=== PATIENT | male | born 1950 | race Two or more races ===

== ENCOUNTER 2016-06-22 09:36 | Emergency (ER) | payer MEDICARE, OTHER ==
[~2016-06-22] VITALS: Ht 167.6 cm; Wt 102.1 kg
[~2016-06-22 09:36] MED LIST: ALBUTEROL SULF8.5 GM INH; ASPIR 8181 MG PO; CARVEDILOL3.125 MG PO; DEXILANT30 MG PO; FUROSEMIDE40 MG PO; GABAPENTIN300 MG PO; LANOXIN125 MCG PO; LEXAPRO10 MG PO; POTASSIUM CHLO10 ME2 PO; SIMVASTATIN40 MG PO; SPIRONOLACTONE25 MG PO; VENTOLIN HFA18 GM INH; VICODIN ES 7.51 EACH PO; ZESTRIL20 MG PO; ZOLPIDEM TARTRAT5 MG PO; diabetes med PO
[2016-06-22] MEDS ORDERED: Aspirin Baby 81mg ORAL ONE (10:00)
[2016-06-22 10:03] VITALS: BP 122/66
[2016-06-22 10:26] LABS: BASOPHILS % (AUTO) 0.8 % (0.0-2.0); LYMPHOCYTES % (AUTO) 14.1 % (20.0-45.0); MEAN CORPUSCULAR HEMOGLOBIN 27.2 PG (27.0-31.0); MEAN CORPUSCULAR HGB CONC 30.8 G/DL (32.0-36.0); MEAN CORPUSCULAR VOLUME 88 FL (80-99); MEAN PLATELET VOLUME 6.6 FL (6.5-10.1); MONOCYTES % (AUTO) 8.9 % (1.0-10.0); NEUTROPHILS % (AUTO) 74.2 % (45.0-75.0); PLATELET COUNT 355 K/UL (150-450); RED BLOOD COUNT 5.55 M/UL (4.70-6.10); RED CELL DISTRIBUTION WIDTH 14.1 % (11.6-14.8)
[2016-06-22 10:42] LABS: ALANINE AMINOTRANSFERASE 18 U/L (3-41); ALBUMIN/GLOBULIN RATIO 1.4 (1.0-2.7); ANION GAP 15 (5-15); ASPARTATE AMINO TRANSFERASE 23 U/L (5-40); CALCIUM 9.3 mg/dL (8.6-10.2); CARBON DIOXIDE 26 mEQ/L (20-30); CHLORIDE 95 mEQ/L (98-107); CREATININE 0.9 mg/dL (0.7-1.2); GLOMERULAR FILTRATION RATE > 60 mL/min (>60); HEMOLYSIS 39; POTASSIUM 4.1 mEQ/L (3.4-4.9); SODIUM 136 mEQ/L (135-145); TOTAL PROTEIN 7.2 g/dL (6.6-8.7); TROPONIN I < 0.30 ng/mL (<=0.30)
[2016-06-22] MEDS ORDERED: Oxycodone/Acetaminophen 5-325 ORAL ONE (10:45)
[2016-06-22 11:25] LABS: CKMB 1.9 ng/mL (< 6.7)
--- NOTE | 2016-06-22 11:39 | Emergency Room Report ---
History of Present Illness General Chief Complaint: Chest Pain Source: Patient Present Illness HPI Patient states that he was walking his dog 2 days ago and he fell because the dog pulled on his right arm. He states that the arm is bothering him and tell the past 24 hours. He states that he has severe pain with movement of his elbow. He also complains of chest pain that occurs at the same time as the pain in the right arm when he moves it. The chest pain is not spontaneous and only occurs with the right arm. He denies cough or congestion. He denies shortness of breath. He denies abdominal pain. He denies nausea or vomiting. He denies tingling or numbness. He denies weakness. He denies fever or chills. He has no other complaints. Allergies: Coded Allergies: No Known Allergies (Verified , 06/29/10) Patient History Past Medical History: see triage record, old chart reviewed, DM, HTN, [place], CAD, CHF, GERD Past Surgical History: pacemaker Social History: Denies: alcohol use, drug use, smoking Reviewed Nursing Documentation: PMH: Agreed, PSxH: Agreed Nursing Documentation-PMH Hx Cardiac Problems: Yes Hx Hypertension: Yes Hx Pacemaker: Yes Hx Asthma: Yes Hx COPD: Yes Hx Diabetes: Yes Hx Cancer: No Hx Gastrointestinal Problems: Yes Hx Neurological Problems: No Review of Systems All Other Systems: negative except mentioned in HPI Physical Exam Vital Signs Date Time Temp Pulse Resp B/P Pulse Ox O2 Delivery O2 Flow Rate FiO2 06/22/16 09:41 98.1 84 20 122/66 92 Room Air Sp02 EP Interpretation: reviewed, normal General Appearance: no apparent distress, alert, GCS 15, non-toxic Head: normocephalic, atraumatic Eyes: bilateral eye PERRL, bilateral eye normal inspection ENT: hearing grossly normal, normal pharynx, no angioedema, normal voice Neck: full range of motion, supple/symm/no masses Respiratory: chest non-tender, lungs clear, normal breath sounds, speaking full sentences Cardiovascular #1: regular rate, rhythm, no edema Gastrointestinal: normal bowel sounds, non tender, soft, non-distended, no guarding, no rebound Rectal: deferred Musculoskeletal: back normal, gait/station normal, normal range of motion, other - +Pain with ROM of R. elbow. TTP along lateral elbow Neurologic: alert, oriented x3, responsive, motor strength/tone normal, sensory intact, speech normal Psychiatric: judgement/insight normal, memory normal, mood/affect normal, no suicidal/homicidal ideation Skin: normal color, no rash, warm/dry, well hydrated Lymphatic: no adenopathy Procedures Splinting Splinting : Consent: Verbal Location: R. elbow Hand-Made Type: plaster Splint: posterior long Pre-Proc Neuro Vasc Exam: normal Post-Proc Neuro Vasc Exam: normal Patient Tolerated: Well Complications: None Medical Decision Making Diagnostic Impression: Primary Impression: Radial head fracture, closed Additional Impression: Elbow fracture, right ER Course This patient presents with a nondisplaced radial head fracture of the right elbow. This is the source of the patient's pain. The patient had also complained of chest pain, however appeared to be in conjunction with movement of the right elbow and right arm. However, given the patient's history of coronary artery disease and congestive heart failure, although, I have low suspicion I did obtain basic labs to include troponin which were unremarkable. This workup is reassuring. The patient was placed in a long-arm splint and instructed to followup closely with orthopedics. At this time I did not identify an emergency medical condition. Patient is given close return precautions and followup instructions. Labs Test 06/22/16 10:00 06/22/16 10:10 White Blood Count 15.0 K/UL (4.8-10.8) Red Blood Count 5.55 M/UL (4.70-6.10) Hemoglobin 15.1 G/DL (14.2-18.0) Hematocrit 49.0 % (42.0-52.0) Mean Corpuscular Volume 88 FL (80-99) Mean Corpuscular Hemoglobin 27.2 PG (27.0-31.0) Mean Corpuscular Hemoglobin Concent 30.8 G/DL (32.0-36.0) Red Cell Distribution Width 14.1 % (11.6-14.8) Platelet Count 355 K/UL (150-450) Mean Platelet Volume 6.6 FL (6.5-10.1) Neutrophils (%) (Auto) 74.2 % (45.0-75.0) Lymphocytes (%) (Auto) 14.1 % (20.0-45.0) Monocytes (%) (Auto) 8.9 % (1.0-10.0) Eosinophils (%) (Auto) 2.0 % (0.0-3.0) Basophils (%) (Auto) 0.8 % (0.0-2.0) Sodium Level 136 mEQ/L (135-145) Potassium Level 4.1 mEQ/L (3.4-4.9) Chloride Level 95 mEQ/L (98-107) Carbon Dioxide Level 26 mEQ/L (20-30) Anion Gap 15 (5-15) Blood Urea Nitrogen 14 mg/dL (7-23) Creatinine 0.9 mg/dL (0.7-1.2) Estimat Glomerular Filtration Rate > 60 mL/min (>60) Glucose Level 151 mg/dL (74-106) Calcium Level 9.3 mg/dL (8.6-10.2) Total Bilirubin 0.4 mg/dL (0.0-1.2) Aspartate Amino Transf (AST/SGOT) 23 U/L (5-40) Alanine Aminotransferase (ALT/SGPT) 18 U/L (3-41) Alkaline Phosphatase 86 U/L (40-129) Total Creatine Kinase 137 U/L (38-174) Creatine Kinase MB 1.9 ng/mL (< 6.7) Creatine Kinase MB Relative Index 1.3 Troponin I < 0.30 ng/mL (<=0.30) Total Protein 7.2 g/dL (6.6-8.7) Albumin 4.3 g/dL (3.5-5.2) Globulin 2.9 g/dL Albumin/Globulin Ratio 1.4 (1.0-2.7) EKG Diagnostic Results Rate: normal Rhythm: NSR ST Segments: no acute changes Other Impression Intraventricular block similar to comparison 11/2015 Rhythm Strip Diag. Results EP Interpretation: yes Rate: 80's Rhythm: NSR, no PVC's, no ectopy Chest X-Ray Diagnostic Results EP Interpretation: Yes Findings: no consolidation, no effusion, no pneumothorax, no acute cardiopulmonary disease Number of Views: 1 Last Vital Signs Date Time Temp Pulse Resp B/P Pulse Ox O2 Delivery O2 Flow Rate FiO2 06/22/16 10:03 84 20 Room Air 06/22/16 10:03 122/66 92 06/22/16 09:41 98.1 Status: improved Disposition: HOME, SELF-CARE Condition: Improved Referrals: Les Lee MD (PCP) RADHA RODRIGUEZ D.O. Jun 22, 2016 11:39
--- NOTE | 2016-06-22 11:58 | Diagnostic Imaging Report ---
Indications: TRAUMA, pain, status post fall Technique: Two views of the right forearm Comparison: None Findings: There is a nondisplaced fracture of the radial head/neck. No shaft fracture demonstrated. No radiopaque foreign body. Impression: Positive for radial head/neck junction fracture Findings discussed by phone with Dr. Thompson in emergency room at time of interpretation
--- NOTE | 2016-06-22 12:22 | Diagnostic Imaging Report ---
Indications:TRAUMA Technique: Three or 4 views of the elbow Comparison: None Findings:There is a joint effusion, manifested by elevation of anterior and posterior fat pads. Findings are suspicious for a nondisplaced fracture of the radial head/neck junction. No other acute fractures. No dislocations. Impression:Suspicious for nondisplaced radial head/neck junction fracture Findings discussed by phone with Dr. Thompson in the emergency room at time of interpretation
[2016-06-22] MEDS ORDERED: VICODIN ES 7.51 EAC1 ORAL (12:45)
[2016-06-22 12:47] VITALS: BP 103/55
--- NOTE | 2016-06-22 16:26 | Diagnostic Imaging Report ---
Indication: Chest pain Technique: One view of the chest Comparison: none Findings: The diaphragm is elevated. The heart is enlarged. Lungs and pleural spaces are clear. There is a left chest biventricular AICD Impression: No acute process Cardio megaly Elevated right hemidiaphragm AICD
--- NOTE | 2016-06-23 15:40 | Cardiology Report ---
APPROVED REPORT EKG Measurement Heart [id number] Sinus rhythm with paced beats. LBBB. Abnormal ECG
== END 2016-06-22 13:15 | disposition home or self-care (01) ==
LOC: EMR 09:53
DX: S52.121A Displaced fracture of head of right radius, initial encounter for closed fracture (principal); R07.9 Chest pain, unspecified; I51.7 Cardiomegaly; Z95.810 Presence of automatic (implantable) cardiac defibrillator; W18.30XA Fall on same level, unspecified, initial encounter; Y93.K1 Activity, walking an animal; Y92.9 Unspecified place or not applicable; I10 Essential (primary) hypertension; J45.909 Unspecified asthma, uncomplicated; J44.9 Chronic obstructive pulmonary disease, unspecified; E11.9 Type 2 diabetes mellitus without complications; I25.2 Old myocardial infarction; I25.10 Atherosclerotic heart disease of native coronary artery without angina pectoris; I50.9 Heart failure, unspecified; K21.9 Gastro-esophageal reflux disease without esophagitis
CPT/HCPCS: 29105; 29240; 36415; 71010; 80053; 82550; 82553; 84484; 85025; 93005; 99284

== ENCOUNTER 2016-09-19 22:26 | Inpatient (IN) | payer MEDICARE, OTHER ==
[~2016-09-19] VITALS: Ht 167.6 cm; Wt 106.6 kg
[~2016-09-19 22:26] MED LIST changes: +VICODIN ES 7.51 EAC1 ORAL
[2016-09-19 22:45] VITALS: BP 120/58
--- NOTE | 2016-09-19 22:45 | Emergency Room Report ---
History of Present Illness General Chief Complaint: Chest Pain Source: Patient Present Illness HPI Patient is a 66-year-old male presented after increased right-sided chest pain. Patient reported having increased pain with movement to his right shoulder. Pain is constant for the past 3 days. Patient prior history of cardiac disease. He had multiple surgeries in the past. Patient previous a pacemaker placement. He had not been vomiting. Patient was noted to have prior pain to his right shoulder. He had taken Kamas without relief. He denied any exertional component. Allergies: Coded Allergies: No Known Allergies (Verified , 06/29/10) Patient History Past Medical History: see triage record Reviewed Nursing Documentation: PMH: Agreed, PSxH: Agreed Nursing Documentation-PMH Past Medical History: No History, Except For Hx Cardiac Problems: Yes Hx Hypertension: Yes Hx Pacemaker: Yes Hx Asthma: Yes Hx COPD: Yes Hx Diabetes: Yes Hx Cancer: No Hx Gastrointestinal Problems: Yes Hx Neurological Problems: No Review of Systems All Other Systems: negative except mentioned in HPI Physical Exam Vital Signs Date Time Temp Pulse Resp B/P Pulse Ox O2 Delivery O2 Flow Rate FiO2 09/19/16 22:31 97.3 83 20 120/58 100 Sp02 EP Interpretation: reviewed, normal General Appearance: normal inspection, well appearing, no apparent distress, alert, GCS 15, non-toxic Head: atraumatic ENT: normal ENT inspection, hearing grossly normal, normal voice Neck: normal inspection, full range of motion, supple, no bony tend Respiratory: normal inspection, lungs clear, normal breath sounds, no respiratory distress, no retraction, no wheezing Cardiovascular #1: regular rate, rhythm, no edema Gastrointestinal: normal inspection, normal bowel sounds, non tender, soft, no guarding, no hernia Genitourinary: no CVA tenderness Musculoskeletal: normal inspection, back normal, normal range of motion Neurologic: normal inspection, alert, responsive, speech normal Psychiatric: normal inspection, judgement/insight normal, mood/affect normal Skin: normal inspection, normal color, no rash Medical Decision Making Diagnostic Impression: Primary Impression: Chest pain Additional Impression: Diabetes mellitus ER Course Patient presented for chest pain. Differential diagnosis included but was not limited to acute coronary syndrome, pulmonary embolism, pneumonia, aortic dissection, shingles, pneumothorax, aortic dissection, esophageal rupture, pericarditis. Because of complexity of patient's case laboratory testing and imaging studies were ordered.Laboratory studies showed elevated white blood count. Patient noted have elevation of the BNP. A chest x-ray one view interpreted by me showed elevation of the right diaphragm without evident infiltrate. Patient was noted to have multiple surgical scars. Patient appeared to be somewhat tender to the right shoulder however given the patient' s elevated white blood count the patient will be admitted for further evaluation and treatment. Dr. Les Lee was contacted for inpatient management Labs Test 09/19/16 22:37 White Blood Count 13.4 K/UL (4.8-10.8) Red Blood Count 5.05 M/UL (4.70-6.10) Hemoglobin 14.9 G/DL (14.2-18.0) Hematocrit 45.5 % (42.0-52.0) Mean Corpuscular Volume 90 FL (80-99) Mean Corpuscular Hemoglobin 29.5 PG (27.0-31.0) Mean Corpuscular Hemoglobin Concent 32.7 G/DL (32.0-36.0) Red Cell Distribution Width 13.2 % (11.6-14.8) Platelet Count 345 K/UL (150-450) Mean Platelet Volume 6.5 FL (6.5-10.1) Neutrophils (%) (Auto) 67.1 % (45.0-75.0) Lymphocytes (%) (Auto) 24.2 % (20.0-45.0) Monocytes (%) (Auto) 4.9 % (1.0-10.0) Eosinophils (%) (Auto) 3.2 % (0.0-3.0) Basophils (%) (Auto) 0.5 % (0.0-2.0) Prothrombin Time 9.9 SEC (9.30-11.50) Prothromb Time International Ratio 0.9 (0.9-1.1) Activated Partial Thromboplast Time 25 SEC (23-33) Sodium Level 139 mEQ/L (135-145) Potassium Level 3.8 mEQ/L (3.4-4.9) Chloride Level 100 mEQ/L (98-107) Carbon Dioxide Level 27 mEQ/L (20-30) Anion Gap 12 (5-15) Blood Urea Nitrogen 14 mg/dL (7-23) Creatinine 0.9 mg/dL (0.7-1.2) Estimat Glomerular Filtration Rate > 60 mL/min (>60) Glucose Level 198 mg/dL (74-106) Calcium Level 9.9 mg/dL (8.6-10.2) Total Bilirubin < 0.2 mg/dL (0.0-1.2) Aspartate Amino Transf (AST/SGOT) 18 U/L (5-40) Alanine Aminotransferase (ALT/SGPT) 18 U/L (3-41) Alkaline Phosphatase 98 U/L (40-129) Total Creatine Kinase 91 U/L (38-174) Creatine Kinase MB 1.7 ng/mL (< 6.7) Creatine Kinase MB Relative Index 1.8 Troponin I < 0.30 ng/mL (<=0.30) Pro-B-Type Natriuretic Peptide 578 pg/mL (0-125) Total Protein 7.2 g/dL (6.6-8.7) Albumin 4.2 g/dL (3.5-5.2) Globulin 3.0 g/dL Albumin/Globulin Ratio 1.4 (1.0-2.7) Digoxin Level 0.4 ng/mL (0.5-2.0) EKG Diagnostic Results Rate: tachycardiac ST Segments: no acute changes Rhythm Strip Diag. Results EP Interpretation: yes Rhythm: NSR, no PVC's, no ectopy Last Vital Signs Date Time Temp Pulse Resp B/P Pulse Ox O2 Delivery O2 Flow Rate FiO2 09/19/16 22:31 97.3 83 20 120/58 100 Status: unchanged Disposition: ADMITTED INPATIENT Condition: Serious Anam Doan Sep 19, 2016 22:45
[2016-09-19 22:58] LABS: BASOPHILS % (AUTO) 0.5 % (0.0-2.0); EOSINOPHILS % (AUTO) 3.2 % (0.0-3.0); LYMPHOCYTES % (AUTO) 24.2 % (20.0-45.0); MEAN CORPUSCULAR HEMOGLOBIN 29.5 PG (27.0-31.0); MEAN CORPUSCULAR HGB CONC 32.7 G/DL (32.0-36.0); MEAN CORPUSCULAR VOLUME 90 FL (80-99); MEAN PLATELET VOLUME 6.5 FL (6.5-10.1); MONOCYTES % (AUTO) 4.9 % (1.0-10.0); NEUTROPHILS % (AUTO) 67.1 % (45.0-75.0); PLATELET COUNT 345 K/UL (150-450); RED BLOOD COUNT 5.05 M/UL (4.70-6.10); RED CELL DISTRIBUTION WIDTH 13.2 % (11.6-14.8); WHITE BLOOD COUNT 13.4 K/UL (4.8-10.8)
[2016-09-19] MEDS ORDERED: Famotidine 20 MG/ 2ML VIAL IVP ONE (23:00)
[2016-09-19] MEDS ORDERED: Morphine Sulfate 4mg/ml Inj IVP ONE (23:00)
[2016-09-19 23:04] LABS: INR 0.9 (0.9-1.1); PROTHROMBIN TIME 9.9 SEC (9.30-11.50)
[2016-09-19 23:18] LABS: TROPONIN I < 0.30 ng/mL (<=0.30)
[2016-09-19 23:21] LABS: ALANINE AMINOTRANSFERASE 18 U/L (3-41); ALBUMIN/GLOBULIN RATIO 1.4 (1.0-2.7); ANION GAP 12 (5-15); ASPARTATE AMINO TRANSFERASE 18 U/L (5-40); CALCIUM 9.9 mg/dL (8.6-10.2); CARBON DIOXIDE 27 mEQ/L (20-30); CHLORIDE 100 mEQ/L (98-107); CREATININE 0.9 mg/dL (0.7-1.2); GLOMERULAR FILTRATION RATE > 60 mL/min (>60); HEMOLYSIS 7; POTASSIUM 3.8 mEQ/L (3.4-4.9); SODIUM 139 mEQ/L (135-145); TOTAL PROTEIN 7.2 g/dL (6.6-8.7)
[2016-09-19 23:32] LABS: CKMB 1.7 ng/mL (< 6.7); DIGOXIN 0.4 ng/mL (0.5-2.0)
[2016-09-19 23:52] VITALS: BP 104/54
[2016-09-19] MEDS ORDERED: INVOKANA300 MG PO (23:52)
[2016-09-20] VITALS (8 sets, daily range): BP systolic 99–136; BP diastolic 54–74
[2016-09-20] MEDS ORDERED: Miralax 17gm pkt ORAL PRN (07:15)
[2016-09-20] MEDS ORDERED: Diltiazem 25mg/5ml IV PRN (07:15)
[2016-09-20] MEDS ORDERED: Ketorolac 30mg Inj IV PRN (07:15)
[2016-09-20] MEDS ORDERED: Enalaprilat 2.5mg/2ml Inj IV PRN (07:15)
[2016-09-20] MEDS ORDERED: Nitroglycerin Subl 0.4mg tab (Bottle Of 25) SL PRN (07:15)
[2016-09-20] MEDS ORDERED: DuoNeb 0.5-3(2.5)mg/3ml neb HHN PRN (07:15)
[2016-09-20 07:50] LABS: BASOPHILS % (AUTO) 1.1 % (0.0-2.0); EOSINOPHILS % (AUTO) 3.2 % (0.0-3.0); MEAN CORPUSCULAR HEMOGLOBIN 29.3 PG (27.0-31.0); MEAN CORPUSCULAR HGB CONC 31.9 G/DL (32.0-36.0); MEAN CORPUSCULAR VOLUME 92 FL (80-99); MEAN PLATELET VOLUME 7.2 FL (6.5-10.1); MONOCYTES % (AUTO) 9.7 % (1.0-10.0); PLATELET COUNT 315 K/UL (150-450); RED BLOOD COUNT 4.96 M/UL (4.70-6.10); RED CELL DISTRIBUTION WIDTH 13.2 % (11.6-14.8); WHITE BLOOD COUNT 12.3 K/UL (4.8-10.8)
[2016-09-20 08:06] LABS: TROPONIN I < 0.30 ng/mL (<=0.30)
[2016-09-20 08:33] LABS: ALANINE AMINOTRANSFERASE 16 U/L (3-41); ALBUMIN/GLOBULIN RATIO 1.8 (1.0-2.7); ANION GAP 11 (5-15); ASPARTATE AMINO TRANSFERASE 18 U/L (5-40); CALCIUM 9.9 mg/dL (8.6-10.2); CARBON DIOXIDE 28 mEQ/L (20-30); CHLORIDE 101 mEQ/L (98-107); CREATININE 1.2 mg/dL (0.7-1.2); GLOMERULAR FILTRATION RATE > 60 mL/min (>60); HEMOLYSIS 13; POTASSIUM 4.7 mEQ/L (3.4-4.9); SODIUM 140 mEQ/L (135-145); TOTAL PROTEIN 6.6 g/dL (6.6-8.7)
[2016-09-20] MEDS: Aspirin Baby 81mg ORAL SCH (08:44)
[2016-09-20] MEDS: Morphine Sulfate 2mg/ml Inj IVP PRN (08:45)
[2016-09-20] MEDS: Lisinopril 20mg tab ORAL SCH (08:45)
[2016-09-20] MEDS: Heparin 5000 units/ml inj SUBQ SCH ×2 (08:47→22:01)
[2016-09-20] MEDS: Digoxin 0.125mg tab ORAL SCH (10:00)
--- NOTE | 2016-09-20 11:12 | Consultation ---
History of Present Illness General Date patient seen: Sep 20, 2016 Chief Complaint: Chest Pain Referring physician: Dr. anglin Reason for Consultation: chest pain Present Illness HPI 66-year-old male with hx of pace maker, obesity, DM, presented after increased right-sided chest pain. Patient reported having increased pain with movement to his right shoulder. Pain is constant for the past 3 days. He also complaining of abdominal pain. He had not been vomiting. C/O of neck pain radiating to right shoulder. . Allergies: Coded Allergies: No Known Allergies (Verified , 06/29/10) Medication History Scheduled Albuterol Sulfate* (Albuterol Sulfate Mdi*), 2 PUFF INH HS, (Reported) Aspirin* (Aspir 81*), 81 MG PO DAILY, (Reported) Carvedilol* (Carvedilol*), 3.125 MG PO Q12HR, (Reported) Dexlansoprazole (Dexilant), 60 MG PO DAILY, (Reported) Digoxin* (Lanoxin*), 125 MCG PO DAILY, (Reported) Escitalopram Oxalate* (Lexapro*), 10 MG PO DAILY, (Reported) Furosemide* (Lasix*), 40 MG PO DAILY, (Reported) Lisinopril* (Zestril*), 20 MG PO DAILY, (Reported) Potassium Chloride (Potassium Chloride), 10 MEQ PO DAILY, (Reported) Simvastatin (Zocor), 40 MG PO QHS, (Reported) Spironolactone* (Aldactone*), 25 MG PO DAILY, (Reported) [diabetes med], Unknown Dose PO BID, (Reported) Scheduled PRN Gabapentin* (Gabapentin*), 300 MG PO TID PRN, (Reported) Hydrocodone Bit/Acetaminophen 7.5-300 Mg Tabl (Vicodin Es 7.5-300 Mg Tablet), 1 TAB ORAL Q4H PRN for For Pain Hydrocodone/Acetaminophen 7.5-750 (Vicodin Es 7.5-750), 1 TAB PO Q8H PRN, ( Reported) Zolpidem Tartrate* (Zolpidem Tartrate*), 5 MG PO BEDTIME PRN, (Reported) Miscellaneous Medications Canagliflozin (Invokana), 300 MG PO, (Reported) Patient History Healthcare decision maker Resuscitation status Full Code Advanced Directive on File Past Medical/Surgical History Past Medical/Surgical History: (1) Diabetes mellitus (2) COPD (chronic obstructive pulmonary disease) (3) Depression Review of Systems All Other Systems: negative except mentioned in HPI Physical Exam General Appearance: WD/WN, overweight, morbidly obese Lines, tubes and drains: peripheral HEENT: normocephalic, anicteric Respiratory/Chest: chest wall non-tender, lungs clear Cardiovascular/Chest: normal peripheral pulses, normal rate Abdomen: normal bowel sounds, non tender Genitourinary/Rectal: normal genital exam, normal rectal exam Extremities: normal range of motion, non-tender Skin Exam: normal pigmentation Last 24 Hour Vital Signs Date Time Temp Pulse Resp B/P Pulse Ox O2 Delivery O2 Flow Rate FiO2 09/20/16 10:00 65 09/20/16 08:45 127/64 09/20/16 08:45 70 127/64 09/20/16 07:42 97.7 70 20 127/64 95 Room Air 09/20/16 04:00 64 09/20/16 04:00 97.6 61 19 99/62 95 Room Air 09/20/16 02:45 96.4 73 20 114/55 97 Room Air 09/20/16 02:27 97.3 75 15 108/54 94 Room Air 09/20/16 01:48 97.3 75 15 108/54 94 Room Air 09/19/16 23:52 97.3 80 21 104/54 94 Room Air 09/19/16 22:45 77 19 Room Air 09/19/16 22:45 97.3 79 19 120/58 95 Room Air 09/19/16 22:31 97.3 83 20 120/58 100 Intake and Output 09/19/16 09/20/16 19:00 07:00 Intake Total 0 ml Output Total 0 ml Balance 0 ml Other 0 ml Output Urine Total 0 ml Laboratory Tests Test 09/19/16 22:37 09/20/16 07:30 White Blood Count 13.4 K/UL (4.8-10.8) H 12.3 K/UL (4.8-10.8) H Red Blood Count 5.05 M/UL (4.70-6.10) 4.96 M/UL (4.70-6.10) Hemoglobin 14.9 G/DL (14.2-18.0) 14.5 G/DL (14.2-18.0) Hematocrit 45.5 % (42.0-52.0) 45.5 % (42.0-52.0) Mean Corpuscular Volume 90 FL (80-99) 92 FL (80-99) Mean Corpuscular Hemoglobin 29.5 PG (27.0-31.0) 29.3 PG (27.0-31.0) Mean Corpuscular Hemoglobin Concent 32.7 G/DL (32.0-36.0) 31.9 G/DL (32.0-36.0) L Red Cell Distribution Width 13.2 % (11.6-14.8) 13.2 % (11.6-14.8) Platelet Count 345 K/UL (150-450) 315 K/UL (150-450) Mean Platelet Volume 6.5 FL (6.5-10.1) 7.2 FL (6.5-10.1) Neutrophils (%) (Auto) 67.1 % (45.0-75.0) 65.0 % (45.0-75.0) Lymphocytes (%) (Auto) 24.2 % (20.0-45.0) 21.0 % (20.0-45.0) Monocytes (%) (Auto) 4.9 % (1.0-10.0) 9.7 % (1.0-10.0) Eosinophils (%) (Auto) 3.2 % (0.0-3.0) H 3.2 % (0.0-3.0) H Basophils (%) (Auto) 0.5 % (0.0-2.0) 1.1 % (0.0-2.0) Prothrombin Time 9.9 SEC (9.30-11.50) Prothromb Time International Ratio 0.9 (0.9-1.1) Activated Partial Thromboplast Time 25 SEC (23-33) Sodium Level 139 mEQ/L (135-145) 140 mEQ/L (135-145) Potassium Level 3.8 mEQ/L (3.4-4.9) 4.7 mEQ/L (3.4-4.9) Chloride Level 100 mEQ/L (98-107) 101 mEQ/L (98-107) Carbon Dioxide Level 27 mEQ/L (20-30) 28 mEQ/L (20-30) Anion Gap 12 (5-15) 11 (5-15) Blood Urea Nitrogen 14 mg/dL (7-23) 22 mg/dL (7-23) Creatinine 0.9 mg/dL (0.7-1.2) 1.2 mg/dL (0.7-1.2) Estimat Glomerular Filtration Rate > 60 mL/min (>60) > 60 mL/min (>60) Glucose Level 198 mg/dL (74-106) H 152 mg/dL (74-106) H Calcium Level 9.9 mg/dL (8.6-10.2) 9.9 mg/dL (8.6-10.2) Total Bilirubin < 0.2 mg/dL (0.0-1.2) 0.2 mg/dL (0.0-1.2) Aspartate Amino Transf (AST/SGOT) 18 U/L (5-40) 18 U/L (5-40) Alanine Aminotransferase (ALT/SGPT) 18 U/L (3-41) 16 U/L (3-41) Alkaline Phosphatase 98 U/L (40-129) 88 U/L (40-129) Total Creatine Kinase 91 U/L (38-174) Creatine Kinase MB 1.7 ng/mL (< 6.7) Creatine Kinase MB Relative Index 1.8 Troponin I < 0.30 ng/mL (<=0.30) < 0.30 ng/mL (<=0.30) Pro-B-Type Natriuretic Peptide 578 pg/mL (0-125) H Total Protein 7.2 g/dL (6.6-8.7) 6.6 g/dL (6.6-8.7) Albumin 4.2 g/dL (3.5-5.2) 4.3 g/dL (3.5-5.2) Globulin 3.0 g/dL 2.3 g/dL Albumin/Globulin Ratio 1.4 (1.0-2.7) 1.8 (1.0-2.7) Digoxin Level 0.4 ng/mL (0.5-2.0) L Height (Feet): 5 Height (Inches): 6.00 Weight (Pounds): 228 Medications Current Medications Medications (Trade) Dose Ordered Sig/Sandy Route PRN Reason Start Time Stop Time Status Last Admin Dose Admin Acetaminophen (Tylenol) 650 mg Q4H PRN ORAL FEVER 09/20/16 07:15 10/20/16 07:14 Albuterol/ Ipratropium (DuoNeb 0.5-3(2.5)mg/3ml) 3 ml Q4H PRN HHN Shortness of Breath 09/20/16 07:15 09/25/16 07:14 Aspirin (ASA) 162 mg DAILY ORAL 09/20/16 09:00 10/20/16 08:59 09/20/16 08:44 Carvedilol (Coreg) 3.125 mg Q12HR ORAL 09/20/16 09:00 10/20/16 08:59 09/20/16 08:45 Dextrose (Dextrose 50%) STAT PRN IV Hypoglycemia 09/20/16 02:00 10/20/16 01:59 Dextrose (Dextrose 50%) STAT PRN IV Hypoglycemia 09/20/16 11:00 10/20/16 10:59 UNV Digoxin (Lanoxin) 0.125 mg DAILY ORAL 09/20/16 09:30 10/20/16 09:29 09/20/16 10:00 Diltiazem HCl (Cardizem) 10 mg Q1H PRN IV heart rate more than 120, 09/20/16 07:15 10/20/16 07:14 Enalaprilat (Vasotec) 2.5 mg Q6H PRN IV sbp more than 160 09/20/16 07:15 10/20/16 07:14 Escitalopram Oxalate (Lexapro) 10 mg DAILY ORAL 09/20/16 09:00 10/20/16 08:59 09/20/16 10:00 Furosemide (Lasix) 40 mg DAILY ORAL 09/21/16 09:00 10/21/16 08:59 UNV Gabapentin (Neurontin) 300 mg TID ORAL 09/20/16 09:00 10/20/16 08:59 09/20/16 08:45 Heparin Sodium (Porcine) (Heparin 5000 units/ml) 5,000 units EVERY 12 HOURS SUBQ 09/20/16 09:00 10/20/16 08:59 09/20/16 08:47 Insulin Aspart (NovoLOG) BEFORE MEALS AND HS SUBQ 09/20/16 11:30 10/20/16 11:29 UNV Ketorolac Tromethamine (Toradol 30mg) 30 mg Q6H PRN IV moderate pain ( 4-6) 09/20/16 07:15 09/25/16 07:14 Lisinopril (Prinivil) 20 mg DAILY ORAL 09/20/16 09:00 10/20/16 08:59 09/20/16 08:45 Morphine Sulfate (Morphine Sulfate) 2 mg Q4H PRN IVP severe Pain (Pain Scale 7-10) 09/20/16 07:15 09/27/16 07:14 09/20/16 08:45 Nitroglycerin (Ntg) 0.4 mg Q5M PRN SL Prn Chest Pain 09/20/16 07:15 10/20/16 07:14 Ondansetron HCl (Zofran) 4 mg Q6H PRN IVP Nausea & Vomiting 09/20/16 07:15 10/20/16 07:14 Pantoprazole (Protonix) 40 mg DAILY ORAL 09/20/16 09:00 10/20/16 08:59 09/20/16 08:44 Polyethylene Glycol (Miralax) 17 gm DAILYPRN PRN ORAL Constipation 09/20/16 07:15 10/20/16 07:14 Spironolactone (Aldactone) 25 mg DAILY ORAL 09/21/16 09:00 10/21/16 08:59 UNV Assessment/Plan Problem List: (1) Chest pain ICD Codes: R07.9 - Chest pain, unspecified SNOMED: 83032252 (2) Neck pain ICD Codes: M54.2 - Cervicalgia SNOMED: 40617991 (3) Abdominal pain ICD Codes: R10.9 - Unspecified abdominal pain SNOMED: 36216517 (4) Pacemaker ICD Codes: Z95.0 - Presence of cardiac pacemaker SNOMED: 147396555, 337347788 (5) Leukocytosis ICD Codes: D72.829 - Elevated white blood cell count, unspecified SNOMED: 516040816, 346486546 (6) Diaphragm paralysis ICD Codes: J98.6 - Disorders of diaphragm SNOMED: 48312743 (7) Diabetes mellitus ICD Codes: E11.9 - Type 2 diabetes mellitus without complications SNOMED: 97925411 (8) COPD (chronic obstructive pulmonary disease) ICD Codes: J44.9 - COPD (chronic obstructive pulmonary disease) SNOMED: 22051903 Assessment/Plan CT of neck ( can't do MRI because of pacemaker) urine analysis to rule out UTI, b/o leukocytosis abdominal US Echo hold lasix for bp lower than 120 ( no apparent fluid overload) siding scale diabetic diet. HENRI RM Sep 20, 2016 11:12
--- NOTE | 2016-09-20 11:47 | Diagnostic Imaging Report ---
Indication: SOB Technique: One view of the chest Comparison: 06/22/2016 Findings: Right hemidiaphragm remains elevated. Lungs and pleural spaces are otherwise clear. The heart is borderline enlarged. There is a left chest biventricular AICD. Findings are unchanged Impression: No acute process. Findings as noted
[2016-09-20] MEDS: NovoLOG Insulin Flexpen SUBQ SCH ×3 (12:00→21:00)
--- NOTE | 2016-09-20 12:01 | Cardiology Report ---
APPROVED REPORT EKG Measurement Heart [id number] P34 [id number] AV sequential pacemaker Abnormal ECG
--- NOTE | 2016-09-20 12:13 | Cardiology Report ---
APPROVED REPORT EXAM: Two-dimensional and M-mode echocardiogram with Doppler and color Doppler. INDICATION LV function M-Mode DIMENSIONS IVSd1.2 (0.7-1.1cm)Left Atrium (MM)4.4 (1.6-4.0cm) LVDd5.6 (3.5-5.6cm)Aortic Root4.1 (2.0-3.7cm) PWd1.0 (0.7-1.1cm)Aortic Cusp Exc.1.5 (1.5-2.0cm) LVDs3.9 (2.5-4.0cm) PWs1.7 cm Other Information Technically limited study due to poor acoustical windows. Normal left ventricular chamber size, systolic function and wall motion to extent visualized. Left ventricular ejection fraction estimated to be 55 %. Study quality precludes accurate assessment of regional wall motion. Moderate left ventricular hypertrophy by 2-D. Anterior Echo-free space, may be due to pericardial fat or effusion. Left and right atrial sizes at upper limits of normal. Focal aortic valve sclerosis with adequate cusp excursion. Thickened mitral valve leaflets with normal excursion. Mitral annulus and aortic root calcification. Pulmonic valve not well visualized. Normal tricuspid valve structure. IVC at normal size with physiologic collapse. Pacemaker wire present in the right side chambers. A color flow and spectral Doppler study was performed and revealed: Trace mitral regurgitation. Mitral diastolic velocities suggest reduced left ventricular relaxation c/w mild LV diastolic dysfunction (Grade I ). Trace tricuspid regurgitation. Tricuspid systolic velocities suggests peak right ventricular systolic pressure of 26 mmHg.
--- NOTE | 2016-09-20 12:58 | Diagnostic Imaging Report ---
Indication: PAIN, cervical radiculopathy x4 days Technique: Spiral acquisitions obtained through the cervical spine. No IV contrast utilized. Multiplanar reconstructions were generated. Total dose length product 869 mGycm. CTDIvol(s) 39 mGy. Dose reduction achieved using automated exposure control Comparison: None Findings: There is convexity to the right on the coronal images, probably artifact of positioning. Bony alignment is otherwise normal. No acute fractures. No dislocations. Vertebral body heights are preserved. There is thickening and calcification of the posterior axial ligament. There is degenerative narrowing of the anterior atlantoaxial joint. At C2-3, no significant disc space narrowing, disc bulge or protrusion, spinal stenosis, or neural foraminal stenosis. There is mild degeneration of the left facet. At C3-4, no significant disc bulge or protrusion. There is minimal left neural foraminal stenosis due to facet degeneration. There is also mild facet degeneration on the right. The disc space is preserved. At C4-5, no significant disc bulge or protrusion or disc space narrowing. There is minimal right, mild to moderate left neural foraminal stenosis. There is bilateral facet degeneration, worse on the left. The disc space is preserved At C5-6, no significant disc bulge or protrusion or disc space narrowing. There are small posterior osteophytes which could impinge on the lateral recesses bilaterally, PT on the right There is mild to moderate bilateral neural foraminal stenosis. There is facet degeneration on the left. The disc space is preserved. At C6-7, there is degenerative disc space narrowing. No significant disc bulge or protrusion. There are posterior osteophytes which could impinge slightly on the lateral recesses. There is moderate to severe right, moderate left neural foraminal stenosis. There is bilateral facet degeneration. At C7-T1, no significant disc space narrowing, disc bulge or protrusion, spinal stenosis, or neural foramina stenosis The included extraspinal soft tissues are unremarkable. Impression: Degenerative changes, as detailed on a level by level basis above No acute bony trauma The CT scanner at [facility] is accredited by the [employer] and the scans are performed using protocols designed to limit radiation exposure to as low as reasonably achievable to attain images of sufficient resolution adequate for diagnostic evaluation.
--- NOTE | 2016-09-20 15:52 | Cardiac Electrophysiology PN ---
Subjective Subjective Patient seen and dictated. [id number] 1. Atypical chest pain.Ruled out for myocardial infarction. History of previous angioplasty. Reschedule Nuclear stress test. 2. Status post [employer] biventricular defibrillator implantation. Will reinterrogate. 3. Severe cardiomyopathy with EF only 20%. Resume Coreg 3.125 mg b.i.d., lisinopril 20 mg daily, Lasix 40 mg daily, Aldactone 50 mg daily and digoxin 0.125 mg daily. 4. Hyperlipidemia on Lipitor. 5. Coronary artery disease on aspirin and Coreg and Lipitor. 6. Type 2 diabetes. 7. Chronic obstructive pulmonary disease. DW RN Objective Last 24 Hour Vital Signs Date Time Temp Pulse Resp B/P Pulse Ox O2 Delivery O2 Flow Rate FiO2 09/20/16 15:29 97.1 68 20 116/61 94 Room Air 09/20/16 12:00 67 09/20/16 11:28 96.1 65 20 123/71 94 Room Air 09/20/16 10:00 65 09/20/16 08:45 127/64 09/20/16 08:45 70 127/64 09/20/16 08:00 77 09/20/16 07:42 97.7 70 20 127/64 95 Room Air 09/20/16 04:00 64 09/20/16 04:00 97.6 61 19 99/62 95 Room Air 09/20/16 02:45 96.4 73 20 114/55 97 Room Air 09/20/16 02:27 97.3 75 15 108/54 94 Room Air 09/20/16 01:48 97.3 75 15 108/54 94 Room Air 09/19/16 23:52 97.3 80 21 104/54 94 Room Air 09/19/16 22:45 77 19 Room Air 09/19/16 22:45 97.3 79 19 120/58 95 Room Air 09/19/16 22:31 97.3 83 20 120/58 100 Intake and Output 09/19/16 09/20/16 19:00 07:00 Intake Total 0 ml Output Total 0 ml Balance 0 ml Other 0 ml Output Urine Total 0 ml Laboratory Tests Test 09/19/16 22:37 09/20/16 07:30 White Blood Count 13.4 K/UL (4.8-10.8) H 12.3 K/UL (4.8-10.8) H Red Blood Count 5.05 M/UL (4.70-6.10) 4.96 M/UL (4.70-6.10) Hemoglobin 14.9 G/DL (14.2-18.0) 14.5 G/DL (14.2-18.0) Hematocrit 45.5 % (42.0-52.0) 45.5 % (42.0-52.0) Mean Corpuscular Volume 90 FL (80-99) 92 FL (80-99) Mean Corpuscular Hemoglobin 29.5 PG (27.0-31.0) 29.3 PG (27.0-31.0) Mean Corpuscular Hemoglobin Concent 32.7 G/DL (32.0-36.0) 31.9 G/DL (32.0-36.0) L Red Cell Distribution Width 13.2 % (11.6-14.8) 13.2 % (11.6-14.8) Platelet Count 345 K/UL (150-450) 315 K/UL (150-450) Mean Platelet Volume 6.5 FL (6.5-10.1) 7.2 FL (6.5-10.1) Neutrophils (%) (Auto) 67.1 % (45.0-75.0) 65.0 % (45.0-75.0) Lymphocytes (%) (Auto) 24.2 % (20.0-45.0) 21.0 % (20.0-45.0) Monocytes (%) (Auto) 4.9 % (1.0-10.0) 9.7 % (1.0-10.0) Eosinophils (%) (Auto) 3.2 % (0.0-3.0) H 3.2 % (0.0-3.0) H Basophils (%) (Auto) 0.5 % (0.0-2.0) 1.1 % (0.0-2.0) Prothrombin Time 9.9 SEC (9.30-11.50) Prothromb Time International Ratio 0.9 (0.9-1.1) Activated Partial Thromboplast Time 25 SEC (23-33) Sodium Level 139 mEQ/L (135-145) 140 mEQ/L (135-145) Potassium Level 3.8 mEQ/L (3.4-4.9) 4.7 mEQ/L (3.4-4.9) Chloride Level 100 mEQ/L (98-107) 101 mEQ/L (98-107) Carbon Dioxide Level 27 mEQ/L (20-30) 28 mEQ/L (20-30) Anion Gap 12 (5-15) 11 (5-15) Blood Urea Nitrogen 14 mg/dL (7-23) 22 mg/dL (7-23) Creatinine 0.9 mg/dL (0.7-1.2) 1.2 mg/dL (0.7-1.2) Estimat Glomerular Filtration Rate > 60 mL/min (>60) > 60 mL/min (>60) Glucose Level 198 mg/dL (74-106) H 152 mg/dL (74-106) H Calcium Level 9.9 mg/dL (8.6-10.2) 9.9 mg/dL (8.6-10.2) Total Bilirubin < 0.2 mg/dL (0.0-1.2) 0.2 mg/dL (0.0-1.2) Aspartate Amino Transf (AST/SGOT) 18 U/L (5-40) 18 U/L (5-40) Alanine Aminotransferase (ALT/SGPT) 18 U/L (3-41) 16 U/L (3-41) Alkaline Phosphatase 98 U/L (40-129) 88 U/L (40-129) Total Creatine Kinase 91 U/L (38-174) Creatine Kinase MB 1.7 ng/mL (< 6.7) Creatine Kinase MB Relative Index 1.8 Troponin I < 0.30 ng/mL (<=0.30) < 0.30 ng/mL (<=0.30) Pro-B-Type Natriuretic Peptide 578 pg/mL (0-125) H Total Protein 7.2 g/dL (6.6-8.7) 6.6 g/dL (6.6-8.7) Albumin 4.2 g/dL (3.5-5.2) 4.3 g/dL (3.5-5.2) Globulin 3.0 g/dL 2.3 g/dL Albumin/Globulin Ratio 1.4 (1.0-2.7) 1.8 (1.0-2.7) Digoxin Level 0.4 ng/mL (0.5-2.0) NITZA LAI Sep 20, 2016 15:52
--- NOTE | 2016-09-20 15:55 | History & Physical ---
History and Physical History & Physicial Dictated for Int Med-Dr Lee no. [id number]. MOLLY AGUILAR Sep 20, 2016 15:55
[2016-09-21] MEDS: Morphine Sulfate 2mg/ml Inj IVP PRN ×2 (00:41→15:37)
[2016-09-21 04:15] VITALS: BP 128/64
[2016-09-21] MEDS: NovoLOG Insulin Flexpen SUBQ SCH ×4 (06:26→20:32)
--- NOTE | 2016-09-21 06:30 | History and Physical Report ---
DATE OF ADMISSION: 09/20/2016 CHIEF COMPLAINT: The patient is a 66-year-old male, presents with chief complaint of chest pain. HISTORY OF PRESENT ILLNESS: It began three days prior to admission. The patient began to experience right-sided chest pain. Chest pain radiates to the right shoulder. The patient presented to [place] emergency room. An initial troponin level was negative. The patient was admitted for chest pain to rule out acute coronary syndrome. PAST MEDICAL HISTORY: Significant for 1. Type 2 diabetes. 2. Hypertension. 3. Hypercholesterolemia. 4. Chronic obstructive pulmonary disease. 5. Chronic low back pain. PAST SURGICAL HISTORY: Significant for pacemaker implantation in 2014 at [facility]. CURRENT MEDICATIONS: 1. Albuterol metered dose inhaler two puffs p.o. q.i.d. p.r.n. 2. Aspirin 81 mg one tablet p.o. daily. 3. Invokana 300 mg one tablet p.o. daily. 4. Coreg 3.125 mg one tablet p.o. twice daily. 5. Dexilant 60 mg one tablet p.o. daily. 6. Digoxin 0.125 mg one tablet p.o. daily. 7. Lexapro 10 mg one tablet p.o. daily. 8. Lasix 40 mg one tablet p.o. daily. 9. Gabapentin 300 mg one tablet p.o. three times daily. 10. [place] 7.5/300 p.r.n. 11. Lisinopril 20 mg one tablet p.o. daily. 12. Potassium chloride 10 mEq one tablet p.o. daily. 13. Zocor 40 mg one tablet p.o. nightly. 14. Spironolactone 25 mg one tablet p.o. daily. 15. Ambien 5 mg one tablet p.o. nightly. ALLERGIES: No known drug allergies. SOCIAL HISTORY: The patient is and lives with his . The patient is retired. The patient denies tobacco use having quit 20 years previously. The patient denies alcohol use. REVIEW OF SYSTEMS: Constitutional: The patient denies weight loss or weight gain. The patient denies fevers or chills. HEENT: The patient denies ear or throat pain. Cardiovascular: The patient complains of right-sided chest pain as above. The patient denies palpitations. Chest: The patient denies wheeze or shortness of breath. Abdomen: The patient denies nausea, vomiting, diarrhea or constipation. Genitourinary: The patient denies dysuria or increased frequency of urination. Neuromuscular: The patient denies seizures or generalized weakness. PHYSICAL EXAMINATION: VITAL SIGNS: Temperature 96.1, pulse 65, blood pressure 122/61, and respirations 20. GENERAL: The patient is well-developed, well-nourished, slightly obese male, in no apparent distress. HEENT: Eyes, pupils are equal and responsive to light and accommodation. Extraocular movements are intact. NECK: Supple without lymphadenopathy. CHEST: Lungs are clear to auscultation bilaterally without wheezes or rales. CARDIOVASCULAR: Regular rhythm and rate. S1 and S2 normal without murmurs, rubs, or gallops. ABDOMEN: Soft, nontender, and nondistended. Positive bowel sounds. No evidence of hepatosplenomegaly. Currently, no rebound or guarding noted. EXTREMITIES: Negative for clubbing, cyanosis, or edema. RECTAL: Refused. GENITAL: Refused. NEUROLOGIC: Cranial nerves II through XII are grossly intact without focal deficits. Motor strength is 5/5 bilaterally. Deep tendon reflexes are 2+ plantar. LABORATORY STUDIES: WBC 13.4, hemoglobin 14.9, hematocrit 45.5, and platelets 345,000. Sodium 139, potassium 3.8, chloride 100, CO2 27, BUN 14, creatinine 0.9, and glucose 198. ASSESSMENT: This is a 66-year-old male with: 1. Chest pain. 2. Right shoulder pain. 3. Diabetes, type 2. 4. Hypertension. 5. Hypercholesterolemia. 6. Chronic obstructive pulmonary disease. 7. Chronic low back pain. TREATMENT: 1. Chest pain/right shoulder pain. This is probably noncardiac in nature. A Cardiology consultation was obtained with Dr. Will Kern. Serial troponin levels will be performed. We will follow recommendations of Cardiology. The patient does have a history of pacemaker implantation. 2. Diabetes type 2. Continue Invokana as above. A regular insulin sliding scale has been instituted. 3. Hypertension. Continue Coreg and lisinopril as above. 4. Hypercholesterolemia. Continue Lipitor as above. 5. Chronic obstructive pulmonary disease. A Pulmonary consultation was obtained with Dr. Autumn Frost. 6. Chronic low back pain. Kevin Flores M.D. DR: LÁZARO JOB#: [id number] CC:
--- NOTE | 2016-09-21 07:16 | History and Physical Report ---
DATE OF ADMISSION: 09/20/2016 NOTE: DICTATION ABRUPTLY ENDED CHIEF COMPLAINT: The patient is a 66-year-old male, who presents with chief complaint of chest pain. HISTORY OF PRESENT ILLNESS: Began on 09/19/2016. The patient began to experience right-sided chest pain. Chest pain radiated to his right shoulder. The patient states the pain started approximately three days ago. The patient states that it is worse over the last couple of days. The patient presents to [place] emergency room. On admission, troponin level was negative. The patient was admitted for chest pain to rule out acute coronary syndrome. PAST MEDICAL HISTORY: REVIEW OF SYSTEMS: Constitutional: The patient denies weight loss or weight gain. The patient denies fevers or chills. HEENT: The patient denies ear or throat pain. . Cardiovascular: The patient complains of chest pain as above. The patient denies palpitation. Chest: The patient denies wheeze or shortness of breath. Abdomen: The patient denies nausea, vomiting, diarrhea, or constipation. Genitourinary: The patient denies dysuria or increased frequency of urination. Neuromuscular: The patient denies seizures or generalized weakness. Kevin Flores M.D. DR: PRABHAKAR JOB#: [id number] CC:
[2016-09-21 07:30] LABS: ANION GAP 10 (5-15); CALCIUM 9.3 mg/dL (8.6-10.2); CARBON DIOXIDE 29 mEQ/L (20-30); CHLORIDE 100 mEQ/L (98-107); CREATININE 0.7 mg/dL (0.7-1.2); GLOMERULAR FILTRATION RATE > 60 mL/min (>60); HEMOLYSIS 3; POTASSIUM 4.3 mEQ/L (3.4-4.9); SODIUM 139 mEQ/L (135-145)
--- NOTE | 2016-09-21 07:45 | Consultation ---
DATE OF CONSULTATION: 09/20/2016 CARDIOLOGY CONSULTATION CONSULTING PHYSICIAN: Will Kern M.D. REFERRING PHYSICIAN: Les Lee M.D. REASON FOR CONSULTATION: Chest pain. The patient has history of congestive heart failure and defibrillator. HISTORY OF PRESENT ILLNESS: The patient is a 66-year-old gentleman with history of hypertension and severe cardiomyopathy, ejection fraction of 20% as well as history of [employer]io biventricular defibrillator implantation. The patient also has morbid obesity and diabetes, who presents to the emergency room with increasing right-sided chest pain with radiation to the right shoulder. The pain has been constant for the last three days. The patient was also complaining of abdominal pain, but without nausea or vomiting. The patient's EKG showed a ventricular paced rhythm. First set of cardiac enzymes were negative. A cardiology consultation was obtained for further evaluation and management. PAST MEDICAL HISTORY: 1. History of severe cardiomyopathy with ejection fraction only 20%. 2. History of [employer]io biventricular defibrillator implantation. 3. Hyperlipidemia. 4. History of coronary artery disease. 5. Diabetes. 6. Morbid obesity. 7. COPD. SOCIAL HISTORY: He lives at home. Does not smoke or drink alcohol. FAMILY HISTORY: Noncontributory. REVIEW OF SYSTEMS: Review of systems was performed and was negative other than what was mentioned in the history of present illness. PHYSICAL EXAMINATION: VITAL SIGNS: Show blood pressure is 116/61, pulse 60, respirations 20, and temperature 97.1. HEAD AND NECK: Shows no JVD. LUNGS: Clear. CARDIOVASCULAR: Shows regular S1 and S2 with no gallop. Defibrillator is in the subclavian. ABDOMEN: Soft. EXTREMITIES: There is 1+ pitting edema. LABORATORY DATA: Show white count of 12.2, hemoglobin 14.5, hematocrit 45.5, and platelet count of 315,000. Sodium 140, potassium 4.7, BUN of 22, creatinine 1.2, and glucose of 152. Troponin is negative x2. ASSESSMENT AND PLAN: 1. Chest pain. The patient will be ruled out for myocardial infarction by serial cardiac enzymes. His EKG is paced and is unchanged from prior EKG. We will schedule the patient for nuclear stress test for further evaluation and management. 2. History of [employer] biventricular defibrillator implantation. We will interrogate defibrillator. 3. History of severe cardiomyopathy with ejection fraction only 20%. We will repeat echocardiogram. Resume the patient's Coreg 3.125 mg b.i.d., lisinopril 20 mg daily, Lasix 40 mg IV daily, digoxin 0.125 mg daily, and Aldactone 50 mg daily. 4. Coronary artery disease history, on aspirin, Coreg, and Lipitor. 5. Hyperlipidemia. 6. . 7. Type 2 diabetes. 8. Chronic obstructive pulmonary disease. 9. Morbid obesity. Thank you very much, Dr. Lee, for allowing me to participate in the care of this patient. Please do not hesitate to contact me for any questions regarding my evaluation. Will Kern M.D. DR: MARYA JOB#: [id number] CC:
[2016-09-21 07:54] LABS: BASOPHILS % (AUTO) 1.1 % (0.0-2.0); EOSINOPHILS % (AUTO) 4.4 % (0.0-3.0); LYMPHOCYTES % (AUTO) 26.4 % (20.0-45.0); MEAN CORPUSCULAR HEMOGLOBIN 28.6 PG (27.0-31.0); MEAN CORPUSCULAR HGB CONC 31.5 G/DL (32.0-36.0); MEAN CORPUSCULAR VOLUME 91 FL (80-99); MONOCYTES % (AUTO) 6.9 % (1.0-10.0); NEUTROPHILS % (AUTO) 61.3 % (45.0-75.0); PLATELET COUNT 356 K/UL (150-450); RED BLOOD COUNT 5.09 M/UL (4.70-6.10); WHITE BLOOD COUNT 11.7 K/UL (4.8-10.8)
[2016-09-21 08:00] VITALS: BP 137/74
[2016-09-21 08:07] LABS: TROPONIN I < 0.30 ng/mL (<=0.30)
[2016-09-21 08:17] LABS: CHOLESTEROL/HDL RATIO 7.6 (3.3-4.4); CRP QUANT 0.8 mg/dL (< 0.5)
[2016-09-21 08:19] LABS: THYROID STIMULATING HORMONE 5.36 uIU/mL (0.300-4.500)
[2016-09-21] MEDS: Aspirin Baby 81mg ORAL SCH (09:06)
[2016-09-21] MEDS: Lisinopril 20mg tab ORAL SCH (09:08)
[2016-09-21] MEDS: Digoxin 0.125mg tab ORAL SCH (09:09)
[2016-09-21] MEDS: Heparin 5000 units/ml inj SUBQ SCH ×2 (09:13→20:33)
--- NOTE | 2016-09-21 09:44 | Pulmonology Progress Note ---
Assessment/Plan Problems: (1) Chest pain (2) Neck pain (3) Abdominal pain (4) Pacemaker (5) Leukocytosis (6) Diaphragm paralysis (7) Diabetes mellitus (8) COPD (chronic obstructive pulmonary disease) Assessment/Plan CT neck reviewed pt is asking for [place] Echo showed severe cardiomyopathy wbc decreasing Pt was npo for US of abdomen, which was being done. Subjective ROS Limited/Unobtainable: No Interval Events: less pain Allergies: Coded Allergies: No Known Allergies (Verified , 06/29/10) Objective Last 24 Hour Vital Signs Date Time Temp Pulse Resp B/P Pulse Ox O2 Delivery O2 Flow Rate FiO2 09/21/16 09:09 64 09/21/16 09:08 137/74 09/21/16 09:08 64 137/74 09/21/16 07:27 69 16 Room Air 09/21/16 04:15 98.0 76 16 128/64 95 09/21/16 04:14 72 09/21/16 00:56 98.0 09/20/16 23:23 72 09/20/16 23:20 98.0 20 128/72 96 Room Air 09/20/16 21:00 72 136/72 09/20/16 20:37 20 136/74 95 Room Air 09/20/16 20:23 72 09/20/16 20:00 70 20 Room Air 21 09/20/16 16:00 73 09/20/16 15:29 97.1 68 20 116/61 94 Room Air 09/20/16 12:00 67 09/20/16 11:28 96.1 65 20 123/71 94 Room Air 09/20/16 10:00 65 Intake and Output 09/20/16 09/21/16 19:00 07:00 Intake Total 800 ml 240 ml Balance 800 ml 240 ml Intake Oral 800 ml 240 ml # Voids 4 General Appearance: WD/WN, no acute distress HEENT: normocephalic, atraumatic Respiratory/Chest: chest wall non-tender, lungs clear Cardiovascular: normal peripheral pulses, normal rate, no JVD Abdomen: normal bowel sounds, soft, non tender Extremities: no clubbing Skin: no rash, no lesions, no ulcers 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: 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 grossly normal Lymphatic: no neck adenopathy Laboratory Tests 09/21/16 07:00: White Blood Count 11.7H, Red Blood Count 5.09, Hemoglobin 14.6, Hematocrit 46.3 , Mean Corpuscular Volume 91, Mean Corpuscular Hemoglobin 28.6, Mean Corpuscular Hemoglobin Concent 31.5L, Red Cell Distribution Width 13.0, Platelet Count 356, Mean Platelet Volume 6.0L, Neutrophils (%) (Auto) 61.3, Lymphocytes (%) (Auto) 26.4, Monocytes (%) (Auto) 6.9, Eosinophils (%) (Auto) 4.4H, Basophils (%) (Auto) 1.1, Prothrombin Time 10.0, Prothromb Time International Ratio 1.0, Activated Partial Thromboplast Time 27, Sodium Level 139, Potassium Level 4.3, Chloride Level 100, Carbon Dioxide Level 29, Anion Gap 10, Blood Urea Nitrogen 16, Creatinine 0.7, Estimat Glomerular Filtration Rate > 60, Glucose Level 115H, Calcium Level 9.3, Troponin I < 0.30, C-Reactive Protein, Quantitative 0.8H, Triglycerides Level 251H, Cholesterol Level 235H, LDL Cholesterol 154H, HDL Cholesterol 31, Cholesterol/HDL Ratio 7.6H, Thyroid Stimulating Hormone (TSH) 5.360H Current Medications Medications (Trade) Dose Ordered Sig/Sandy Route PRN Reason Start Time Stop Time Status Last Admin Dose Admin Acetaminophen (Tylenol) 650 mg Q4H PRN ORAL FEVER 09/20/16 07:15 10/20/16 07:14 09/20/16 23:57 Albuterol/ Ipratropium (DuoNeb 0.5-3(2.5)mg/3ml) 3 ml Q4H PRN HHN Shortness of Breath 09/20/16 07:15 09/25/16 07:14 Aspirin (ASA) 162 mg DAILY ORAL 09/20/16 09:00 10/20/16 08:59 09/21/16 09:06 Carvedilol (Coreg) 3.125 mg Q12HR ORAL 09/20/16 09:00 10/20/16 08:59 09/21/16 09:08 Dextrose (Dextrose 50%) STAT PRN IV Hypoglycemia 09/20/16 02:00 10/20/16 01:59 Digoxin (Lanoxin) 0.125 mg DAILY ORAL 09/20/16 09:30 10/20/16 09:29 09/21/16 09:09 Diltiazem HCl (Cardizem) 10 mg Q1H PRN IV heart rate more than 120, 09/20/16 07:15 10/20/16 07:14 Enalaprilat (Vasotec) 2.5 mg Q6H PRN IV sbp more than 160 09/20/16 07:15 10/20/16 07:14 Escitalopram Oxalate (Lexapro) 10 mg DAILY ORAL 09/20/16 09:00 10/20/16 08:59 09/21/16 09:09 Furosemide (Lasix) 40 mg DAILY IV 09/21/16 09:00 10/21/16 08:59 09/21/16 09:06 Gabapentin (Neurontin) 300 mg TID ORAL 09/20/16 09:00 10/20/16 08:59 09/21/16 09:06 Heparin Sodium (Porcine) (Heparin 5000 units/ml) 5,000 units EVERY 12 HOURS SUBQ 09/20/16 09:00 10/20/16 08:59 09/21/16 09:13 Insulin Aspart (NovoLOG) BEFORE MEALS AND HS SUBQ 09/20/16 12:00 10/20/16 11:59 Lisinopril (Prinivil) 20 mg DAILY ORAL 09/20/16 09:00 10/20/16 08:59 09/21/16 09:08 Morphine Sulfate (Morphine Sulfate) 2 mg Q4H PRN IVP severe Pain (Pain Scale 7-10) 09/20/16 07:15 09/27/16 07:14 09/21/16 00:41 Nitroglycerin (Ntg) 0.4 mg Q5M PRN SL Prn Chest Pain 09/20/16 07:15 10/20/16 07:14 Ondansetron HCl (Zofran) 4 mg Q6H PRN IVP Nausea & Vomiting 09/20/16 07:15 10/20/16 07:14 Pantoprazole (Protonix) 40 mg DAILY ORAL 09/20/16 09:00 10/20/16 08:59 09/21/16 09:10 Polyethylene Glycol (Miralax) 17 gm DAILYPRN PRN ORAL Constipation 09/20/16 07:15 10/20/16 07:14 Spironolactone (Aldactone) 25 mg DAILY ORAL 09/21/16 12:00 10/21/16 11:59 HENRI MR Sep 21, 2016 09:44
[2016-09-21] MEDS ORDERED: Norco 10mg/325mg tab ORAL PRN (10:00)
[2016-09-21 12:00] VITALS: BP 130/68
[2016-09-21] MEDS ORDERED: Furosemide 40mg tab ORAL SCH (12:00)
--- NOTE | 2016-09-21 12:19 | Diagnostic Imaging Report ---
Indication:Abdominal pain Technique: Grayscale and duplex Doppler imaging of the abdomen performed. Comparison: None Findings: The liver is echogenic and appears enlarged measuring about 20 cm. The demonstrated part of the pancreas, gallbladder, aorta and IVC and spleen appear unremarkable. Bilateral renal cysts are present. For example there is a 3.4 CM cyst in the right kidney and a 2.5 CM cyst in the lower pole left kidney. There is no biliary ductal dilatation identified. CBD is 3 mm. Doppler evaluation of the main portal vein shows patency. There is no ascites. No hydronephrosis seen. Impression: Hepatomegaly with fatty infiltration. Bilateral renal cysts
[2016-09-21] MEDS: Spironolactone 25mg tab ORAL SCH (12:29)
[2016-09-21 16:00] VITALS: BP 113/59
--- NOTE | 2016-09-21 16:46 | GI Initial Consult Note ---
Yuliya Castellanos N.P. 09/21/16 1646: History of Present Illness General Date patient seen: Sep 21, 2016 Time patient seen: 16:34 Reason for Hospitalization: Chest Pain Referring physician: Dr. anglin Reason for Consultation: ABDOMINAL PAIN Present Illness HPI Patient is a 66-year-old male presented after increased right-sided chest pain. Patient reported having increased pain with movement to his right shoulder. Pain is constant for the past 3 days. Patient prior history of cardiac disease. He had multiple surgeries in the past. Patient previous a pacemaker placement. He had not been vomiting. Patient was noted to have prior pain to his right shoulder. He had taken [place] without relief. He denied any exertional component. GI Consult. HPI as noted above. GI consulted for abdominal pain. Pt seen on floor, awake A&Ox4 NAD with no active s/sx of N/V/D. Pt states he currently has no abdominal pain. The pain is more directed to back and spine. The patient presents today with leukocytosis. Abdominal U/S reviewed unremarkable. The patient has history of colonic polyps with last procedure in 2013, see summary below. Denies any other GI symptoms. Endoscopy Procedure Note Indication for Procedure: screening colon, GERD Procedures Performed: EGD, colonoscopy Operative Findings/Diagnosis: 10 polyps, gastritis JASWINDER BEAVERS - Dec 03, 2013 10:07 Home Meds Active Scripts Hydrocodone Bit/Acetaminophen 7.5-300 Mg Tabl (VICODIN ES 7.5-300 MG TABLET) 1 Each Tablet, 1 TAB ORAL Q4H Y for For Pain, #30 TAB 0 Refills Prov:RADHA RODRIGUEZ D.O. 06/22/16 Reported Medications Canagliflozin (INVOKANA) 300 Mg Tablet, 300 MG PO, TAB 09/19/16 [diabetes med] No Conflict Check, PO BID 12/03/13 Albuterol Sulfate* (ALBUTEROL SULFATE MDI*) 8.5 Gm Hfa.aer.ad, 2 PUFF INH HS, # 1 INH 05/13/12 Carvedilol* (CARVEDILOL*) 3.125 Mg Tablet, 3.125 MG PO Q12HR 05/11/12 Dexlansoprazole (Dexilant) 30 Mg Pb., 60 MG PO DAILY 05/11/12 Simvastatin (ZOCOR) 40 Mg Tablet, 40 MG PO QHS 05/11/12 Zolpidem Tartrate* (ZOLPIDEM TARTRATE*) 5 Mg Tablet, 5 MG PO BEDTIME Y 05/11/12 Escitalopram Oxalate* (LEXAPRO*) 10 Mg Tablet, 10 MG PO DAILY, #10 TAB Take 1 tablet by mouth every day. 05/11/12 Hydrocodone/Acetaminophen 7.5-750 (VICODIN ES 7.5-750) 1 Each Tablet, 1 TAB PO Q8H Y, #30 TAB 05/11/12 Gabapentin* (GABAPENTIN*) 300 Mg Capsule, 300 MG PO TID Y, #21 CAP 05/11/12 Aspirin* (ASPIR 81*) 81 Mg Tablet.dr, 81 MG PO DAILY 05/11/12 Furosemide* (LASIX*) 40 Mg Tablet, 40 MG PO DAILY, #10 TAB Take 1 tablet by mouth daily 05/11/12 Lisinopril* (ZESTRIL*) 20 Mg Tablet, 20 MG PO DAILY, #10 TAB Take 1 tablet by mouth every day. 05/11/12 Digoxin* (LANOXIN*) 125 Mcg Tablet, 125 MCG PO DAILY, #10 TAB Take 1 tablet by mouth every day. 05/11/12 Spironolactone* (ALDACTONE*) 25 Mg Tablet, 25 MG PO DAILY 05/11/12 Potassium Chloride (POTASSIUM CHLORIDE) 10 Meq Tab.er.prt, 10 MEQ PO DAILY 05/11/12 Med list reviewed/reconciled: Yes Allergies: Coded Allergies: No Known Allergies (Verified , 06/29/10) Patient History History Provided By: Patient, Medical Record [facility] Narrative Past Medical History: No History, Except For Hx Cardiac Problems: Yes Hx Hypertension: Yes Hx Pacemaker: Yes Hx Asthma: Yes Hx COPD: Yes Hx Diabetes: Yes Hx Cancer: No Hx Gastrointestinal Problems: Yes Hx Neurological Problems: No Social History: Reports: alcohol use - social use Review of Systems All Other Systems: negative except mentioned in HPI Physical Exam Vital Signs Date Time Temp Pulse Resp B/P Pulse Ox O2 Delivery O2 Flow Rate FiO2 09/19/16 22:31 97.3 83 20 120/58 100 09/19/16 22:45 Room Air 09/20/16 20:00 21 Sp02 EP Interpretation: reviewed Labs Laboratory Tests Test 09/21/16 07:00 White Blood Count 11.7 K/UL (4.8-10.8) H Red Blood Count 5.09 M/UL (4.70-6.10) Hemoglobin 14.6 G/DL (14.2-18.0) Hematocrit 46.3 % (42.0-52.0) Mean Corpuscular Volume 91 FL (80-99) Mean Corpuscular Hemoglobin 28.6 PG (27.0-31.0) Mean Corpuscular Hemoglobin Concent 31.5 G/DL (32.0-36.0) L Red Cell Distribution Width 13.0 % (11.6-14.8) Platelet Count 356 K/UL (150-450) Mean Platelet Volume 6.0 FL (6.5-10.1) L Neutrophils (%) (Auto) 61.3 % (45.0-75.0) Lymphocytes (%) (Auto) 26.4 % (20.0-45.0) Monocytes (%) (Auto) 6.9 % (1.0-10.0) Eosinophils (%) (Auto) 4.4 % (0.0-3.0) H Basophils (%) (Auto) 1.1 % (0.0-2.0) Prothrombin Time 10.0 SEC (9.30-11.50) Prothromb Time International Ratio 1.0 (0.9-1.1) Activated Partial Thromboplast Time 27 SEC (23-33) Sodium Level 139 mEQ/L (135-145) Potassium Level 4.3 mEQ/L (3.4-4.9) Chloride Level 100 mEQ/L (98-107) Carbon Dioxide Level 29 mEQ/L (20-30) Anion Gap 10 (5-15) Blood Urea Nitrogen 16 mg/dL (7-23) Creatinine 0.7 mg/dL (0.7-1.2) Estimat Glomerular Filtration Rate > 60 mL/min (>60) Glucose Level 115 mg/dL (74-106) H Calcium Level 9.3 mg/dL (8.6-10.2) Troponin I < 0.30 ng/mL (<=0.30) C-Reactive Protein, Quantitative 0.8 mg/dL (< 0.5) H Triglycerides Level 251 mg/dL (< 150) H Cholesterol Level 235 mg/dL (< 200) H LDL Cholesterol 154 mg/dL (60-99) H HDL Cholesterol 31 mg/dL (> 60) Cholesterol/HDL Ratio 7.6 (3.3-4.4) H Thyroid Stimulating Hormone (TSH) 5.360 uIU/mL (0.300-4.500) General Appearance: well appearing, no apparent distress, alert Head: normocephalic EENT: normal ENT inspection Neck: full range of motion, supple Respiratory: normal breath sounds, no respiratory distress Cardiovascular: normal rate Gastrointestinal: normal inspection, non tender, soft Rectal: deferred Genitourinary: normal inspection Musculoskeletal: other - back pain Neurologic: normal inspection, alert, oriented x3, responsive Psychiatric: normal inspection Skin: normal inspection, normal color, no rash, warm/dry, palpation normal Lymphatic: normal inspection, no adenopathy Current Medications Current Medications Medications (Trade) Dose Ordered Sig/Sandy Route PRN Reason Start Time Stop Time Status Last Admin Dose Admin Acetaminophen (Tylenol) 650 mg Q4H PRN ORAL FEVER 09/20/16 07:15 10/20/16 07:14 09/20/16 23:57 Acetaminophen/ Hydrocodone Bitart ([place] 10/325) 1 ea Q4H PRN ORAL Moderate Pain (Pain Scale 4-6) 09/21/16 10:00 09/28/16 09:59 Albuterol/ Ipratropium (DuoNeb 0.5-3(2.5)mg/3ml) 3 ml Q4H PRN HHN Shortness of Breath 09/20/16 07:15 09/25/16 07:14 Aspirin (ASA) 162 mg DAILY ORAL 09/20/16 09:00 10/20/16 08:59 09/21/16 09:06 Carvedilol (Coreg) 3.125 mg Q12HR ORAL 09/20/16 09:00 10/20/16 08:59 09/21/16 09:08 Dextrose (Dextrose 50%) STAT PRN IV Hypoglycemia 09/20/16 02:00 10/20/16 01:59 Digoxin (Lanoxin) 0.125 mg DAILY ORAL 09/20/16 09:30 10/20/16 09:29 09/21/16 09:09 Diltiazem HCl (Cardizem) 10 mg Q1H PRN IV heart rate more than 120, 09/20/16 07:15 10/20/16 07:14 Enalaprilat (Vasotec) 2.5 mg Q6H PRN IV sbp more than 160 09/20/16 07:15 10/20/16 07:14 Escitalopram Oxalate (Lexapro) 10 mg DAILY ORAL 09/20/16 09:00 10/20/16 08:59 09/21/16 09:09 Furosemide (Lasix) 40 mg DAILY IV 09/21/16 09:00 10/21/16 08:59 09/21/16 09:06 Gabapentin (Neurontin) 300 mg TID ORAL 09/20/16 09:00 10/20/16 08:59 09/21/16 12:36 Heparin Sodium (Porcine) (Heparin 5000 units/ml) 5,000 units EVERY 12 HOURS SUBQ 09/20/16 09:00 10/20/16 08:59 09/21/16 09:13 Insulin Aspart (NovoLOG) BEFORE MEALS AND HS SUBQ 09/20/16 12:00 10/20/16 11:59 09/21/16 12:24 Lisinopril (Prinivil) 20 mg DAILY ORAL 09/20/16 09:00 10/20/16 08:59 09/21/16 09:08 Morphine Sulfate (Morphine Sulfate) 2 mg Q4H PRN IVP severe Pain (Pain Scale 7-10) 09/20/16 07:15 09/27/16 07:14 09/21/16 15:37 Nitroglycerin (Ntg) 0.4 mg Q5M PRN SL Prn Chest Pain 09/20/16 07:15 10/20/16 07:14 Ondansetron HCl (Zofran) 4 mg Q6H PRN IVP Nausea & Vomiting 09/20/16 07:15 10/20/16 07:14 Pantoprazole (Protonix) 40 mg DAILY ORAL 09/20/16 09:00 10/20/16 08:59 09/21/16 09:10 Polyethylene Glycol (Miralax) 17 gm DAILYPRN PRN ORAL Constipation 09/20/16 07:15 10/20/16 07:14 Spironolactone (Aldactone) 25 mg DAILY ORAL 09/21/16 12:00 10/21/16 11:59 09/21/16 12:29 GI: Plan Problems: (1) Abdominal pain (2) Pacemaker (3) Multiple colon polyps Plan s/p EGD/colonoscopy in 2014 with colonic polyps x 10, gastritis stable H&H abdominal U/S reviewed >> hepatomegaly, otherwise unremarkable recommend patient to have repeat colonoscopy given hx of multiple polyps >> patient will require cardiac clearance prior procedure. CLD tomorrow am for possible colonoscopy if still inpatient, otherwise outpatient. pain mgmt regular diet bowel regime >> colace + miralax ppi fu labs Discussed with Dr. Beavers. Thank you for referring this patient, we will follow. JASWINDER BEAVERS 09/24/16 0913: History of Present Illness General Reason for Hospitalization: Chest Pain Present Illness Home Meds Active Scripts Hydrocodone Bit/Acetaminophen 7.5-300 Mg Tabl (VICODIN ES 7.5-300 MG TABLET) 1 Each Tablet, 1 TAB ORAL Q4H Y for For Pain, #30 TAB 0 Refills Prov:RADHA RODRIGUEZ D.O. 06/22/16 Reported Medications Canagliflozin (INVOKANA) 300 Mg Tablet, 300 MG PO, TAB 09/19/16 [diabetes med] No Conflict Check, PO BID 12/03/13 Albuterol Sulfate* (ALBUTEROL SULFATE MDI*) 8.5 Gm Hfa.aer.ad, 2 PUFF INH HS, # 1 INH 05/13/12 Carvedilol* (CARVEDILOL*) 3.125 Mg Tablet, 3.125 MG PO Q12HR 05/11/12 Dexlansoprazole (Dexilant) 30 Mg Cap.mp, 60 MG PO DAILY 05/11/12 Simvastatin (ZOCOR) 40 Mg Tablet, 40 MG PO QHS 05/11/12 Zolpidem Tartrate* (ZOLPIDEM TARTRATE*) 5 Mg Tablet, 5 MG PO BEDTIME Y 05/11/12 Escitalopram Oxalate* (LEXAPRO*) 10 Mg Tablet, 10 MG PO DAILY, #10 TAB Take 1 tablet by mouth every day. 05/11/12 Hydrocodone/Acetaminophen 7.5-750 (VICODIN ES 7.5-750) 1 Each Tablet, 1 TAB PO Q8H Y, #30 TAB 05/11/12 Gabapentin* (GABAPENTIN*) 300 Mg Capsule, 300 MG PO TID Y, #21 CAP 2/28/13 Aspirin* (ASPIR 81*) 81 Mg Tablet.dr, 81 MG PO DAILY 05/11/12 Furosemide* (LASIX*) 40 Mg Tablet, 40 MG PO DAILY, #10 TAB Take 1 tablet by mouth daily 05/11/12 Lisinopril* (ZESTRIL*) 20 Mg Tablet, 20 MG PO DAILY, #10 TAB Take 1 tablet by mouth every day. 05/11/12 Digoxin* (LANOXIN*) 125 Mcg Tablet, 125 MCG PO DAILY, #10 TAB Take 1 tablet by mouth every day. 05/11/12 Spironolactone* (ALDACTONE*) 25 Mg Tablet, 25 MG PO DAILY 05/11/12 Potassium Chloride (POTASSIUM CHLORIDE) 10 Meq Tab.er.prt, 10 MEQ PO DAILY 05/11/12 Allergies: Coded Allergies: No Known Allergies (Verified , 06/29/10) GI: Plan Plan The patient was seen and examined at bedside and all new and available data was reviewed in the patients chart. I agree with the above findings, impression and plan. (Patient seen earlier today. Signature stamp does not reflect patient encounter time.). -Nohemi Li MDh Bigg [place] Sep 21, 2016 16:46 JASWINDER BEAVERS Sep 24, 2016 09:13
--- NOTE | 2016-09-21 17:27 | Cardiac Electrophysiology PN ---
Assessment/Plan Status Narrative Normal left ventricular chamber size, systolic function and wall motion to extent visualized. Left ventricular ejection fraction estimated to be 55 %. Study quality precludes accurate assessment of regional wall motion. Moderate left ventricular hypertrophy by 2-D. Anterior Echo-free space, may be due to pericardial fat or effusion. Left and right atrial sizes at upper limits of normal. Focal aortic valve sclerosis with adequate cusp excursion. Thickened mitral valve leaflets with normal excursion. Mitral annulus and aortic root calcification. Pulmonic valve not well visualized. Normal tricuspid valve structure. IVC at normal size with physiologic collapse. Pacemaker wire present in the right side chambers. Assessment/Plan 1. Atypical chest pain.Ruled out for myocardial infarction. History of previous angioplasty. Nuclear stress test pending. 2. Status post [employer] [place] biventricular defibrillator implantation. Interrogation pending. 3. Severe cardiomyopathy with EF only 20%. Repeat Echo EF 55%!Continue Coreg 3.125 mg b.i.d., lisinopril 20 mg daily, Lasix 40 mg daily, Aldactone 25 mg daily and digoxin 0.125 mg daily. 4. Hyperlipidemia on Lipitor. 5. Coronary artery disease on aspirin and Coreg and Lipitor. 6. Type 2 diabetes. 7. Chronic obstructive pulmonary disease. DW RN Subjective Subjective Feeling better.No chest pain or SOB. Objective Last 24 Hour Vital Signs Date Time Temp Pulse Resp B/P Pulse Ox O2 Delivery O2 Flow Rate FiO2 09/21/16 16:07 97.9 09/21/16 16:00 97.9 75 18 113/59 97 Room Air 09/21/16 12:00 97.9 70 18 130/68 98 Room Air 09/21/16 12:00 77 09/21/16 09:09 64 09/21/16 09:08 137/74 09/21/16 09:08 64 137/74 09/21/16 08:00 73 09/21/16 08:00 97.9 60 18 137/74 95 Room Air 09/21/16 07:27 69 16 Room Air 09/21/16 04:15 98.0 76 16 128/64 95 09/21/16 04:14 72 09/21/16 00:56 98.0 09/20/16 23:23 72 09/20/16 23:20 98.0 20 128/72 96 Room Air 7/10/17 21:00 72 136/72 09/20/16 20:37 20 136/74 95 Room Air 09/20/16 20:23 72 09/20/16 20:00 70 20 Room Air 21 Intake and Output 09/20/16 09/21/16 19:00 07:00 Intake Total 800 ml 240 ml Balance 800 ml 240 ml Intake Oral 800 ml 240 ml # Voids 4 Laboratory Tests Test 09/21/16 07:00 White Blood Count 11.7 K/UL (4.8-10.8) H Red Blood Count 5.09 M/UL (4.70-6.10) Hemoglobin 14.6 G/DL (14.2-18.0) Hematocrit 46.3 % (42.0-52.0) Mean Corpuscular Volume 91 FL (80-99) Mean Corpuscular Hemoglobin 28.6 PG (27.0-31.0) Mean Corpuscular Hemoglobin Concent 31.5 G/DL (32.0-36.0) L Red Cell Distribution Width 13.0 % (11.6-14.8) Platelet Count 356 K/UL (150-450) Mean Platelet Volume 6.0 FL (6.5-10.1) L Neutrophils (%) (Auto) 61.3 % (45.0-75.0) Lymphocytes (%) (Auto) 26.4 % (20.0-45.0) Monocytes (%) (Auto) 6.9 % (1.0-10.0) Eosinophils (%) (Auto) 4.4 % (0.0-3.0) H Basophils (%) (Auto) 1.1 % (0.0-2.0) Prothrombin Time 10.0 SEC (9.30-11.50) Prothromb Time International Ratio 1.0 (0.9-1.1) Activated Partial Thromboplast Time 27 SEC (23-33) Sodium Level 139 mEQ/L (135-145) Potassium Level 4.3 mEQ/L (3.4-4.9) Chloride Level 100 mEQ/L (98-107) Carbon Dioxide Level 29 mEQ/L (20-30) Anion Gap 10 (5-15) Blood Urea Nitrogen 16 mg/dL (7-23) Creatinine 0.7 mg/dL (0.7-1.2) Estimat Glomerular Filtration Rate > 60 mL/min (>60) Glucose Level 115 mg/dL (74-106) H Calcium Level 9.3 mg/dL (8.6-10.2) Troponin I < 0.30 ng/mL (<=0.30) C-Reactive Protein, Quantitative 0.8 mg/dL (< 0.5) H Triglycerides Level 251 mg/dL (< 150) H Cholesterol Level 235 mg/dL (< 200) H LDL Cholesterol 154 mg/dL (60-99) H HDL Cholesterol 31 mg/dL (> 60) Cholesterol/HDL Ratio 7.6 (3.3-4.4) H Thyroid Stimulating Hormone (TSH) 5.360 uIU/mL (0.300-4.500) Objective HEAD AND NECK: Shows no JVD. LUNGS: Clear. CARDIOVASCULAR: Regular S1 and S2 with no gallop.Defibrillator is in the Left subclavian. ABDOMEN: Soft. EXTREMITIES: There is 1+ pitting edema. NITZA PEREIRA Sep 21, 2016 17:27
--- NOTE | 2016-09-21 17:40 | Internal Med Progress Note ---
Subjective Date of Service: Sep 21, 2016 Physician Name Mloly Aguilar Attending Physician Les Lee MD Current Medications Medications (Trade) Dose Ordered Sig/Sandy Route PRN Reason Start Time Stop Time Status Last Admin Dose Admin Acetaminophen (Tylenol) 650 mg Q4H PRN ORAL FEVER 09/20/16 07:15 10/20/16 07:14 09/20/16 23:57 Acetaminophen/ Hydrocodone Bitart ([place] 10/325) 1 ea Q4H PRN ORAL Moderate Pain (Pain Scale 4-6) 09/21/16 10:00 09/28/16 09:59 Albuterol/ Ipratropium (DuoNeb 0.5-3(2.5)mg/3ml) 3 ml Q4H PRN HHN Shortness of Breath 09/20/16 07:15 09/25/16 07:14 Aspirin (ASA) 162 mg DAILY ORAL 09/20/16 09:00 10/20/16 08:59 09/21/16 09:06 Carvedilol (Coreg) 3.125 mg Q12HR ORAL 09/20/16 09:00 10/20/16 08:59 09/21/16 09:08 Dextrose (Dextrose 50%) STAT PRN IV Hypoglycemia 09/20/16 02:00 10/20/16 01:59 Digoxin (Lanoxin) 0.125 mg DAILY ORAL 09/20/16 09:30 10/20/16 09:29 09/21/16 09:09 Diltiazem HCl (Cardizem) 10 mg Q1H PRN IV heart rate more than 120, 09/20/16 07:15 10/20/16 07:14 Enalaprilat (Vasotec) 2.5 mg Q6H PRN IV sbp more than 160 09/20/16 07:15 10/20/16 07:14 Escitalopram Oxalate (Lexapro) 10 mg DAILY ORAL 09/20/16 09:00 10/20/16 08:59 09/21/16 09:09 Furosemide (Lasix) 40 mg DAILY IV 09/21/16 09:00 10/21/16 08:59 09/21/16 09:06 Gabapentin (Neurontin) 300 mg TID ORAL 09/20/16 09:00 10/20/16 08:59 09/21/16 12:36 Heparin Sodium (Porcine) (Heparin 5000 units/ml) 5,000 units EVERY 12 HOURS SUBQ 09/20/16 09:00 10/20/16 08:59 09/21/16 09:13 Insulin Aspart (NovoLOG) BEFORE MEALS AND HS SUBQ 09/20/16 12:00 10/20/16 11:59 09/21/16 12:24 Lisinopril (Prinivil) 20 mg DAILY ORAL 09/20/16 09:00 10/20/16 08:59 09/21/16 09:08 Morphine Sulfate (Morphine Sulfate) 2 mg Q4H PRN IVP severe Pain (Pain Scale 7-10) 09/20/16 07:15 09/27/16 07:14 09/21/16 15:37 Nitroglycerin (Ntg) 0.4 mg Q5M PRN SL Prn Chest Pain 09/20/16 07:15 10/20/16 07:14 Ondansetron HCl (Zofran) 4 mg Q6H PRN IVP Nausea & Vomiting 09/20/16 07:15 10/20/16 07:14 Pantoprazole (Protonix) 40 mg DAILY ORAL 09/20/16 09:00 10/20/16 08:59 09/21/16 09:10 Polyethylene Glycol (Miralax) 17 gm DAILYPRN PRN ORAL Constipation 09/20/16 07:15 10/20/16 07:14 Spironolactone (Aldactone) 25 mg DAILY ORAL 09/21/16 12:00 10/21/16 11:59 09/21/16 12:29 Allergies: Coded Allergies: No Known Allergies (Verified , 06/29/10) ROS Limited/Unobtainable: No Constitutional: Reports: no symptoms HEENT: Reports: no symptoms Cardiovascular: Reports: no symptoms Respiratory: Reports: no symptoms Gastrointestinal/Abdominal: Reports: no symptoms Genitourinary: Reports: no symptoms 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: Reports: no symptoms Subjective 66 YO M admitted with atypical chest pain. Await cardiac stress test 09/22/16. Await defibrillator check. Await cardiology clearance for endoscopy and colonoscopy. Cover for Int Enrike-Dr Lee. Objective Last Vital Signs Date Time Temp Pulse Resp B/P Pulse Ox O2 Delivery O2 Flow Rate FiO2 09/21/16 16:07 97.9 09/21/16 16:00 75 18 113/59 97 Room Air 09/20/16 20:00 21 General Appearance: WD/WN, no apparent distress, alert, obese EENT: PERRL/EOMI, normal ENT inspection Neck: non-tender, normal alignment, supple, normal inspection Cardiovascular: normal peripheral pulses, normal rate, regular rhythm, no gallop/murmur, no JVD Respiratory/Chest: chest wall non-tender, lungs clear, normal breath sounds, no respiratory distress, no accessory muscle use Abdomen: normal bowel sounds, non tender, soft, no organomegaly, no mass Extremities: normal range of motion 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, no motor/sensory deficits Laboratory Tests Test 09/21/16 07:00 White Blood Count 11.7 K/UL (4.8-10.8) H Red Blood Count 5.09 M/UL (4.70-6.10) Hemoglobin 14.6 G/DL (14.2-18.0) Hematocrit 46.3 % (42.0-52.0) Mean Corpuscular Volume 91 FL (80-99) Mean Corpuscular Hemoglobin 28.6 PG (27.0-31.0) Mean Corpuscular Hemoglobin Concent 31.5 G/DL (32.0-36.0) L Red Cell Distribution Width 13.0 % (11.6-14.8) Platelet Count 356 K/UL (150-450) Mean Platelet Volume 6.0 FL (6.5-10.1) L Neutrophils (%) (Auto) 61.3 % (45.0-75.0) Lymphocytes (%) (Auto) 26.4 % (20.0-45.0) Monocytes (%) (Auto) 6.9 % (1.0-10.0) Eosinophils (%) (Auto) 4.4 % (0.0-3.0) H Basophils (%) (Auto) 1.1 % (0.0-2.0) Prothrombin Time 10.0 SEC (9.30-11.50) Prothromb Time International Ratio 1.0 (0.9-1.1) Activated Partial Thromboplast Time 27 SEC (23-33) Sodium Level 139 mEQ/L (135-145) Potassium Level 4.3 mEQ/L (3.4-4.9) Chloride Level 100 mEQ/L (98-107) Carbon Dioxide Level 29 mEQ/L (20-30) Anion Gap 10 (5-15) Blood Urea Nitrogen 16 mg/dL (7-23) Creatinine 0.7 mg/dL (0.7-1.2) Estimat Glomerular Filtration Rate > 60 mL/min (>60) Glucose Level 115 mg/dL (74-106) H Calcium Level 9.3 mg/dL (8.6-10.2) Troponin I < 0.30 ng/mL (<=0.30) C-Reactive Protein, Quantitative 0.8 mg/dL (< 0.5) H Triglycerides Level 251 mg/dL (< 150) H Cholesterol Level 235 mg/dL (< 200) H LDL Cholesterol 154 mg/dL (60-99) H HDL Cholesterol 31 mg/dL (> 60) Cholesterol/HDL Ratio 7.6 (3.3-4.4) H Thyroid Stimulating Hormone (TSH) 5.360 uIU/mL (0.300-4.500) Intake and Output 09/20/16 09/21/16 19:00 07:00 Intake Total 800 ml 240 ml Balance 800 ml 240 ml Intake Oral 800 ml 240 ml # Voids 4 Assessment/Plan Problem List: (1) Right shoulder pain (2) Chest pain Assessment & Plan: See cardiology note. Await cardiac stress test. Await defibrillator check. (3) Leukocytosis (4) Multiple colon polyps Assessment & Plan: Await cardiology clearance for endoscopy and colonoscopy- See GI note. (5) HTN (hypertension) Assessment & Plan: Continue coreg and lisinopril (6) Diabetes mellitus Assessment & Plan: Cont novolog sliding scale. (7) Hypercholesteremia (8) Low back pain Status: not improved MOLLY AGUILAR Sep 21, 2016 17:40
[2016-09-21 19:52] VITALS: BP 147/72
[2016-09-21 23:50] VITALS: BP 115/60
[2016-09-22 03:49] VITALS: BP 119/75
[2016-09-22] MEDS: NovoLOG Insulin Flexpen SUBQ SCH ×4 (06:09→21:09)
[2016-09-22 07:57] LABS: BASOPHILS % (AUTO) 1.1 % (0.0-2.0); EOSINOPHILS % (AUTO) 3.8 % (0.0-3.0); LYMPHOCYTES % (AUTO) 25.9 % (20.0-45.0); MEAN CORPUSCULAR HEMOGLOBIN 28.3 PG (27.0-31.0); MEAN CORPUSCULAR HGB CONC 31.5 G/DL (32.0-36.0); MEAN CORPUSCULAR VOLUME 90 FL (80-99); MEAN PLATELET VOLUME 6.5 FL (6.5-10.1); MONOCYTES % (AUTO) 4.6 % (1.0-10.0); NEUTROPHILS % (AUTO) 64.6 % (45.0-75.0); PLATELET COUNT 364 K/UL (150-450); RED BLOOD COUNT 5.36 M/UL (4.70-6.10); WHITE BLOOD COUNT 10.3 K/UL (4.8-10.8)
[2016-09-22 08:00] VITALS: BP 103/66
[2016-09-22 08:02] LABS: TROPONIN I < 0.30 ng/mL (<=0.30)
[2016-09-22 08:13] LABS: ANION GAP 10 (5-15); CALCIUM 9.8 mg/dL (8.6-10.2); CARBON DIOXIDE 28 mEQ/L (20-30); CHLORIDE 99 mEQ/L (98-107); CREATININE 0.8 mg/dL (0.7-1.2); GLOMERULAR FILTRATION RATE > 60 mL/min (>60); HEMOLYSIS 4; POTASSIUM 4.7 mEQ/L (3.4-4.9); SODIUM 137 mEQ/L (135-145)
[2016-09-22] MEDS: Aspirin Baby 81mg ORAL SCH (08:23)
[2016-09-22] MEDS: Heparin 5000 units/ml inj SUBQ SCH ×2 (08:28→21:10)
[2016-09-22] MEDS: Lisinopril 20mg tab ORAL SCH (09:00)
[2016-09-22] MEDS: Digoxin 0.125mg tab ORAL SCH (09:00)
[2016-09-22] MEDS: Spironolactone 25mg tab ORAL SCH (09:00)
[2016-09-22] MEDS: Morphine Sulfate 2mg/ml Inj IVP PRN ×2 (10:58→23:23)
[2016-09-22 11:22] VITALS: BP 125/56
--- NOTE | 2016-09-22 11:50 | GI Progress Note ---
Assessment/Plan Problems: (1) Multiple colon polyps (2) Abdominal pain ICD Codes: R10.9 - Unspecified abdominal pain SNOMED: 64628192 (3) Diabetes mellitus ICD Codes: E11.9 - Type 2 diabetes mellitus without complications SNOMED: 43998494 Status: stable Status Narrative Discussed with Dr. De Leon. Assessment/Plan s/p EGD/colonoscopy in 2013 with colonic polyps x 10, gastritis stable H&H abdominal U/S reviewed >> hepatomegaly, otherwise unremarkable ok for DC per GI standpoint outpatient colonoscopy given hx of multiple polyps pain mgmt regular diet bowel regime >> colace + miralax ppi The patient was seen and examined at bedside and all new and available data was reviewed in the patients chart. I agree with the above findings, impression and plan. (Patient seen earlier today. Signature stamp does not reflect patient encounter time.). -Nikolai De Leon MD Subjective Subjective back pain Objective Last 24 Hour Vital Signs Date Time Temp Pulse Resp B/P Pulse Ox O2 Delivery O2 Flow Rate FiO2 09/22/16 11:22 98.1 64 20 125/56 95 Room Air 09/22/16 09:00 103/66 09/22/16 09:00 84 09/22/16 09:00 84 103/66 09/22/16 08:34 84 18 Room Air 09/22/16 08:00 97.3 60 20 103/66 96 Room Air 09/22/16 04:00 61 09/22/16 03:49 98.6 79 21 119/75 96 Room Air 09/22/16 00:00 72 09/21/16 23:50 98.3 73 20 115/60 95 Room Air 09/21/16 20:31 80 147/72 09/21/16 20:00 89 09/21/16 19:52 98.8 80 21 147/72 93 Room Air 09/21/16 19:43 74 16 Room Air 09/21/16 16:07 97.9 09/21/16 16:00 80 09/21/16 16:00 97.9 75 18 113/59 97 Room Air 09/21/16 12:00 97.9 70 18 130/68 98 Room Air 09/21/16 12:00 77 Intake and Output 09/21/16 09/22/16 19:00 07:00 Intake Total 720 ml Balance 720 ml Intake Oral 720 ml # Voids 3 2 Laboratory Tests Test 09/22/16 07:25 White Blood Count 10.3 K/UL (4.8-10.8) Red Blood Count 5.36 M/UL (4.70-6.10) Hemoglobin 15.2 G/DL (14.2-18.0) Hematocrit 48.2 % (42.0-52.0) Mean Corpuscular Volume 90 FL (80-99) Mean Corpuscular Hemoglobin 28.3 PG (27.0-31.0) Mean Corpuscular Hemoglobin Concent 31.5 G/DL (32.0-36.0) L Red Cell Distribution Width 13.0 % (11.6-14.8) Platelet Count 364 K/UL (150-450) Mean Platelet Volume 6.5 FL (6.5-10.1) Neutrophils (%) (Auto) 64.6 % (45.0-75.0) Lymphocytes (%) (Auto) 25.9 % (20.0-45.0) Monocytes (%) (Auto) 4.6 % (1.0-10.0) Eosinophils (%) (Auto) 3.8 % (0.0-3.0) H Basophils (%) (Auto) 1.1 % (0.0-2.0) Sodium Level 137 mEQ/L (135-145) Potassium Level 4.7 mEQ/L (3.4-4.9) Chloride Level 99 mEQ/L (98-107) Carbon Dioxide Level 28 mEQ/L (20-30) Anion Gap 10 (5-15) Blood Urea Nitrogen 19 mg/dL (7-23) Creatinine 0.8 mg/dL (0.7-1.2) Estimat Glomerular Filtration Rate > 60 mL/min (>60) Glucose Level 145 mg/dL (74-106) H Calcium Level 9.8 mg/dL (8.6-10.2) Troponin I < 0.30 ng/mL (<=0.30) Height (Feet): 5 Height (Inches): 6.00 Weight (Pounds): 228 General Appearance: no apparent distress, alert, obese Cardiovascular: normal rate Respiratory/Chest: normal breath sounds, no respiratory distress Abdominal Exam: normal bowel sounds, non tender, soft Extremities: normal range of motion, non-tender Castellanos,Yuliya Bigg N.P. Sep 22, 2016 11:50 NIKOLAI DE LEON Sep 24, 2016 09:14
--- NOTE | 2016-09-22 13:23 | Internal Med Progress Note ---
Subjective Date of Service: Sep 22, 2016 Physician Name Molly Aguilar Attending Physician Les Lee MD Current Medications Medications (Trade) Dose Ordered Sig/Sandy Route PRN Reason Start Time Stop Time Status Last Admin Dose Admin Acetaminophen (Tylenol) 650 mg Q4H PRN ORAL FEVER 09/20/16 07:15 10/20/16 07:14 09/20/16 23:57 Acetaminophen/ Hydrocodone Bitart ([place] 10/325) 1 ea Q4H PRN ORAL Moderate Pain (Pain Scale 4-6) 09/21/16 10:00 09/28/16 09:59 Albuterol/ Ipratropium (DuoNeb 0.5-3(2.5)mg/3ml) 3 ml Q4H PRN HHN Shortness of Breath 09/20/16 07:15 09/25/16 07:14 Aspirin (ASA) 162 mg DAILY ORAL 09/20/16 09:00 10/20/16 08:59 09/22/16 08:23 Carvedilol (Coreg) 3.125 mg Q12HR ORAL 09/20/16 09:00 10/20/16 08:59 09/21/16 20:31 Dextrose (Dextrose 50%) STAT PRN IV Hypoglycemia 09/20/16 02:00 10/20/16 01:59 Digoxin (Lanoxin) 0.125 mg DAILY ORAL 09/20/16 09:30 10/20/16 09:29 09/21/16 09:09 Diltiazem HCl (Cardizem) 10 mg Q1H PRN IV heart rate more than 120, 09/20/16 07:15 10/20/16 07:14 Enalaprilat (Vasotec) 2.5 mg Q6H PRN IV sbp more than 160 09/20/16 07:15 10/20/16 07:14 Escitalopram Oxalate (Lexapro) 10 mg DAILY ORAL 09/20/16 09:00 10/20/16 08:59 09/22/16 08:23 Furosemide (Lasix) 40 mg DAILY IV 09/21/16 09:00 10/21/16 08:59 09/21/16 09:06 Gabapentin (Neurontin) 300 mg TID ORAL 09/20/16 09:00 10/20/16 08:59 09/22/16 08:23 Heparin Sodium (Porcine) (Heparin 5000 units/ml) 5,000 units EVERY 12 HOURS SUBQ 09/20/16 09:00 10/20/16 08:59 09/22/16 08:28 Insulin Aspart (NovoLOG) BEFORE MEALS AND HS SUBQ 09/20/16 12:00 10/20/16 11:59 09/21/16 20:32 Lisinopril (Prinivil) 20 mg DAILY ORAL 09/20/16 09:00 10/20/16 08:59 09/21/16 09:08 Morphine Sulfate (Morphine Sulfate) 2 mg Q4H PRN IVP severe Pain (Pain Scale 7-10) 09/20/16 07:15 09/27/16 07:14 09/22/16 10:58 Nitroglycerin (Ntg) 0.4 mg Q5M PRN SL Prn Chest Pain 09/20/16 07:15 10/20/16 07:14 Ondansetron HCl (Zofran) 4 mg Q6H PRN IVP Nausea & Vomiting 09/20/16 07:15 10/20/16 07:14 Pantoprazole (Protonix) 40 mg DAILY ORAL 09/20/16 09:00 10/20/16 08:59 09/22/16 08:23 Polyethylene Glycol (Miralax) 17 gm DAILYPRN PRN ORAL Constipation 09/20/16 07:15 10/20/16 07:14 Spironolactone (Aldactone) 25 mg DAILY ORAL 09/21/16 12:00 10/21/16 11:59 09/21/16 12:29 Allergies: Coded Allergies: No Known Allergies (Verified , 06/29/10) ROS Limited/Unobtainable: No Constitutional: Reports: no symptoms HEENT: Reports: no symptoms Cardiovascular: Reports: chest pain Respiratory: Reports: no symptoms Gastrointestinal/Abdominal: Reports: no symptoms Genitourinary: Reports: no symptoms 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: Reports: no symptoms Subjective 66 YO M admitted with atypical chest pain. Await cardiac stress test 09/22/16. Await defibrillator check. Cover for Olga Lee. Objective Last Vital Signs Date Time Temp Pulse Resp B/P Pulse Ox O2 Delivery O2 Flow Rate FiO2 09/22/16 11:22 98.1 64 20 125/56 95 Room Air 09/20/16 20:00 21 Laboratory Tests Test 09/22/16 07:25 White Blood Count 10.3 K/UL (4.8-10.8) Red Blood Count 5.36 M/UL (4.70-6.10) Hemoglobin 15.2 G/DL (14.2-18.0) Hematocrit 48.2 % (42.0-52.0) Mean Corpuscular Volume 90 FL (80-99) Mean Corpuscular Hemoglobin 28.3 PG (27.0-31.0) Mean Corpuscular Hemoglobin Concent 31.5 G/DL (32.0-36.0) L Red Cell Distribution Width 13.0 % (11.6-14.8) Platelet Count 364 K/UL (150-450) Mean Platelet Volume 6.5 FL (6.5-10.1) Neutrophils (%) (Auto) 64.6 % (45.0-75.0) Lymphocytes (%) (Auto) 25.9 % (20.0-45.0) Monocytes (%) (Auto) 4.6 % (1.0-10.0) Eosinophils (%) (Auto) 3.8 % (0.0-3.0) H Basophils (%) (Auto) 1.1 % (0.0-2.0) Sodium Level 137 mEQ/L (135-145) Potassium Level 4.7 mEQ/L (3.4-4.9) Chloride Level 99 mEQ/L (98-107) Carbon Dioxide Level 28 mEQ/L (20-30) Anion Gap 10 (5-15) Blood Urea Nitrogen 19 mg/dL (7-23) Creatinine 0.8 mg/dL (0.7-1.2) Estimat Glomerular Filtration Rate > 60 mL/min (>60) Glucose Level 145 mg/dL (74-106) H Calcium Level 9.8 mg/dL (8.6-10.2) Troponin I < 0.30 ng/mL (<=0.30) Intake and Output 09/21/16 09/22/16 19:00 07:00 Intake Total 720 ml Balance 720 ml Intake Oral 720 ml # Voids 3 2 Objective General Appearance: WD/WN, no apparent distress, alert, obese EENT: PERRL/EOMI, normal ENT inspection Neck: non-tender, normal alignment, supple, normal inspection Cardiovascular: normal peripheral pulses, normal rate, regular rhythm, no gallop/murmur, no JVD Respiratory/Chest: chest wall non-tender, lungs clear, normal breath sounds, no respiratory distress, no accessory muscle use Abdomen: normal bowel sounds, non tender, soft, no organomegaly, no mass Extremities: normal range of motion 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 Await cardiac stress test. Await defibrillator check. (3) Leukocytosis (4) Multiple colon polyps Assessment & Plan: Schedule outpatient endoscopy and colonoscopy-See GI note. (5) HTN (hypertension) Assessment & Plan: Continue coreg and lisinopril (6) Diabetes mellitus Assessment & Plan: Cont novolog sliding scale. (7) Hypercholesteremia (8) Low back pain MOLLY AGUILAR Sep 22, 2016 13:23
[2016-09-22] MEDS ORDERED: Adenosine Inj IVP ONE (14:15)
[2016-09-22 16:42] VITALS: BP 144/57
[2016-09-22] MEDS ORDERED: Tubing IV Secondary IV ONE (17:02)
--- NOTE | 2016-09-22 17:49 | Cardiac Electrophysiology PN ---
Assessment/Plan Status Narrative Normal left ventricular chamber size, systolic function and wall motion to extent visualized. Left ventricular ejection fraction estimated to be 55 %. Study quality precludes accurate assessment of regional wall motion. Moderate left ventricular hypertrophy by 2-D. Anterior Echo-free space, may be due to pericardial fat or effusion. Left and right atrial sizes at upper limits of normal. Focal aortic valve sclerosis with adequate cusp excursion. Thickened mitral valve leaflets with normal excursion. Mitral annulus and aortic root calcification. Pulmonic valve not well visualized. Normal tricuspid valve structure. IVC at normal size with physiologic collapse. Pacemaker wire present in the right side chambers. Assessment/Plan 1. Atypical chest pain in a ptient with hs of angioplasty.Ruled out for myocardial infarction. Nuclear stress test results pending. 2. Status post [facility] [facility] biventricular defibrillator implantation. Interrogated and showed Nl Fx. 3. Severe cardiomyopathy with EF only 20%. Repeat Echo EF 55%! Continue Coreg 3.125 mg b.i.d., lisinopril 20 mg daily, Lasix 40 mg daily, Aldactone 25 mg daily and digoxin 0.125 mg daily. 4. Hyperlipidemia on Lipitor. 5. Coronary artery disease on aspirin and Coreg and Lipitor. 6. Type 2 diabetes. 7. Chronic obstructive pulmonary disease. KEE RN Subjective Subjective Feeling better.No chest pain or SOB.Awaiting Discharge. ICD was interrogated and showed Nl Fx. Objective Last 24 Hour Vital Signs Date Time Temp Pulse Resp B/P Pulse Ox O2 Delivery O2 Flow Rate FiO2 09/22/16 16:42 96.8 77 20 144/57 94 Room Air 09/22/16 11:22 98.1 64 20 125/56 95 Room Air 09/22/16 09:00 103/66 09/22/16 09:00 84 09/22/16 09:00 84 103/66 09/22/16 08:34 84 18 Room Air 09/22/16 08:00 97.3 60 20 103/66 96 Room Air 09/22/16 04:00 61 09/22/16 03:49 98.6 79 21 119/75 96 Room Air 09/22/16 00:00 72 09/21/16 23:50 98.3 73 20 115/60 95 Room Air 09/21/16 20:31 80 147/72 09/21/16 20:00 89 09/21/16 19:52 98.8 80 21 147/72 93 Room Air 09/21/16 19:43 74 16 Room Air Intake and Output 09/21/16 09/22/16 19:00 07:00 Intake Total 720 ml Balance 720 ml Intake Oral 720 ml # Voids 3 2 Laboratory Tests Test 09/22/16 07:25 White Blood Count 10.3 K/UL (4.8-10.8) Red Blood Count 5.36 M/UL (4.70-6.10) Hemoglobin 15.2 G/DL (14.2-18.0) Hematocrit 48.2 % (42.0-52.0) Mean Corpuscular Volume 90 FL (80-99) Mean Corpuscular Hemoglobin 28.3 PG (27.0-31.0) Mean Corpuscular Hemoglobin Concent 31.5 G/DL (32.0-36.0) L Red Cell Distribution Width 13.0 % (11.6-14.8) Platelet Count 364 K/UL (150-450) Mean Platelet Volume 6.5 FL (6.5-10.1) Neutrophils (%) (Auto) 64.6 % (45.0-75.0) Lymphocytes (%) (Auto) 25.9 % (20.0-45.0) Monocytes (%) (Auto) 4.6 % (1.0-10.0) Eosinophils (%) (Auto) 3.8 % (0.0-3.0) H Basophils (%) (Auto) 1.1 % (0.0-2.0) Sodium Level 137 mEQ/L (135-145) Potassium Level 4.7 mEQ/L (3.4-4.9) Chloride Level 99 mEQ/L (98-107) Carbon Dioxide Level 28 mEQ/L (20-30) Anion Gap 10 (5-15) Blood Urea Nitrogen 19 mg/dL (7-23) Creatinine 0.8 mg/dL (0.7-1.2) Estimat Glomerular Filtration Rate > 60 mL/min (>60) Glucose Level 145 mg/dL (74-106) H Calcium Level 9.8 mg/dL (8.6-10.2) Troponin I < 0.30 ng/mL (<=0.30) Objective HEAD AND NECK: Shows no JVD. LUNGS: Clear. CARDIOVASCULAR: Regular S1 and S2 with no gallop.Defibrillator is in the Left subclavian. ABDOMEN: Soft. EXTREMITIES: There is 1+ pitting edema. NITZA PEREIRA Sep 22, 2016 17:49
[2016-09-22 19:54] VITALS: BP 126/70
[2016-09-23] VITALS: BP 124/75
[2016-09-23 04:00] VITALS: BP 113/59
[2016-09-23] MEDS: NovoLOG Insulin Flexpen SUBQ SCH ×3 (06:30→17:06)
[2016-09-23 08:00] VITALS: BP 145/65
--- NOTE | 2016-09-23 08:59 | Diagnostic Imaging Report ---
Indications: Chest pain Technique: Single day single isotope protocol utilized. Initially, resting images obtained using IV administration 10.5 millicuries 99M technetium Myoview. Subsequently, patient underwent adenosine stress testing. See cardiology report for details. During adenosine infusion, IV administration 30.3 mCi 99 M technetium Myoview. SPECT and planar images obtained. SPECT images gated to 8 phases of the cardiac cycle were also obtained, and reformatted into cine images for evaluation of ejection fraction. Comparison: None Findings: Per cardiology report, patient experienced flushing. Per cardiology report, resting EKG demonstrates paced rhythm. This renders exam nondiagnostic for ST abnormalities. Imaging demonstrates a perfusion defect in the anterolateral wall on the poststress images, which is present but much smaller on the resting images. There is equivocal fixed defect of the inferior wall, which is most likely an artifact of diaphragmatic attenuation. There is mild cardiac chamber dilatation.. Calculated post stress ejection fraction 42%. There is slight anterolateral hypokinesis near the apex Impression: Nonischemic clinical response to pharmacologic stress, per cardiology report Nonischemic electrocardiographic response to pharmacologic stress, per cardiology report Anterolateral post stress perfusion defects. This is partially fixed but mostly reversible. This consistent with anterolateral infarct with xochitl-infarct ischemia Calculated post stress ejection fraction 42%. Associated hypokinesis in the area of perfusion abnormality
[2016-09-23] MEDS: Spironolactone 25mg tab ORAL SCH (09:12)
[2016-09-23] MEDS: Aspirin Baby 81mg ORAL SCH (09:13)
[2016-09-23] MEDS: Lisinopril 20mg tab ORAL SCH (09:13)
[2016-09-23] MEDS: Digoxin 0.125mg tab ORAL SCH (09:13)
[2016-09-23] MEDS: Heparin 5000 units/ml inj SUBQ SCH (09:17)
--- NOTE | 2016-09-23 10:46 | GI Progress Note ---
Assessment/Plan Problems: (1) Multiple colon polyps (2) Abdominal pain ICD Codes: R10.9 - Unspecified abdominal pain SNOMED: 60347554 (3) Diabetes mellitus ICD Codes: E11.9 - Type 2 diabetes mellitus without complications SNOMED: 37934568 Status: stable Status Narrative Discussed with Dr. De Leon. Assessment/Plan s/p EGD/colonoscopy in 2013 with colonic polyps x 10, gastritis stable H&H abdominal U/S reviewed >> hepatomegaly, otherwise unremarkable ok for DC per GI standpoint outpatient colonoscopy given hx of multiple polyps pain mgmt regular diet bowel regime >> colace + miralax ppi Subjective Subjective back pain Objective Last 24 Hour Vital Signs Date Time Temp Pulse Resp B/P Pulse Ox O2 Delivery O2 Flow Rate FiO2 09/23/16 09:13 145/65 09/23/16 09:13 76 09/23/16 09:13 76 145/65 09/23/16 08:50 76 20 Room Air 21 09/23/16 08:00 96.3 77 21 145/65 95 Room Air 09/23/16 04:00 70 09/23/16 04:00 97.0 69 20 113/59 95 Room Air 09/23/16 00:00 70 09/23/16 00:00 98.6 77 21 124/75 98 Room Air 09/22/16 21:10 77 126/70 09/22/16 20:00 79 09/22/16 19:54 98.3 82 21 126/70 94 Room Air 09/22/16 19:30 80 20 Room Air 21 09/22/16 16:42 96.8 77 20 144/57 94 Room Air 09/22/16 15:34 79 09/22/16 11:22 98.1 64 20 125/56 95 Room Air Intake and Output 09/22/16 09/23/16 19:00 07:00 Intake Total 1560 ml 240 ml Balance 1560 ml 240 ml Intake Oral 1560 ml 240 ml # Voids 4 5 # Bowel Movements 1 Height (Feet): 5 Height (Inches): 6.00 Weight (Pounds): 235 General Appearance: no apparent distress, alert, obese Cardiovascular: normal rate Respiratory/Chest: normal breath sounds, no respiratory distress Abdominal Exam: normal bowel sounds, non tender, soft Extremities: normal range of motion Yuliya CastellanosP. Sep 23, 2016 10:46
--- NOTE | 2016-09-23 11:34 | Pulmonology Progress Note ---
Assessment/Plan Problems: (1) Chest pain (2) Neck pain (3) Abdominal pain (4) Pacemaker (5) Leukocytosis (6) Diaphragm paralysis (7) Diabetes mellitus (8) COPD (chronic obstructive pulmonary disease) Assessment/Plan stress test today echo reviewed pain controlled endoscopy can done as outpatient. Subjective ROS Limited/Unobtainable: No Interval Events: late note for 09/22, no new complains, for stress test today Allergies: Coded Allergies: No Known Allergies (Verified , 06/29/10) Objective Last 24 Hour Vital Signs Date Time Temp Pulse Resp B/P Pulse Ox O2 Delivery O2 Flow Rate FiO2 09/23/16 09:13 145/65 09/23/16 09:13 76 09/23/16 09:13 76 145/65 09/23/16 08:50 76 20 Room Air 21 09/23/16 08:00 94 09/23/16 08:00 96.3 77 21 145/65 95 Room Air 09/23/16 04:00 70 09/23/16 04:00 97.0 69 20 113/59 95 Room Air 09/23/16 00:00 70 09/23/16 00:00 98.6 77 21 124/75 98 Room Air 09/22/16 21:10 77 126/70 09/22/16 20:00 79 09/22/16 19:54 98.3 82 21 126/70 94 Room Air 09/22/16 19:30 80 20 Room Air 21 09/22/16 16:42 96.8 77 20 144/57 94 Room Air 09/22/16 15:34 79 Intake and Output 09/22/16 09/23/16 19:00 07:00 Intake Total 1560 ml 240 ml Balance 1560 ml 240 ml Intake Oral 1560 ml 240 ml # Voids 4 5 # Bowel Movements 1 General Appearance: WD/WN, no acute distress HEENT: normocephalic, atraumatic Respiratory/Chest: chest wall non-tender, lungs clear Cardiovascular: normal peripheral pulses, normal rate Abdomen: normal bowel sounds, soft, non tender, no organomegaly Genitourinary: normal external genitalia Extremities: no clubbing Skin: no rash 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, no motor/sensory deficits Current Medications Medications (Trade) Dose Ordered Sig/Sandy Route PRN Reason Start Time Stop Time Status Last Admin Dose Admin Acetaminophen (Tylenol) 650 mg Q4H PRN ORAL FEVER 09/20/16 07:15 10/20/16 07:14 09/20/16 23:57 Acetaminophen/ Hydrocodone Bitart ([place] 10325) 1 ea Q4H PRN ORAL Moderate Pain (Pain Scale 4-6) 09/21/16 10:00 09/28/16 09:59 Albuterol/ Ipratropium (DuoNeb 0.5-3(2.5)mg/3ml) 3 ml Q4H PRN HHN Shortness of Breath 09/20/16 07:15 09/25/16 07:14 Aspirin (ASA) 162 mg DAILY ORAL 09/20/16 09:00 10/20/16 08:59 09/23/16 09:13 Carvedilol (Coreg) 3.125 mg Q12HR ORAL 09/20/16 09:00 10/20/16 08:59 09/23/16 09:13 Dextrose (Dextrose 50%) STAT PRN IV Hypoglycemia 09/20/16 02:00 10/20/16 01:59 Digoxin (Lanoxin) 0.125 mg DAILY ORAL 09/20/16 09:30 10/20/16 09:29 09/23/16 09:13 Diltiazem HCl (Cardizem) 10 mg Q1H PRN IV heart rate more than 120, 09/20/16 07:15 10/20/16 07:14 Enalaprilat (Vasotec) 2.5 mg Q6H PRN IV sbp more than 160 09/20/16 07:15 10/20/16 07:14 Escitalopram Oxalate (Lexapro) 10 mg DAILY ORAL 09/20/16 09:00 10/20/16 08:59 09/23/16 09:13 Furosemide (Lasix) 40 mg DAILY IV 09/21/16 09:00 10/21/16 08:59 09/23/16 09:12 Gabapentin (Neurontin) 300 mg TID ORAL 09/20/16 09:00 10/20/16 08:59 09/23/16 09:14 Heparin Sodium (Porcine) (Heparin 5000 units/ml) 5,000 units EVERY 12 HOURS SUBQ 09/20/16 09:00 10/20/16 08:59 09/23/16 09:17 Insulin Aspart (NovoLOG) BEFORE MEALS AND HS SUBQ 09/20/16 12:00 10/20/16 11:59 09/22/16 21:09 Lisinopril (Prinivil) 20 mg DAILY ORAL 09/20/16 09:00 10/20/16 08:59 09/23/16 09:13 Morphine Sulfate (Morphine Sulfate) 2 mg Q4H PRN IVP severe Pain (Pain Scale 7-10) 09/20/16 07:15 09/27/16 07:14 09/22/16 23:23 Nitroglycerin (Ntg) 0.4 mg Q5M PRN SL Prn Chest Pain 09/20/16 07:15 10/20/16 07:14 Ondansetron HCl (Zofran) 4 mg Q6H PRN IVP Nausea & Vomiting 09/20/16 07:15 10/20/16 07:14 Pantoprazole (Protonix) 40 mg DAILY ORAL 09/20/16 09:00 10/20/16 08:59 09/23/16 09:12 Polyethylene Glycol (Miralax) 17 gm DAILYPRN PRN ORAL Constipation 09/20/16 07:15 10/20/16 07:14 Spironolactone (Aldactone) 25 mg DAILY ORAL 09/21/16 12:00 10/21/16 11:59 09/23/16 09:12 HENRI RM Sep 23, 2016 11:34
--- NOTE | 2016-09-23 11:35 | Pulmonology Progress Note ---
Assessment/Plan Problems: (1) Chest pain (2) Neck pain (3) Abdominal pain (4) Pacemaker (5) Leukocytosis (6) Diaphragm paralysis (7) Diabetes mellitus (8) COPD (chronic obstructive pulmonary disease) Assessment/Plan stress test showed reversible area, awaiting cardiology recommendation symptomatic treatment pain controlled endoscopy can done as outpatient. Subjective ROS Limited/Unobtainable: No Allergies: Coded Allergies: No Known Allergies (Verified , 06/29/10) Objective Last 24 Hour Vital Signs Date Time Temp Pulse Resp B/P Pulse Ox O2 Delivery O2 Flow Rate FiO2 09/23/16 09:13 145/65 09/23/16 09:13 76 09/23/16 09:13 76 145/65 09/23/16 08:50 76 20 Room Air 21 09/23/16 08:00 94 09/23/16 08:00 96.3 77 21 145/65 95 Room Air 09/23/16 04:00 70 09/23/16 04:00 97.0 69 20 113/59 95 Room Air 09/23/16 00:00 70 09/23/16 00:00 98.6 77 21 124/75 98 Room Air 09/22/16 21:10 77 126/70 09/22/16 20:00 79 09/22/16 19:54 98.3 82 21 126/70 94 Room Air 09/22/16 19:30 80 20 Room Air 21 09/22/16 16:42 96.8 77 20 144/57 94 Room Air 09/22/16 15:34 79 Intake and Output 09/22/16 09/23/16 19:00 07:00 Intake Total 1560 ml 240 ml Balance 1560 ml 240 ml Intake Oral 1560 ml 240 ml # Voids 4 5 # Bowel Movements 1 General Appearance: WD/WN HEENT: normocephalic, atraumatic Respiratory/Chest: chest wall non-tender, normal breath sounds Cardiovascular: normal peripheral pulses, normal rate Abdomen: normal bowel sounds, soft, non tender Genitourinary: normal external genitalia Extremities: no clubbing Skin: no lesions 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 Current Medications Medications (Trade) Dose Ordered Sig/Sandy Route PRN Reason Start Time Stop Time Status Last Admin Dose Admin Acetaminophen (Tylenol) 650 mg Q4H PRN ORAL FEVER 09/20/16 07:15 10/20/16 07:14 09/20/16 23:57 Acetaminophen/ Hydrocodone Bitart ([place] 10/325) 1 ea Q4H PRN ORAL Moderate Pain (Pain Scale 4-6) 09/21/16 10:00 09/28/16 09:59 Albuterol/ Ipratropium (DuoNeb 0.5-3(2.5)mg/3ml) 3 ml Q4H PRN HHN Shortness of Breath 09/20/16 07:15 09/25/16 07:14 Aspirin (ASA) 162 mg DAILY ORAL 09/20/16 09:00 10/20/16 08:59 09/23/16 09:13 Carvedilol (Coreg) 3.125 mg Q12HR ORAL 09/20/16 09:00 10/20/16 08:59 09/23/16 09:13 Dextrose (Dextrose 50%) STAT PRN IV Hypoglycemia 09/20/16 02:00 10/20/16 01:59 Digoxin (Lanoxin) 0.125 mg DAILY ORAL 09/20/16 09:30 10/20/16 09:29 09/23/16 09:13 Diltiazem HCl (Cardizem) 10 mg Q1H PRN IV heart rate more than 120, 09/20/16 07:15 10/20/16 07:14 Enalaprilat (Vasotec) 2.5 mg Q6H PRN IV sbp more than 160 09/20/16 07:15 10/20/16 07:14 Escitalopram Oxalate (Lexapro) 10 mg DAILY ORAL 09/20/16 09:00 10/20/16 08:59 09/23/16 09:13 Furosemide (Lasix) 40 mg DAILY IV 09/21/16 09:00 10/21/16 08:59 09/23/16 09:12 Gabapentin (Neurontin) 300 mg TID ORAL 09/20/16 09:00 10/20/16 08:59 09/23/16 09:14 Heparin Sodium (Porcine) (Heparin 5000 units/ml) 5,000 units EVERY 12 HOURS SUBQ 09/20/16 09:00 10/20/16 08:59 09/23/16 09:17 Insulin Aspart (NovoLOG) BEFORE MEALS AND HS SUBQ 09/20/16 12:00 10/20/16 11:59 09/22/16 21:09 Lisinopril (Prinivil) 20 mg DAILY ORAL 09/20/16 09:00 10/20/16 08:59 09/23/16 09:13 Morphine Sulfate (Morphine Sulfate) 2 mg Q4H PRN IVP severe Pain (Pain Scale 7-10) 09/20/16 07:15 09/27/16 07:14 09/22/16 23:23 Nitroglycerin (Ntg) 0.4 mg Q5M PRN SL Prn Chest Pain 09/20/16 07:15 10/20/16 07:14 Ondansetron HCl (Zofran) 4 mg Q6H PRN IVP Nausea & Vomiting 09/20/16 07:15 10/20/16 07:14 Pantoprazole (Protonix) 40 mg DAILY ORAL 09/20/16 09:00 10/20/16 08:59 09/23/16 09:12 Polyethylene Glycol (Miralax) 17 gm DAILYPRN PRN ORAL Constipation 09/20/16 07:15 10/20/16 07:14 Spironolactone (Aldactone) 25 mg DAILY ORAL 09/21/16 12:00 10/21/16 11:59 09/23/16 09:12 HENRI RM Sep 23, 2016 11:35
[2016-09-23 12:00] VITALS: BP 125/71
[2016-09-23] MEDS: Morphine Sulfate 2mg/ml Inj IVP PRN (15:05)
[2016-09-23 16:00] VITALS: BP 118/66
--- NOTE | 2016-09-23 18:54 | Cardiac Electrophysiology PN ---
Assessment/Plan Status Narrative Normal left ventricular chamber size, systolic function and wall motion to extent visualized. Left ventricular ejection fraction estimated to be 55 %. Study quality precludes accurate assessment of regional wall motion. Moderate left ventricular hypertrophy by 2-D. Anterior Echo-free space, may be due to pericardial fat or effusion. Left and right atrial sizes at upper limits of normal. Focal aortic valve sclerosis with adequate cusp excursion. Thickened mitral valve leaflets with normal excursion. Mitral annulus and aortic root calcification. Pulmonic valve not well visualized. Normal tricuspid valve structure. IVC at normal size with physiologic collapse. Pacemaker wire present in the right side chambers. Stress test Impression: Nonischemic clinical response to pharmacologic stress, per cardiology report Nonischemic electrocardiographic response to pharmacologic stress, per cardiology report Anterolateral post stress perfusion defects. This is partially fixed but mostly reversible. This consistent with anterolateral infarct with xochitl-infarct ischemia Calculated post stress ejection fraction 42%. Associated hypokinesis in the area of perfusion abnormality Assessment/Plan 1. Atypical chest pain in a patient with hx of angioplasty.Ruled out for myocardial infarction. Nuclear stress test showed anterolateral infarct with xochitl-infarct ischemia. DW patient transfer for cardiac catheterization but stated he would like medical therapy first.Denies any chest pain and wants to go home. DW patient with RN present and Dr Flores as well. 2. Status post [facility] [facility] biventricular defibrillator implantation. Interrogated and showed Nl Fx. 3. Severe cardiomyopathy with EF only 20%. Repeat Echo EF 55%! Continue Coreg 3.125 mg b.i.d., lisinopril 20 mg daily, Lasix 40 mg daily, Aldactone 25 mg daily and digoxin 0.125 mg daily. 4. Hyperlipidemia on Lipitor. 5. Coronary artery disease on aspirin and Coreg and Lipitor. 6. Type 2 diabetes. 7. Chronic obstructive pulmonary disease. KEE RN Follow up with me in 1-2 weeks. Subjective Subjective Feeling better.No chest pain or SOB. ICD was interrogated and showed Nl Fx.Stress test showed periinfarct ischemia. Objective Last 24 Hour Vital Signs Date Time Temp Pulse Resp B/P Pulse Ox O2 Delivery O2 Flow Rate FiO2 09/23/16 16:00 97.7 76 21 118/66 94 Room Air 09/23/16 12:00 70 09/23/16 12:00 97.3 69 20 125/71 97 Room Air 09/23/16 09:13 145/65 09/23/16 09:13 76 09/23/16 09:13 76 145/65 09/23/16 08:50 76 20 Room Air 21 09/23/16 08:00 94 09/23/16 08:00 96.3 77 21 145/65 95 Room Air 09/23/16 04:00 70 09/23/16 04:00 97.0 69 20 113/59 95 Room Air 09/23/16 00:00 70 09/23/16 00:00 98.6 77 21 124/75 98 Room Air 09/22/16 21:10 77 126/70 09/22/16 20:00 79 09/22/16 19:54 98.3 82 21 126/70 94 Room Air 09/22/16 19:30 80 20 Room Air 21 Intake and Output 09/22/16 09/23/16 19:00 07:00 Intake Total 1560 ml 240 ml Balance 1560 ml 240 ml Intake Oral 1560 ml 240 ml # Voids 4 5 # Bowel Movements 1 Objective HEAD AND NECK: Shows no JVD. LUNGS: Clear. CARDIOVASCULAR: Regular S1 and S2 with no gallop.Defibrillator is in the Left subclavian. ABDOMEN: Soft. EXTREMITIES: There is 1+ pitting edema. NITZA PEREIRA Sep 23, 2016 18:54
--- NOTE | 2016-09-23 19:05 | Internal Med Progress Note ---
Subjective Date of Service: Sep 23, 2016 Physician Name Molly Aguilar Attending Physician Les Lee MD Current Medications Medications (Trade) Dose Ordered Sig/Sandy Route PRN Reason Start Time Stop Time Status Last Admin Dose Admin Acetaminophen (Tylenol) 650 mg Q4H PRN ORAL FEVER 09/20/16 07:15 10/20/16 07:14 09/20/16 23:57 Acetaminophen/ Hydrocodone Bitart ([place] 10/325) 1 ea Q4H PRN ORAL Moderate Pain (Pain Scale 4-6) 09/21/16 10:00 09/28/16 09:59 Albuterol/ Ipratropium (DuoNeb 0.5-3(2.5)mg/3ml) 3 ml Q4H PRN HHN Shortness of Breath 09/20/16 07:15 09/25/16 07:14 Aspirin (ASA) 162 mg DAILY ORAL 09/20/16 09:00 10/20/16 08:59 09/23/16 09:13 Carvedilol (Coreg) 3.125 mg Q12HR ORAL 09/20/16 09:00 10/20/16 08:59 09/23/16 09:13 Dextrose (Dextrose 50%) STAT PRN IV Hypoglycemia 09/20/16 02:00 10/20/16 01:59 Digoxin (Lanoxin) 0.125 mg DAILY ORAL 09/20/16 09:30 10/20/16 09:29 09/23/16 09:13 Diltiazem HCl (Cardizem) 10 mg Q1H PRN IV heart rate more than 120, 09/20/16 07:15 10/20/16 07:14 Enalaprilat (Vasotec) 2.5 mg Q6H PRN IV sbp more than 160 09/20/16 07:15 10/20/16 07:14 Escitalopram Oxalate (Lexapro) 10 mg DAILY ORAL 09/20/16 09:00 10/20/16 08:59 09/23/16 09:13 Furosemide (Lasix) 40 mg DAILY IV 09/21/16 09:00 10/21/16 08:59 09/23/16 09:12 Gabapentin (Neurontin) 300 mg TID ORAL 09/20/16 09:00 10/20/16 08:59 09/23/16 17:03 Heparin Sodium (Porcine) (Heparin 5000 units/ml) 5,000 units EVERY 12 HOURS SUBQ 09/20/16 09:00 10/20/16 08:59 09/23/16 09:17 Insulin Aspart (NovoLOG) BEFORE MEALS AND HS SUBQ 09/20/16 12:00 10/20/16 11:59 09/23/16 17:06 Lisinopril (Prinivil) 20 mg DAILY ORAL 09/20/16 09:00 10/20/16 08:59 09/23/16 09:13 Morphine Sulfate (Morphine Sulfate) 2 mg Q4H PRN IVP severe Pain (Pain Scale 7-10) 09/20/16 07:15 09/27/16 07:14 09/23/16 15:05 Nitroglycerin (Ntg) 0.4 mg Q5M PRN SL Prn Chest Pain 09/20/16 07:15 10/20/16 07:14 Ondansetron HCl (Zofran) 4 mg Q6H PRN IVP Nausea & Vomiting 09/20/16 07:15 10/20/16 07:14 Pantoprazole (Protonix) 40 mg DAILY ORAL 09/20/16 09:00 10/20/16 08:59 09/23/16 09:12 Polyethylene Glycol (Miralax) 17 gm DAILYPRN PRN ORAL Constipation 09/20/16 07:15 10/20/16 07:14 Spironolactone (Aldactone) 25 mg DAILY ORAL 09/21/16 12:00 10/21/16 11:59 09/23/16 09:12 Allergies: Coded Allergies: No Known Allergies (Verified , 06/29/10) ROS Limited/Unobtainable: No Constitutional: Reports: no symptoms HEENT: Reports: no symptoms Cardiovascular: Reports: no symptoms Respiratory: Reports: no symptoms Gastrointestinal/Abdominal: Reports: no symptoms Genitourinary: Reports: no symptoms 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: Reports: no symptoms Subjective 66 YO M admitted with atypical chest pain. Await cardiac stress test 09/22/16. Await defibrillator check. Cover for Int Enrike-Dr Lee. Objective Last Vital Signs Date Time Temp Pulse Resp B/P Pulse Ox O2 Delivery O2 Flow Rate FiO2 09/23/16 16:00 97.7 76 21 118/66 94 Room Air 09/23/16 08:50 21 Intake and Output 09/22/16 09/23/16 19:00 07:00 Intake Total 1560 ml 240 ml Balance 1560 ml 240 ml Intake Oral 1560 ml 240 ml # Voids 4 5 # Bowel Movements 1 Objective General Appearance: WD/WN, no apparent distress, alert, obese EENT: PERRL/EOMI, normal ENT inspection Neck: non-tender, normal alignment, supple, normal inspection Cardiovascular: normal peripheral pulses, normal rate, regular rhythm, no gallop/murmur, no JVD Respiratory/Chest: chest wall non-tender, lungs clear, normal breath sounds, no respiratory distress, no accessory muscle use Abdomen: normal bowel sounds, non tender, soft, no organomegaly, no mass Extremities: normal range of motion Neurologic: tassel clipper II-XII grossly normal, no motor/sensory deficits Assessment/Plan Problem List: (1) Right shoulder pain (2) Chest pain Assessment & Plan: See cardiology note. Cardiac stress test=mostly reversible anterolateral perfusion defect. S/P defibrillator check. (3) Leukocytosis (4) Multiple colon polyps Assessment & Plan: Schedule outpatient endoscopy and colonoscopy-See GI note. (5) HTN (hypertension) Assessment & Plan: Continue coreg and lisinopril (6) Diabetes mellitus Assessment & Plan: Cont novolog sliding scale. (7) Hypercholesteremia (8) Low back pain Assessment & Plan: Cont norco prn Status: stable Assessment/Plan Cleared for D/C home today by cardiology. F/U Dr Lee and Dr Kern in 1 week MOLLY AGUILAR Sep 23, 2016 19:05
[2016-09-23 20:00] VITALS: BP 133/71
--- NOTE | 2016-09-24 13:10 | Discharge Summary ---
Discharge Summary Hospital Course Date of Admission Sep 20, 2016 at 02:10 Date of Discharge Sep 23, 2016 at 20:05 Admitting Diagnosis CHEST PAIN,ACS LEUKOCYTOSIS HPI George Kauffman is a 66 year old male who was admitted on Sep 20, 2016 at 02:10 for Chest Pain/Acs Leukocytosis Hospital Course [id number] Discharge Discharge Disposition Patient was discharged to Home () Discharge Diagnoses: Susi Gonsalves NP Sep 24, 2016 13:10
--- NOTE | 2016-09-25 03:45 | Discharge Summary 2 SIG ---
DATE OF ADMISSION: 09/20/2016 DATE OF DISCHARGE: 09/23/2016 CONSULTANTS: 1. Will Kern M.D. 2. Autumn Frost M.D. 3. Nikolai De Leon M.D. BRIEF HOSPITAL COURSE: The patient is a 66-year-old male, who presented to ED complaining of chest pain that started three days prior to admission. The pain radiates to the right shoulder. He had a previous pacemaker placement and had taken [place] without relief. On evaluation at ED, the patient was noted to have elevated white blood cell count to 13.4. BNP was elevated to 578. Chest x-ray done showed elevation of the right diaphragm without evident infiltrate. He was admitted to telemetry for chest pain/right shoulder pain, diabetes, hypertension, hypercholesterolemia, COPD, and low back pain. He was followed by Dr. Kern. The patient has a history of [place] biventricular defibrillator implantation and had severe cardiomyopathy. EKG showed ventricular paced. Cardiac enzymes were monitored and was negative. He was continued on Coreg 3.125 mg twice a day, lisinopril 20 mg daily, Lasix 40 mg daily, digoxin 0.125 mg daily and Aldactone 50 mg daily. He was given aspirin and Lipitor. Repeat echocardiogram done showed improvement in ejection fraction to 55%. CT of the neck showed degenerative changes with no acute bony trauma. He complained of abdominal pain. Abdominal ultrasound was unremarkable except for hepatomegaly. He was given bowel regimen consisting of MiraLAX and Colace and was given proton pump inhibitors. He had a pacemaker interrogation done that showed normal function. He underwent nuclear stress test that showed anterolateral infarct with xochitl-infarct ischemia. Discussed need for transfer for cardiac catheterization, but he stated he would like medical therapy first and wanted to go home. He was advised if symptoms recur call 911 and go to the emergency room. He was eventually discharged home to follow up with Dr. Lee and Dr. Kern in a week. FINAL DIAGNOSES: 1. Atypical chest pain. 2. Coronary artery disease with history of angioplasty. 3. Status post [place] biventricular defibrillator implantation. 4. Severe cardiomyopathy. 5. Hyperlipidemia. 6. Diabetes type 2. 7. Chronic obstructive pulmonary disease. 8. Hypercholesterolemia. 9. Low back pain. 10. Multiple colonic polyps. Kevin Flores M.D. I have been assigned to dictate discharge summary on this account and I was not involved in the patient's management. Susi Gonsalves N.P. DR: NABOR JOB#: [id number] CC:
--- NOTE | 2016-10-05 08:17 | Physician Query ---
PLEASE COMPLETE THE DOCUMENT BEFORE SIGNING Dear Dr. Kevin Flores Date: 10/05/16 Crutcher Helper/CDS' Name: Isabella Galvan, CCS Exercise your independent professional judgment when responding to query. Questions asked do not imply particular answer is desired or expected. We greatly appreciate your clarification on this issue. Clinical Documentation States: FINAL DIAGNOSES: 1. Atypical chest pain. He underwent nuclear stress test that showed anterolateral infarct with xochitl- infarct ischemia. Clinical Findings Show: EKG = Abnormal Troponin = Negative EF: Left Vent 55% A color flow and spectral Doppler study -was performed and revealed: Trace mitral regurgitation. Mitral diastolic velocities suggest reduced left ventricular relaxation c/w mild LV diastolic dysfunction (Grade I ). Trace tricuspid regurgitation. Tricuspid systolic velocities suggests peak right ventricular systolic pressure of 26 mmHg. nm MYOCARD PERF w/Eject Fract- Impression: Nonischemic clinical response to pharmacologic stress, per cardiology report,Nonischemic electrocardiographic response to pharmacologic stress, per cardiology report,Anterolateral post stress perfusion defects. This is partially fixed but mostlyreversible. This consistent with anterolateral infarct with xochitl-infarct ischemia Calculated post stress ejection fraction 42%. Associated hypokinesis in the area of perfusion abnormality Please document the suspected etiology of Chest Pain: a.Type: [X]Cardiac []Non-cardiac []Unspecified b.Etiology - cardiac [] Aortic dissection []Mitral valve prolapsed [] Acute myocardial infarction []Spasm of coronary arteries [X] Coronary Artery Disease []Pericarditis c.Etiology - non-cardiac [] Anxiety []Pleurisy [] Cancer []Pneumonia, type [] Costochondritis []Pneumothorax [] GERD/Esophagitis []Pulmonary embolism [] Unable to determine []Other: Please also document in your Progress Notes and/or Discharge Summary and indicate if the condition was present on admission. Mynor Whitehead
== END 2016-09-23 20:05 | disposition home or self-care (01) | DRG 303 ==
LOC: EMR 23:30 → EDBEDREQ 09-20 01:45 → 2E 09-20 02:10
DX: I25.10 Atherosclerotic heart disease of native coronary artery without angina pectoris (principal); I42.9 Cardiomyopathy, unspecified; J44.9 Chronic obstructive pulmonary disease, unspecified; M54.2 Cervicalgia; M25.511 Pain in right shoulder; K63.5 Polyp of colon; E11.9 Type 2 diabetes mellitus without complications; J98.6 Disorders of diaphragm; E66.01 Morbid (severe) obesity due to excess calories; E78.5 Hyperlipidemia, unspecified; Z87.891 Personal history of nicotine dependence; M54.5 Low back pain; E78.00 Pure hypercholesterolemia, unspecified; Z95.0 Presence of cardiac pacemaker; Z79.82 Long term (current) use of aspirin; Z68.37 Body mass index [BMI] 37.0-37.9, adult
CPT/HCPCS: 36415; 71010; 72125; 76700; 78452; 80048; 80053; 80061; 80162; 82550; 82553; 82962; 83880; 84443; 84484; 85025; 85610; 85730; 86140; 93005; 93017; 93306; 94664; J1815; J2405

== ENCOUNTER 2017-10-28 10:08 | Inpatient (IN) | payer MEDICARE, OTHER ==
[~2017-10-28] VITALS: Ht 172.7 cm; Wt 109.9 kg
[~2017-10-28 10:08] MED LIST changes: +INVOKANA300 MG PO
[2017-10-28] MEDS ORDERED: Sodium Chloride 500ML 500 ML IV ONE ×2 (10:16→12:30)
[2017-10-28 10:24] VITALS: BP 120/64
[2017-10-28 10:42] LABS: BASOPHILS % (AUTO) 0.8 % (0.0-2.0); EOSINOPHILS % (AUTO) 3.2 % (0.0-3.0); HEMATOCRIT 48.9 % (42.0-52.0); HEMOGLOBIN 15.2 G/DL (14.2-18.0); LYMPHOCYTES % (AUTO) 21.3 % (20.0-45.0); MEAN CORPUSCULAR VOLUME 87 FL (80-99); MONOCYTES % (AUTO) 8.2 % (1.0-10.0); NEUTROPHILS % (AUTO) 66.5 % (45.0-75.0); PLATELET COUNT 338 K/UL (150-450); RED BLOOD COUNT 5.61 M/UL (4.70-6.10); RED CELL DISTRIBUTION WIDTH 12.5 % (11.6-14.8); WHITE BLOOD COUNT 10.4 K/UL (4.8-10.8)
--- NOTE | 2017-10-28 10:49 | Emergency Room Report ---
History of Present Illness General Chief Complaint: Chest Pain Source: Patient Present Illness HPI Patient presents with complaints of midsternal chest pain and shortness of breath Ongoing for the past 3 days Patient denies any vomiting or diarrhea He has been increasingly uncomfortable Breathing is worse with laying flat Pain is 4 out of 10 midsternal Denies any pleurisy Patient is taking diuretics and digoxin Allergies: Coded Allergies: No Known Allergies (Verified , 06/29/10) Patient History Past Medical History: see triage record Pertinent Family History: none Reviewed Nursing Documentation: PMH: Agreed; PSxH: Agreed Nursing Documentation-PMH Hx Cardiac Problems: Yes Hx Hypertension: Yes - Pacemaker, high cholesterol Hx Pacemaker: Yes Hx Asthma: Yes Hx COPD: Yes Hx Diabetes: Yes Hx Cancer: No Hx Gastrointestinal Problems: Yes Hx Neurological Problems: No Review of Systems All Other Systems: negative except mentioned in HPI Physical Exam Vital Signs Date Time Temp Pulse Resp B/P (MAP) Pulse Ox O2 Delivery O2 Flow Rate FiO2 10/28/17 10:18 98.2 77 20 98 Room Air 98.2 10/28/17 10:24 120/64 Sp02 EP Interpretation: reviewed, normal General Appearance: mild distress - Appears short of breath Head: normocephalic, atraumatic Eyes: bilateral eye PERRL, bilateral eye EOMI ENT: hearing grossly normal, normal pharynx, TMs + canals normal, uvula midline Neck: full range of motion, supple, no meningismus, no bony tend Respiratory: no rhonchi, no respiratory distress, no retraction, no accessory muscle use, crackles - Diffusely Cardiovascular #1: normal peripheral pulses, regular rate, rhythm, no gallop, no JVD, no murmur Gastrointestinal: normal bowel sounds, non tender, soft, no mass, no organomegaly, non-distended, no guarding, no hernia, no pulsatile mass, no rebound Genitourinary: no CVA tenderness Musculoskeletal: normal inspection Neurologic: oriented x3, responsive, ell tutor III-XII nml as tested, motor strength/ tone normal, sensory intact Psychiatric: mood/affect normal Skin: warm/dry, palpation normal, other - Bilateral pitting edema Lymphatic: normal inspection, no adenopathy Procedures Critical Care Time Critical Care Time 40 minutes for multiple re-evaluations Critical presentation with hypotensive episode, acute CHF concerning for acute coronary syndrome and possible not including any procedural time Medical Decision Making Diagnostic Impression: Primary Impression: CHF (congestive heart failure) ER Course Patient is a fairly complex patient with multiple differential to consideration including but not limited to cardiac cardiopulmonary and vascular emergencies Patient's x-ray and workup is consistent with acute CHF Given the patient's pain ACS and cardiac pathology further entertained patient has been provided with aspirin Blood pressure did have a decrease at the mid point of the workup however has increased back up and patient admitted for further care Labs Test 10/28/17 10:20 White Blood Count 10.4 K/UL (4.8-10.8) Red Blood Count 5.61 M/UL (4.70-6.10) Hemoglobin 15.2 G/DL (14.2-18.0) Hematocrit 48.9 % (42.0-52.0) Mean Corpuscular Volume 87 FL (80-99) Mean Corpuscular Hemoglobin 27.1 PG (27.0-31.0) Mean Corpuscular Hemoglobin Concent 31.1 G/DL (32.0-36.0) Red Cell Distribution Width 12.5 % (11.6-14.8) Platelet Count 338 K/UL (150-450) Mean Platelet Volume 6.5 FL (6.5-10.1) Neutrophils (%) (Auto) 66.5 % (45.0-75.0) Lymphocytes (%) (Auto) 21.3 % (20.0-45.0) Monocytes (%) (Auto) 8.2 % (1.0-10.0) Eosinophils (%) (Auto) 3.2 % (0.0-3.0) Basophils (%) (Auto) 0.8 % (0.0-2.0) Sodium Level 136 MMOL/L (136-145) Potassium Level 5.0 MMOL/L (3.5-5.1) Chloride Level 100 MMOL/L (98-107) Carbon Dioxide Level 26 MMOL/L (21-32) Anion Gap 10 mmol/L (5-15) Blood Urea Nitrogen 34 mg/dL (7-18) Creatinine 2.3 MG/DL (0.55-1.30) Estimat Glomerular Filtration Rate 28.6 mL/min (>60) Glucose Level 262 MG/DL (74-106) Calcium Level 8.7 MG/DL (8.5-10.1) Total Bilirubin 0.4 MG/DL (0.2-1.0) Aspartate Amino Transf (AST/SGOT) 23 U/L (15-37) Alanine Aminotransferase (ALT/SGPT) 29 U/L (12-78) Alkaline Phosphatase 94 U/L (46-116) Total Creatine Kinase 225 U/L (26-308) Creatine Kinase MB 2.2 NG/ML (0.0-3.6) Creatine Kinase MB Relative Index 0.9 Troponin I 0.011 ng/mL (0.000-0.056) Pro-B-Type Natriuretic Peptide 608 pg/mL (0-125) Total Protein 7.5 G/DL (6.4-8.2) Albumin 3.7 G/DL (3.4-5.0) Globulin 3.8 g/dL Albumin/Globulin Ratio 1.0 (1.0-2.7) Lipase 157 U/L (73-393) Digoxin Level 0.5 NG/ML (0.5-2.0) EKG Diagnostic Results Rate: normal Rhythm: NSR ST Segments: other - Nonspecific ST and T-wave changes Rhythm Strip Diag. Results EP Interpretation: yes Rate: 66 Rhythm: NSR, no PVC's, no ectopy Chest X-Ray Diagnostic Results Chest X-Ray Diagnostic Results : Chest X-Ray Ordered: Yes # of Views/Limited/Complete: 1 View Indication: Chest Pain EP Interpretation: Yes Interpretation: no consolidation, no pneumothorax, other - Cardiomegaly, pulmonary congestion Impression: Other - Acute CHF Electronically Signed by: Rocky Kelly DO Last Vital Signs Date Time Temp Pulse Resp B/P (MAP) Pulse Ox O2 Delivery O2 Flow Rate FiO2 10/28/17 10:24 76 18 Room Air 10/28/17 10:24 98.2 120/64 96 98.2 Status: improved Disposition: ADMITTED INPATIENT Condition: Serious Rocky Kelly DO Oct 28, 2017 10:48
[2017-10-28 11:11] LABS: ANION GAP 10 mmol/L (5-15); BLOOD UREA NITROGEN 34 mg/dL (7-18); CALCIUM 8.7 MG/DL (8.5-10.1); CARBON DIOXIDE 26 MMOL/L (21-32); CHLORIDE 100 MMOL/L (98-107); CREATININE 2.3 MG/DL (0.55-1.30); SODIUM 136 MMOL/L (136-145)
--- NOTE | 2017-10-28 11:14 | Diagnostic Imaging Report ---
Indication: Chest pain Technique: One view of the chest Comparison: 09/19/2016 Findings: Left chest biventricular AICD is again demonstrated. Persistent elevation of right hemidiaphragm with minimal basilar compressive atelectatic change. The heart size is upper limits of normal. No significant change Impression: No acute process
[2017-10-28] MEDS ORDERED: Morphine Sulfate 2mg/ml Inj(IV/IM USE ONLY) IVP ONE (11:15)
[2017-10-28 11:26] LABS: ALANINE AMINOTRANSFERASE 29 U/L (12-78); ALBUMIN 3.7 G/DL (3.4-5.0); ALKALINE PHOSPHATASE 94 U/L (46-116); ASPARTATE AMINO TRANSFERASE 23 U/L (15-37); BILIRUBIN,TOTAL 0.4 MG/DL (0.2-1.0); CKMB 2.2 NG/ML (0.0-3.6); CREATINE KINASE 225 U/L (26-308)
[2017-10-28 11:58] VITALS: BP 92/46
[2017-10-28 12:42] VITALS: BP 101/57
--- NOTE | 2017-10-28 12:58 | Consultation ---
History of Present Illness General Date patient seen: Oct 28, 2017 Chief Complaint: Chest Pain Present Illness HPI 67 year old male with hx of CAD, ICD, cardiomyopathy presented to ER with CC of midsternal chest pain and shortness of breath Ongoing for the past 3 days. Patient denies any vomiting or diarrhea. Pt is admitted to [facility] for ACS. Allergies: Coded Allergies: No Known Allergies (Verified , 06/29/10) Medication History Scheduled Albuterol Sulfate* (Albuterol Sulfate Mdi*), 2 PUFF INH HS, (Reported) Aspirin* (Aspir 81*), 81 MG PO DAILY, (Reported) Carvedilol* (Carvedilol*), 3.125 MG PO Q12HR, (Reported) Dexlansoprazole (Dexilant), 60 MG PO DAILY, (Reported) Digoxin* (Lanoxin*), 125 MCG PO DAILY, (Reported) Escitalopram Oxalate* (Lexapro*), 10 MG PO DAILY, (Reported) Furosemide* (Lasix*), 40 MG PO DAILY, (Reported) Lisinopril* (Zestril*), 20 MG PO DAILY, (Reported) Potassium Chloride (Potassium Chloride), 10 MEQ PO DAILY, (Reported) Simvastatin (Zocor), 40 MG PO QHS, (Reported) Spironolactone* (Aldactone*), 25 MG PO DAILY, (Reported) [diabetes med], Unknown Dose PO BID, (Reported) Scheduled PRN Gabapentin* (Gabapentin*), 300 MG PO TID PRN, (Reported) Hydrocodone Bit/Acetaminophen 7.5-300 Mg Tabl (Vicodin Es 7.5-300 Mg Tablet), 1 TAB ORAL Q4H PRN for For Pain Hydrocodone/Acetaminophen 7.5-750 (Vicodin Es 7.5-750), 1 TAB PO Q8H PRN, ( Reported) Zolpidem Tartrate* (Zolpidem Tartrate*), 5 MG PO BEDTIME PRN, (Reported) Miscellaneous Medications Canagliflozin (Invokana), 300 MG PO, (Reported) Patient History Healthcare decision maker Resuscitation status Advanced Directive on File Past Medical/Surgical History Past Medical/Surgical History: (1) HTN (hypertension) (2) COPD (chronic obstructive pulmonary disease) (3) Diabetes mellitus (4) Hypertension Review of Systems Constitutional: Reports: no symptoms ENT: Reports: no symptoms Respiratory: Reports: no symptoms Cardiovascular: Reports: no symptoms Physical Exam General Appearance: WD/WN, no apparent distress Lines, tubes and drains: peripheral, central line HEENT: normocephalic, atraumatic Neck: normal alignment, supple Respiratory/Chest: chest wall non-tender, normal breath sounds, respiratory distress Breasts: no masses Cardiovascular/Chest: normal rate, regularly irregular, no JVD Last 24 Hour Vital Signs Date Time Temp Pulse Resp B/P (MAP) Pulse Ox O2 Delivery O2 Flow Rate FiO2 10/28/17 12:42 73 17 101/57 95 Bi-pap 10/28/17 11:58 98.2 64 24 92/46 99 Bi-pap 98.2 10/28/17 11:30 30 10/28/17 11:21 98.2 10/28/17 10:55 67 19 Room Air 10/28/17 10:55 67 19 94 Facial 15.0 30 10/28/17 10:24 76 18 Room Air 10/28/17 10:24 98.2 76 18 120/64 96 Room Air 98.2 10/28/17 10:18 98.2 77 20 98 Room Air 98.2 Laboratory Tests Test 10/28/17 10:20 White Blood Count 10.4 K/UL (4.8-10.8) Red Blood Count 5.61 M/UL (4.70-6.10) Hemoglobin 15.2 G/DL (14.2-18.0) Hematocrit 48.9 % (42.0-52.0) Mean Corpuscular Volume 87 FL (80-99) Mean Corpuscular Hemoglobin 27.1 PG (27.0-31.0) Mean Corpuscular Hemoglobin Concent 31.1 G/DL (32.0-36.0) L Red Cell Distribution Width 12.5 % (11.6-14.8) Platelet Count 338 K/UL (150-450) Mean Platelet Volume 6.5 FL (6.5-10.1) Neutrophils (%) (Auto) 66.5 % (45.0-75.0) Lymphocytes (%) (Auto) 21.3 % (20.0-45.0) Monocytes (%) (Auto) 8.2 % (1.0-10.0) Eosinophils (%) (Auto) 3.2 % (0.0-3.0) H Basophils (%) (Auto) 0.8 % (0.0-2.0) Sodium Level 136 MMOL/L (136-145) Potassium Level 5.0 MMOL/L (3.5-5.1) Chloride Level 100 MMOL/L (98-107) Carbon Dioxide Level 26 MMOL/L (21-32) Anion Gap 10 mmol/L (5-15) Blood Urea Nitrogen 34 mg/dL (7-18) H Creatinine 2.3 MG/DL (0.55-1.30) H Estimat Glomerular Filtration Rate 28.6 mL/min (>60) Glucose Level 262 MG/DL (74-106) H Calcium Level 8.7 MG/DL (8.5-10.1) Total Bilirubin 0.4 MG/DL (0.2-1.0) Aspartate Amino Transf (AST/SGOT) 23 U/L (15-37) Alanine Aminotransferase (ALT/SGPT) 29 U/L (12-78) Alkaline Phosphatase 94 U/L (46-116) Total Creatine Kinase 225 U/L (26-308) Creatine Kinase MB 2.2 NG/ML (0.0-3.6) Creatine Kinase MB Relative Index 0.9 Troponin I 0.011 ng/mL (0.000-0.056) Pro-B-Type Natriuretic Peptide 608 pg/mL (0-125) H Total Protein 7.5 G/DL (6.4-8.2) Albumin 3.7 G/DL (3.4-5.0) Globulin 3.8 g/dL Albumin/Globulin Ratio 1.0 (1.0-2.7) Lipase 157 U/L (73-393) Digoxin Level 0.5 NG/ML (0.5-2.0) Height (Feet): 5 Height (Inches): 8.00 Weight (Pounds): 235 Medications Current Medications Medications (Trade) Dose Ordered Sig/Sandy Route PRN Reason Start Time Stop Time Status Last Admin Dose Admin Acetaminophen (Tylenol) 650 mg Q4H PRN ORAL FEVER 10/28/17 12:45 11/27/17 12:44 UNV Albuterol/ Ipratropium (Albuterol/ Ipratropium) 3 ml EVERY 4 HOURS PRN HHN Shortness of Breath 10/28/17 12:45 11/02/17 12:44 UNV Aspirin (ASA) 162 mg DAILY ORAL 10/29/17 09:00 11/28/17 08:59 UNV Diltiazem HCl (Cardizem) 10 mg EVERY HOUR PRN IV heart rate more than 120, 10/28/17 12:45 11/27/17 12:44 UNV Enalaprilat (Vasotec) 2.5 mg EVERY 6 HOURS PRN IV sbp more than 160 10/28/17 12:45 11/27/17 12:44 UNV Heparin Sodium (Porcine) (Heparin 5000 units/ml) 5,000 units EVERY 12 HOURS SUBQ 10/28/17 21:00 11/27/17 20:59 UNV Ketorolac Tromethamine (Toradol 30mg) 30 mg Q6HR PRN IV moderate pain ( 4-6) 10/28/17 12:45 11/02/17 12:44 UNV Morphine Sulfate (Morphine Sulfate) 2 mg EVERY 4 HOURS PRN IVP severe Pain (Pain Scale 7-10) 10/28/17 12:45 11/04/17 12:44 UNV Nitroglycerin (Ntg) 0.4 mg Every 5 Minutes PRN SL Prn Chest Pain 10/28/17 12:45 11/27/17 12:44 UNV Ondansetron HCl (Zofran) 4 mg Q6H PRN IVP Nausea & Vomiting 10/28/17 12:45 11/27/17 12:44 UNV Polyethylene Glycol (Miralax) 17 gm DAILYPRN PRN ORAL Constipation 10/28/17 12:45 11/27/17 12:44 UNV Sodium Chloride 500 ml @ 999 mls/hr Q31M ONCE IV 10/28/17 12:30 10/28/17 13:00 10/28/17 12:20 Temazepam (Restoril) 15 mg HSPRN PRN ORAL Insomnia 10/28/17 12:45 11/04/17 12:44 UNV Assessment/Plan Problem List: (1) ACS (acute coronary syndrome) ICD Codes: I24.9 - Acute ischemic heart disease, unspecified SNOMED: 989511331 (2) HTN (hypertension) ICD Codes: I10 - HTN (hypertension) SNOMED: 29789470 (3) Hypertension ICD Codes: I10 - Essential (primary) hypertension SNOMED: 29725513 (4) Diabetes mellitus ICD Codes: E11.9 - Type 2 diabetes mellitus without complications SNOMED: 42515393 (5) COPD (chronic obstructive pulmonary disease) ICD Codes: J44.9 - COPD (chronic obstructive pulmonary disease) SNOMED: 10572721 Assessment/Plan serial ekg, troponin echo cardiology to see investigate ICD sliding scale diabetic diet symptomatic treatment Autumn Frost MD Oct 28, 2017 12:58
[2017-10-28 13:35] VITALS: BP 105/60
[2017-10-28] MEDS ORDERED: Albuterol/Ipratropium 3ml neb HHN PRN (13:53)
[2017-10-28] MEDS ORDERED: Nitroglycerin Subl 0.4mg tab SL PRN (13:53)
[2017-10-28] MEDS ORDERED: Miralax 17gm pkt ORAL PRN (13:56)
[2017-10-28] MEDS ORDERED: dilTIAZem HCl 25mg/5ml Inj IV PRN (13:57)
[2017-10-28] MEDS ORDERED: Ketorolac 30mg Inj IV PRN (13:59)
[2017-10-28] MEDS ORDERED: Enalaprilat 2.5mg/2ml Inj IV PRN (13:59)
[2017-10-28 16:00] VITALS: BP 102/55
--- NOTE | 2017-10-28 19:16 | Consultation ---
History of Present Illness General Date patient seen: Oct 28, 2017 Time patient seen: 19:58 Chief Complaint: Chest Pain Present Illness HPI Patient is a 67 year old male with hx of DM, obesity, CAD, ICD, cardiomyopathy presented to ER with CC of midsternal chest pain and shortness of breath ongoing for the past 3 days. Troponin negative x2, BNP mildly elevated. Vitals and blood pressure normal. CXR clear, echo wtih LVEF 35% Allergies: Coded Allergies: No Known Allergies (Verified , 06/29/10) Medication History Scheduled Albuterol Sulfate* (Albuterol Sulfate Mdi*), 2 PUFF INH HS, (Reported) Aspirin* (Aspir 81*), 81 MG PO DAILY, (Reported) Carvedilol* (Carvedilol*), 3.125 MG PO Q12HR, (Reported) Dexlansoprazole (Dexilant), 60 MG PO DAILY, (Reported) Digoxin* (Lanoxin*), 125 MCG PO DAILY, (Reported) Escitalopram Oxalate* (Lexapro*), 10 MG PO DAILY, (Reported) Furosemide* (Lasix*), 40 MG PO DAILY, (Reported) Lisinopril* (Zestril*), 20 MG PO DAILY, (Reported) Potassium Chloride (Potassium Chloride), 10 MEQ PO DAILY, (Reported) Simvastatin (Zocor), 40 MG PO QHS, (Reported) Spironolactone* (Aldactone*), 25 MG PO DAILY, (Reported) [diabetes med], Unknown Dose PO BID, (Reported) Scheduled PRN Gabapentin* (Gabapentin*), 300 MG PO TID PRN, (Reported) Hydrocodone Bit/Acetaminophen 7.5-300 Mg Tabl (Vicodin Es 7.5-300 Mg Tablet), 1 TAB ORAL Q4H PRN for For Pain Hydrocodone/Acetaminophen 7.5-750 (Vicodin Es 7.5-750), 1 TAB PO Q8H PRN, ( Reported) Zolpidem Tartrate* (Zolpidem Tartrate*), 5 MG PO BEDTIME PRN, (Reported) Miscellaneous Medications Canagliflozin (Invokana), 300 MG PO, (Reported) Patient History Healthcare decision maker Kyra -spouse Resuscitation status Full Code Advanced Directive on File Yes Review of Systems Constitutional: Reports: no symptoms Eye: Reports: no symptoms ENT: Reports: no symptoms Respiratory: Reports: shortness of breath Cardiovascular: Reports: chest pain Gastrointestinal: Reports: no symptoms Genitourinary: Reports: no symptoms Musculoskeletal: Reports: no symptoms Skin: Reports: no symptoms Psychiatric: Reports: no symptoms Neurological: Reports: no symptoms Endocrine: Reports: no symptoms Hematologic/Lymphatic: Reports: no symptoms Physical Exam General Appearance: no apparent distress, alert, overweight, obese Lines, tubes and drains: peripheral HEENT: normocephalic, atraumatic, anicteric Neck: non-tender, normal alignment Respiratory/Chest: chest wall non-tender, lungs clear, normal breath sounds Cardiovascular/Chest: normal peripheral pulses, normal rate, regular rhythm Abdomen: normal bowel sounds, non tender, soft, no organomegaly Extremities: normal range of motion, non-tender Skin Exam: normal pigmentation Neurologic: swimming pool maintenance II-XII grossly normal Last 24 Hour Vital Signs Date Time Temp Pulse Resp B/P (MAP) Pulse Ox O2 Delivery O2 Flow Rate FiO2 10/28/17 16:00 75 10/28/17 16:00 Nasal Cannula 2.0 10/28/17 16:00 98.2 79 16 102/55 (71) 97 98.2 79 10/28/17 14:00 Nasal Cannula 2.0 10/28/17 13:35 [id number] 74 18 105/60 94 Bi-pap 15.0 30 205.0 74 10/28/17 13:35 96.1 74 18 105/60 (75) 94 96.1 74 10/28/17 13:30 75 18 92 10/28/17 12:42 73 17 101/57 95 Bi-pap 10/28/17 11:58 98.2 64 24 92/46 99 Bi-pap 98.2 10/28/17 11:30 30 10/28/17 11:21 98.2 10/28/17 10:55 67 19 Room Air 10/28/17 10:55 67 19 94 Facial 15.0 30 10/28/17 10:24 76 18 Room Air 10/28/17 10:24 98.2 76 18 120/64 96 Room Air 98.2 10/28/17 10:18 98.2 77 20 98 Room Air 98.2 Laboratory Tests Test 10/28/17 10:20 10/28/17 16:25 White Blood Count 10.4 K/UL (4.8-10.8) Red Blood Count 5.61 M/UL (4.70-6.10) Hemoglobin 15.2 G/DL (14.2-18.0) Hematocrit 48.9 % (42.0-52.0) Mean Corpuscular Volume 87 FL (80-99) Mean Corpuscular Hemoglobin 27.1 PG (27.0-31.0) Mean Corpuscular Hemoglobin Concent 31.1 G/DL (32.0-36.0) L Red Cell Distribution Width 12.5 % (11.6-14.8) Platelet Count 338 K/UL (150-450) Mean Platelet Volume 6.5 FL (6.5-10.1) Neutrophils (%) (Auto) 66.5 % (45.0-75.0) Lymphocytes (%) (Auto) 21.3 % (20.0-45.0) Monocytes (%) (Auto) 8.2 % (1.0-10.0) Eosinophils (%) (Auto) 3.2 % (0.0-3.0) H Basophils (%) (Auto) 0.8 % (0.0-2.0) Sodium Level 136 MMOL/L (136-145) Potassium Level 5.0 MMOL/L (3.5-5.1) Chloride Level 100 MMOL/L (98-107) Carbon Dioxide Level 26 MMOL/L (21-32) Anion Gap 10 mmol/L (5-15) Blood Urea Nitrogen 34 mg/dL (7-18) H Creatinine 2.3 MG/DL (0.55-1.30) H Estimat Glomerular Filtration Rate 28.6 mL/min (>60) Glucose Level 262 MG/DL (74-106) H Calcium Level 8.7 MG/DL (8.5-10.1) Total Bilirubin 0.4 MG/DL (0.2-1.0) Aspartate Amino Transf (AST/SGOT) 23 U/L (15-37) Alanine Aminotransferase (ALT/SGPT) 29 U/L (12-78) Alkaline Phosphatase 94 U/L (46-116) Total Creatine Kinase 225 U/L (26-308) Creatine Kinase MB 2.2 NG/ML (0.0-3.6) Creatine Kinase MB Relative Index 0.9 Troponin I 0.011 ng/mL (0.000-0.056) 0.026 ng/mL (0.000-0.056) Pro-B-Type Natriuretic Peptide 608 pg/mL (0-125) H Total Protein 7.5 G/DL (6.4-8.2) Albumin 3.7 G/DL (3.4-5.0) Globulin 3.8 g/dL Albumin/Globulin Ratio 1.0 (1.0-2.7) Lipase 157 U/L (73-393) Digoxin Level 0.5 NG/ML (0.5-2.0) Height (Feet): 5 Height (Inches): 8.00 Weight (Pounds): 235 Medications Current Medications Medications (Trade) Dose Ordered Sig/Sandy Route PRN Reason Start Time Stop Time Status Last Admin Dose Admin Acetaminophen (Tylenol) 650 mg Q4H PRN ORAL FEVER 10/28/17 13:53 11/27/17 13:52 Albuterol/ Ipratropium (Albuterol/ Ipratropium) 3 ml Q4H PRN HHN Shortness of Breath 10/28/17 13:53 11/02/17 13:52 Aspirin (ASA) 162 mg DAILY ORAL 10/29/17 09:00 11/28/17 08:59 Carvedilol (Coreg) 3.125 mg Q12HR ORAL 10/28/17 21:00 11/27/17 20:59 Digoxin (Lanoxin) 0.125 mg DAILY ORAL 10/29/17 09:00 11/28/17 08:59 Diltiazem HCl (Cardizem) 10 mg Q1H PRN IV heart rate more than 120 10/28/17 13:57 11/27/17 13:56 Enalaprilat (Vasotec) 2.5 mg EVERY 6 HOURS PRN IV sbp more than 160 10/28/17 13:59 11/27/17 13:58 Escitalopram Oxalate (Lexapro) 10 mg DAILY ORAL 10/29/17 09:00 11/28/17 08:59 Gabapentin (Neurontin) 300 mg TID ORAL 10/28/17 18:00 11/27/17 17:59 10/28/17 18:25 Heparin Sodium (Porcine) (Heparin 5000 units/ml) 5,000 units EVERY 12 HOURS SUBQ 10/28/17 21:00 11/27/17 20:59 Ketorolac Tromethamine (Toradol 30mg) 30 mg Q6H PRN IV moderate pain ( 4-6) 10/28/17 13:59 11/02/17 13:58 Lisinopril (Prinivil) 20 mg DAILY@1200 ORAL 10/29/17 12:00 11/28/17 11:59 Morphine Sulfate (Morphine Sulfate) 2 mg Q4H PRN IVP severe Pain (Pain Scale 7-10) 10/28/17 14:00 11/04/17 13:59 Nitroglycerin (Ntg) 0.4 mg Q5MIN X 3 DOSES PRN SL Prn Chest Pain 10/28/17 13:53 11/27/17 13:52 Ondansetron HCl (Zofran) 4 mg Q6H PRN IVP Nausea & Vomiting 10/28/17 13:53 11/27/17 13:52 Polyethylene Glycol (Miralax) 17 gm DAILYPRN PRN ORAL Constipation 10/28/17 13:56 11/27/17 13:55 Spironolactone (Aldactone) 25 mg DAILY ORAL 10/29/17 09:00 11/28/17 08:59 Temazepam (Restoril) 15 mg HSPRN PRN ORAL Insomnia 10/28/17 21:00 11/04/17 20:59 Assessment/Plan Status: stable Assessment/Plan ASSESSMENT 1. Type 2 diabetes. 2. Hypertension. 3. Hypercholesterolemia. 4. Chronic obstructive pulmonary disease 5. Chronic low back pain. 6. Chest pain 7 CAD Plan: Serial EKG/troponin BP control, glucose control Physical therapy TTE reviewed - LV function 35-40% ICD interrogation Stress test before discharge due to multiple risk factors Continue current blood pressure medications Alexi Kurtz M.D. Oct 28, 2017 19:16
[2017-10-28 20:00] VITALS: BP 112/61
[2017-10-28] MEDS ORDERED: Isovue-300 100ml vial INJ PRN (20:06)
[2017-10-28] MEDS ORDERED: Isovue-370 150ml vial INJ PRN (20:06)
[2017-10-28] MEDS: Morphine Sulfate 2mg/ml Inj(IV/IM USE ONLY) IVP PRN (21:03)
[2017-10-28] MEDS: Heparin 5000 units/ml inj SUBQ SCH (21:07)
[2017-10-29] VITALS: BP 108/64
--- NOTE | 2017-10-29 00:11 | Consultation ---
History of Present Illness General Date patient seen: Oct 28, 2017 Chief Complaint: Chest Pain Present Illness HPI 67 year old male with hx of CAD, ICD, cardiomyopathy presented to ER with CC of midsternal chest pain and shortness of breath, the pt has hx of depression and anxiety currently on lexapro Allergies: Coded Allergies: No Known Allergies (Verified , 06/29/10) Medication History Scheduled Albuterol Sulfate* (Albuterol Sulfate Mdi*), 2 PUFF INH HS, (Reported) Aspirin* (Aspir 81*), 81 MG PO DAILY, (Reported) Carvedilol* (Carvedilol*), 3.125 MG PO Q12HR, (Reported) Dexlansoprazole (Dexilant), 60 MG PO DAILY, (Reported) Digoxin* (Lanoxin*), 125 MCG PO DAILY, (Reported) Escitalopram Oxalate* (Lexapro*), 10 MG PO DAILY, (Reported) Furosemide* (Lasix*), 40 MG PO DAILY, (Reported) Lisinopril* (Zestril*), 20 MG PO DAILY, (Reported) Potassium Chloride (Potassium Chloride), 10 MEQ PO DAILY, (Reported) Simvastatin (Zocor), 40 MG PO QHS, (Reported) Spironolactone* (Aldactone*), 25 MG PO DAILY, (Reported) [diabetes med], Unknown Dose PO BID, (Reported) Scheduled PRN Gabapentin* (Gabapentin*), 300 MG PO TID PRN, (Reported) Hydrocodone Bit/Acetaminophen 7.5-300 Mg Tabl (Vicodin Es 7.5-300 Mg Tablet), 1 TAB ORAL Q4H PRN for For Pain Hydrocodone/Acetaminophen 7.5-750 (Vicodin Es 7.5-750), 1 TAB PO Q8H PRN, ( Reported) Zolpidem Tartrate* (Zolpidem Tartrate*), 5 MG PO BEDTIME PRN, (Reported) Miscellaneous Medications Canagliflozin (Invokana), 300 MG PO, (Reported) Patient History History Provided By: Patient, Medical Record, PMD Healthcare decision maker Kyra -spouse Resuscitation status Full Code Advanced Directive on File Yes Review of Systems Psychiatric: Reports: prior hx, anxiety, depressed feelings, emotional problems Physical Exam General Appearance: no apparent distress, alert Neurologic: oriented x 3, responsive, depressed affect Last 24 Hour Vital Signs Date Time Temp Pulse Resp B/P (MAP) Pulse Ox O2 Delivery O2 Flow Rate FiO2 10/28/17 20:58 76 112/61 10/28/17 16:00 75 10/28/17 16:00 Nasal Cannula 2.0 10/28/17 16:00 98.2 79 16 102/55 (71) 97 98.2 79 10/28/17 14:00 Nasal Cannula 2.0 10/28/17 13:35 [id number] 74 18 105/60 94 Bi-pap 15.0 30 205.0 74 10/28/17 13:35 96.1 74 18 105/60 (75) 94 96.1 74 10/28/17 13:30 75 18 92 10/28/17 12:42 73 17 101/57 95 Bi-pap 10/28/17 11:58 98.2 64 24 92/46 99 Bi-pap 98.2 10/28/17 11:30 30 10/28/17 11:21 98.2 10/28/17 10:55 67 19 Room Air 10/28/17 10:55 67 19 94 Facial 15.0 30 10/28/17 10:24 76 18 Room Air 10/28/17 10:24 98.2 76 18 120/64 96 Room Air 98.2 10/28/17 10:18 98.2 77 20 98 Room Air 98.2 Intake and Output 10/28/17 10/29/17 19:00 07:00 Intake Total 850 ml Balance 850 ml Intake Oral 0 ml IV Total 850 ml # Voids 1 Laboratory Tests Test 10/28/17 10:20 10/28/17 16:25 White Blood Count 10.4 K/UL (4.8-10.8) Red Blood Count 5.61 M/UL (4.70-6.10) Hemoglobin 15.2 G/DL (14.2-18.0) Hematocrit 48.9 % (42.0-52.0) Mean Corpuscular Volume 87 FL (80-99) Mean Corpuscular Hemoglobin 27.1 PG (27.0-31.0) Mean Corpuscular Hemoglobin Concent 31.1 G/DL (32.0-36.0) L Red Cell Distribution Width 12.5 % (11.6-14.8) Platelet Count 338 K/UL (150-450) Mean Platelet Volume 6.5 FL (6.5-10.1) Neutrophils (%) (Auto) 66.5 % (45.0-75.0) Lymphocytes (%) (Auto) 21.3 % (20.0-45.0) Monocytes (%) (Auto) 8.2 % (1.0-10.0) Eosinophils (%) (Auto) 3.2 % (0.0-3.0) H Basophils (%) (Auto) 0.8 % (0.0-2.0) Sodium Level 136 MMOL/L (136-145) Potassium Level 5.0 MMOL/L (3.5-5.1) Chloride Level 100 MMOL/L (98-107) Carbon Dioxide Level 26 MMOL/L (21-32) Anion Gap 10 mmol/L (5-15) Blood Urea Nitrogen 34 mg/dL (7-18) H Creatinine 2.3 MG/DL (0.55-1.30) H Estimat Glomerular Filtration Rate 28.6 mL/min (>60) Glucose Level 262 MG/DL (74-106) H Calcium Level 8.7 MG/DL (8.5-10.1) Total Bilirubin 0.4 MG/DL (0.2-1.0) Aspartate Amino Transf (AST/SGOT) 23 U/L (15-37) Alanine Aminotransferase (ALT/SGPT) 29 U/L (12-78) Alkaline Phosphatase 94 U/L (46-116) Total Creatine Kinase 225 U/L (26-308) Creatine Kinase MB 2.2 NG/ML (0.0-3.6) Creatine Kinase MB Relative Index 0.9 Troponin I 0.011 ng/mL (0.000-0.056) 0.026 ng/mL (0.000-0.056) Pro-B-Type Natriuretic Peptide 608 pg/mL (0-125) H Total Protein 7.5 G/DL (6.4-8.2) Albumin 3.7 G/DL (3.4-5.0) Globulin 3.8 g/dL Albumin/Globulin Ratio 1.0 (1.0-2.7) Lipase 157 U/L (73-393) Digoxin Level 0.5 NG/ML (0.5-2.0) Height (Feet): 5 Height (Inches): 8.00 Weight (Pounds): 235 Medications Current Medications Medications (Trade) Dose Ordered Sig/Sandy Route PRN Reason Start Time Stop Time Status Last Admin Dose Admin Acetaminophen (Tylenol) 650 mg Q4H PRN ORAL FEVER 10/28/17 13:53 11/27/17 13:52 Albuterol/ Ipratropium (Albuterol/ Ipratropium) 3 ml Q4H PRN HHN Shortness of Breath 10/28/17 13:53 11/02/17 13:52 Aspirin (ASA) 162 mg DAILY ORAL 10/29/17 09:00 11/28/17 08:59 Carvedilol (Coreg) 3.125 mg Q12HR ORAL 10/28/17 21:00 11/27/17 20:59 10/28/17 20:58 Digoxin (Lanoxin) 0.125 mg DAILY ORAL 10/29/17 09:00 11/28/17 08:59 Diltiazem HCl (Cardizem) 10 mg Q1H PRN IV heart rate more than 120 10/28/17 13:57 11/27/17 13:56 Enalaprilat (Vasotec) 2.5 mg EVERY 6 HOURS PRN IV sbp more than 160 10/28/17 13:59 11/27/17 13:58 Escitalopram Oxalate (Lexapro) 10 mg DAILY ORAL 10/29/17 09:00 11/28/17 08:59 Gabapentin (Neurontin) 300 mg TID ORAL 10/28/17 18:00 11/27/17 17:59 10/28/17 18:25 Heparin Sodium (Porcine) (Heparin 5000 units/ml) 5,000 units EVERY 12 HOURS SUBQ 10/28/17 21:00 11/27/17 20:59 10/28/17 21:07 Ketorolac Tromethamine (Toradol 30mg) 30 mg Q6H PRN IV moderate pain ( 4-6) 10/28/17 13:59 11/02/17 13:58 Lisinopril (Prinivil) 20 mg DAILY@1200 ORAL 10/29/17 12:00 11/28/17 11:59 Morphine Sulfate (Morphine Sulfate) 2 mg Q4H PRN IVP severe Pain (Pain Scale 7-10) 10/28/17 14:00 11/04/17 13:59 10/28/17 21:03 Nitroglycerin (Ntg) 0.4 mg Q5MIN X 3 DOSES PRN SL Prn Chest Pain 10/28/17 13:53 11/27/17 13:52 Ondansetron HCl (Zofran) 4 mg Q6H PRN IVP Nausea & Vomiting 10/28/17 13:53 11/27/17 13:52 Polyethylene Glycol (Miralax) 17 gm DAILYPRN PRN ORAL Constipation 10/28/17 13:56 11/27/17 13:55 Spironolactone (Aldactone) 25 mg DAILY ORAL 10/29/17 09:00 11/28/17 08:59 Temazepam (Restoril) 15 mg HSPRN PRN ORAL Insomnia 10/28/17 21:00 11/04/17 20:59 Assessment/Plan Status: stable Assessment/Plan mdd anxiety lexapro 10mg qam provided santos/Gregg Nix MD Oct 29, 2017 00:11
--- NOTE | 2017-10-29 00:45 | History and Physical Report ---
DATE OF ADMISSION: 10/28/2017 CHIEF COMPLAINT: The patient is a 67-year-old male presents with chief complaint of chest pain and shortness of breath. HISTORY OF PRESENT ILLNESS: The patient has a history of chest pain. The patient states history of present illness began approximately one week ago. The patient began to forget things. The patient states he forgot to cherry picker [place] his car [place] the market after going to the grocery store. The patient also states his left arm has jerky movements. The patient also has tremors. The patient states he began to experience left shoulder pain yesterday October 27, 2017. The patient's pain is now located in the left chest as well. The patient presented to [place] emergency room. The patient is admitted for chest pain to rule out acute coronary syndrome. REVIEW OF SYSTEMS: CONSTITUTIONAL: The patient denies weight loss or gain. The patient denies fever or chills. HEENT: The patient denies ear or throat pain. The patient denies headache. CARDIOVASCULAR: The patient denies palpitations. The patient complains of chest pain as above. CHEST: The patient complains of shortness of breath. The patient denies wheezes. ABDOMEN: The patient complains of increasing abdominal distention. The patient denies nausea, vomiting, diarrhea, or constipation. GENITOURINARY: The patient denies dysuria or increased frequency urination. NEUROMUSCULAR: The patient denies seizures or generalized weakness. PAST MEDICAL HISTORY: Significant for: 1. Type 2 diabetes. 2. Hypertension. 3. Hypercholesterolemia. 4. Chronic obstructive pulmonary disease 5. Chronic low back pain. PAST SURGICAL HISTORY: Significant for [employer] biventricular pacemaker implantation in 2014. CURRENT MEDICATIONS: 1. Albuterol metered-dose inhaler two puffs p.o. q.i.d. p.r.n. 2. Aspirin 81 mg p.o. daily. 3. Invokana 300 mg p.o. daily. 4. Carvedilol 3.125 mg p.o. twice daily. 5. Dexilant 60 mg p.o. daily. 6. Digoxin 0.125 mg p.o. daily. 7. Lexapro 10 mg p.o. daily. 8. Lasix 40 mg p.o. daily. 9. Neurontin 300 mg p.o. three times daily. 10. Vicodin ES 7.5/750 one tablet p.o. q.8 hours p.r.n. 11. Lisinopril 20 mg p.o. daily. 12. Potassium chloride 10 mEq p.o. daily. 13. Spironolactone 25 mg p.o. daily. 14. Ambien 5 mg p.o. at bedtime. ALLERGIES: No known drug allergies. SOCIAL HISTORY: The patient is and lives with his . The patient is retired. The patient denies tobacco use having quit 20 years ago. The patient denies alcohol use. PHYSICAL EXAMINATION: VITAL SIGNS: Temperature 98.2, respirations 24, pulse 64, blood pressure 92/46. GENERAL: The patient is well-developed and well-nourished slightly obese male, in no apparent distress. HEENT: Eyes, pupils are equal and responsive to light and accommodation. Extraocular movements are intact. NECK: Supple without lymphadenopathy. CHEST: Lungs are clear to auscultation bilaterally without wheezes or rales. CARDIOVASCULAR: Regular rate. S1 and S2 are normal without murmurs, rubs, or gallops. ABDOMEN: Soft, nontender, nondistended. Positive bowel sounds. No evidence of hepatosplenomegaly. Currently, no rebound or guarding noted. EXTREMITIES: Negative for clubbing, cyanosis, or edema. RECTAL/GENITAL: Refused. NEUROLOGIC: Cranial nerves II through XII are grossly intact without focal deficits. Motor strength is 5/5 bilaterally. Deep tendon reflexes are 2+ plantar. LABORATORY STUDIES: WBC 10.4, hemoglobin 15.2, hematocrit 48.9, platelets 338,000. Sodium 136, potassium 5.0, chloride 100, CO2 26, BUN 34, creatinine 2.3, glucose 262. Troponin 0.011. BNP elevated at 608. ASSESSMENT: This is a 67-year-old male. 1. Congestive heart failure. 2. Chest pain. 3. Shortness of breath. 4. . 5. Diabetes type 2. 6. Chronic obstructive pulmonary disease. TREATMENT: 1. Congestive heart failure. Cardiology consultation obtained with Dr. Will Kern. Serial BNPs will be performed. Differential diagnosis includes acute myocardial infarction. We will follow recommendation of Cardiology. A pacemaker check will be performed. 2. Hypertension. Continue carvedilol and lisinopril as above. 3. Chronic obstructive pulmonary disease. Continue albuterol metered-dose as above. 4. Pacemaker in situ. Kevin Flores M.D. DR: Bonny JOB#: [id number] CC:
[2017-10-29 04:00] VITALS: BP 102/55
[2017-10-29 05:19] LABS: BASOPHILS % (AUTO) 0.7 % (0.0-2.0); EOSINOPHILS % (AUTO) 3.4 % (0.0-3.0); HEMATOCRIT 45.7 % (42.0-52.0); HEMOGLOBIN 14.3 G/DL (14.2-18.0); MEAN CORPUSCULAR VOLUME 89 FL (80-99); PLATELET COUNT 320 K/UL (150-450); RED BLOOD COUNT 5.14 M/UL (4.70-6.10); RED CELL DISTRIBUTION WIDTH 12.9 % (11.6-14.8); WHITE BLOOD COUNT 11.7 K/UL (4.8-10.8)
[2017-10-29 05:23] LABS: INR 0.9 (0.9-1.1)
[2017-10-29 05:27] LABS: ANION GAP 10 mmol/L (5-15); BLOOD UREA NITROGEN 42 mg/dL (7-18); CALCIUM 8.8 MG/DL (8.5-10.1); CARBON DIOXIDE 26 MMOL/L (21-32); CHLORIDE 102 MMOL/L (98-107); CREATININE 3.7 MG/DL (0.55-1.30); SODIUM 138 MMOL/L (136-145)
[2017-10-29 05:48] LABS: CHOLESTEROL 254 MG/DL (< 200); HDL CHOLESTEROL 33 MG/DL (40-60); TRIGLYCERIDES 301 MG/DL (30-150)
[2017-10-29 08:00] VITALS: BP 131/74
[2017-10-29] MEDS ORDERED: Aspirin Baby 81mg ORAL SCH (09:00)
[2017-10-29] MEDS ORDERED: Spironolactone 25mg tab ORAL SCH (09:00)
--- NOTE | 2017-10-29 09:13 | Diagnostic Imaging Report ---
INDICATION: Chest pain COMPARISON: Chest x-ray dated 10/28/17 FINDINGS: Single frontal view demonstrates stable enlarged heart size. Left chest wall pacemaker in place. Continued elevation of the left hemidiaphragm. The lungs are clear. No pleural effusions. The visualized osseous structures are within normal limits. IMPRESSION: No significant change. Enlarged heart size. Continued elevation left hemidiaphragm. Pacemaker in place.
[2017-10-29] MEDS: Digoxin 0.125mg tab ORAL SCH (09:30)
[2017-10-29] MEDS: Heparin 5000 units/ml inj SUBQ SCH ×2 (09:37→20:27)
[2017-10-29] MEDS: Morphine Sulfate 2mg/ml Inj(IV/IM USE ONLY) IVP PRN ×2 (09:50→17:53)
--- NOTE | 2017-10-29 11:06 | Cardiology Progress Note ---
Assessment/Plan Status: stable Assessment/Plan ASSESSMENT 1. Type 2 diabetes. 2. Hypertension. 3. Hypercholesterolemia. 4. Chronic obstructive pulmonary disease 5. Chronic low back pain. 6. Chest pain 7 CAD Plan: Serial EKG/troponin BP control, glucose control Physical therapy TTE reviewed - LV function 35-40% ICD interrogation - Dr. Kern to assume care tomorrow Stress test before discharge due to multiple risk factors Continue current blood pressure medications Increase coreg to 6.25 BID Hold aldctone and lisinopril in setting of RACHEL/elevated creatinine Nephrology consult Consider Hydralazine/nitro Tuesday if blood pressure tolerates Subjective Cardiovascular: Reports: no symptoms Respiratory: Reports: no symptoms Gastrointestinal/Abdominal: Reports: no symptoms Genitourinary: Reports: no symptoms Subjective No acute events, no CP, vitals stable, creatinine elevated, CXR clear, Echo with LVEF 35% Objective Last 24 Hour Vital Signs Date Time Temp Pulse Resp B/P (MAP) Pulse Ox O2 Delivery O2 Flow Rate FiO2 10/29/17 10:20 97.9 10/29/17 09:50 97.9 10/29/17 09:30 81 10/29/17 09:29 81 131/74 10/29/17 08:00 Nasal Cannula 2.0 10/29/17 08:00 90 10/29/17 08:00 97.9 81 20 131/74 (93) 94 97.9 81 10/29/17 04:00 72 10/29/17 04:00 Nasal Cannula 2.0 10/29/17 04:00 97.9 78 16 102/55 (71) 98 97.9 78 10/29/17 00:00 Nasal Cannula 2.0 10/29/17 00:00 97.7 64 16 108/64 (79) 95 97.7 64 10/29/17 00:00 69 10/28/17 20:58 76 112/61 10/28/17 20:00 Nasal Cannula 2.0 10/28/17 20:00 96.4 76 18 112/61 (78) 96 96.4 76 10/28/17 20:00 75 10/28/17 16:00 75 10/28/17 16:00 Nasal Cannula 2.0 10/28/17 16:00 98.2 79 16 102/55 (71) 97 98.2 79 10/28/17 14:00 Nasal Cannula 2.0 10/28/17 13:35 35.55967 74 18 105/60 94 Bi-pap 15.0 30 205.0 74 10/28/17 13:35 96.1 74 18 105/60 (75) 94 96.1 74 10/28/17 13:30 75 18 92 10/28/17 12:42 73 17 101/57 95 Bi-pap 10/28/17 11:58 98.2 64 24 92/46 99 Bi-pap 98.2 10/28/17 11:30 30 10/28/17 11:21 98.2 General Appearance: no apparent distress, alert EENT: PERRL/EOMI, TMs normal Neck: non-tender, normal alignment Rhythm: NSR Cardiovascular: normal peripheral pulses, normal rate Respiratory/Chest: chest wall non-tender, lungs clear Abdomen: normal bowel sounds, non tender Extremities: normal range of motion, non-tender 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: 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 captain II-XII grossly normal Intake and Output 10/28/17 10/29/17 19:00 07:00 Intake Total 850 ml 240 ml Balance 850 ml 240 ml Intake Oral 0 ml 240 ml IV Total 850 ml # Voids 1 Laboratory Tests Test 10/28/17 16:25 10/29/17 03:32 Troponin I 0.026 ng/mL (0.000-0.056) White Blood Count 11.7 K/UL (4.8-10.8) H Red Blood Count 5.14 M/UL (4.70-6.10) Hemoglobin 14.3 G/DL (14.2-18.0) Hematocrit 45.7 % (42.0-52.0) Mean Corpuscular Volume 89 FL (80-99) Mean Corpuscular Hemoglobin 27.8 PG (27.0-31.0) Mean Corpuscular Hemoglobin Concent 31.2 G/DL (32.0-36.0) L Red Cell Distribution Width 12.9 % (11.6-14.8) Platelet Count 320 K/UL (150-450) Mean Platelet Volume 6.2 FL (6.5-10.1) L Neutrophils (%) (Auto) 69.0 % (45.0-75.0) Lymphocytes (%) (Auto) 20.0 % (20.0-45.0) Monocytes (%) (Auto) 7.0 % (1.0-10.0) Eosinophils (%) (Auto) 3.4 % (0.0-3.0) H Basophils (%) (Auto) 0.7 % (0.0-2.0) Prothrombin Time 10.0 SEC (9.30-11.50) Prothromb Time International Ratio 0.9 (0.9-1.1) Activated Partial Thromboplast Time 26 SEC (23-33) Sodium Level 138 MMOL/L (136-145) Potassium Level 5.0 MMOL/L (3.5-5.1) Chloride Level 102 MMOL/L (98-107) Carbon Dioxide Level 26 MMOL/L (21-32) Anion Gap 10 mmol/L (5-15) Blood Urea Nitrogen 42 mg/dL (7-18) H Creatinine 3.7 MG/DL (0.55-1.30) #H Estimat Glomerular Filtration Rate 16.5 mL/min (>60) Glucose Level 149 MG/DL (74-106) #H Calcium Level 8.8 MG/DL (8.5-10.1) C-Reactive Protein, Quantitative 0.7 mg/dL (0.00-0.90) Pro-B-Type Natriuretic Peptide 803 pg/mL (0-125) H Triglycerides Level 301 MG/DL (30-150) H Cholesterol Level 254 MG/DL (< 200) H LDL Cholesterol 175 mg/dL (<100) H HDL Cholesterol 33 MG/DL (40-60) L Cholesterol/HDL Ratio 7.7 (3.3-4.4) H Thyroid Stimulating Hormone (TSH) 3.208 uiU/mL (0.358-3.740) Alexi Kurtz M.D. Oct 29, 2017 11:06
[2017-10-29 12:00] VITALS: BP 113/64
[2017-10-29] MEDS ORDERED: Lisinopril 20mg tab ORAL SCH (12:00)
--- NOTE | 2017-10-29 15:15 | Diagnostic Imaging Report ---
EXAM: CT Abdomen and Pelvis Without Intravenous Contrast CLINICAL HISTORY: ABD DIST TECHNIQUE: Axial computed tomography images of the abdomen and pelvis without intravenous contrast. CTDI is 20.05 mGy and DLP is 1086 mGy-cm. One or more of the following dose reduction techniques were used: automated exposure control, adjustment of the mA and/or kV according to patient size, use of iterative reconstruction technique. COMPARISON: Abdominal ultrasound dated 09/21/16. FINDINGS: Lung bases: Mild dependent atelectasis in bilateral lung bases. ABDOMEN: Liver: Unremarkable. Gallbladder and bile ducts: Unremarkable. No calcified stones. No ductal dilation. Pancreas: Unremarkable. Spleen: Spleen is not identified, likely surgically absent. Surgical clips are seen adjacent to the pancreatic tail. Adrenals: Unremarkable. No mass. Kidneys and ureters: Mild bilateral perinephric stranding. 2.9 cm simple-appearing cyst in the right lower renal pole and a 1.2 cm simple- appearing cyst in the left mid kidney. No radiodense renal or ureteral stones. No hydronephrosis or hydroureter. Stomach and bowel: Nonspecific mild gaseous distention of colonic loops. Incidental note of a redundant descending colon which loops upon itself. No mucosal thickening. PELVIS: Appendix: No findings to suggest acute appendicitis. Bladder: Unremarkable. No stones. Reproductive: The prostate gland and seminal vesicles appear unremarkable. ABDOMEN and PELVIS: Intraperitoneal space: Unremarkable. No free air. No significant fluid collection. Bones/joints: Multilevel degenerative changes throughout the visualized spine with disc space loss and endplate osteophytes. No acute fracture. No dislocation. Soft tissues: Unremarkable. Vasculature: Atherosclerotic calcifications throughout the abdominal aorta and its proximal branches. No abnormal dilatation. Lymph nodes: Unremarkable. No enlarged lymph nodes. Tubes, lines and devices: Cardiac pacer leads seen in the right ventricle and coronary sinus. IMPRESSION: 1. Mild bilateral perinephric stranding. This is nonspecific and may be related to chronic senescent changes versus a UTI. No radiodense renal or ureteral stones. No hydronephrosis or hydroureter. 2. 2.9 cm simple-appearing cyst in the right lower renal pole and a 1.2 cm simple-appearing cyst in the left mid kidney. 3. Nonspecific gaseous distention of colonic loops. No focal colonic wall thickening or adjacent inflammatory change. 4. Incidental note of a redundant descending colon which loops upon itself.
--- NOTE | 2017-10-29 15:20 | Diagnostic Imaging Report ---
EXAM: CT Head Without Intravenous Contrast CLINICAL HISTORY: H/A TECHNIQUE: Axial computed tomography images of the head/brain without intravenous contrast. CTDI is 70.53 mGy and DLP is 1383 mGy-cm. One or more of the following dose reduction techniques were used: automated exposure control, adjustment of the mA and/or kV according to patient size, use of iterative reconstruction technique. COMPARISON: CT head dated 11/18/15 FINDINGS: Brain: Mild age-related cerebral parenchymal volume loss. No evidence of acute intracranial hemorrhage. No significant white matter disease. No edema. No mass effect or midline shift. Ventricles: Unremarkable. No ventriculomegaly. Bones/joints: Unremarkable. No acute fracture. Soft tissues: Unremarkable. Sinuses: Mild mucosal thickening in the ethmoid and sphenoid sinuses. Remaining this was paranasal sinuses are clear. No sinus air fluid levels. Mastoid air cells: Unremarkable as visualized. No mastoid effusion. IMPRESSION: 1. No acute intracranial findings. 2. Mild mucosal thickening in the ethmoid and sphenoid sinuses. Correlate clinically for mild sinusitis.
[2017-10-29 16:00] VITALS: BP 136/91
--- NOTE | 2017-10-29 18:33 | Internal Med Progress Note ---
Subjective Date of Service: Oct 29, 2017 Physician Name Kevin Flores Attending Physician Kevin Flores MD Current Medications Medications (Trade) Dose Ordered Sig/Sandy Route PRN Reason Start Time Stop Time Status Last Admin Dose Admin Acetaminophen (Tylenol) 650 mg Q4H PRN ORAL FEVER 10/28/17 13:53 11/27/17 13:52 Albuterol/ Ipratropium (Albuterol/ Ipratropium) 3 ml Q4H PRN HHN Shortness of Breath 10/28/17 13:53 11/02/17 13:52 Aspirin (ASA) 81 mg DAILY ORAL 10/30/17 09:00 11/29/17 08:59 Atorvastatin Calcium (Lipitor) 40 mg BEDTIME ORAL 10/29/17 21:00 11/28/17 20:59 Barium Sulfate (Readi-Cat 2) 450 ml NOW PRN ORAL Radiology Procedure 10/29/17 13:30 10/31/17 23:59 Carvedilol (Coreg) 6.25 mg Q12HR ORAL 10/29/17 21:00 11/27/17 20:59 Digoxin (Lanoxin) 0.125 mg DAILY ORAL 10/29/17 09:00 11/28/17 08:59 10/29/17 09:30 Diltiazem HCl (Cardizem) 10 mg Q1H PRN IV heart rate more than 120 10/28/17 13:57 11/27/17 13:56 Enalaprilat (Vasotec) 2.5 mg EVERY 6 HOURS PRN IV sbp more than 160 10/28/17 13:59 11/27/17 13:58 Escitalopram Oxalate (Lexapro) 10 mg DAILY ORAL 10/29/17 09:00 11/28/17 08:59 10/29/17 09:28 Gabapentin (Neurontin) 300 mg TID ORAL 10/28/17 18:00 11/27/17 17:59 10/29/17 17:44 Heparin Sodium (Porcine) (Heparin 5000 units/ml) 5,000 units EVERY 12 HOURS SUBQ 10/28/17 21:00 11/27/17 20:59 10/29/17 09:37 Iopamidol (Isovue-300 100ml) 100 ml NOW PRN INJ Radiology Procedure 10/28/17 20:06 10/29/17 23:59 Iopamidol (Isovue-370 150ml) 150 ml NOW PRN INJ Radiology Procedure 10/28/17 20:06 10/29/17 23:59 Ketorolac Tromethamine (Toradol 30mg) 30 mg Q6H PRN IV moderate pain ( 4-6) 10/28/17 13:59 11/02/17 13:58 Morphine Sulfate (Morphine Sulfate) 2 mg Q4H PRN IVP severe Pain (Pain Scale 7-10) 10/28/17 14:00 11/04/17 13:59 10/29/17 17:53 Nitroglycerin (Ntg) 0.4 mg Q5MIN X 3 DOSES PRN SL Prn Chest Pain 10/28/17 13:53 11/27/17 13:52 Ondansetron HCl (Zofran) 4 mg Q6H PRN IVP Nausea & Vomiting 10/28/17 13:53 11/27/17 13:52 Polyethylene Glycol (Miralax) 17 gm DAILYPRN PRN ORAL Constipation 10/28/17 13:56 11/27/17 13:55 Temazepam (Restoril) 15 mg HSPRN PRN ORAL Insomnia 10/28/17 21:00 11/04/17 20:59 Allergies: Coded Allergies: No Known Allergies (Verified , 06/29/10) ROS Limited/Unobtainable: No Constitutional: Reports: no symptoms HEENT: Reports: no symptoms Cardiovascular: Reports: chest pain Respiratory: Reports: no symptoms Gastrointestinal/Abdominal: Reports: no symptoms Genitourinary: Reports: no symptoms 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: Reports: no symptoms Subjective 67 YO M admitted with chest pain and shortness of breath. Now CHF. Objective Last Vital Signs Date Time Temp Pulse Resp B/P (MAP) Pulse Ox O2 Delivery O2 Flow Rate FiO2 10/29/17 17:53 98.4 10/29/17 16:00 81 10/29/17 16:00 Nasal Cannula 2.0 10/29/17 16:00 0 136/91 (106) 92 10/28/17 13:35 30 General Appearance: WD/WN, mild distress, obese EENT: PERRL/EOMI, normal ENT inspection Neck: non-tender, normal alignment, supple, normal inspection Cardiovascular: normal peripheral pulses, normal rate, regular rhythm, no gallop/murmur, no JVD Respiratory/Chest: chest wall non-tender, respiratory distress, crackles/rales , expiratory wheezing Abdomen: normal bowel sounds, non tender, soft, no organomegaly, no mass Extremities: normal range of motion, non-tender Neurologic: machine sorter II-XII grossly normal, no motor/sensory deficits Skin: normal pigmentation, warm/dry Laboratory Tests Test 10/29/17 03:32 10/29/17 12:30 White Blood Count 11.7 K/UL (4.8-10.8) H Red Blood Count 5.14 M/UL (4.70-6.10) Hemoglobin 14.3 G/DL (14.2-18.0) Hematocrit 45.7 % (42.0-52.0) Mean Corpuscular Volume 89 FL (80-99) Mean Corpuscular Hemoglobin 27.8 PG (27.0-31.0) Mean Corpuscular Hemoglobin Concent 31.2 G/DL (32.0-36.0) L Red Cell Distribution Width 12.9 % (11.6-14.8) Platelet Count 320 K/UL (150-450) Mean Platelet Volume 6.2 FL (6.5-10.1) L Neutrophils (%) (Auto) 69.0 % (45.0-75.0) Lymphocytes (%) (Auto) 20.0 % (20.0-45.0) Monocytes (%) (Auto) 7.0 % (1.0-10.0) Eosinophils (%) (Auto) 3.4 % (0.0-3.0) H Basophils (%) (Auto) 0.7 % (0.0-2.0) Prothrombin Time 10.0 SEC (9.30-11.50) Prothromb Time International Ratio 0.9 (0.9-1.1) Activated Partial Thromboplast Time 26 SEC (23-33) Sodium Level 138 MMOL/L (136-145) Potassium Level 5.0 MMOL/L (3.5-5.1) Chloride Level 102 MMOL/L (98-107) Carbon Dioxide Level 26 MMOL/L (21-32) Anion Gap 10 mmol/L (5-15) Blood Urea Nitrogen 42 mg/dL (7-18) H Creatinine 3.7 MG/DL (0.55-1.30) #H Estimat Glomerular Filtration Rate 16.5 mL/min (>60) Glucose Level 149 MG/DL (74-106) #H Calcium Level 8.8 MG/DL (8.5-10.1) C-Reactive Protein, Quantitative 0.7 mg/dL (0.00-0.90) Pro-B-Type Natriuretic Peptide 803 pg/mL (0-125) H Triglycerides Level 301 MG/DL (30-150) H Cholesterol Level 254 MG/DL (< 200) H LDL Cholesterol 175 mg/dL (<100) H HDL Cholesterol 33 MG/DL (40-60) L Cholesterol/HDL Ratio 7.7 (3.3-4.4) H Thyroid Stimulating Hormone (TSH) 3.208 uiU/mL (0.358-3.740) Troponin I 0.000 ng/mL (0.000-0.056) Intake and Output 10/28/17 10/29/17 19:00 07:00 Intake Total 850 ml 240 ml Balance 850 ml 240 ml Intake Oral 0 ml 240 ml IV Total 850 ml # Voids 1 Assessment/Plan Problem List: (1) CHF (congestive heart failure) Assessment & Plan: LVEF=35-40% see cardiology note (2) HTN (hypertension) Assessment & Plan: continue cardizem and coreg (3) Diabetes mellitus Assessment & Plan: Continue novolog sliding scale. (4) COPD (chronic obstructive pulmonary disease) Assessment & Plan: See pulmonary note. (5) Chest pain Assessment & Plan: Needs cardiac stress test-see cardiology note. (6) Pacemaker Assessment & Plan: Await interrogation (7) Renal failure Assessment & Plan: CT=perinephric stranding. Await nephrology consult. Start levaquin Status: not improved Kevin Flores MD Oct 29, 2017 18:33
[2017-10-29] MEDS ORDERED: Lexiscan 0.4mg/5ml syringe IV PRN (18:45)
[2017-10-29] MEDS: HYDROcodone/Acetamin 7.5/325 tab ORAL PRN (19:51)
[2017-10-29 20:00] VITALS: BP 118/61
[2017-10-29] MEDS: Carvedilol 6.25mg Tab ORAL SCH (20:25)
[2017-10-29] MEDS: NovoLOG Insulin Flexpen SUBQ SCH (20:27)
[2017-10-29] MEDS ORDERED: Atorvastatin 20mg tab ORAL SCH (21:00)
[2017-10-29 22:57] LABS: APPEARANCE,URINE CLEAR; BILIRUBIN, URINE NEGATIVE (NEGATIVE); COLOR,URINE PALE YELLOW; GLUCOSE, URINE (UA) 4+ (NEGATIVE); KETONES,URINE NEGATIVE (NEGATIVE); LEUKOCYTE ESTERASE ,URINE NEGATIVE (NEGATIVE); NITRITE,URINE NEGATIVE (NEGATIVE); PH,URINE 6 (4.5-8.0); PROTEIN,URINE NEGATIVE (NEGATIVE); UROBILINOGEN,URINE NORMAL MG/DL (0.0-1.0)
[2017-10-30] VITALS: BP 123/68
[2017-10-30 04:00] VITALS: BP 141/83
[2017-10-30 05:26] LABS: HEMATOCRIT 44.3 % (42.0-52.0); HEMOGLOBIN 14.3 G/DL (14.2-18.0); LYMPHOCYTES % (AUTO) 26.6 % (20.0-45.0); MEAN CORPUSCULAR VOLUME 88 FL (80-99); MONOCYTES % (AUTO) 8.6 % (1.0-10.0); NEUTROPHILS % (AUTO) 59.8 % (45.0-75.0); PLATELET COUNT 327 K/UL (150-450); RED BLOOD COUNT 5.04 M/UL (4.70-6.10); RED CELL DISTRIBUTION WIDTH 12.5 % (11.6-14.8); WHITE BLOOD COUNT 9.5 K/UL (4.8-10.8)
[2017-10-30 05:37] LABS: ANION GAP 7 mmol/L (5-15); BLOOD UREA NITROGEN 25 mg/dL (7-18); CALCIUM 9.1 MG/DL (8.5-10.1); CARBON DIOXIDE 27 MMOL/L (21-32); CHLORIDE 104 MMOL/L (98-107); CREATININE 1.3 MG/DL (0.55-1.30); POTASSIUM 4.7 MMOL/L (3.5-5.1); SODIUM 138 MMOL/L (136-145)
[2017-10-30] MEDS: HYDROcodone/Acetamin 7.5/325 tab ORAL PRN ×3 (05:52→20:50)
[2017-10-30] MEDS: NovoLOG Insulin Flexpen SUBQ SCH ×4 (06:08→21:23)
[2017-10-30 08:00] VITALS: BP_SYST 131; BP_SYST 141; BP_DIAS 82; BP_DIAS 88
[2017-10-30] MEDS: Carvedilol 6.25mg Tab ORAL SCH ×2 (08:55→20:47)
[2017-10-30] MEDS: Digoxin 0.125mg tab ORAL SCH (08:55)
[2017-10-30] MEDS: Heparin 5000 units/ml inj SUBQ SCH ×2 (08:57→20:47)
[2017-10-30] MEDS ORDERED: Aspirin Baby 81mg ORAL SCH (09:00)
[2017-10-30] MEDS ORDERED: NS 275ml ONE (09:09)
[2017-10-30] MEDS ORDERED: Tubing IV Secondary IV ONE (09:09)
--- NOTE | 2017-10-30 11:09 | Pulmonology Progress Note ---
Assessment/Plan Assessment/Plan ASSESSMENT chest pain rule out ACS cardiomyopathy congestive heart failure AICD COPD IZA hypertension diabetes chronic low back pain acute kidney injury- resolved mixed hyperlipidemia obesity PLAN OF CARE serial troponin negative EKG no acute ischemic changes patient r/o for acute AK cardio follows ECHO with EF 35-40% stress test pending - due to multiply risk factors- per cardio AICD interrogation pending ( last done about 6 m ago) LOKESH and Aldactone stopped due to RACHEL RACHEL resolved continue with aspirin, BB, digoxin , statin lipid panel with elevated TG, TC and LDL, continue statin educated on cardiac low-fat low-cholesterol diabetic diet per cardio will consider combo with hydralazine and Isordil, if BP allows BP stable pro BNP down to 283 O2 prn, titrate; HHN prn BiPAP at night and prn patient has CPAP at home fup with CXR BS management with sliding scale of insulin , [id number] head, CT A/P no acute findings pain management supportive care DVT prophylaxis transfer to tele case discussed and evaluated by supervising physician Subjective Allergies: Coded Allergies: No Known Allergies (Verified , 06/29/10) Subjective denies chest pain, SOB using BiPAP at night Objective Last 24 Hour Vital Signs Date Time Temp Pulse Resp B/P (MAP) Pulse Ox O2 Delivery O2 Flow Rate FiO2 10/30/17 08:55 71 141/82 10/30/17 08:55 71 10/30/17 08:00 68 10/30/17 08:00 Bi-pap 10/30/17 08:00 98.0 71 20 141/82 (101) 97 98.0 10/30/17 08:00 2.0 10/30/17 07:00 92 Nasal Cannula 2.5 30 10/30/17 07:00 Nasal Cannula 2.5 30 10/30/17 05:18 70 17 96 Facial 30 10/30/17 04:00 97.8 70 17 141/83 (102) 97 97.8 10/30/17 04:00 30 10/30/17 04:00 67 10/30/17 04:00 Bi-pap 10/30/17 02:57 77 17 99 Facial 30 10/30/17 01:28 73 19 96 Facial 30 10/30/17 00:00 Bi-pap 10/30/17 00:00 76 10/30/17 00:00 30 10/30/17 00:00 98.2 77 20 123/68 (86) 97 98.2 10/29/17 22:30 30 10/29/17 22:25 77 26 96 Facial 30 10/29/17 20:25 85 118/61 10/29/17 20:00 Nasal Cannula 2.0 10/29/17 20:00 77 10/29/17 20:00 97.4 85 19 118/61 (80) 96 97.4 10/29/17 18:23 98.4 10/29/17 17:53 98.4 10/29/17 16:00 81 10/29/17 16:00 Nasal Cannula 2.0 10/29/17 16:00 98.4 78 0 136/91 (106) 92 98.4 78 10/29/17 13:00 76 10/29/17 12:00 Nasal Cannula 2.0 10/29/17 12:00 98.2 74 19 113/64 (80) 93 98.2 74 Intake and Output 10/29/17 10/30/17 19:00 07:00 Intake Total 990 ml 350 ml Output Total 1000 ml 1400 ml Balance -10 ml -1050 ml Intake Oral 990 ml 250 ml IV Total 100 ml Output Urine Total 1000 ml 1400 ml # Voids 1 4 # Bowel Movements 4 General Appearance: other - obese awake, alert, oriented male in NAD HEENT: normocephalic, atraumatic, anicteric, mucous membranes moist Respiratory/Chest: lungs clear - with moferate air exchange , no accessory muscle use Cardiovascular: normal peripheral pulses, normal rate, regular rhythm, no JVD, other - left chest AICD Abdomen: normal bowel sounds, soft, non tender - obese Extremities: no edema, pedal pulses normal 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: no motor/sensory deficits, alert, oriented x 3, responsive Musculoskeletal: normal muscle bulk Laboratory Tests 10/29/17 12:30: Hemoglobin A1c 7.9H, Troponin I 0.000 10/29/17 21:30: Urine Color Pale yellow, Urine Appearance Clear, Urine pH 6, Urine Specific [place] 1.010, Urine Protein Negative, Urine Glucose (UA) 4+H, Urine Ketones Negative, Urine Occult Blood Negative, Urine Nitrite Negative, Urine Bilirubin Negative, Urine Urobilinogen Normal, Urine Leukocyte Esterase Negative 10/30/17 04:40: Troponin I 0.000, White Blood Count 9.5, Red Blood Count 5.04, Hemoglobin 14.3, Hematocrit 44.3, Mean Corpuscular Volume 88, Mean Corpuscular Hemoglobin 28.3, Mean Corpuscular Hemoglobin Concent 32.1, Red Cell Distribution Width 12.5, Platelet Count 327, Mean Platelet Volume 6.3L, Neutrophils (%) (Auto) 59.8, Lymphocytes (%) (Auto) 26.6, Monocytes (%) (Auto) 8.6, Eosinophils (%) (Auto) 4.0H, Basophils (%) (Auto) 1.0, Sodium Level 138, Potassium Level 4.7, Chloride Level 104, Carbon Dioxide Level 27, Anion Gap 7, Blood Urea Nitrogen 25H, Creatinine 1.3#, Estimat Glomerular Filtration Rate 55.2, Glucose Level 151H, Calcium Level 9.1, Pro-B-Type Natriuretic Peptide 283H Current Medications Medications (Trade) Dose Ordered Sig/Sandy Route PRN Reason Start Time Stop Time Status Last Admin Dose Admin Acetaminophen (Tylenol) 650 mg Q4H PRN ORAL FEVER 10/28/17 13:53 11/27/17 13:52 10/29/17 21:16 Acetaminophen/ Hydrocodone Bitart ([place] 7.5/325) 1 tab Q4H PRN ORAL For Pain 10/29/17 19:15 11/05/17 19:14 10/30/17 05:52 Albuterol/ Ipratropium (Albuterol/ Ipratropium) 3 ml Q4H PRN HHN Shortness of Breath 10/28/17 13:53 11/02/17 13:52 Aspirin (ASA) 81 mg DAILY ORAL 10/30/17 09:00 11/29/17 08:59 10/30/17 08:55 Atorvastatin Calcium (Lipitor) 40 mg BEDTIME ORAL 10/29/17 21:00 11/28/17 20:59 10/29/17 20:25 Barium Sulfate (Readi-Cat 2) 450 ml NOW PRN ORAL Radiology Procedure 10/29/17 13:30 10/31/17 23:59 Carvedilol (Coreg) 6.25 mg Q12HR ORAL 10/29/17 21:00 11/27/17 20:59 10/30/17 08:55 Dextrose (Dextrose 50%) 25 ml STAT PRN IV Hypoglycemia 10/29/17 18:45 11/28/17 18:44 Dextrose (Dextrose 50%) 50 ml STAT PRN IV Hypoglycemia 10/29/17 18:45 11/28/17 18:44 Digoxin (Lanoxin) 0.125 mg DAILY ORAL 10/29/17 09:00 11/28/17 08:59 10/30/17 08:55 Diltiazem HCl (Cardizem) 10 mg Q1H PRN IV heart rate more than 120 10/28/17 13:57 11/27/17 13:56 Enalaprilat (Vasotec) 2.5 mg EVERY 6 HOURS PRN IV sbp more than 160 10/28/17 13:59 11/27/17 13:58 Escitalopram Oxalate (Lexapro) 10 mg DAILY ORAL 10/29/17 09:00 11/28/17 08:59 10/30/17 08:55 Gabapentin (Neurontin) 300 mg TID ORAL 10/28/17 18:00 11/27/17 17:59 10/30/17 08:54 Heparin Sodium (Porcine) (Heparin 5000 units/ml) 5,000 units EVERY 12 HOURS SUBQ 10/28/17 21:00 11/27/17 20:59 10/30/17 08:57 Insulin Aspart (NovoLOG) BEFORE MEALS AND HS SUBQ 10/29/17 21:00 11/28/17 20:59 10/30/17 06:08 Ketorolac Tromethamine (Toradol 30mg) 30 mg Q6H PRN IV moderate pain ( 4-6) 10/28/17 13:59 11/02/17 13:58 Levofloxacin 100 ml @ 100 mls/hr Q24H IVPB 10/29/17 19:30 11/05/17 19:29 10/29/17 20:17 Nitroglycerin (Ntg) 0.4 mg Q5MIN X 3 DOSES PRN SL Prn Chest Pain 10/28/17 13:53 11/27/17 13:52 Ondansetron HCl (Zofran) 4 mg Q6H PRN IVP Nausea & Vomiting 10/28/17 13:53 11/27/17 13:52 Polyethylene Glycol (Miralax) 17 gm DAILYPRN PRN ORAL Constipation 10/28/17 13:56 11/27/17 13:55 10/29/17 20:25 Regadenoson (Lexiscan) 0.4 mg ONCE PRN IV STRESS TEST 10/29/17 18:45 10/31/17 23:59 Temazepam (Restoril) 15 mg HSPRN PRN ORAL Insomnia 10/28/17 21:00 11/04/17 20:59 10/29/17 20:25 Charito Nielsen NP Oct 30, 2017 11:09
[2017-10-30 12:00] VITALS: BP 123/76
[2017-10-30] MEDS ORDERED: Lexiscan 0.4mg/5ml syringe IV PRN (12:15)
[2017-10-30] MEDS ORDERED: Nitroglycerin Subl 0.4mg tab SL PRN (12:15)
[2017-10-30] MEDS ORDERED: Enalaprilat 2.5mg/2ml Inj IV PRN (12:37)
[2017-10-30] MEDS ORDERED: dilTIAZem HCl 25mg/5ml Inj IV PRN (13:00)
--- NOTE | 2017-10-30 13:45 | Internal Med Progress Note ---
Subjective Date of Service: Oct 30, 2017 Physician Name Keivn Flores Attending Physician Kevin Flores MD Current Medications Medications (Trade) Dose Ordered Sig/Sandy Route PRN Reason Start Time Stop Time Status Last Admin Dose Admin Acetaminophen (Tylenol) 650 mg Q4H PRN ORAL FEVER 10/30/17 14:00 11/27/17 13:52 Acetaminophen/ Hydrocodone Bitart ([place] 7.5/325) 1 tab Q4H PRN ORAL For Pain 10/30/17 15:15 11/05/17 19:14 Albuterol/ Ipratropium (Albuterol/ Ipratropium) 3 ml Q4H PRN HHN Shortness of Breath 10/30/17 14:00 11/02/17 13:52 Aspirin (ASA) 81 mg DAILY ORAL 10/31/17 09:00 11/29/17 08:59 Atorvastatin Calcium (Lipitor) 40 mg BEDTIME ORAL 10/30/17 21:00 11/28/17 20:59 Barium Sulfate (Readi-Cat 2) 450 ml NOW PRN ORAL Radiology Procedure 10/30/17 13:30 10/31/17 23:59 Carvedilol (Coreg) 6.25 mg Q12HR ORAL 10/30/17 21:00 11/27/17 20:59 Dextrose (Dextrose 50%) 25 ml STAT PRN IV Hypoglycemia 10/30/17 18:45 11/28/17 18:44 Dextrose (Dextrose 50%) 50 ml STAT PRN IV Hypoglycemia 10/30/17 18:45 11/28/17 18:44 Digoxin (Lanoxin) 0.125 mg DAILY ORAL 10/31/17 09:00 11/28/17 08:59 Diltiazem HCl (Cardizem) 10 mg Q1H PRN IV heart rate more than 120 10/30/17 13:00 11/27/17 13:56 Enalaprilat (Vasotec) 2.5 mg Q6H PRN IV sbp more than 160 10/30/17 12:37 11/29/17 12:36 Escitalopram Oxalate (Lexapro) 10 mg DAILY ORAL 10/31/17 09:00 11/28/17 08:59 Gabapentin (Neurontin) 300 mg TID ORAL 10/30/17 13:00 11/27/17 17:59 Heparin Sodium (Porcine) (Heparin 5000 units/ml) 5,000 units EVERY 12 HOURS SUBQ 10/30/17 21:00 11/27/17 20:59 Insulin Aspart (NovoLOG) BEFORE MEALS AND HS SUBQ 10/30/17 16:30 11/28/17 20:59 Ketorolac Tromethamine (Toradol 30mg) 30 mg Q6H PRN IV moderate pain ( 4-6) 10/30/17 14:00 11/02/17 13:58 Levofloxacin 100 ml @ 100 mls/hr Q24H IVPB 10/30/17 19:30 11/05/17 19:29 Nitroglycerin (Ntg) 0.4 mg Q5MIN X 3 DOSES PRN SL Prn Chest Pain 10/30/17 12:15 11/27/17 13:52 Ondansetron HCl (Zofran) 4 mg Q6H PRN IVP Nausea & Vomiting 10/30/17 14:00 11/27/17 13:52 Polyethylene Glycol (Miralax) 17 gm DAILYPRN PRN ORAL Constipation 10/30/17 14:00 11/27/17 13:55 Regadenoson (Lexiscan) 0.4 mg ONCE PRN IV PRN PER ELECTROTHERAPIST 10/30/17 12:15 11/01/17 12:14 Temazepam (Restoril) 15 mg HSPRN PRN ORAL Insomnia 10/30/17 21:00 11/04/17 20:59 Allergies: Coded Allergies: No Known Allergies (Verified , 06/29/10) ROS Limited/Unobtainable: No Constitutional: Reports: no symptoms HEENT: Reports: no symptoms Cardiovascular: Reports: no symptoms Respiratory: Reports: no symptoms Gastrointestinal/Abdominal: Reports: no symptoms Genitourinary: Reports: no symptoms 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: Reports: no symptoms Subjective 67 YO M admitted with chest pain and shortness of breath. Now CHF. Objective Last Vital Signs Date Time Temp Pulse Resp B/P (MAP) Pulse Ox O2 Delivery O2 Flow Rate FiO2 10/30/17 12:01 98.0 10/30/17 12:00 70 18 123/76 (92) 94 10/30/17 12:00 Bi-pap 10/30/17 08:00 2.0 10/30/17 07:00 30 Laboratory Tests Test 10/29/17 21:30 10/30/17 04:40 Urine Color Pale yellow Urine Appearance Clear Urine pH 6 (4.5-8.0) Urine Specific [place] 1.010 (1.005-1.035) Urine Protein Negative (NEGATIVE) Urine Glucose (UA) 4+ (NEGATIVE) H Urine Ketones Negative (NEGATIVE) Urine Occult Blood Negative (NEGATIVE) Urine Nitrite Negative (NEGATIVE) Urine Bilirubin Negative (NEGATIVE) Urine Urobilinogen Normal MG/DL (0.0-1.0) Urine Leukocyte Esterase Negative (NEGATIVE) White Blood Count 9.5 K/UL (4.8-10.8) Red Blood Count 5.04 M/UL (4.70-6.10) Hemoglobin 14.3 G/DL (14.2-18.0) Hematocrit 44.3 % (42.0-52.0) Mean Corpuscular Volume 88 FL (80-99) Mean Corpuscular Hemoglobin 28.3 PG (27.0-31.0) Mean Corpuscular Hemoglobin Concent 32.1 G/DL (32.0-36.0) Red Cell Distribution Width 12.5 % (11.6-14.8) Platelet Count 327 K/UL (150-450) Mean Platelet Volume 6.3 FL (6.5-10.1) L Neutrophils (%) (Auto) 59.8 % (45.0-75.0) Lymphocytes (%) (Auto) 26.6 % (20.0-45.0) Monocytes (%) (Auto) 8.6 % (1.0-10.0) Eosinophils (%) (Auto) 4.0 % (0.0-3.0) H Basophils (%) (Auto) 1.0 % (0.0-2.0) Sodium Level 138 MMOL/L (136-145) Potassium Level 4.7 MMOL/L (3.5-5.1) Chloride Level 104 MMOL/L (98-107) Carbon Dioxide Level 27 MMOL/L (21-32) Anion Gap 7 mmol/L (5-15) Blood Urea Nitrogen 25 mg/dL (7-18) H Creatinine 1.3 MG/DL (0.55-1.30) # Estimat Glomerular Filtration Rate 55.2 mL/min (>60) Glucose Level 151 MG/DL (74-106) H Calcium Level 9.1 MG/DL (8.5-10.1) Troponin I 0.000 ng/mL (0.000-0.056) Pro-B-Type Natriuretic Peptide 283 pg/mL (0-125) H Intake and Output 10/29/17 10/30/17 19:00 07:00 Intake Total 990 ml 350 ml Output Total 1000 ml 1400 ml Balance -10 ml -1050 ml Intake Oral 990 ml 250 ml IV Total 100 ml Output Urine Total 1000 ml 1400 ml # Voids 1 4 # Bowel Movements 4 Objective General Appearance: WD/WN, mild distress, obese EENT: PERRL/EOMI, normal ENT inspection Neck: non-tender, normal alignment, supple, normal inspection Cardiovascular: normal peripheral pulses, normal rate, regular rhythm, no gallop/murmur, no JVD Respiratory/Chest: chest wall non-tender, respiratory distress, crackles/rales , expiratory wheezing Abdomen: normal bowel sounds, non tender, soft, no organomegaly, no mass Extremities: normal range of motion, non-tender 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 (4) COPD (chronic obstructive pulmonary disease) Assessment & Plan: See pulmonary note. (5) Chest pain Assessment & Plan: Needs cardiac stress test-see cardiology note. (6) Pacemaker Assessment & Plan: Await interrogation (7) Renal failure Assessment & Plan: CT=perinephric stranding. Await nephrology consult. Start levaquin Status: not improved Kevin Flores MD Oct 30, 2017 13:44
[2017-10-30] MEDS ORDERED: Miralax 17gm pkt ORAL PRN (14:00)
[2017-10-30] MEDS ORDERED: Albuterol/Ipratropium 3ml neb HHN PRN (14:00)
--- NOTE | 2017-10-30 14:37 | Cardiac Electrophysiology PN ---
Subjective Subjective EP Consult dictated. [place] BIVICD by me will be interrogated Objective Last 24 Hour Vital Signs Date Time Temp Pulse Resp B/P (MAP) Pulse Ox O2 Delivery O2 Flow Rate FiO2 10/30/17 12:01 98.0 10/30/17 12:00 98.0 70 18 123/76 (92) 94 98.0 10/30/17 12:00 70 10/30/17 12:00 Bi-pap 10/30/17 08:55 71 141/82 10/30/17 08:55 71 10/30/17 08:00 68 10/30/17 08:00 Bi-pap 10/30/17 08:00 98.0 71 20 141/82 (101) 97 98.0 10/30/17 08:00 2.0 10/30/17 07:00 92 Nasal Cannula 2.5 30 10/30/17 07:00 Nasal Cannula 2.5 30 10/30/17 05:18 70 17 96 Facial 30 10/30/17 04:00 97.8 70 17 141/83 (102) 97 97.8 10/30/17 04:00 30 10/30/17 04:00 67 10/30/17 04:00 Bi-pap 10/30/17 02:57 77 17 99 Facial 30 10/30/17 01:28 73 19 96 Facial 30 10/30/17 00:00 Bi-pap 10/30/17 00:00 76 10/30/17 00:00 30 10/30/17 00:00 98.2 77 20 123/68 (86) 97 98.2 10/29/17 22:30 30 10/29/17 22:25 77 26 96 Facial 30 10/29/17 20:25 85 118/61 10/29/17 20:00 Nasal Cannula 2.0 10/29/17 20:00 77 10/29/17 20:00 97.4 85 19 118/61 (80) 96 97.4 10/29/17 18:23 98.4 10/29/17 17:53 98.4 10/29/17 16:00 81 10/29/17 16:00 Nasal Cannula 2.0 10/29/17 16:00 98.4 78 0 136/91 (106) 92 98.4 78 Intake and Output 10/29/17 10/30/17 19:00 07:00 Intake Total 990 ml 350 ml Output Total 1000 ml 1400 ml Balance -10 ml -1050 ml Intake Oral 990 ml 250 ml IV Total 100 ml Output Urine Total 1000 ml 1400 ml # Voids 1 4 # Bowel Movements 4 Laboratory Tests Test 10/29/17 21:30 10/30/17 04:40 Urine Color Pale yellow Urine Appearance Clear Urine pH 6 (4.5-8.0) Urine Specific [place] 1.010 (1.005-1.035) Urine Protein Negative (NEGATIVE) Urine Glucose (UA) 4+ (NEGATIVE) H Urine Ketones Negative (NEGATIVE) Urine Occult Blood Negative (NEGATIVE) Urine Nitrite Negative (NEGATIVE) Urine Bilirubin Negative (NEGATIVE) Urine Urobilinogen Normal MG/DL (0.0-1.0) Urine Leukocyte Esterase Negative (NEGATIVE) White Blood Count 9.5 K/UL (4.8-10.8) Red Blood Count 5.04 M/UL (4.70-6.10) Hemoglobin 14.3 G/DL (14.2-18.0) Hematocrit 44.3 % (42.0-52.0) Mean Corpuscular Volume 88 FL (80-99) Mean Corpuscular Hemoglobin 28.3 PG (27.0-31.0) Mean Corpuscular Hemoglobin Concent 32.1 G/DL (32.0-36.0) Red Cell Distribution Width 12.5 % (11.6-14.8) Platelet Count 327 K/UL (150-450) Mean Platelet Volume 6.3 FL (6.5-10.1) L Neutrophils (%) (Auto) 59.8 % (45.0-75.0) Lymphocytes (%) (Auto) 26.6 % (20.0-45.0) Monocytes (%) (Auto) 8.6 % (1.0-10.0) Eosinophils (%) (Auto) 4.0 % (0.0-3.0) H Basophils (%) (Auto) 1.0 % (0.0-2.0) Sodium Level 138 MMOL/L (136-145) Potassium Level 4.7 MMOL/L (3.5-5.1) Chloride Level 104 MMOL/L (98-107) Carbon Dioxide Level 27 MMOL/L (21-32) Anion Gap 7 mmol/L (5-15) Blood Urea Nitrogen 25 mg/dL (7-18) H Creatinine 1.3 MG/DL (0.55-1.30) # Estimat Glomerular Filtration Rate 55.2 mL/min (>60) Glucose Level 151 MG/DL (74-106) H Calcium Level 9.1 MG/DL (8.5-10.1) Troponin I 0.000 ng/mL (0.000-0.056) Pro-B-Type Natriuretic Peptide 283 pg/mL (0-125) H Will Kern MD Oct 30, 2017 14:37
[2017-10-30 16:00] VITALS: BP 146/71
--- NOTE | 2017-10-30 19:45 | Consultation ---
DATE OF CONSULTATION: 10/30/2017 CARDIAC ELECTROPHYSIOLOGY CONSULTATION CONSULTING PHYSICIAN: Will Kern M.D. REFERRING PHYSICIAN: Kevin Flores M.D. REASON FOR CONSULTATION: Evaluation of the patient's defibrillator. HISTORY OF PRESENT ILLNESS: The patient is a 67-year-old gentleman with history of hypertension, coronary artery disease, history of ischemic cardiomyopathy, who underwent [employer] biventricular defibrillator implantation by me. Also the patient had echocardiogram, which showed ejection fraction of 30% to 35%. The patient presented to the emergency room with chest pain and shortness of breath as well as going on for a few days. The patient was ruled out for myocardial infarction. However, he was evaluated by . The patient's last interrogation was in the office was about a year ago, has not had a regular followup. REVIEW OF SYSTEMS: Negative other than what was mentioned in history of present illness. PAST MEDICAL HISTORY: As mentioned above. MEDICATIONS: Include digoxin, Coreg, lisinopril, Zocor, Aldactone, albuterol, and aspirin. FAMILY HISTORY: Noncontributory. SOCIAL HISTORY: He lives at home. Does not smoke or drink alcohol. PHYSICAL EXAMINATION: VITAL SIGNS: Blood pressure is 122/76, pulse 70, respirations 18, and he is afebrile. HEAD AND NECK: Showed no JVD. LUNGS: Clear. CARDIOVASCULAR: Regular S1 and S2 with no gallop or murmur. ABDOMEN: Soft. EXTREMITIES: A 1+ pitting edema. Defibrillator in left subclavian is intact. DIAGNOSTIC DATA: His EKG showed atrially sensed ventricular paced rhythm. His echocardiogram showed ejection fraction of 35%. LABORATORY DATA: White count 9.5, hemoglobin 14.3, hematocrit 44, and platelet count 327. Sodium is 138, potassium 4.7, BUN of 25, creatinine 1.3. Troponin negative x3. . ASSESSMENT AND PLAN: 1. Status post [employer] biventricular defibrillator implantation. We will interrogate defibrillator to make sure the patient is synchronized appropriately. In the meantime, continue the patient's heart failure medication with digoxin 0.125 mg daily and Coreg 6.25 mg b.i.d. The patient off of lisinopril and Aldactone for renal failure but creatinine is only 1.3, resume low-dose lisinopril. 2. Mild renal failure. Creatinine was 1.3. 3. Hypertension. 4. Diabetes. 5. Chronic obstructive pulmonary disease. 6. Atypical chest pain. We scheduled for stress test for further evaluation. Thank you very much, Dr. Flores for allowing me to participate in the care of this patient. Please do not hesitate to contact me if you have any questions regarding my evaluation. Will Kern M.D. DR: Codey JOB#: [id number] CC:
[2017-10-30 20:00] VITALS: BP 125/82
[2017-10-30] MEDS: Atorvastatin 20mg tab ORAL SCH (20:51)
[2017-10-31] VITALS: BP 153/80
[2017-10-31 04:00] VITALS: BP 127/77
[2017-10-31] MEDS: NovoLOG Insulin Flexpen SUBQ SCH ×4 (06:16→21:23)
[2017-10-31] MEDS: HYDROcodone/Acetamin 7.5/325 tab ORAL PRN ×2 (06:23→21:19)
[2017-10-31 07:29] LABS: ANION GAP 6 mmol/L (5-15); BLOOD UREA NITROGEN 18 mg/dL (7-18); CALCIUM 9.6 MG/DL (8.5-10.1); CARBON DIOXIDE 30 MMOL/L (21-32); CHLORIDE 102 MMOL/L (98-107); CREATININE 0.9 MG/DL (0.55-1.30); POTASSIUM 4.4 MMOL/L (3.5-5.1); SODIUM 138 MMOL/L (136-145)
[2017-10-31 07:33] LABS: EOSINOPHILS % (AUTO) 3.6 % (0.0-3.0); HEMATOCRIT 45.7 % (42.0-52.0); HEMOGLOBIN 15.1 G/DL (14.2-18.0); LYMPHOCYTES % (AUTO) 21.2 % (20.0-45.0); MEAN CORPUSCULAR VOLUME 87 FL (80-99); MONOCYTES % (AUTO) 9.7 % (1.0-10.0); NEUTROPHILS % (AUTO) 64.5 % (45.0-75.0); PLATELET COUNT 327 K/UL (150-450); RED BLOOD COUNT 5.26 M/UL (4.70-6.10); RED CELL DISTRIBUTION WIDTH 12.4 % (11.6-14.8); WHITE BLOOD COUNT 10.2 K/UL (4.8-10.8)
[2017-10-31 08:00] VITALS: BP 128/75
[2017-10-31] MEDS: Lisinopril 10mg tab ORAL SCH (08:34)
[2017-10-31] MEDS: Aspirin Baby 81mg ORAL SCH (08:34)
[2017-10-31] MEDS: Digoxin 0.125mg tab ORAL SCH (08:35)
[2017-10-31] MEDS: Heparin 5000 units/ml inj SUBQ SCH ×2 (08:35→21:22)
[2017-10-31] MEDS: Carvedilol 6.25mg Tab ORAL SCH ×2 (08:35→21:21)
--- NOTE | 2017-10-31 10:29 | Diagnostic Imaging Report ---
Indication: Shortness of breath Technique: One view of the chest Comparison: 10/29/2017 Findings: Left chest biventricular AICD is again demonstrated. There is some atelectasis at the left lateral lung base. There is equivocally slight blunting of left costophrenic sulcus. There is mild elevation right hemidiaphragm again demonstrated. Lungs and pleural spaces are otherwise clear. Heart size is normal Impression: Possible left lateral basilar atelectasis and/or pleural fluid No acute process otherwise
--- NOTE | 2017-10-31 10:36 | Pulmonology Progress Note ---
Assessment/Plan Problems: (1) ACS (acute coronary syndrome) (2) HTN (hypertension) (3) Hypertension (4) Diabetes mellitus (5) COPD (chronic obstructive pulmonary disease) Assessment/Plan no new complains stress test today respiratory treatment monitor BP titrate fio2 to sat of 92% Subjective Constitutional: Reports: no symptoms HEENT: Repors: no symptoms Respiratory: Reports: no symptoms Cardiovascular: Reports: no symptoms Allergies: Coded Allergies: No Known Allergies (Verified , 06/29/10) Objective Last 24 Hour Vital Signs Date Time Temp Pulse Resp B/P (MAP) Pulse Ox O2 Delivery O2 Flow Rate FiO2 10/31/17 09:00 Bi-pap 10/31/17 08:35 76 10/31/17 08:35 76 127/77 10/31/17 08:34 127/77 10/31/17 08:30 95 Nasal Cannula 2.0 28 10/31/17 08:30 Nasal Cannula 2.0 28 10/31/17 08:00 97.3 61 20 128/75 (92) 94 97.3 10/31/17 04:00 76 10/31/17 04:00 97.7 75 20 127/77 (94) 94 97.7 10/31/17 00:00 2.0 10/31/17 00:00 98.0 76 20 153/80 (104) 94 98.0 10/31/17 00:00 Bi-pap 10/30/17 23:34 75 10/30/17 22:29 Nasal Cannula 2.0 28 10/30/17 22:28 93 Nasal Cannula 2.0 28 10/30/17 20:00 97.7 80 20 125/82 (96) 94 97.7 10/30/17 20:00 Bi-pap 10/30/17 19:46 75 10/30/17 16:00 Bi-pap 10/30/17 16:00 97.5 75 20 146/71 (96) 93 97.5 10/30/17 15:49 75 10/30/17 12:01 98.0 10/30/17 12:00 98.0 70 18 123/76 (92) 94 98.0 10/30/17 12:00 70 10/30/17 12:00 Bi-pap Intake and Output 10/30/17 10/31/17 19:00 07:00 Intake Total 660 ml Balance 660 ml Intake Oral 660 ml # Voids 4 3 General Appearance: WD/WN HEENT: normocephalic Respiratory/Chest: chest wall non-tender, lungs clear Cardiovascular: normal peripheral pulses, normal rate Abdomen: normal bowel sounds, soft, non tender Skin: no rash, no ulcers 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, no motor/sensory deficits Lymphatic: no neck adenopathy Microbiology Date/Time Source Procedure Growth Status 10/29/17 21:30 Urine,Clean Catch Urine Culture - Preliminary Mixed Gram Positive Organism Resulted Laboratory Tests 10/31/17 05:10: White Blood Count 10.2, Red Blood Count 5.26, Hemoglobin 15.1, Hematocrit 45.7, Mean Corpuscular Volume 87, Mean Corpuscular Hemoglobin 28.8, Mean Corpuscular Hemoglobin Concent 33.1, Red Cell Distribution Width 12.4, Platelet Count 327, Mean Platelet Volume 6.5, Neutrophils (%) (Auto) 64.5, Lymphocytes (%) (Auto) 21.2, Monocytes (%) (Auto) 9.7, Eosinophils (%) (Auto) 3.6H, Basophils (%) (Auto ) 1.0, Sodium Level 138, Potassium Level 4.4, Chloride Level 102, Carbon Dioxide Level 30, Anion Gap 6, Blood Urea Nitrogen 18, Creatinine 0.9, Estimat Glomerular Filtration Rate > 60, Glucose Level 139H, Calcium Level 9.6 10/31/17 10:10: Arterial Blood pH 7.447, Arterial Blood Partial Pressure CO2 39.8, Arterial Blood Partial Pressure O2 80.5, Arterial Blood HCO3 26.9H, Arterial Blood Oxygen Saturation 97.4, Arterial Blood Base Excess 2.7, Wan Test Positive Current Medications Medications (Trade) Dose Ordered Sig/Sandy Route PRN Reason Start Time Stop Time Status Last Admin Dose Admin Acetaminophen (Tylenol) 650 mg Q4H PRN ORAL FEVER 10/30/17 14:00 11/27/17 13:52 Acetaminophen/ Hydrocodone Bitart (Neal 7.5/325) 1 tab Q4H PRN ORAL For Pain 10/30/17 15:15 11/05/17 19:14 10/31/17 06:23 Albuterol/ Ipratropium (Albuterol/ Ipratropium) 3 ml Q4H PRN HHN Shortness of Breath 10/30/17 14:00 11/02/17 13:52 Aspirin (ASA) 81 mg DAILY ORAL 10/31/17 09:00 11/29/17 08:59 10/31/17 08:34 Atorvastatin Calcium (Lipitor) 40 mg BEDTIME ORAL 10/30/17 21:00 11/28/17 20:59 10/30/17 20:51 Barium Sulfate (Readi-Cat 2) 450 ml NOW PRN ORAL Radiology Procedure 10/30/17 13:30 10/31/17 23:59 Carvedilol (Coreg) 6.25 mg Q12HR ORAL 10/30/17 21:00 11/27/17 20:59 Dextrose (Dextrose 50%) 25 ml STAT PRN IV Hypoglycemia 10/30/17 18:45 11/28/17 18:44 Dextrose (Dextrose 50%) 50 ml STAT PRN IV Hypoglycemia 10/30/17 18:45 11/28/17 18:44 Digoxin (Lanoxin) 0.125 mg DAILY ORAL 10/31/17 09:00 11/28/17 08:59 Diltiazem HCl (Cardizem) 10 mg Q1H PRN IV heart rate more than 120 10/30/17 13:00 11/27/17 13:56 Enalaprilat (Vasotec) 2.5 mg Q6H PRN IV sbp more than 160 10/30/17 12:37 11/29/17 12:36 Escitalopram Oxalate (Lexapro) 10 mg DAILY ORAL 10/31/17 09:00 11/28/17 08:59 10/31/17 08:34 Gabapentin (Neurontin) 300 mg TID ORAL 10/30/17 13:00 11/27/17 17:59 10/31/17 08:34 Heparin Sodium (Porcine) (Heparin 5000 units/ml) 5,000 units EVERY 12 HOURS SUBQ 10/30/17 21:00 11/27/17 20:59 Insulin Aspart (NovoLOG) BEFORE MEALS AND HS SUBQ 10/30/17 16:30 11/28/17 20:59 10/31/17 06:16 Ketorolac Tromethamine (Toradol 30mg) 30 mg Q6H PRN IV moderate pain ( 4-6) 10/30/17 14:00 11/02/17 13:58 Levofloxacin 100 ml @ 100 mls/hr Q24H IVPB 10/30/17 19:30 11/05/17 19:29 10/30/17 19:48 Lisinopril (Zestril) 10 mg DAILY ORAL 10/31/17 09:00 11/30/17 08:59 10/31/17 08:34 Nitroglycerin (Ntg) 0.4 mg Q5MIN X 3 DOSES PRN SL Prn Chest Pain 10/30/17 12:15 11/27/17 13:52 Ondansetron HCl (Zofran) 4 mg Q6H PRN IVP Nausea & Vomiting 10/30/17 14:00 11/27/17 13:52 Polyethylene Glycol (Miralax) 17 gm DAILYPRN PRN ORAL Constipation 10/30/17 14:00 11/27/17 13:55 Regadenoson (Lexiscan) 0.4 mg ONCE PRN IV PRN PER WATCH TRAIN INSPECTOR 10/30/17 12:15 11/01/17 12:14 Temazepam (Restoril) 15 mg HSPRN PRN ORAL Insomnia 10/30/17 21:00 11/04/17 20:59 Autumn Frost MD Oct 31, 2017 10:36
--- NOTE | 2017-10-31 11:32 | General Progress Note ---
Assessment/Plan Status: stable Assessment/Plan mdd anxiety lexapro 10mg qam provided ro/st Subjective Date patient seen: Oct 31, 2017 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: Reports: anxiety, depressed, emotional problems Allergies: Coded Allergies: No Known Allergies (Verified , 06/29/10) Objective Last 24 Hour Vital Signs Date Time Temp Pulse Resp B/P (MAP) Pulse Ox O2 Delivery O2 Flow Rate FiO2 10/31/17 09:00 Bi-pap 10/31/17 08:35 76 10/31/17 08:35 76 127/77 10/31/17 08:34 127/77 10/31/17 08:30 95 Nasal Cannula 2.0 28 10/31/17 08:30 Nasal Cannula 2.0 28 10/31/17 08:00 97.3 61 20 128/75 (92) 94 97.3 10/31/17 08:00 78 10/31/17 04:00 76 10/31/17 04:00 97.7 75 20 127/77 (94) 94 97.7 10/31/17 00:00 2.0 10/31/17 00:00 98.0 76 20 153/80 (104) 94 98.0 10/31/17 00:00 Bi-pap 10/30/17 23:34 75 10/30/17 22:29 Nasal Cannula 2.0 28 10/30/17 22:28 93 Nasal Cannula 2.0 28 10/30/17 20:00 97.7 80 20 125/82 (96) 94 97.7 10/30/17 20:00 Bi-pap 10/30/17 19:46 75 10/30/17 16:00 Bi-pap 10/30/17 16:00 97.5 75 20 146/71 (96) 93 97.5 10/30/17 15:49 75 10/30/17 12:01 98.0 10/30/17 12:00 98.0 70 18 123/76 (92) 94 98.0 10/30/17 12:00 70 10/30/17 12:00 Bi-pap Intake and Output 10/30/17 10/31/17 19:00 07:00 Intake Total 660 ml Balance 660 ml Intake Oral 660 ml # Voids 4 3 Laboratory Tests 10/31/17 05:10: White Blood Count 10.2, Red Blood Count 5.26, Hemoglobin 15.1, Hematocrit 45.7, Mean Corpuscular Volume 87, Mean Corpuscular Hemoglobin 28.8, Mean Corpuscular Hemoglobin Concent 33.1, Red Cell Distribution Width 12.4, Platelet Count 327, Mean Platelet Volume 6.5, Neutrophils (%) (Auto) 64.5, Lymphocytes (%) (Auto) 21.2, Monocytes (%) (Auto) 9.7, Eosinophils (%) (Auto) 3.6H, Basophils (%) (Auto ) 1.0, Sodium Level 138, Potassium Level 4.4, Chloride Level 102, Carbon Dioxide Level 30, Anion Gap 6, Blood Urea Nitrogen 18, Creatinine 0.9, Estimat Glomerular Filtration Rate > 60, Glucose Level 139H, Calcium Level 9.6 10/31/17 10:10: Arterial Blood pH 7.447, Arterial Blood Partial Pressure CO2 39.8, Arterial Blood Partial Pressure O2 80.5, Arterial Blood HCO3 26.9H, Arterial Blood Oxygen Saturation 97.4, Arterial Blood Base Excess 2.7, Wan Test Positive Height (Feet): 5 Height (Inches): 8.00 Weight (Pounds): 239 General Appearance: no apparent distress, alert, obese Neurologic: oriented x 3, responsive, depressed affect Gregg Parsons MD Oct 31, 2017 11:32
--- NOTE | 2017-10-31 11:49 | Cardiac Electrophysiology PN ---
Assessment/Plan Assessment/Plan 1. Status post [employer] biventricular defibrillator implantation. We will interrogate defibrillator to make sure the patient is synchronized appropriately. In the meantime, continue the patient's heart failure medication with digoxin 0.125 mg daily, Coreg 6.25 mg b.i.d and lisinopril. 2. Atypical chest pain. Stress test today pending. 3. Hypertension. 4. Diabetes. 5. Chronic obstructive pulmonary disease. 6. Mild renal failure. Creatinine was 1.3. KEE RN Subjective Subjective Awaiting stress test. No CP or SOB. ICD interrogation also pending Objective Last 24 Hour Vital Signs Date Time Temp Pulse Resp B/P (MAP) Pulse Ox O2 Delivery O2 Flow Rate FiO2 10/31/17 09:00 Bi-pap 10/31/17 08:35 76 10/31/17 08:35 76 127/77 10/31/17 08:34 127/77 10/31/17 08:30 95 Nasal Cannula 2.0 28 10/31/17 08:30 Nasal Cannula 2.0 28 10/31/17 08:00 97.3 61 20 128/75 (92) 94 97.3 10/31/17 08:00 78 10/31/17 04:00 76 10/31/17 04:00 97.7 75 20 127/77 (94) 94 97.7 10/31/17 00:00 2.0 10/31/17 00:00 98.0 76 20 153/80 (104) 94 98.0 10/31/17 00:00 Bi-pap 10/30/17 23:34 75 10/30/17 22:29 Nasal Cannula 2.0 28 10/30/17 22:28 93 Nasal Cannula 2.0 28 10/30/17 20:00 97.7 80 20 125/82 (96) 94 97.7 10/30/17 20:00 Bi-pap 10/30/17 19:46 75 10/30/17 16:00 Bi-pap 10/30/17 16:00 97.5 75 20 146/71 (96) 93 97.5 10/30/17 15:49 75 10/30/17 12:01 98.0 10/30/17 12:00 98.0 70 18 123/76 (92) 94 98.0 8/19/18 12:00 70 10/30/17 12:00 Bi-pap Intake and Output 10/30/17 10/31/17 19:00 07:00 Intake Total 660 ml Balance 660 ml Intake Oral 660 ml # Voids 4 3 Laboratory Tests Test 10/31/17 05:10 10/31/17 10:10 White Blood Count 10.2 K/UL (4.8-10.8) Red Blood Count 5.26 M/UL (4.70-6.10) Hemoglobin 15.1 G/DL (14.2-18.0) Hematocrit 45.7 % (42.0-52.0) Mean Corpuscular Volume 87 FL (80-99) Mean Corpuscular Hemoglobin 28.8 PG (27.0-31.0) Mean Corpuscular Hemoglobin Concent 33.1 G/DL (32.0-36.0) Red Cell Distribution Width 12.4 % (11.6-14.8) Platelet Count 327 K/UL (150-450) Mean Platelet Volume 6.5 FL (6.5-10.1) Neutrophils (%) (Auto) 64.5 % (45.0-75.0) Lymphocytes (%) (Auto) 21.2 % (20.0-45.0) Monocytes (%) (Auto) 9.7 % (1.0-10.0) Eosinophils (%) (Auto) 3.6 % (0.0-3.0) H Basophils (%) (Auto) 1.0 % (0.0-2.0) Sodium Level 138 MMOL/L (136-145) Potassium Level 4.4 MMOL/L (3.5-5.1) Chloride Level 102 MMOL/L (98-107) Carbon Dioxide Level 30 MMOL/L (21-32) Anion Gap 6 mmol/L (5-15) Blood Urea Nitrogen 18 mg/dL (7-18) Creatinine 0.9 MG/DL (0.55-1.30) Estimat Glomerular Filtration Rate > 60 mL/min (>60) Glucose Level 139 MG/DL (74-106) H Calcium Level 9.6 MG/DL (8.5-10.1) Arterial Blood pH 7.447 (7.350-7.450) Arterial Blood Partial Pressure CO2 39.8 mmHg (35.0-45.0) Arterial Blood Partial Pressure O2 80.5 mmHg (75.0-100.0) Arterial Blood HCO3 26.9 mmol/L (22.0-26.0) H Arterial Blood Oxygen Saturation 97.4 % (92.0-98.0) Arterial Blood Base Excess 2.7 Wan Test Positive Microbiology Date/Time Source Procedure Growth Status 10/29/17 21:30 Urine,Clean Catch Urine Culture - Preliminary Mixed Gram Positive Organism Resulted Objective HEAD AND NECK: Showed no JVD. LUNGS: Clear. CARDIOVASCULAR: Regular S1 and S2 with no gallop or murmur. ABDOMEN: Soft. EXTREMITIES: 1+ pitting edema. Defibrillator in left subclavian Will Kern MD Oct 31, 2017 11:49
[2017-10-31 12:00] VITALS: BP 126/72
--- NOTE | 2017-10-31 13:56 | Physician Query ---
--------- THIS DOCUMENT IS A PERMANENT PART OF THE MEDICAL RECORD --------- PLEASE COMPLETE THE DOCUMENT BEFORE SIGNING Dear Dr. Flores Date: Data Systems Analyst/CDS Name: Aylin Cox Data Systems Analyst / CDS Phone # [phone] Exercise your independent professional judgment when responding to query. Question asked do not imply a particular answer is desired/expected Clinical Documentation States: "Renal Failure" documented in progress notes. Clinical Findings Show: Creatinine: 3.7 ----> 0.9 BUN: 34 ----> 18 GFR: 28.6 -----> 60 Please Clarify the type of renal failure below: Etiology: [X] ARF w/ Tubular Necrosis [] ARF w/ Cortical Necrosis [] ARF w/ Medullary Necrosis [] Acute Renal Failure (unspecified) [] Other: If Chronic, please specify the stage: [] CKD Stage 1 [] CKD Stage 2 [] CKD Stage 3 [] CKD Stage 4 [] CKD Stage 5 [] ESRD [X] Not applicable Condition Present on Admission: [X] Yes [] No []Clinically Undeterminable Please also document in your Progress Notes and/or Discharge Summary and indicate if the condition was present on admission. MTDD
[2017-10-31 16:00] VITALS: BP 103/63
[2017-10-31] MEDS ORDERED: Furosemide 40mg tab ORAL SCH (16:00)
--- NOTE | 2017-10-31 16:25 | Diagnostic Imaging Report ---
Indications: 67-year-old male with chest pain, congestive heart failure, hypertension Technique: Single day single isotope protocol utilized. Initially, resting images obtained using IV administration 10.5 millicuries 99M technetium Myoview. Subsequently, patient underwent Dobutamine stress testing. See cardiology report for details. During dobutamine infusion, IV administration 30.8 mCi 99 M technetium Myoview. SPECT and planar images obtained. SPECT images gated to 8 phases of the cardiac cycle were also obtained, and reformatted into cine images for evaluation of ejection fraction. Comparison: 09/22/2016 Findings: Presence or absence of symptoms during infusion is not reported in the cardiology report.. Per cardiology report, resting EKG demonstrates normal sinus rhythm. Patient achieved a peak heart rate 127 bpm, just short of the target heart rate of one 31 bpm. Presence or absence of EKG changes during infusion is not recorded on the cardiology report. Imaging demonstrates a perfusion defect in the inferolateral wall on the post stress images which is actually equivocally larger on the resting images. On prior exam, there is a partially reversible anterolateral perfusion defect, which is not evident currently.. Calculated post stress ejection fraction 46%. Hypokinesis of the inferolateral wall corresponding to the perfusion defect is noted Impression: Nonischemic clinical response to pharmacologic stress, per cardiology report Nonischemic electrocardiographic response to pharmacologic stress, per cardiology report Inferolateral fixed perfusion defect, consistent with infarct. No definite imaging findings to suggest ischemia, at level of stress achieved. Note discordance of current imaging findings with prior study of 09/22/2016, however. Calculated post stress ejection fraction 46% (previously 42%)
[2017-10-31] MEDS: Ketorolac 30mg Inj IV PRN (18:34)
--- NOTE | 2017-10-31 19:26 | Internal Med Progress Note ---
Subjective Date of Service: Oct 31, 2017 Physician Name Kevin Flores Attending Physician Kevin Flores MD Current Medications Medications (Trade) Dose Ordered Sig/Sandy Route PRN Reason Start Time Stop Time Status Last Admin Dose Admin Acetaminophen (Tylenol) 650 mg Q4H PRN ORAL FEVER 10/30/17 14:00 11/27/17 13:52 Acetaminophen/ Hydrocodone Bitart ([place] 7.5/325) 1 tab Q4H PRN ORAL For Pain 10/30/17 15:15 11/05/17 19:14 10/31/17 06:23 Albuterol/ Ipratropium (Albuterol/ Ipratropium) 3 ml Q4H PRN HHN Shortness of Breath 10/30/17 14:00 11/02/17 13:52 10/31/17 19:23 Aspirin (ASA) 81 mg DAILY ORAL 10/31/17 09:00 11/29/17 08:59 10/31/17 08:34 Atorvastatin Calcium (Lipitor) 40 mg BEDTIME ORAL 10/30/17 21:00 11/28/17 20:59 10/30/17 20:51 Barium Sulfate (Readi-Cat 2) 450 ml NOW PRN ORAL Radiology Procedure 10/30/17 13:30 10/31/17 23:59 Carvedilol (Coreg) 6.25 mg Q12HR ORAL 10/30/17 21:00 11/27/17 20:59 Dextrose (Dextrose 50%) 25 ml STAT PRN IV Hypoglycemia 10/30/17 18:45 11/28/17 18:44 Dextrose (Dextrose 50%) 50 ml STAT PRN IV Hypoglycemia 10/30/17 18:45 11/28/17 18:44 Digoxin (Lanoxin) 0.125 mg DAILY ORAL 10/31/17 09:00 11/28/17 08:59 Diltiazem HCl (Cardizem) 10 mg Q1H PRN IV heart rate more than 120 10/30/17 13:00 11/27/17 13:56 Enalaprilat (Vasotec) 2.5 mg Q6H PRN IV sbp more than 160 10/30/17 12:37 11/29/17 12:36 Escitalopram Oxalate (Lexapro) 10 mg DAILY ORAL 10/31/17 09:00 11/28/17 08:59 10/31/17 08:34 Furosemide (Lasix) 40 mg DAILY ORAL 11/01/17 09:00 12/01/17 08:59 Gabapentin (Neurontin) 300 mg TID ORAL 10/30/17 13:00 11/27/17 17:59 10/31/17 18:29 Heparin Sodium (Porcine) (Heparin 5000 units/ml) 5,000 units EVERY 12 HOURS SUBQ 10/30/17 21:00 11/27/17 20:59 Insulin Aspart (NovoLOG) BEFORE MEALS AND HS SUBQ 10/30/17 16:30 11/28/17 20:59 10/31/17 18:32 Ketorolac Tromethamine (Toradol 30mg) 30 mg Q6H PRN IV moderate pain ( 4-6) 10/30/17 14:00 11/02/17 13:58 10/31/17 18:34 Levofloxacin 100 ml @ 100 mls/hr Q24H IVPB 10/30/17 19:30 11/05/17 19:29 10/30/17 19:48 Lisinopril (Zestril) 10 mg DAILY ORAL 10/31/17 09:00 11/30/17 08:59 10/31/17 08:34 Nitroglycerin (Ntg) 0.4 mg Q5MIN X 3 DOSES PRN SL Prn Chest Pain 10/30/17 12:15 11/27/17 13:52 Ondansetron HCl (Zofran) 4 mg Q6H PRN IVP Nausea & Vomiting 10/30/17 14:00 11/27/17 13:52 Polyethylene Glycol (Miralax) 17 gm DAILYPRN PRN ORAL Constipation 10/30/17 14:00 11/27/17 13:55 Regadenoson (Lexiscan) 0.4 mg ONCE PRN IV PRN PER SPRAY MIXER 10/30/17 12:15 11/01/17 12:14 Temazepam (Restoril) 15 mg HSPRN PRN ORAL Insomnia 10/30/17 21:00 11/04/17 20:59 Allergies: Coded Allergies: No Known Allergies (Verified , 06/29/10) ROS Limited/Unobtainable: No Constitutional: Reports: no symptoms HEENT: Reports: no symptoms Cardiovascular: Reports: chest pain Respiratory: Reports: shortness of breath Gastrointestinal/Abdominal: Reports: no symptoms Genitourinary: Reports: no symptoms 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: Reports: no symptoms Subjective 67 YO M admitted with chest pain and shortness of breath. Now CHF. Await cardiolite stress test results. Objective Last Vital Signs Date Time Temp Pulse Resp B/P (MAP) Pulse Ox O2 Delivery O2 Flow Rate FiO2 10/31/17 18:34 97.0 10/31/17 16:00 93 10/31/17 16:00 20 103/63 (76) 93 10/31/17 09:00 Bi-pap 10/31/17 08:30 2.0 28 Laboratory Tests Test 10/31/17 05:10 10/31/17 10:10 White Blood Count 10.2 K/UL (4.8-10.8) Red Blood Count 5.26 M/UL (4.70-6.10) Hemoglobin 15.1 G/DL (14.2-18.0) Hematocrit 45.7 % (42.0-52.0) Mean Corpuscular Volume 87 FL (80-99) Mean Corpuscular Hemoglobin 28.8 PG (27.0-31.0) Mean Corpuscular Hemoglobin Concent 33.1 G/DL (32.0-36.0) Red Cell Distribution Width 12.4 % (11.6-14.8) Platelet Count 327 K/UL (150-450) Mean Platelet Volume 6.5 FL (6.5-10.1) Neutrophils (%) (Auto) 64.5 % (45.0-75.0) Lymphocytes (%) (Auto) 21.2 % (20.0-45.0) Monocytes (%) (Auto) 9.7 % (1.0-10.0) Eosinophils (%) (Auto) 3.6 % (0.0-3.0) H Basophils (%) (Auto) 1.0 % (0.0-2.0) Sodium Level 138 MMOL/L (136-145) Potassium Level 4.4 MMOL/L (3.5-5.1) Chloride Level 102 MMOL/L (98-107) Carbon Dioxide Level 30 MMOL/L (21-32) Anion Gap 6 mmol/L (5-15) Blood Urea Nitrogen 18 mg/dL (7-18) Creatinine 0.9 MG/DL (0.55-1.30) Estimat Glomerular Filtration Rate > 60 mL/min (>60) Glucose Level 139 MG/DL (74-106) H Calcium Level 9.6 MG/DL (8.5-10.1) Arterial Blood pH 7.447 (7.350-7.450) Arterial Blood Partial Pressure CO2 39.8 mmHg (35.0-45.0) Arterial Blood Partial Pressure O2 80.5 mmHg (75.0-100.0) Arterial Blood HCO3 26.9 mmol/L (22.0-26.0) H Arterial Blood Oxygen Saturation 97.4 % (92.0-98.0) Arterial Blood Base Excess 2.7 Wan Test Positive Microbiology Date/Time Source Procedure Growth Status 10/29/17 21:30 Urine,Clean Catch Urine Culture - Preliminary Mixed Gram Positive Organism Resulted Intake and Output 10/30/17 10/31/17 19:00 07:00 Intake Total 660 ml Balance 660 ml Intake Oral 660 ml # Voids 4 3 Objective General Appearance: WD/WN, mild distress, obese EENT: PERRL/EOMI, normal ENT inspection Neck: non-tender, normal alignment, supple, normal inspection Cardiovascular: normal peripheral pulses, normal rate, regular rhythm, no gallop/murmur, no JVD Respiratory/Chest: chest wall non-tender, respiratory distress, crackles/rales , expiratory wheezing Abdomen: normal bowel sounds, non tender, soft, no organomegaly, no mass Extremities: normal range of motion, non-tender Neurologic: insurance job titles II-XII grossly normal, no motor/sensory deficits Skin: normal pigmentation, warm/dry Assessment/Plan Problem List: (1) CHF (congestive heart failure) Assessment & Plan: LVEF=35-40% see cardiology note (2) HTN (hypertension) Assessment & Plan: continue cardizem and coreg (3) Diabetes mellitus Assessment & Plan: Continue novolog sliding scale. (4) COPD (chronic obstructive pulmonary disease) Assessment & Plan: See pulmonary note. (5) Chest pain Assessment & Plan: Await cardiac stress test result-see cardiology note. (6) Pacemaker Assessment & Plan: Await interrogation (7) Renal failure Assessment & Plan: CT=perinephric stranding. Await nephrology consult. Start levaquin Status: progressing Kevin Flores MD Oct 31, 2017 19:26
[2017-10-31 20:00] VITALS: BP 141/70
[2017-10-31] MEDS: Atorvastatin 20mg tab ORAL SCH (21:20)
[2017-11-01] VITALS: BP 130/72
[2017-11-01 04:12] VITALS: BP 131/75
[2017-11-01] MEDS: NovoLOG Insulin Flexpen SUBQ SCH ×3 (06:09→17:08)
[2017-11-01 08:00] VITALS: BP 143/81
[2017-11-01 08:02] LABS: BASOPHILS % (AUTO) 1.2 % (0.0-2.0); EOSINOPHILS % (AUTO) 3.6 % (0.0-3.0); HEMATOCRIT 49.2 % (42.0-52.0); HEMOGLOBIN 15.5 G/DL (14.2-18.0); LYMPHOCYTES % (AUTO) 23.8 % (20.0-45.0); MEAN CORPUSCULAR VOLUME 87 FL (80-99); MONOCYTES % (AUTO) 7.7 % (1.0-10.0); NEUTROPHILS % (AUTO) 63.8 % (45.0-75.0); PLATELET COUNT 337 K/UL (150-450); RED BLOOD COUNT 5.64 M/UL (4.70-6.10); RED CELL DISTRIBUTION WIDTH 12.4 % (11.6-14.8); WHITE BLOOD COUNT 9.3 K/UL (4.8-10.8)
[2017-11-01 08:15] LABS: ANION GAP 8 mmol/L (5-15); BLOOD UREA NITROGEN 25 mg/dL (7-18); CALCIUM 9.6 MG/DL (8.5-10.1); CARBON DIOXIDE 28 MMOL/L (21-32); CHLORIDE 101 MMOL/L (98-107); POTASSIUM 4.6 MMOL/L (3.5-5.1); SODIUM 137 MMOL/L (136-145)
[2017-11-01] MEDS ORDERED: Furosemide 40mg tab ORAL SCH (09:00)
[2017-11-01] MEDS: Carvedilol 6.25mg Tab ORAL SCH (09:15)
[2017-11-01] MEDS: Digoxin 0.125mg tab ORAL SCH (09:15)
[2017-11-01] MEDS: Lisinopril 10mg tab ORAL SCH (09:15)
[2017-11-01] MEDS: Ketorolac 30mg Inj IV PRN (09:16)
[2017-11-01] MEDS: Aspirin Baby 81mg ORAL SCH (09:16)
[2017-11-01] MEDS: Heparin 5000 units/ml inj SUBQ SCH (09:34)
--- NOTE | 2017-11-01 10:18 | Cardiology Report ---
APPROVED REPORT EXAM: Two-dimensional and M-mode echocardiogram with Doppler and color Doppler. INDICATION Left Ventricular Function M-Mode DIMENSIONS IVSd1.6 (0.7-1.1cm)Left Atrium (MM)4.2 (1.6-4.0cm) LVDd7.3 (3.5-5.6cm)Aortic Root3.9 (2.0-3.7cm) PWd1.1 (0.7-1.1cm)Aortic Cusp Exc.1.9 (1.5-2.0cm) LVDs4.3 (2.5-4.0cm) PWs2.2 cm Technically difficult study due to poor acoustic windows. Study quality precludes accurate assessment of regional wall motion. Mild left ventricular enlargement. Global left ventricular hypokinesis. Left ventricular ejection fraction estimated to be 35-40 %. Mild left ventricular hypertrophy. Anterior Echo-free space, may be due to pericardial fat or effusion. All other cardiac chamber sizes are within normal limits. Mild focal aortic valve sclerosis with adequate cusp excursion. Mildly thickened mitral valve leaflets with normal excursion. Normal mitral annulus and aortic root calcification. Pulmonic valve not well visualized. Normal tricuspid valve structure. IVC is normal in size with physiological collapse. A color flow and spectral Doppler study was performed and revealed: No aortic insufficiency. Trace mitral regurgitation. Mitral diastolic velocities suggest mild left ventricular diastolic dysfunction (Grade I). Mild tricuspid regurgitation. Tricuspid systolic velocities suggests peak right ventricular systolic pressure of 26 mmHg. No pulmonic regurgitation present.
[2017-11-01 12:00] VITALS: BP 105/68
--- NOTE | 2017-11-01 12:19 | Pulmonology Progress Note ---
Assessment/Plan Problems: (1) ACS (acute coronary syndrome) (2) HTN (hypertension) (3) Hypertension (4) Diabetes mellitus (5) COPD (chronic obstructive pulmonary disease) Assessment/Plan no new complains stress test was negative for ischemia, f ICD interrogated respiratory treatment monitor BP titrate fio2 to sat of 92% Subjective ROS Limited/Unobtainable: No Constitutional: Reports: no symptoms HEENT: Repors: no symptoms Respiratory: Reports: no symptoms Cardiovascular: Reports: no symptoms Allergies: Coded Allergies: No Known Allergies (Verified , 06/29/10) Objective Last 24 Hour Vital Signs Date Time Temp Pulse Resp B/P (MAP) Pulse Ox O2 Delivery O2 Flow Rate FiO2 11/01/17 10:16 97.2 11/01/17 09:55 Room Air 21 11/01/17 09:55 94 Room Air 21 11/01/17 09:16 97.2 11/01/17 09:15 131/75 11/01/17 09:15 71 11/01/17 09:15 71 131/75 11/01/17 09:00 Nasal Cannula 2.0 11/01/17 08:00 97.1 83 18 143/81 (101) 94 97.1 11/01/17 04:55 71 15 97 Facial 30 11/01/17 04:12 97.2 64 18 131/75 (93) 97.2 11/01/17 03:36 65 11/01/17 03:16 76 21 99 Facial 30 11/01/17 01:28 69 15 95 Facial 30 11/01/17 00:04 77 11/01/17 00:00 30 11/01/17 00:00 97.0 83 20 130/72 (91) 95 97.0 10/31/17 23:17 82 16 95 Facial 30 10/31/17 21:21 91 138/70 10/31/17 21:00 Nasal Cannula 2.0 10/31/17 20:00 97.8 91 18 141/70 (93) 97 97.8 10/31/17 19:32 87 20 99 Nasal Cannula 2.0 10/31/17 19:29 88 10/31/17 19:25 89 20 95 Nasal Cannula 2.0 28 10/31/17 19:24 Nasal Cannula 2.0 28 10/31/17 19:23 96 Nasal Cannula 2.0 28 10/31/17 18:34 97.0 10/31/17 16:00 93 10/31/17 16:00 97.0 89 20 103/63 (76) 93 97.0 Intake and Output 10/31/17 11/01/17 19:00 07:00 Intake Total 360 ml Output Total 300 ml Balance 360 ml -300 ml Intake Oral 360 ml Output Urine Total 300 ml # Voids 4 # Bowel Movements 2 2 General Appearance: WD/WN HEENT: normocephalic, atraumatic Respiratory/Chest: chest wall non-tender, lungs clear Cardiovascular: normal peripheral pulses, normal rate Abdomen: normal bowel sounds, soft, non tender Genitourinary: normal external genitalia Skin: no rash 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: maintenance chief II-XII grossly normal Microbiology Date/Time Source Procedure Growth Status 10/29/17 21:30 Urine,Clean Catch Urine Culture - Final Mixed Gram Positive Organism Complete Laboratory Tests 11/01/17 07:15: White Blood Count 9.3, Red Blood Count 5.64, Hemoglobin 15.5, Hematocrit 49.2, Mean Corpuscular Volume 87, Mean Corpuscular Hemoglobin 27.5, Mean Corpuscular Hemoglobin Concent 31.5L, Red Cell Distribution Width 12.4, Platelet Count 337, Mean Platelet Volume 6.9, Neutrophils (%) (Auto) 63.8, Lymphocytes (%) (Auto) 23.8, Monocytes (%) (Auto) 7.7, Eosinophils (%) (Auto) 3.6H, Basophils (%) (Auto ) 1.2, Sodium Level 137, Potassium Level 4.6, Chloride Level 101, Carbon Dioxide Level 28, Anion Gap 8, Blood Urea Nitrogen 25H, Creatinine 1.0, Estimat Glomerular Filtration Rate > 60, Glucose Level 155H, Calcium Level 9.6 Current Medications Medications (Trade) Dose Ordered Sig/Sandy Route PRN Reason Start Time Stop Time Status Last Admin Dose Admin Acetaminophen (Tylenol) 650 mg Q4H PRN ORAL FEVER 10/30/17 14:00 11/27/17 13:52 Acetaminophen/ Hydrocodone Bitart ([place] 7.5/325) 1 tab Q4H PRN ORAL For Pain 10/30/17 15:15 11/05/17 19:14 10/31/17 21:19 Albuterol/ Ipratropium (Albuterol/ Ipratropium) 3 ml Q4H PRN HHN Shortness of Breath 10/30/17 14:00 11/02/17 13:52 10/31/17 19:23 Aspirin (ASA) 81 mg DAILY ORAL 10/31/17 09:00 11/29/17 08:59 11/01/17 09:16 Atorvastatin Calcium (Lipitor) 40 mg BEDTIME ORAL 10/30/17 21:00 11/28/17 20:59 10/31/17 21:20 Carvedilol (Coreg) 6.25 mg Q12HR ORAL 10/30/17 21:00 11/27/17 20:59 11/01/17 09:15 Dextrose (Dextrose 50%) 25 ml STAT PRN IV Hypoglycemia 10/30/17 18:45 11/28/17 18:44 Dextrose (Dextrose 50%) 50 ml STAT PRN IV Hypoglycemia 10/30/17 18:45 11/28/17 18:44 Digoxin (Lanoxin) 0.125 mg DAILY ORAL 10/31/17 09:00 11/28/17 08:59 11/01/17 09:15 Diltiazem HCl (Cardizem) 10 mg Q1H PRN IV heart rate more than 120 10/30/17 13:00 11/27/17 13:56 Enalaprilat (Vasotec) 2.5 mg Q6H PRN IV sbp more than 160 10/30/17 12:37 11/29/17 12:36 Escitalopram Oxalate (Lexapro) 10 mg DAILY ORAL 10/31/17 09:00 11/28/17 08:59 11/01/17 09:16 Furosemide (Lasix) 40 mg DAILY ORAL 11/01/17 09:00 12/01/17 08:59 11/01/17 09:15 Gabapentin (Neurontin) 300 mg TID ORAL 10/30/17 13:00 11/27/17 17:59 11/01/17 09:16 Heparin Sodium (Porcine) (Heparin 5000 units/ml) 5,000 units EVERY 12 HOURS SUBQ 10/30/17 21:00 11/27/17 20:59 11/01/17 09:34 Insulin Aspart (NovoLOG) BEFORE MEALS AND HS SUBQ 10/30/17 16:30 11/28/17 20:59 11/01/17 11:56 Ketorolac Tromethamine (Toradol 30mg) 30 mg Q6H PRN IV moderate pain ( 4-6) 10/30/17 14:00 11/02/17 13:58 11/01/17 09:16 Levofloxacin 100 ml @ 100 mls/hr Q24H IVPB 10/30/17 19:30 11/05/17 19:29 10/31/17 20:18 Lisinopril (Zestril) 10 mg DAILY ORAL 10/31/17 09:00 11/30/17 08:59 11/01/17 09:15 Nitroglycerin (Ntg) 0.4 mg Q5MIN X 3 DOSES PRN SL Prn Chest Pain 10/30/17 12:15 11/27/17 13:52 Ondansetron HCl (Zofran) 4 mg Q6H PRN IVP Nausea & Vomiting 10/30/17 14:00 11/27/17 13:52 Polyethylene Glycol (Miralax) 17 gm DAILYPRN PRN ORAL Constipation 10/30/17 14:00 11/27/17 13:55 Temazepam (Restoril) 15 mg HSPRN PRN ORAL Insomnia 10/30/17 21:00 11/04/17 20:59 Autumn Frost MD Nov 01, 2017 12:19
[2017-11-01 16:00] VITALS: BP 132/62
--- NOTE | 2017-11-01 16:33 | Cardiac Electrophysiology PN ---
Assessment/Plan Assessment/Plan 1. Status post [facility] biventricular defibrillator implantation. Interrogation showed Nl fx In the meantime, continue the patient's heart failure medication with digoxin 0.125 mg daily, Coreg 6.25 mg b.i.d and lisinopril. 2. Atypical chest pain. Stress test showed no ischemia 3. Hypertension. 4. Diabetes. 5. Chronic obstructive pulmonary disease. 6. Mild renal failure. Creatinine was 1.3. KEE RN DC planning today Subjective Subjective Had stress test. No CP or SOB. ICD interrogation showed Nl Fx Objective Last 24 Hour Vital Signs Date Time Temp Pulse Resp B/P (MAP) Pulse Ox O2 Delivery O2 Flow Rate FiO2 11/01/17 12:00 94 11/01/17 12:00 97.0 66 18 105/68 (80) 94 97.0 11/01/17 10:16 97.2 11/01/17 09:55 Room Air 21 11/01/17 09:55 94 Room Air 21 11/01/17 09:16 97.2 11/01/17 09:15 131/75 11/01/17 09:15 71 11/01/17 09:15 71 131/75 11/01/17 09:00 Nasal Cannula 2.0 11/01/17 08:00 85 11/01/17 08:00 97.1 83 18 143/81 (101) 94 97.1 11/01/17 04:55 71 15 97 Facial 30 11/01/17 04:12 97.2 64 18 131/75 (93) 97.2 11/01/17 03:36 65 11/01/17 03:16 76 21 99 Facial 30 11/01/17 01:28 69 15 95 Facial 30 11/01/17 00:04 77 11/01/17 00:00 30 11/01/17 00:00 97.0 83 20 130/72 (91) 95 97.0 10/31/17 23:17 82 16 95 Facial 30 10/31/17 21:21 91 138/70 10/31/17 21:00 Nasal Cannula 2.0 10/31/17 20:00 97.8 91 18 141/70 (93) 97 97.8 10/31/17 19:32 87 20 99 Nasal Cannula 2.0 28 10/31/17 19:29 88 10/31/17 19:25 89 20 95 Nasal Cannula 2.0 28 10/31/17 19:24 Nasal Cannula 2.0 28 10/31/17 19:23 96 Nasal Cannula 2.0 28 10/31/17 18:34 97.0 Intake and Output 10/31/17 11/01/17 19:00 07:00 Intake Total 360 ml Output Total 300 ml Balance 360 ml -300 ml Intake Oral 360 ml Output Urine Total 300 ml # Voids 4 # Bowel Movements 2 2 Laboratory Tests Test 11/01/17 07:15 White Blood Count 9.3 K/UL (4.8-10.8) Red Blood Count 5.64 M/UL (4.70-6.10) Hemoglobin 15.5 G/DL (14.2-18.0) Hematocrit 49.2 % (42.0-52.0) Mean Corpuscular Volume 87 FL (80-99) Mean Corpuscular Hemoglobin 27.5 PG (27.0-31.0) Mean Corpuscular Hemoglobin Concent 31.5 G/DL (32.0-36.0) L Red Cell Distribution Width 12.4 % (11.6-14.8) Platelet Count 337 K/UL (150-450) Mean Platelet Volume 6.9 FL (6.5-10.1) Neutrophils (%) (Auto) 63.8 % (45.0-75.0) Lymphocytes (%) (Auto) 23.8 % (20.0-45.0) Monocytes (%) (Auto) 7.7 % (1.0-10.0) Eosinophils (%) (Auto) 3.6 % (0.0-3.0) H Basophils (%) (Auto) 1.2 % (0.0-2.0) Sodium Level 137 MMOL/L (136-145) Potassium Level 4.6 MMOL/L (3.5-5.1) Chloride Level 101 MMOL/L (98-107) Carbon Dioxide Level 28 MMOL/L (21-32) Anion Gap 8 mmol/L (5-15) Blood Urea Nitrogen 25 mg/dL (7-18) H Creatinine 1.0 MG/DL (0.55-1.30) Estimat Glomerular Filtration Rate > 60 mL/min (>60) Glucose Level 155 MG/DL (74-106) H Calcium Level 9.6 MG/DL (8.5-10.1) Microbiology Date/Time Source Procedure Growth Status 10/29/17 21:30 Urine,Clean Catch Urine Culture - Final Mixed Gram Positive Organism Complete Objective HEAD AND NECK: No JVD. LUNGS: Clear. CARDIOVASCULAR: Regular S1 and S2 with no gallop or murmur. ABDOMEN: Soft. EXTREMITIES: 1+ pitting edema. Defibrillator in left subclavian Will Kern MD Nov 01, 2017 16:33
[2017-11-01] MEDS: HYDROcodone/Acetamin 7.5/325 tab ORAL PRN (17:03)
--- NOTE | 2017-11-01 18:20 | Internal Med Progress Note ---
Subjective Date of Service: Nov 01, 2017 Physician Name Kevin Flores Attending Physician Kevin Flores MD Current Medications Medications (Trade) Dose Ordered Sig/Sandy Route PRN Reason Start Time Stop Time Status Last Admin Dose Admin Acetaminophen (Tylenol) 650 mg Q4H PRN ORAL FEVER 10/30/17 14:00 11/27/17 13:52 Acetaminophen/ Hydrocodone Bitart ([place] 7.5/325) 1 tab Q4H PRN ORAL For Pain 10/30/17 15:15 11/05/17 19:14 11/01/17 17:03 Albuterol/ Ipratropium (Albuterol/ Ipratropium) 3 ml Q4H PRN HHN Shortness of Breath 10/30/17 14:00 11/02/17 13:52 10/31/17 19:23 Aspirin (ASA) 81 mg DAILY ORAL 10/31/17 09:00 11/29/17 08:59 11/01/17 09:16 Atorvastatin Calcium (Lipitor) 40 mg BEDTIME ORAL 10/30/17 21:00 11/28/17 20:59 10/31/17 21:20 Carvedilol (Coreg) 6.25 mg Q12HR ORAL 10/30/17 21:00 11/27/17 20:59 11/01/17 09:15 Dextrose (Dextrose 50%) 25 ml STAT PRN IV Hypoglycemia 10/30/17 18:45 11/28/17 18:44 Dextrose (Dextrose 50%) 50 ml STAT PRN IV Hypoglycemia 10/30/17 18:45 11/28/17 18:44 Digoxin (Lanoxin) 0.125 mg DAILY ORAL 10/31/17 09:00 11/28/17 08:59 11/01/17 09:15 Diltiazem HCl (Cardizem) 10 mg Q1H PRN IV heart rate more than 120 10/30/17 13:00 11/27/17 13:56 Enalaprilat (Vasotec) 2.5 mg Q6H PRN IV sbp more than 160 10/30/17 12:37 11/29/17 12:36 Escitalopram Oxalate (Lexapro) 10 mg DAILY ORAL 10/31/17 09:00 11/28/17 08:59 11/01/17 09:16 Furosemide (Lasix) 40 mg DAILY ORAL 11/01/17 09:00 12/01/17 08:59 11/01/17 09:15 Gabapentin (Neurontin) 300 mg TID ORAL 10/30/17 13:00 11/27/17 17:59 11/01/17 17:03 Heparin Sodium (Porcine) (Heparin 5000 units/ml) 5,000 units EVERY 12 HOURS SUBQ 10/30/17 21:00 11/27/17 20:59 11/01/17 09:34 Insulin Aspart (NovoLOG) BEFORE MEALS AND HS SUBQ 10/30/17 16:30 11/28/17 20:59 11/01/17 17:08 Ketorolac Tromethamine (Toradol 30mg) 30 mg Q6H PRN IV moderate pain ( 4-6) 10/30/17 14:00 11/02/17 13:58 11/01/17 09:16 Levofloxacin 100 ml @ 100 mls/hr Q24H IVPB 10/30/17 19:30 11/05/17 19:29 10/31/17 20:18 Lisinopril (Zestril) 10 mg DAILY ORAL 10/31/17 09:00 11/30/17 08:59 11/01/17 09:15 Nitroglycerin (Ntg) 0.4 mg Q5MIN X 3 DOSES PRN SL Prn Chest Pain 10/30/17 12:15 11/27/17 13:52 Ondansetron HCl (Zofran) 4 mg Q6H PRN IVP Nausea & Vomiting 10/30/17 14:00 11/27/17 13:52 Polyethylene Glycol (Miralax) 17 gm DAILYPRN PRN ORAL Constipation 10/30/17 14:00 11/27/17 13:55 Temazepam (Restoril) 15 mg HSPRN PRN ORAL Insomnia 10/30/17 21:00 11/04/17 20:59 Allergies: Coded Allergies: No Known Allergies (Verified , 06/29/10) ROS Limited/Unobtainable: No Constitutional: Reports: no symptoms HEENT: Reports: no symptoms Cardiovascular: Reports: no symptoms Respiratory: Reports: no symptoms Gastrointestinal/Abdominal: Reports: no symptoms Genitourinary: Reports: no symptoms 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: Reports: no symptoms Subjective 67 YO M admitted with chest pain and shortness of breath. Now CHF. S/P cardiolite stress test 10/31/17 Objective Last Vital Signs Date Time Temp Pulse Resp B/P (MAP) Pulse Ox O2 Delivery O2 Flow Rate FiO2 11/01/17 18:15 97.0 11/01/17 16:00 64 11/01/17 16:00 18 132/62 (85) 97 11/01/17 09:55 Room Air 21 11/01/17 09:00 2.0 Laboratory Tests Test 11/01/17 07:15 White Blood Count 9.3 K/UL (4.8-10.8) Red Blood Count 5.64 M/UL (4.70-6.10) Hemoglobin 15.5 G/DL (14.2-18.0) Hematocrit 49.2 % (42.0-52.0) Mean Corpuscular Volume 87 FL (80-99) Mean Corpuscular Hemoglobin 27.5 PG (27.0-31.0) Mean Corpuscular Hemoglobin Concent 31.5 G/DL (32.0-36.0) L Red Cell Distribution Width 12.4 % (11.6-14.8) Platelet Count 337 K/UL (150-450) Mean Platelet Volume 6.9 FL (6.5-10.1) Neutrophils (%) (Auto) 63.8 % (45.0-75.0) Lymphocytes (%) (Auto) 23.8 % (20.0-45.0) Monocytes (%) (Auto) 7.7 % (1.0-10.0) Eosinophils (%) (Auto) 3.6 % (0.0-3.0) H Basophils (%) (Auto) 1.2 % (0.0-2.0) Sodium Level 137 MMOL/L (136-145) Potassium Level 4.6 MMOL/L (3.5-5.1) Chloride Level 101 MMOL/L (98-107) Carbon Dioxide Level 28 MMOL/L (21-32) Anion Gap 8 mmol/L (5-15) Blood Urea Nitrogen 25 mg/dL (7-18) H Creatinine 1.0 MG/DL (0.55-1.30) Estimat Glomerular Filtration Rate > 60 mL/min (>60) Glucose Level 155 MG/DL (74-106) H Calcium Level 9.6 MG/DL (8.5-10.1) Microbiology Date/Time Source Procedure Growth Status 10/29/17 21:30 Urine,Clean Catch Urine Culture - Final Mixed Gram Positive Organism Complete Intake and Output 10/31/17 11/01/17 19:00 07:00 Intake Total 360 ml Output Total 300 ml Balance 360 ml -300 ml Intake Oral 360 ml Output Urine Total 300 ml # Voids 4 # Bowel Movements 2 2 Objective General Appearance: WD/WN, mild distress, obese EENT: PERRL/EOMI, normal ENT inspection Neck: non-tender, normal alignment, supple, normal inspection Cardiovascular: normal peripheral pulses, normal rate, regular rhythm, no gallop/murmur, no JVD Respiratory/Chest: chest wall non-tender, respiratory distress, crackles/rales , expiratory wheezing Abdomen: normal bowel sounds, non tender, soft, no organomegaly, no mass Extremities: normal range of motion, non-tender Neurologic: chief of party II-XII grossly normal, no motor/sensory deficits Skin: normal pigmentation, warm/dry Assessment/Plan Problem List: (1) CHF (congestive heart failure) Assessment & Plan: LVEF=35-40% see cardiology note (2) HTN (hypertension) Assessment & Plan: continue cardizem and coreg (3) Diabetes mellitus Assessment & Plan: Continue novolog sliding scale. (4) COPD (chronic obstructive pulmonary disease) Assessment & Plan: See pulmonary note. (5) Chest pain Assessment & Plan: Cardiac stress test = neg. See cardiology note. (6) Pacemaker Assessment & Plan: Await interrogation (7) Renal failure Assessment & Plan: CT=perinephric stranding. Await nephrology consult. Start levaquin Status: stable Assessment/Plan D/C home today Kevin Flores MD Nov 01, 2017 18:20
--- NOTE | 2017-11-01 18:35 | General Progress Note ---
Assessment/Plan Status: stable Assessment/Plan mdd anxiety lexapro 10mg qam provided ro/st Subjective Date patient seen: Nov 01, 2017 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: Reports: anxiety, depressed Allergies: Coded Allergies: No Known Allergies (Verified , 06/29/10) Objective Last 24 Hour Vital Signs Date Time Temp Pulse Resp B/P (MAP) Pulse Ox O2 Delivery O2 Flow Rate FiO2 11/01/17 18:15 97.0 11/01/17 17:03 97.0 11/01/17 16:00 64 11/01/17 16:00 97.4 68 18 132/62 (85) 97 97.4 11/01/17 12:00 94 11/01/17 12:00 97.0 66 18 105/68 (80) 94 97.0 11/01/17 10:16 97.2 11/01/17 09:55 Room Air 21 11/01/17 09:55 94 Room Air 21 11/01/17 09:16 97.2 11/01/17 09:15 131/75 11/01/17 09:15 71 11/01/17 09:15 71 131/75 11/01/17 09:00 Nasal Cannula 2.0 11/01/17 08:00 85 11/01/17 08:00 97.1 83 18 143/81 (101) 94 97.1 11/01/17 04:55 71 15 97 Facial 30 11/01/17 04:12 97.2 64 18 131/75 (93) 97.2 11/01/17 03:36 65 11/01/17 03:16 76 21 99 Facial 30 11/01/17 01:28 69 15 95 Facial 30 11/01/17 00:04 77 11/01/17 00:00 30 11/01/17 00:00 97.0 83 20 130/72 (91) 95 97.0 10/31/17 23:17 82 16 95 Facial 30 10/31/17 21:21 91 138/70 10/31/17 21:00 Nasal Cannula 2.0 10/31/17 20:00 97.8 91 18 141/70 (93) 97 97.8 10/31/17 19:32 87 20 99 Nasal Cannula 2.0 28 10/31/17 19:29 88 10/31/17 19:25 89 20 95 Nasal Cannula 2.0 28 10/31/17 19:24 Nasal Cannula 2.0 28 10/31/17 19:23 96 Nasal Cannula 2.0 28 Intake and Output 10/31/17 11/01/17 19:00 07:00 Intake Total 360 ml Output Total 300 ml Balance 360 ml -300 ml Intake Oral 360 ml Output Urine Total 300 ml # Voids 4 # Bowel Movements 2 2 Laboratory Tests 11/01/17 07:15: White Blood Count 9.3, Red Blood Count 5.64, Hemoglobin 15.5, Hematocrit 49.2, Mean Corpuscular Volume 87, Mean Corpuscular Hemoglobin 27.5, Mean Corpuscular Hemoglobin Concent 31.5L, Red Cell Distribution Width 12.4, Platelet Count 337, Mean Platelet Volume 6.9, Neutrophils (%) (Auto) 63.8, Lymphocytes (%) (Auto) 23.8, Monocytes (%) (Auto) 7.7, Eosinophils (%) (Auto) 3.6H, Basophils (%) (Auto ) 1.2, Sodium Level 137, Potassium Level 4.6, Chloride Level 101, Carbon Dioxide Level 28, Anion Gap 8, Blood Urea Nitrogen 25H, Creatinine 1.0, Estimat Glomerular Filtration Rate > 60, Glucose Level 155H, Calcium Level 9.6 Height (Feet): 5 Height (Inches): 8.00 Weight (Pounds): 242 General Appearance: no apparent distress, alert Gregg Parsons MD Nov 01, 2017 18:35
--- NOTE | 2017-11-03 13:10 | Discharge Summary ---
Discharge Summary Discharge Summary _ DATE OF ADMISSION: 10/28/2017 DATE OF DISCHARGE: 11/01/2017 REASON FOR ADMISSION: 67 years old male with past medical history of coronary artery disease, AICD, cardiomyopathy, COPD, diabetes mellitus, presented to emergency department with chief complaint of midsternal chest pain and shortness of breath. Chest symptoms were ongoing for the last 3 days. Patient denied any vomiting and diarrhea. No fevers. No cough. Upon evaluation vital signs were stable. Laboratory workup revealed no leukocytosis, stable hemoglobin and hematocrit. Troponin was negative. EKG revealed normal sinus rhythm, no acute ischemic changes. Pro BNP 608. Glucose 262. BUN 34, creatinine 2.3. Chest x-ray revealed AICD , no acute cardiopulmonary changes otehrwise. Patient admitted with diagnoses of chest pain, rule out acute coronary syndrome , hypertension, diabetes mellitus, COPD. CONSULTANTS: [employer] system crewmember Dr. Kern pulmonary Dr. Frost psychiatrist [facility] COURSE: Patient admitted to telemetry floor. Serial troponin were negative. EKG revealed no acute ischemic changes. Patient was ruled out for acute CA. Environmental Intern closely followed. Echocardiogram revealed ejection fraction of 35-40% with global left ventricular hypokinesis. Mild left ventricular hypertrophy. Right ventricular systolic pressure of 26. Defibrillator was interrogated, and patient synchronized appropriately. Anti-failure medication regimen was continued with digoxin and beta maritza. Digoxin level therapeutic. LOKESH inhibitor and Aldactone were stopped initially due to acute kidney injury. Acute kidney injury resolved. Lisinopril resumed. Diuresis with Lasix continued with close monitoring of cardiorenal parameters and volumes,. Antiplatelet therapy with aspirin was continued along with statin. Lipid panel revealed elevated total cholesterol, triglycerides and LDL. Statin was continued. Patient was counseled on cardiac low-fat low-cholesterol diabetic diet. Pro BNP down to 283. Myocardial perfusion stress test was nonischemic with calculated ejection fraction of 42%. No definite imaging findings to suggest ischemia, at level of stress achieved. It revealed however inferior lateral fixed perfusion defect consistent with infarct. Patient likely had infarct in the past, that he was not aware. Carotid Dupelx was essentially stable. Supplemental oxygen provided as needed to keep pulse oximetry above 92%. Pulmonary toilet was on standby as needed. BiPAP provided at nighttime and as needed. Patient had CPAP at home. Follow-up chest x-ray revealed no acute cardiopulmonary pathology. Blood sugar was managed with sliding scale of insulin. Hemoglobin A1c 7.9, not at goal yet. Patient needs further optimization of anti- glycemic regimen as outpatient. CT of the head and CT of the abdomen and pelvis revealed no acute findings. Pain management was addressed. Supportive care was provided. DVT and GI prophylaxis provided. Psychiatrist seen and evaluated patient , diagnosed patient with major depressive disorder and anxiety disorder. Reality orientation and supportive therapy provided. Patient started on Lexapro. Patient clinically improved and was stable for discharge home. FINAL DIAGNOSES: Atypical chest pain Cardiomyopathy Congestive heart failure Status post [facility] [facility] biventricular defibrillator implantation Hypertension COPD Obstructive sleep apnea Diabetes mellitus Chronic low back pain Acute kidney injury, resolved Mixed hyperlipidemia Obesity Major depressive disorder Anxiety disorder DISCHARGE MEDICATIONS: See Medication Reconciliation list. DISCHARGE INSTRUCTIONS: Patient was discharged home Follow up with primary care provider in one week. Reinforced compliance with medication regimen Charito Nielsen NP Nov 03, 2017 13:10
== END 2017-11-01 19:58 | disposition home or self-care (01) | DRG 313 ==
LOC: EMR 10:49 → 2W 10:57 → EDBEDREQ 11:40 → 2E 10-30 12:10
DX: R07.89 Other chest pain (principal); N17.0 Acute kidney failure with tubular necrosis; I11.0 Hypertensive heart disease with heart failure; I50.9 Heart failure, unspecified; J44.9 Chronic obstructive pulmonary disease, unspecified; F32.9 Major depressive disorder, single episode, unspecified; F41.9 Anxiety disorder, unspecified; E11.9 Type 2 diabetes mellitus without complications; G89.29 Other chronic pain; M54.5 Low back pain; Z95.810 Presence of automatic (implantable) cardiac defibrillator; I25.10 Atherosclerotic heart disease of native coronary artery without angina pectoris; I25.5 Ischemic cardiomyopathy; E78.2 Mixed hyperlipidemia
CPT/HCPCS: 36415; 36600; 70450; 71045; 74176; 78452; 80048; 80053; 80061; 80162; 81003; 82550; 82553; 82803; 82962; 83036; 83690; 83880; 84443; 84484; 85025; 85610; 85730; 86140; 87086; 93005; 93017; 93306; 93880; 94640; 94660; 94664; 94760; J1815; J2785; J7620

== ENCOUNTER 2018-02-16 11:33 | Emergency (ER) | payer MEDICARE, OTHER ==
[~2018-02-16] VITALS: Ht 167.6 cm; Wt 81.6 kg
[2018-02-16] MEDS ORDERED: Morphine Sulfate 2mg/ml Inj IVP ONE (11:45)
[2018-02-16 12:24] LABS: EOSINOPHILS % (AUTO) 2.4 % (0.0-3.0); HEMATOCRIT 49.2 % (42.0-52.0); HEMOGLOBIN 15.8 G/DL (14.2-18.0); LYMPHOCYTES % (AUTO) 19.5 % (20.0-45.0); MEAN CORPUSCULAR VOLUME 85 FL (80-99); MONOCYTES % (AUTO) 6.5 % (1.0-10.0); NEUTROPHILS % (AUTO) 70.6 % (45.0-75.0); PLATELET COUNT 380 K/UL (150-450); RED BLOOD COUNT 5.79 M/UL (4.70-6.10); RED CELL DISTRIBUTION WIDTH 11.9 % (11.6-14.8); WHITE BLOOD COUNT 11.9 K/UL (4.8-10.8)
[2018-02-16 12:30] LABS: ANION GAP 11 mmol/L (5-15); BLOOD UREA NITROGEN 20 mg/dL (7-18); CALCIUM 9.6 MG/DL (8.5-10.1); CARBON DIOXIDE 25 MMOL/L (21-32); CHLORIDE 102 MMOL/L (98-107); CREATININE 1.1 MG/DL (0.55-1.30); POTASSIUM 4.5 MMOL/L (3.5-5.1); SODIUM 138 MMOL/L (136-145)
[2018-02-16 12:34] LABS: ALANINE AMINOTRANSFERASE 26 U/L (12-78); ALBUMIN 3.7 G/DL (3.4-5.0); ALBUMIN/GLOBULIN RATIO 0.9 (1.0-2.7); ALKALINE PHOSPHATASE 98 U/L (46-116); ASPARTATE AMINO TRANSFERASE 23 U/L (15-37); BILIRUBIN,TOTAL 0.2 MG/DL (0.2-1.0)
[2018-02-16 12:57] VITALS: BP 111/54
--- NOTE | 2018-02-16 13:15 | Emergency Room Report ---
History of Present Illness General Chief Complaint: Chest Pain Source: Patient, Family Member Present Illness HPI Mr. Baptiste has hx of CAD, COPD, CHF who presents with mild 3-5/10 intermittent headache for 2-3 days. Pain is sporadic. Feels mild pain at rest and at night. Wanted to f/u with PCP today. Unable to f/u with hx of active chest pain. Pain improved with ASA, nitro and morphine. Followed by turfgrass management professor at [facility]. Gradual onset of chest pain. Nondescript quality. Associated with dizziness. No dyspnea. No palpitations. Sometimes, associated with exertion. No radiation. Last on the order of seconds and minutes. 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 Reviewed Nursing Documentation: PMH: Agreed; PSxH: Agreed Nursing Documentation-PMH Past Medical History: No History, Except For Hx Cardiac Problems: Yes Hx Hypertension: Yes - Pacemaker, high cholesterol Hx Pacemaker: Yes Hx Asthma: Yes Hx COPD: Yes Hx Diabetes: Yes Hx Cancer: No Hx Gastrointestinal Problems: Yes Hx Neurological Problems: No Review of Systems Constitutional: Denies: fever, malaise Musculoskeletal: Denies: back pain Skin: Denies: rash All Other Systems: negative except mentioned in HPI Physical Exam Vital Signs Date Time Temp Pulse Resp B/P (MAP) Pulse Ox O2 Delivery O2 Flow Rate FiO2 02/16/18 11:35 98.6 80 14 103/59 92 Room Air Sp02 EP Interpretation: reviewed, normal General Appearance: no apparent distress, alert, GCS 15, non-toxic Head: normocephalic, atraumatic Eyes: bilateral eye normal inspection ENT: hearing grossly normal, normal pharynx, no angioedema, normal voice Neck: full range of motion, supple/symm/no masses Respiratory: chest non-tender, lungs clear, normal breath sounds, no rhonchi, no respiratory distress, no retraction, no accessory muscle use, speaking full sentences Cardiovascular #1: normal inspection, normal peripheral pulses, regular rate, rhythm, no edema, no gallop, no JVD, no murmur, no rub, other - AICD battery pack: no tender Gastrointestinal: normal bowel sounds, non tender, soft, non-distended, no guarding, no rebound Rectal: deferred Musculoskeletal: back normal, gait/station normal, normal range of motion, non- tender, calf tenderness Neurologic: alert, oriented x3, responsive, motor strength/tone normal, sensory intact, speech normal Psychiatric: judgement/insight normal, memory normal, mood/affect normal, no suicidal/homicidal ideation Skin: normal color, no rash, warm/dry, well hydrated Medical Decision Making Diagnostic Impression: Primary Impression: ACS (acute coronary syndrome) ER Course Mr. Kauffman is a 67 yo male with hx of recurrent chest pain and ACS. I reviewed w /u performed in October including echo, myocardial perfusion scan, interrogation of AICD. Patient and demanded hospital admission. I spoke with Dr. Flores who agreed with my plan of discharge. Considering patient had a normal w/u in October without acute ischemia, I felt patient did not require admission. Dr. Flores informed me today that the patient came to his office after missing 2 appointments in December and January. He walked into the office today demanding to be seen. He also desired refill of controlled substances. AFter the interaction with office staff, called 911 for patient experience chest pain. Mr. Kauffman understands reason for discharge since he had a recent normal cardiac w/u. Troponin is normal. EKG without acute changes. Chest pain did seem atypical for ACS. He has had 3 hospitalizations within the past 1 1/2 years for recurrent chest pain. EKG Diagnostic Results EKG Time: 11:41 EP Interpretation: atrial pacing rate 75 bpm abnormal axis no ST elevation Rate: normal Rhythm: NSR ST Segments: no acute changes Other Impression nonspecific T wave pattern ASA given to the pt in ED: Yes - by EMS Chest X-Ray Diagnostic Results Chest X-Ray Diagnostic Results : Chest X-Ray Ordered: Yes # of Views/Limited/Complete: 1 View Indication: Chest Pain EP Interpretation: Yes Interpretation: no consolidation, no effusion, no pneumothorax, no acute cardiopulmonary disease, other - pacemaker wires in place Impression: No acute disease Electronically Signed by: This image has been electronically signed by Dr. Mona Ratliff Last Vital Signs Date Time Temp Pulse Resp B/P (MAP) Pulse Ox O2 Delivery O2 Flow Rate FiO2 02/16/18 12:57 80 14 Room Air 12/6/18 12:57 98.6 111/54 92 Status: improved Disposition: ADMITTED INPATIENT Condition: Stable Referrals: NOT CHOSEN IPA/,REFERRING (PCP) Mona Ratliff MD Feb 16, 2018 13:15
[2018-02-16] MEDS ORDERED: NORCO1 E1 ORAL (13:24)
--- NOTE | 2018-02-16 14:03 | Diagnostic Imaging Report ---
Indication: Chest pain Technique: One view of the chest Comparison: 10/31/2017 Findings: The right hemidiaphragm is elevated. There is again demonstrated atelectasis or scarring at the right lung base. The lungs and pleural spaces are otherwise clear. The heart is mildly enlarged. There is a left chest biventricular AICD Impression: No acute process. Findings as noted
[2018-02-16 14:36] VITALS: BP 118/73
== END 2018-02-16 14:38 | disposition home or self-care (01) ==
LOC: EDBD 11:33 → EMR 12:20 → EDBEDREQ 14:02 → CANBEDREQ 14:23 → EMR 14:38
DX: I24.9 Acute ischemic heart disease, unspecified (principal); I10 Essential (primary) hypertension; J44.9 Chronic obstructive pulmonary disease, unspecified; Z95.0 Presence of cardiac pacemaker; E11.9 Type 2 diabetes mellitus without complications
CPT/HCPCS: 36415; 71045; 80053; 84484; 85025; 93005; 96374; 96375; 99283; J2270; J2405

== ENCOUNTER 2018-09-29 07:32 | Inpatient (IN) | payer MEDICARE, OTHER ==
[~2018-09-29] VITALS: Ht 167.6 cm; Wt 109.8 kg
[~2018-09-29 07:32] MED LIST changes: +NORCO1 E1 ORAL
[2018-09-29 07:50] VITALS: BP 116/53
--- NOTE | 2018-09-29 07:52 | NUR ---
ED Nurse Note: pt walked in to ED due to non-radiated cp that started yesterday. per pt, pain gets worse when breath in. AAO x4. respirations even and non-labored noted. skin warm to touch. no open wound noted. ambulatory with steady gait. 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 ekg done at the bed side. will wait for the further order.
[2018-09-29 08:02] LABS: BASOPHILS % (AUTO) 0.7 % (0.0-2.0); EOSINOPHILS % (AUTO) 2.9 % (0.0-3.0); HEMATOCRIT 46.5 % (42.0-52.0); HEMOGLOBIN 15.3 G/DL (14.2-18.0); LYMPHOCYTES % (AUTO) 19.4 % (20.0-45.0); MEAN CORPUSCULAR VOLUME 88 FL (80-99); MONOCYTES % (AUTO) 8.7 % (1.0-10.0); NEUTROPHILS % (AUTO) 68.3 % (45.0-75.0); PLATELET COUNT 337 K/UL (150-450); RED CELL DISTRIBUTION WIDTH 12.5 % (11.6-14.8); WHITE BLOOD COUNT 12.4 K/UL (4.8-10.8)
[2018-09-29 08:13] LABS: ANION GAP 8 mmol/L (5-15); BLOOD UREA NITROGEN 15 mg/dL (7-18); CALCIUM 9.1 MG/DL (8.5-10.1); CARBON DIOXIDE 28 MMOL/L (21-32); CHLORIDE 103 MMOL/L (98-107); CREATININE 0.9 MG/DL (0.55-1.30); POTASSIUM 4.1 MMOL/L (3.5-5.1); SODIUM 139 MMOL/L (136-145)
[2018-09-29 08:26] LABS: ALANINE AMINOTRANSFERASE 21 U/L (12-78); ALBUMIN 3.9 G/DL (3.4-5.0); ALBUMIN/GLOBULIN RATIO 1.1 (1.0-2.7); ALKALINE PHOSPHATASE 105 U/L (46-116); ASPARTATE AMINO TRANSFERASE 25 U/L (15-37); BILIRUBIN,TOTAL 0.4 MG/DL (0.2-1.0); CKMB 1.6 NG/ML (0.0-3.6); CREATINE KINASE 129 U/L (26-308)
--- NOTE | 2018-09-29 08:40 | NUR ---
ED Nurse Note: pt asked more pain meds. RN notified Dr. Kelly. will wait for the order.
--- NOTE | 2018-09-29 08:42 | Emergency Room Report ---
History of Present Illness General Chief Complaint: Chest Pain Source: Patient Present Illness HPI Patient presents with complaints of left upper chest pain 06/21 reports that any movement or walking has worsened it Denies any vomiting denies any abdominal pain denies any shortness of breath Patient also feels that laying flat sometimes does worsen the sensation Denies any change in medications denies any recent travel Denies any pleurisy Allergies: Coded Allergies: No Known Allergies (Verified , 06/29/10) Patient History Past Medical History: see triage record Pertinent Family History: none Reviewed Nursing Documentation: PMH: Agreed; PSxH: Agreed Nursing Documentation-PMH Past Medical History: No History, Except For Hx Hypertension: Yes Hx Pacemaker: Yes Hx Asthma: Yes Hx COPD: Yes Hx Diabetes: Yes Hx Cancer: No Hx Gastrointestinal Problems: Yes Hx Neurological Problems: No Review of Systems All Other Systems: negative except mentioned in HPI Physical Exam Vital Signs Date Time Temp Pulse Resp B/P (MAP) Pulse Ox O2 Delivery O2 Flow Rate FiO2 09/29/18 07:36 98.1 68 23 145/74 (97) 96 Room Air Sp02 EP Interpretation: reviewed, normal General Appearance: well appearing, no apparent distress - Morbidly obese Head: normocephalic, atraumatic Eyes: bilateral eye PERRL, bilateral eye EOMI ENT: hearing grossly normal, normal pharynx, TMs + canals normal, uvula midline Neck: full range of motion, supple, no meningismus, no bony tend Respiratory: no rhonchi, no respiratory distress, no retraction, no accessory muscle use, crackles - bilaterally Cardiovascular #1: normal peripheral pulses, regular rate, rhythm, no gallop Gastrointestinal: normal bowel sounds, non tender, soft, no mass, no organomegaly, non-distended, no guarding, no hernia, no pulsatile mass, no rebound Genitourinary: no CVA tenderness Musculoskeletal: normal inspection Neurologic: oriented x3, responsive, facilities management executive III-XII nml as tested, motor strength/ tone normal, sensory intact Psychiatric: mood/affect normal Skin: no rash Lymphatic: normal inspection, no adenopathy Medical Decision Making Diagnostic Impression: Primary Impression: ACS (acute coronary syndrome) ER Course Patient is a fairly complex patient with multiple differential to consideration including but not limited to cardiac cardiopulmonary and vascular emergencies Patient initial EKG and blood work at baseline levels Given the comorbidities on the presentation patient will require further observation Labs Test 09/29/18 07:45 White Blood Count 12.4 K/UL (4.8-10.8) Red Blood Count 5.30 M/UL (4.70-6.10) Hemoglobin 15.3 G/DL (14.2-18.0) Hematocrit 46.5 % (42.0-52.0) Mean Corpuscular Volume 88 FL (80-99) Mean Corpuscular Hemoglobin 28.8 PG (27.0-31.0) Mean Corpuscular Hemoglobin Concent 32.8 G/DL (32.0-36.0) Red Cell Distribution Width 12.5 % (11.6-14.8) Platelet Count 337 K/UL (150-450) Mean Platelet Volume 6.4 FL (6.5-10.1) Neutrophils (%) (Auto) 68.3 % (45.0-75.0) Lymphocytes (%) (Auto) 19.4 % (20.0-45.0) Monocytes (%) (Auto) 8.7 % (1.0-10.0) Eosinophils (%) (Auto) 2.9 % (0.0-3.0) Basophils (%) (Auto) 0.7 % (0.0-2.0) Sodium Level 139 MMOL/L (136-145) Potassium Level 4.1 MMOL/L (3.5-5.1) Chloride Level 103 MMOL/L (98-107) Carbon Dioxide Level 28 MMOL/L (21-32) Anion Gap 8 mmol/L (5-15) Blood Urea Nitrogen 15 mg/dL (7-18) Creatinine 0.9 MG/DL (0.55-1.30) Estimat Glomerular Filtration Rate > 60 mL/min (>60) Glucose Level 145 MG/DL (74-106) Calcium Level 9.1 MG/DL (8.5-10.1) Total Bilirubin 0.4 MG/DL (0.2-1.0) Aspartate Amino Transf (AST/SGOT) 25 U/L (15-37) Alanine Aminotransferase (ALT/SGPT) 21 U/L (12-78) Alkaline Phosphatase 105 U/L (46-116) Total Creatine Kinase 129 U/L (26-308) Creatine Kinase MB 1.6 NG/ML (0.0-3.6) Creatine Kinase MB Relative Index 1.2 Troponin I 0.030 ng/mL (0.000-0.056) Pro-B-Type Natriuretic Peptide 452 pg/mL (0-125) Total Protein 7.3 G/DL (6.4-8.2) Albumin 3.9 G/DL (3.4-5.0) Globulin 3.4 g/dL Albumin/Globulin Ratio 1.1 (1.0-2.7) EKG Diagnostic Results Rate: normal Rhythm: NSR ST Segments: no acute changes Rhythm Strip Diag. Results EP Interpretation: yes Rate: 80 Rhythm: NSR, no PVC's, no ectopy Chest X-Ray Diagnostic Results Chest X-Ray Diagnostic Results : Chest X-Ray Ordered: Yes # of Views/Limited/Complete: 1 View Indication: Chest Pain EP Interpretation: Yes Interpretation: no consolidation, no effusion, no pneumothorax, other - Elevated right hemidiaphragm pacemaker leads in place Impression: No acute disease Electronically Signed by: Rocky Kelly DO Last Vital Signs Date Time Temp Pulse Resp B/P (MAP) Pulse Ox O2 Delivery O2 Flow Rate FiO2 09/29/18 07:50 69 15 116/53 96 Room Air 09/29/18 07:36 98.1 Status: improved Disposition: PLACE IN OBSERVATION Condition: Serious Referrals: Les Lee MD (PCP) Rocky Kelly DO Sep 29, 2018 08:42
[2018-09-29 09:00] VITALS: BP 137/75
[2018-09-29] MEDS ORDERED: HYDROcodone/Acetamin 10/325 tab ORAL ONE (09:00)
[2018-09-29 10:00] VITALS: BP 109/84
--- NOTE | 2018-09-29 10:19 | NUR ---
ED Nurse Note: reports given to LYLE Martini.
[2018-09-29 10:42] VITALS: BP 131/59
[2018-09-29] MEDS ORDERED: LOVASTATIN40 MG ORAL (10:48)
--- NOTE | 2018-09-29 11:29 | Diagnostic Imaging Report ---
Indication: Chest pain Technique: One view of the chest Comparison: 02/16/2018 Findings: There is again demonstrated elevation of the right hemidiaphragm. Lungs and pleural spaces are clear. There is a left chest biventricular AICD again demonstrated. The heart size is upper limits of normal. The findings are unchanged Impression: No acute process. Findings as noted
[2018-09-29] MEDS ORDERED: Miralax 17gm pkt ORAL PRN (11:45)
[2018-09-29] MEDS ORDERED: Nitroglycerin Subl 0.4mg tab SL PRN (11:45)
[2018-09-29] MEDS ORDERED: Enalaprilat 1.25mg/ml Inj IV PRN (11:45)
[2018-09-29] MEDS ORDERED: Albuterol/Ipratropium 3ml neb HHN PRN (11:45)
[2018-09-29] MEDS ORDERED: dilTIAZem HCl 25mg/5ml Inj IV PRN (11:45)
--- NOTE | 2018-09-29 11:54 | NUR ---
NURSE NOTES: Patient arrived to unit via gurney at 1030. Patient is alert and oriented. Belongings reviewed and accounted for. Report received from LYLE Elizalde. Patient oriented to room. Non-skid socks placed on patient. Side rails are upx2, bed is locked, and call light is within reach. Dr. Frost enter admission orders. Will continue to monitor.
--- NOTE | 2018-09-29 12:18 | Consultation ---
History of Present Illness General Chief Complaint: Chest Pain Present Illness HPI 68 year old male with hx of COPD, HTN, CAD, ICD, DM, cardiomyopathy presented to ER with CC of midsternal chest pain and shortness of breath. Patient denies any vomiting or diarrhea. His last EF was 35%. He had a negative cardiac stress test last year at [facility]. Pt is admitted to [facility] for ACS. Allergies: Coded Allergies: No Known Allergies (Verified , 06/29/10) Medication History Scheduled Albuterol Sulfate* (Albuterol Sulfate Mdi*), 2 PUFF INH HS, (Reported) Aspirin* (Aspir 81*), 81 MG PO DAILY, (Reported) Carvedilol* (Carvedilol*), 3.125 MG PO Q12HR, (Reported) Dexlansoprazole (Dexilant), 60 MG PO DAILY, (Reported) Digoxin* (Lanoxin*), 125 MCG PO DAILY, (Reported) Escitalopram Oxalate* (Lexapro*), 10 MG PO DAILY, (Reported) Furosemide* (Lasix*), 40 MG PO DAILY, (Reported) Lisinopril* (Zestril*), 20 MG PO DAILY, (Reported) Lovastatin (Lovastatin), 40 MG ORAL BEDTIME, (Reported) Potassium Chloride (Potassium Chloride), 10 MEQ PO DAILY, (Reported) Spironolactone* (Aldactone*), 25 MG PO DAILY, (Reported) [diabetes med], Unknown Dose PO BID, (Reported) Scheduled PRN Acetaminophen/Hydrocodone ([place]land 7.5-325 Tablet), 1 TAB ORAL Q6H PRN for For Pain, (Reported) Gabapentin* (Gabapentin*), 300 MG PO TID PRN, (Reported) Hydrocodone Bit/Acetaminophen 7.5-300 Mg Tabl (Vicodin Es 7.5-300 Mg Tablet), 1 TAB ORAL Q4H PRN for For Pain Hydrocodone/Acetaminophen 7.5-750 (Vicodin Es 7.5-750), 1 TAB PO Q8H PRN, ( Reported) Zolpidem Tartrate* (Zolpidem Tartrate*), 5 MG PO BEDTIME PRN, (Reported) Miscellaneous Medications Canagliflozin (Invokana), 300 MG PO, (Reported) Patient History Healthcare decision maker Resuscitation status Full Code Advanced Directive on File Past Medical/Surgical History Past Medical/Surgical History: (1) Hypertension (2) COPD (chronic obstructive pulmonary disease) (3) Diabetes mellitus (4) Tubulovillous adenoma of colon Review of Systems Constitutional: Reports: no symptoms Physical Exam General Appearance: WD/WN, overweight Lines, tubes and drains: peripheral HEENT: normocephalic, anicteric Neck: non-tender, normal alignment Respiratory/Chest: chest wall non-tender, normal breath sounds Cardiovascular/Chest: normal peripheral pulses, regularly irregular Abdomen: normal bowel sounds, non tender Extremities: normal range of motion Skin Exam: normal pigmentation Last 24 Hour Vital Signs Date Time Temp Pulse Resp B/P (MAP) Pulse Ox O2 Delivery O2 Flow Rate FiO2 09/29/18 11:29 Room Air 09/29/18 10:42 97.2 68 18 131/59 (83) 94 09/29/18 10:20 98.3 60 17 109/84 96 Room Air 09/29/18 10:00 98.3 60 17 109/84 96 Room Air 09/29/18 09:00 98.0 60 18 137/75 95 Room Air 09/29/18 07:50 69 15 116/53 96 Room Air 09/29/18 07:46 68 18 Room Air 09/29/18 07:36 98.1 68 23 145/74 (97) 96 Room Air Laboratory Tests Test 09/29/18 07:45 White Blood Count 12.4 K/UL (4.8-10.8) H Red Blood Count 5.30 M/UL (4.70-6.10) Hemoglobin 15.3 G/DL (14.2-18.0) Hematocrit 46.5 % (42.0-52.0) Mean Corpuscular Volume 88 FL (80-99) Mean Corpuscular Hemoglobin 28.8 PG (27.0-31.0) Mean Corpuscular Hemoglobin Concent 32.8 G/DL (32.0-36.0) Red Cell Distribution Width 12.5 % (11.6-14.8) Platelet Count 337 K/UL (150-450) Mean Platelet Volume 6.4 FL (6.5-10.1) L Neutrophils (%) (Auto) 68.3 % (45.0-75.0) Lymphocytes (%) (Auto) 19.4 % (20.0-45.0) L Monocytes (%) (Auto) 8.7 % (1.0-10.0) Eosinophils (%) (Auto) 2.9 % (0.0-3.0) Basophils (%) (Auto) 0.7 % (0.0-2.0) Sodium Level 139 MMOL/L (136-145) Potassium Level 4.1 MMOL/L (3.5-5.1) Chloride Level 103 MMOL/L (98-107) Carbon Dioxide Level 28 MMOL/L (21-32) Anion Gap 8 mmol/L (5-15) Blood Urea Nitrogen 15 mg/dL (7-18) Creatinine 0.9 MG/DL (0.55-1.30) Estimat Glomerular Filtration Rate > 60 mL/min (>60) Glucose Level 145 MG/DL (74-106) H Calcium Level 9.1 MG/DL (8.5-10.1) Total Bilirubin 0.4 MG/DL (0.2-1.0) Aspartate Amino Transf (AST/SGOT) 25 U/L (15-37) Alanine Aminotransferase (ALT/SGPT) 21 U/L (12-78) Alkaline Phosphatase 105 U/L (46-116) Total Creatine Kinase 129 U/L (26-308) Creatine Kinase MB 1.6 NG/ML (0.0-3.6) Creatine Kinase MB Relative Index 1.2 Troponin I 0.030 ng/mL (0.000-0.056) Pro-B-Type Natriuretic Peptide 452 pg/mL (0-125) H Total Protein 7.3 G/DL (6.4-8.2) Albumin 3.9 G/DL (3.4-5.0) Globulin 3.4 g/dL Albumin/Globulin Ratio 1.1 (1.0-2.7) Height (Feet): 5 Height (Inches): 6.00 Weight (Pounds): 242 Medications Current Medications Medications (Trade) Dose Ordered Sig/Sandy Route PRN Reason Start Time Stop Time Status Last Admin Dose Admin Acetaminophen (Tylenol) 650 mg Q4H PRN ORAL T>100.5 09/29/18 11:45 10/29/18 11:44 Albuterol/ Ipratropium (Albuterol/ Ipratropium) 3 ml Q4H PRN HHN Shortness of Breath 09/29/18 11:45 10/04/18 11:44 Aspirin (ASA) 162 mg DAILY ORAL 09/30/18 09:00 10/30/18 08:59 Carvedilol (Coreg) 3.125 mg Q12HR ORAL 09/29/18 21:00 10/29/18 20:59 Digoxin (Lanoxin) 0.125 mg DAILY ORAL 09/30/18 09:00 10/30/18 08:59 Diltiazem HCl (Cardizem) 10 mg EVERY HOUR PRN IV heart rate more than 120BPM 09/29/18 11:45 10/29/18 11:44 Enalaprilat (Vasotec) 2.5 mg Q6H PRN IV sbp more than 160 09/29/18 11:45 10/29/18 11:44 Escitalopram Oxalate (Lexapro) 10 mg DAILY ORAL 09/30/18 09:00 10/30/18 08:59 Heparin Sodium (Porcine) (Heparin 5000 units/ml) 5,000 units EVERY 12 HOURS SUBQ 09/29/18 21:00 10/29/18 20:59 Lisinopril (Prinivil) 20 mg DAILY ORAL 09/30/18 09:00 10/30/18 08:59 Morphine Sulfate (Morphine Sulfate) 2 mg Q4H PRN IVP Severe Pain (Pain Scale 7-10) 09/29/18 11:45 10/06/18 11:44 Nitroglycerin (Ntg) 0.4 mg Q5MIN X 3 DOSES PRN SL Prn Chest Pain 09/29/18 11:45 10/29/18 11:44 Ondansetron HCl (Zofran) 4 mg Q6H PRN IVP Nausea & Vomiting 09/29/18 11:45 10/29/18 11:44 Polyethylene Glycol (Miralax) 17 gm DAILYPRN PRN ORAL Constipation 09/29/18 11:45 10/29/18 11:44 Temazepam (Restoril) 15 mg HSPRN PRN ORAL Insomnia 09/29/18 21:00 10/06/18 20:59 Assessment/Plan Problem List: (1) ACS (acute coronary syndrome) ICD Codes: I24.9 - Acute ischemic heart disease, unspecified SNOMED: 266956586 (2) Hypertension ICD Codes: I10 - Essential (primary) hypertension SNOMED: 57746150 (3) Diabetes mellitus ICD Codes: E11.9 - Type 2 diabetes mellitus without complications SNOMED: 39796829 (4) COPD (chronic obstructive pulmonary disease) ICD Codes: J44.9 - COPD (chronic obstructive pulmonary disease) SNOMED: 59213126 Assessment/Plan: serial ekg, troponin echocardiogram cardiology evaluation siding scale diabetic diet Autumn Frost MD Sep 29, 2018 12:18
[2018-09-29] MEDS ORDERED: Dextrose 50% 25ml Syringe IV PRN (12:30)
[2018-09-29] MEDS: Morphine Sulfate 2mg/ml Inj(IV/IM USE ONLY) IVP PRN ×3 (15:14→23:54)
[2018-09-29] MEDS: NovoLOG Insulin Flexpen SUBQ SCH ×2 (17:38→20:35)
--- NOTE | 2018-09-29 18:25 | History & Physical ---
History and Physical History & Physicial Dictated for Int Med-Dr Lee no. [id number]. Kevin Flores MD Sep 29, 2018 18:25
--- NOTE | 2018-09-29 18:44 | Cardiology Progress Note ---
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 [facility] fo out pt testing in future Objective Last 24 Hour Vital Signs Date Time Temp Pulse Resp B/P (MAP) Pulse Ox O2 Delivery O2 Flow Rate FiO2 09/29/18 16:00 71 09/29/18 12:00 67 09/29/18 11:29 Room Air 09/29/18 10:42 97.2 68 18 131/59 (83) 94 09/29/18 10:20 98.3 60 17 109/84 96 Room Air 09/29/18 10:00 98.3 60 17 109/84 96 Room Air 09/29/18 09:00 98.0 60 18 137/75 95 Room Air 09/29/18 07:50 69 15 116/53 96 Room Air 09/29/18 07:46 68 18 Room Air 09/29/18 07:36 98.1 68 23 145/74 (97) 96 Room Air Laboratory Tests Test 09/29/18 07:45 09/29/18 13:50 White Blood Count 12.4 K/UL (4.8-10.8) H Red Blood Count 5.30 M/UL (4.70-6.10) Hemoglobin 15.3 G/DL (14.2-18.0) Hematocrit 46.5 % (42.0-52.0) Mean Corpuscular Volume 88 FL (80-99) Mean Corpuscular Hemoglobin 28.8 PG (27.0-31.0) Mean Corpuscular Hemoglobin Concent 32.8 G/DL (32.0-36.0) Red Cell Distribution Width 12.5 % (11.6-14.8) Platelet Count 337 K/UL (150-450) Mean Platelet Volume 6.4 FL (6.5-10.1) L Neutrophils (%) (Auto) 68.3 % (45.0-75.0) Lymphocytes (%) (Auto) 19.4 % (20.0-45.0) L Monocytes (%) (Auto) 8.7 % (1.0-10.0) Eosinophils (%) (Auto) 2.9 % (0.0-3.0) Basophils (%) (Auto) 0.7 % (0.0-2.0) Sodium Level 139 MMOL/L (136-145) Potassium Level 4.1 MMOL/L (3.5-5.1) Chloride Level 103 MMOL/L (98-107) Carbon Dioxide Level 28 MMOL/L (21-32) Anion Gap 8 mmol/L (5-15) Blood Urea Nitrogen 15 mg/dL (7-18) Creatinine 0.9 MG/DL (0.55-1.30) Estimat Glomerular Filtration Rate > 60 mL/min (>60) Glucose Level 145 MG/DL (74-106) H Calcium Level 9.1 MG/DL (8.5-10.1) Total Bilirubin 0.4 MG/DL (0.2-1.0) Aspartate Amino Transf (AST/SGOT) 25 U/L (15-37) Alanine Aminotransferase (ALT/SGPT) 21 U/L (12-78) Alkaline Phosphatase 105 U/L (46-116) Total Creatine Kinase 129 U/L (26-308) Creatine Kinase MB 1.6 NG/ML (0.0-3.6) Creatine Kinase MB Relative Index 1.2 Troponin I 0.030 ng/mL (0.000-0.056) 0.035 ng/mL (0.000-0.056) Pro-B-Type Natriuretic Peptide 452 pg/mL (0-125) H Total Protein 7.3 G/DL (6.4-8.2) Albumin 3.9 G/DL (3.4-5.0) Globulin 3.4 g/dL Albumin/Globulin Ratio 1.1 (1.0-2.7) Rodolfo De La Rosa MD Sep 29, 2018 18:44
--- NOTE | 2018-09-29 19:15 | History and Physical Report ---
DATE OF ADMISSION: 09/29/2018 CHIEF COMPLAINT: The patient is a 68-year-old male who presents with chief complaint of chest pain. HISTORY OF PRESENT ILLNESS: The patient was admitted to [facility] in October of 2017. The patient was diagnosed with atypical chest pain. See history and physical and discharge summary dictated at that time. The patient presented to [place] emergency room complaining of left-sided chest pain. Chest pain is exacerbated by any movement whatsoever. The patient states chest pain is 4/10 in intensity. The patient presented to [place] emergency room. The patient was admitted with chest pain to rule out acute coronary syndrome. REVIEW OF SYSTEMS: CONSTITUTIONAL: The patient denies weight loss or gain. The patient denies fevers or chills. HEENT: The patient denies ear or throat pain. The patient denies headache. CARDIOVASCULAR: The patient complains of chest pain as above. The patient denies palpitations. CHEST: The patient denies wheeze or shortness of breath. ABDOMINAL: The patient denies nausea, vomiting, diarrhea, or constipation. GENITOURINARY: The patient denies dysuria or increased frequency of urination. NEUROMUSCULAR: The patient denies seizures or generalized weakness. PAST MEDICAL HISTORY: Significant for 1. Cardiomyopathy. 2. Congestive heart failure. 3. Type 2 diabetes. 4. Hypertension. 5. Hypercholesterolemia. 6. Chronic obstructive pulmonary disease. 7. Obstructive sleep apnea. 8. Major depression. 9. Chronic low back pain. PAST SURGICAL HISTORY: Significant for [employer] biventricular pacemaker implantation in 2014. CURRENT MEDICATIONS: 1. Albuterol metered-dose inhaler two puffs p.o. q.i.d p.r.n. 2. Aspirin 81 mg p.o. daily. 3. Invokana 300 mg p.o. daily. 4. Carvedilol 3.125 mg p.o. twice daily. 5. Dexilant 60 mg p.o. daily. 6. Digoxin 0.125 mg p.o. daily. 7. Lexapro 10 mg p.o. daily. 8. Lasix 40 mg p.o. daily. 9. Gabapentin 300 mg p.o. three times daily. 10. Vicodin ES 7.5/300 one tab p.o. q.4 hours p.r.n. 11. Lisinopril 20 mg p.o. daily. 12. Lovastatin 40 mg p.o. at bedtime. 13. Spironolactone 25 mg p.o. daily. 14. Ambien 5 mg p.o. at bedtime. ALLERGIES: No known drug allergies. SOCIAL HISTORY: The patient is and lives with his . The patient is retired. The patient denies tobacco use having quit 20 years previously. The patient denies alcohol use. PHYSICAL EXAMINATION: VITAL SIGNS: Temperature 98.0, respirations 18, pulse 60, blood pressure 137/75. GENERALLY: The patient is well-developed and well-nourished obese male, in no apparent distress. HEENT: Eyes, pupils equal and responsive to light and accommodation. Extraocular movements are intact. NECK: Supple without lymphadenopathy. CHEST: Lungs are clear to auscultation bilaterally without wheezes or rales. CARDIOVASCULAR: Regular rate. S1 and S2 are normal without murmurs, rubs, gallops. ABDOMEN: Soft, nontender, nondistended. Positive bowel sounds. No evidence of hepatosplenomegaly. Currently, no rebound or guarding noted. EXTREMITIES: Negative for clubbing, cyanosis, or edema. RECTAL/GENITAL: Refused. NEUROLOGIC: Cranial nerves II through XII are grossly intact without focal deficits. Motor strength is 5/5 bilaterally. Deep tendon reflexes are 2+ plantar. LABORATORY STUDIES: WBC 12.4, hemoglobin 15.3, hematocrit 46.5 platelets 337,000. Sodium 139, potassium 4.1, chloride 103, CO2 28, BUN 15, creatinine 0.9, glucose 145. Troponin 0.030. BNP slightly elevated at 452. Chest x-ray was reported as no acute disease. ASSESSMENT: This is a 68-year-old male. 1. Chest pain. 2. Cardiomyopathy. 3. Congestive heart failure. 4. Diabetes type 2. 5. Hypertension. 6. Hypercholesterolemia. 7. Obstructive sleep apnea. 8. Major depression. TREATMENT: 1. Chest pain/cardiomyopathy/congestive heart failure. Cardiology consultation has been obtained with Dr. Rodolfo De La Rosa. We will follow recommendations of Cardiology. 2. Diabetes type 2. NovoLog sliding scale has been instituted. 3. Hypertension. Continue lisinopril and spironolactone as above. 4. Hypercholesterolemia. 5. Obstructive sleep apnea. Pulmonary consultation obtained with Dr. Autumn Frost. 6. Major depression. Kevin Flores M.D. DR: Bonny JOB#: [id number] CC:
--- NOTE | 2018-09-29 19:30 | NUR ---
CASE MANAGEMENT: REVIEW 68Y/M PRESENTED TO ED CC: CHEST PAIN 12/21 . HX PACEMAKER SI: ACS T 98.1 HR 68 RR 23 BP 145/74 SAT 96% ROOM AIR WBC 12.4 TROPONIN I 0.035 BNP 452 IS: ASA 325MG PO X1 NORCO 10/325 PO X1 PATIENT ADMITTED TO TELEMETRY UNIT 09/29/2018 DCP: PATIENT IS FROM HOME
--- NOTE | 2018-09-29 19:45 | NUR ---
NURSE NOTES: RECEIVED PATIENT LYING IN BED, AWAKE, ALERT/ORIENTED X4, VERBALLY RESPONSIVE, LUNGS CLEAR ON AUSCULTATION, NO SIGNS AND SYMPTOMS OF ACUTE CARDIO RESPIRATORY DISTRESS/SHORTNESS OF BREATH, DENIES CHEST PAIN, NO PERIPHERAL EDEMA NOTED. ABDOMEN OBESE, NON TENDER, AUDIBLE BOWEL SOUNDS, NO REPORT OF N/V. BATHROOM PRIVILEGES, ENCOURAGED PATIENT TO CALL FOR ASSISTANCE PRIOR TO AMBULATING FOR PREVENTIVE MEASURES. IV INTACT TO RIGHT HAND/GAUGE 20, NO REDNESS/SWELLING NOTED. SIDE RAILS UP X3/BED IN LOWEST POSITION FOR SAFETY. BED ALARM ACTIVATED FOR SAFETY MEASURES. NAD.
--- NOTE | 2018-09-29 19:54 | NUR ---
HAND-OFF: Report given to JAZMYNE Santa.
[2018-09-29 20:00] VITALS: BP 128/67
--- NOTE | 2018-09-29 20:30 | Consultation ---
DATE OF CONSULTATION: 09/29/2018 CARDIOLOGY CONSULTATION CONSULTING PHYSICIAN: Rodolfo De La Rosa M.D. REFERRING PHYSICIAN: Les Lee M.D. REASON FOR REFERRAL: Chest pain. HISTORY OF PRESENT ILLNESS: This is a 68-year-old gentleman with reported history of ischemic cardiomyopathy. The patient is [facility] a [facility] as he indicates. Nevertheless, he presented to the hospital because of constant pain that he has in the center of the chest since yesterday. He really has not identified or entailed any particular relieving or exacerbating factors. The pain has constantly been there. On detailed questioning, he has been coughing. He denies any pain getting worse with any kind of activity or walk. However on specific questioning and making the patient twist and turn and cough seems to decrease the pain. It does get worse with those positions. The patient's past medical history is positive for history of ischemic cardiomyopathy. He has had several hospitalizations here at [facility]. He has had history of chest pains for which he was hospitalized in different facilities including here on several occasions including last October and February of 2018. Nevertheless, he does indicate that he does have shortness of breath at night for which he uses CPAP, he uses 2 pillows. He has occasional dizziness and lightheadedness in different positions and denies any palpitations. He has shortness of breath on exertion on chronic basis. PAST MEDICAL HISTORY: Positive as mentioned with history of ischemic cardiomyopathy, history of atypical chest pain, hypertension, diabetes mellitus, chronic obstructive pulmonary disease, renal insufficiency, who has had a [employer] biventricular defibrillator implantation. He has been followed previously for follow up with Dr. Kern as well and has had history of obesity. He has had coronary disease and prior stents and his ejection fraction is anywhere between 30s to 40s on different echocardiograms. SOCIAL HISTORY: He lives at home. He has remote history of smoking some 20 years ago. No drinking. No drugs. REVIEW OF SYSTEMS: GASTROINTESTINAL: He denies any nausea, vomiting, diarrhea, or constipation. GENITOURINARY: Denies. PULMONARY: Positive for coughing and occasional wheezing. He uses inhalers. NEUROLOGIC: Negative. PHYSICAL EXAMINATION: GENERAL: Shows a morbidly obese gentleman with a short obese neck. LUNGS: Clear to auscultation. Chest wall is tender to palpation. He has worsening pain when he tries to sit up from lying position to sitting position or twisting and turning. He indicates that his pain does get worse in this particular positions. CARDIAC: Regular rate and rhythm. No heaves or thrills noted. ABDOMEN: Soft and obese. Positive bowel sounds. EXTREMITIES: Trace edema. LABORATORY DATA: His white count is 12.4, hemoglobin of 15.3, and a platelet count of 337,000. Sodium is 139, potassium 4.1, chloride 103, bicarb 28, BUN 15, creatinine 0.9, and glucose of 145. His troponin on two separate occasions is negative. ProBNP was only 452. His chest x-ray has been interpreted by the radiologist as showing no acute processes. His last myocardial perfusion here in October of 2017 showed inferolateral fixed perfusion defect infarct. No definite imaging to suggest ischemia. Ejection fraction is calculated 40% prior and 46% post. His EKG is basically a paced rhythm. His echocardiogram showed ejection of 45% technically difficult study. ASSESSMENT AND PLAN: 1. Atypical chest pain mostly suggestive of a chest wall syndrome. 2. Reported history of coronary artery disease. 3. History of ischemic cardiomyopathy. 4. History of intracardiac defibrillator implantation. 5. Diabetes mellitus and hypertension. 6. Obesity. 7. Sleep apnea. PLAN: Dr. Frost, this patient was seen in cardiac consultation. The patient seems to have pain that is reproducible on palpation of the chest wall suggestive of likely a chest wall tenderness. Cardiac enzymes are all negative. His echocardiogram does not seem to show any specific segmental wall motion abnormality. I think it should be treated with possibly some low-dose of nonsteroidals and followed again with a third set of cardiac enzymes. If those enzymes are negative, I would prefer the patient to be discharged home and he may have a myocardial perfusion imaging with his co founder and cto as outpatient. He did have one less than a year ago that was negative here at [place] for perfusion abnormalities. Since his pain is reproducible and there is no cardiac enzyme abnormalities, I do not necessarily think that test needs to be done as an outpatient. Rodolfo De La Rosa M.D. DR: DHARA JOB#: [id number] CC:
[2018-09-29] MEDS: Heparin 5000 units/ml inj SUBQ SCH (20:33)
--- NOTE | 2018-09-29 21:18 | NUR ---
HAND-OFF: Report given to ENDORSED PATIENT TO LYLE SMITH, IN STABLE CONDITION. NAD.
--- NOTE | 2018-09-29 21:20 | NUR ---
NURSE NOTES: Received patient from Rimma ALVARENGA, patient in bed, observed ambulated to the bathroom. Steady gait. Family at bedside. Right hand 22 gauge PIV, saline locked. Patient on room air, no s/s of respiratory distress. Patient states a pain level of 4/10. Call light within reach, bed in low position, locked.
[2018-09-30] VITALS (7 sets, daily range): BP systolic 113–136; BP diastolic 54–70
--- NOTE | 2018-09-30 00:02 | NUR ---
NURSE NOTES: Patient c/o chest pain 10/10, no changes seen on color weigher, bp 135/65, hr 71, administered morphine 2mg ivp and 2L NC. O2stat 95%.
--- NOTE | 2018-09-30 01:21 | NUR ---
NURSE NOTES: Patient asleep, on 2L NC, no signs of respiratory distress. No signs of pain, facial grimacing, guarding.
--- NOTE | 2018-09-30 04:00 | NUR ---
NURSE NOTES: Patient due for morphine prn, patient stated he's okay and would like to wait.
[2018-09-30] MEDS: Morphine Sulfate 2mg/ml Inj(IV/IM USE ONLY) IVP PRN ×3 (05:28→20:43)
[2018-09-30] MEDS: NovoLOG Insulin Flexpen SUBQ SCH ×4 (05:44→21:50)
[2018-09-30 07:08] LABS: INR 0.9 (0.9-1.1)
[2018-09-30 07:10] LABS: BASOPHILS % (AUTO) 0.7 % (0.0-2.0); EOSINOPHILS % (AUTO) 5.4 % (0.0-3.0); HEMATOCRIT 47.3 % (42.0-52.0); HEMOGLOBIN 14.8 G/DL (14.2-18.0); LYMPHOCYTES % (AUTO) 29.3 % (20.0-45.0); MEAN CORPUSCULAR VOLUME 90 FL (80-99); MONOCYTES % (AUTO) 8.2 % (1.0-10.0); NEUTROPHILS % (AUTO) 56.3 % (45.0-75.0); PLATELET COUNT 336 K/UL (150-450); RED BLOOD COUNT 5.24 M/UL (4.70-6.10); RED CELL DISTRIBUTION WIDTH 12.5 % (11.6-14.8)
[2018-09-30 07:27] LABS: ANION GAP 7 mmol/L (5-15); BLOOD UREA NITROGEN 13 mg/dL (7-18); CALCIUM 8.9 MG/DL (8.5-10.1); CARBON DIOXIDE 29 MMOL/L (21-32); CHLORIDE 102 MMOL/L (98-107); CREATININE 0.8 MG/DL (0.55-1.30); POTASSIUM 3.9 MMOL/L (3.5-5.1); SODIUM 138 MMOL/L (136-145)
[2018-09-30 07:29] LABS: CHOLESTEROL 227 MG/DL (< 200); HDL CHOLESTEROL 29 MG/DL (40-60); TRIGLYCERIDES 255 MG/DL (30-150)
--- NOTE | 2018-09-30 07:45 | NUR ---
NURSE NOTES: Received report from Dhruv/RN, Patient is awake and alert, eating breakfast. Denies any pain at this time. Patient is able to make needs known. Checked IV, Patent, no bleeding or infiltration noted at this time. Bed in lowest position and locked, Call light within reach. All personal belonging within reach. Will continue plan of care.
[2018-09-30] MEDS: Digoxin 0.125mg tab ORAL SCH (09:32)
[2018-09-30] MEDS: Aspirin Baby 81mg ORAL SCH (09:37)
[2018-09-30] MEDS: Lisinopril 20mg tab ORAL SCH (09:39)
[2018-09-30] MEDS: Heparin 5000 units/ml inj SUBQ SCH ×2 (09:43→20:45)
--- NOTE | 2018-09-30 11:22 | Pulmonology Progress Note ---
Assessment/Plan Assessment/Plan ASSESSMENT Atypical chest pain, suggestive of chest wall syndrome Hypertension COPD Obstructive sleep apnea Obesity Ischemic cardiomyopathy Diabetes mellitus Coronary artery disease PLAN OF CARE tele Serial troponin x 2 negative, EKG revealed paced rhythm CP reproducible on palpation of chest wall per cloth folder hand, likely suggestive of CW syndrome pain management , start low dose NSAIDS and GI prophylaxis ECHO with rEF 40 to 45%, no LVH , mild left LV hypokinesis Per cardio , stress test as outpatient if the last troponin negative ( all troponin negate) prior stress test done < than a year ago at [facility] , was negative a/PLT therapy with ASA guideline directed therapy with BB, LOKESH, digoxin , Lasix and Aldactone, no evidence of decompensation BP management DVT prophylaxis BS management with SSI Bowel regimen dc plan case discussed and evaluated by supervising physician Subjective Allergies: Coded Allergies: No Known Allergies (Verified , 06/29/10) Subjective no SOB, pulse ox stable, still CP, reproducible on palpation initial leukocytosis resolved Objective Last 24 Hour Vital Signs Date Time Temp Pulse Resp B/P (MAP) Pulse Ox O2 Delivery O2 Flow Rate FiO2 09/30/18 09:40 71 119/70 09/30/18 09:39 119/70 09/30/18 09:32 71 09/30/18 09:00 Room Air 09/30/18 08:00 78 09/30/18 08:00 97.5 73 18 119/70 (86) 96 09/30/18 06:40 62 16 97 Nasal Cannula 2.0 28 09/30/18 04:00 97.2 77 20 113/66 (82) 95 09/30/18 03:44 68 09/30/18 01:00 97.5 66 18 114/54 (74) 93 09/30/18 00:01 97.4 71 20 135/65 (88) 95 09/29/18 23:54 69 09/29/18 21:45 61 18 98 Nasal Cannula 2.0 28 09/29/18 21:30 Room Air 09/29/18 20:29 71 128/67 09/29/18 20:00 83 09/29/18 20:00 98.4 83 18 128/67 (87) 96 09/29/18 19:33 83 09/29/18 16:00 71 09/29/18 12:00 67 09/29/18 11:29 Room Air Intake and Output 09/29/18 09/30/18 19:00 07:00 Intake Total 500 ml 240 ml Balance 500 ml 240 ml Intake Oral 500 ml 240 ml # Voids 3 3 General Appearance: other HEENT: normocephalic, atraumatic, anicteric, mucous membranes moist, PERRL Respiratory/Chest: lungs clear, no respiratory distress, no accessory muscle use, other - left sided AICD Cardiovascular: normal peripheral pulses, normal rate - pacing rhythm, distant heart sounds , other - left sided chest wall tenderness on palpation Abdomen: normal bowel sounds, soft, non tender - obese Extremities: pedal pulses normal, other - trace edema BLE 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: no motor/sensory deficits, alert, oriented x 3, responsive Musculoskeletal: normal muscle bulk Laboratory Tests 09/29/18 13:50: Troponin I 0.035 09/30/18 05:10: C-Reactive Protein, Quantitative 0.6, Triglycerides Level 255H, Cholesterol Level 227H, LDL Cholesterol 157H, HDL Cholesterol 29L, Cholesterol/HDL Ratio 7.8H, Thyroid Stimulating Hormone (TSH) 6.430H 09/30/18 05:15: Troponin I 0.034, White Blood Count 9.0, Red Blood Count 5.24, Hemoglobin 14.8, Hematocrit 47.3, Mean Corpuscular Volume 90, Mean Corpuscular Hemoglobin 28.3, Mean Corpuscular Hemoglobin Concent 31.3L, Red Cell Distribution Width 12.5, Platelet Count 336, Mean Platelet Volume 6.6, Neutrophils (%) (Auto) 56.3, Lymphocytes (%) (Auto) 29.3, Monocytes (%) (Auto) 8.2, Eosinophils (%) (Auto) 5.4H, Basophils (%) (Auto) 0.7, Prothrombin Time 10.0, Prothromb Time International Ratio 0.9, Activated Partial Thromboplast Time 26, Sodium Level 138, Potassium Level 3.9, Chloride Level 102, Carbon Dioxide Level 29, Anion Gap 7, Blood Urea Nitrogen 13, Creatinine 0.8, Estimat Glomerular Filtration Rate > 60, Glucose Level 187H, Calcium Level 8.9, Digoxin Level < 0.2L Current Medications Medications (Trade) Dose Ordered Sig/Sandy Route PRN Reason Start Time Stop Time Status Last Admin Dose Admin Acetaminophen (Tylenol) 650 mg Q4H PRN ORAL T>100.5 09/29/18 11:45 10/29/18 11:44 Albuterol/ Ipratropium (Albuterol/ Ipratropium) 3 ml Q4H PRN HHN Shortness of Breath 09/29/18 11:45 10/04/18 11:44 Aspirin (ASA) 162 mg DAILY ORAL 09/30/18 09:00 10/30/18 08:59 09/30/18 09:37 Carvedilol (Coreg) 3.125 mg Q12HR ORAL 09/29/18 21:00 10/29/18 20:59 09/29/18 20:29 Dextrose (Dextrose 50%) 25 ml Q30M PRN IV Hypoglycemia 09/29/18 12:30 10/29/18 12:22 Dextrose (Dextrose 50%) 50 ml Q30M PRN IV hypoglycemia 09/29/18 12:30 10/29/18 12:29 Digoxin (Lanoxin) 0.125 mg DAILY ORAL 09/30/18 09:00 10/30/18 08:59 09/30/18 09:32 Diltiazem HCl (Cardizem) 10 mg EVERY HOUR PRN IV heart rate more than 120BPM 09/29/18 11:45 10/29/18 11:44 Enalaprilat (Vasotec) 2.5 mg Q6H PRN IV sbp more than 160 09/29/18 11:45 10/29/18 11:44 Escitalopram Oxalate (Lexapro) 10 mg DAILY ORAL 09/30/18 09:00 10/30/18 08:59 09/30/18 09:38 Heparin Sodium (Porcine) (Heparin 5000 units/ml) 5,000 units EVERY 12 HOURS SUBQ 09/29/18 21:00 10/29/18 20:59 09/30/18 09:43 Insulin Aspart (NovoLOG) BEFORE MEALS AND HS SUBQ 09/29/18 16:30 10/29/18 16:29 09/30/18 05:44 Lisinopril (Prinivil) 20 mg DAILY ORAL 09/30/18 09:00 10/30/18 08:59 09/30/18 09:39 Morphine Sulfate (Morphine Sulfate) 2 mg Q4H PRN IVP Severe Pain (Pain Scale 7-10) 09/29/18 11:45 10/06/18 11:44 09/30/18 05:28 Nitroglycerin (Ntg) 0.4 mg Q5MIN X 3 DOSES PRN SL Prn Chest Pain 09/29/18 11:45 10/29/18 11:44 Ondansetron HCl (Zofran) 4 mg Q6H PRN IVP Nausea & Vomiting 09/29/18 11:45 10/29/18 11:44 Polyethylene Glycol (Miralax) 17 gm DAILYPRN PRN ORAL Constipation 09/29/18 11:45 10/29/18 11:44 Temazepam (Restoril) 15 mg HSPRN PRN ORAL Insomnia 09/29/18 21:00 10/06/18 20:59 09/29/18 23:59 Charito Nielsen [employer]PLICATIONS COORDINATOR Sep 30, 2018 11:22
--- NOTE | 2018-09-30 12:59 | Cardiology Progress Note ---
Assessment/Plan Assessment/Plan 1. Atypical chest pain mostly suggestive of a chest wall syndrome. 2. Reported history of coronary artery disease. 3. History of ischemic cardiomyopathy. 4. History of intracardiac defibrillator implantation. 5. Diabetes mellitus and hypertension. 6. Obesity. 7. Sleep apnea. 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 [facility] fo out pt testing in future switch ot liptiro as lipid quit off despite the mevacor Objective Last 24 Hour Vital Signs Date Time Temp Pulse Resp B/P (MAP) Pulse Ox O2 Delivery O2 Flow Rate FiO2 09/30/18 09:40 71 119/70 09/30/18 09:39 119/70 09/30/18 09:32 71 09/30/18 09:00 Room Air 09/30/18 08:00 78 09/30/18 08:00 97.5 73 18 119/70 (86) 96 09/30/18 06:40 62 16 97 Nasal Cannula 2.0 28 09/30/18 04:00 97.2 77 20 113/66 (82) 95 09/30/18 03:44 68 09/30/18 01:00 97.5 66 18 114/54 (74) 93 09/30/18 00:01 97.4 71 20 135/65 (88) 95 09/29/18 23:54 69 09/29/18 21:45 61 18 98 Nasal Cannula 2.0 28 09/29/18 21:30 Room Air 09/29/18 20:29 71 128/67 09/29/18 20:00 83 09/29/18 20:00 98.4 83 18 128/67 (87) 96 09/29/18 19:33 83 09/29/18 16:00 71 Intake and Output 09/29/18 09/30/18 19:00 07:00 Intake Total 500 ml 240 ml Balance 500 ml 240 ml Intake Oral 500 ml 240 ml # Voids 3 3 Laboratory Tests Test 09/29/18 13:50 09/30/18 05:10 09/30/18 05:15 Troponin I 0.035 ng/mL (0.000-0.056) 0.034 ng/mL (0.000-0.056) C-Reactive Protein, Quantitative 0.6 mg/dL (0.00-0.90) Triglycerides Level 255 MG/DL (30-150) H Cholesterol Level 227 MG/DL (< 200) H LDL Cholesterol 157 mg/dL (<100) H HDL Cholesterol 29 MG/DL (40-60) L Cholesterol/HDL Ratio 7.8 (3.3-4.4) H Thyroid Stimulating Hormone (TSH) 6.430 uiU/mL (0.358-3.740) Free Thyroxine 1.07 NG/DL (0.76-1.46) Free Triiodothyronine 2.9 pg/mL (2.3-4.2) White Blood Count 9.0 K/UL (4.8-10.8) Red Blood Count 5.24 M/UL (4.70-6.10) Hemoglobin 14.8 G/DL (14.2-18.0) Hematocrit 47.3 % (42.0-52.0) Mean Corpuscular Volume 90 FL (80-99) Mean Corpuscular Hemoglobin 28.3 PG (27.0-31.0) Mean Corpuscular Hemoglobin Concent 31.3 G/DL (32.0-36.0) L Red Cell Distribution Width 12.5 % (11.6-14.8) Platelet Count 336 K/UL (150-450) Mean Platelet Volume 6.6 FL (6.5-10.1) Neutrophils (%) (Auto) 56.3 % (45.0-75.0) Lymphocytes (%) (Auto) 29.3 % (20.0-45.0) Monocytes (%) (Auto) 8.2 % (1.0-10.0) Eosinophils (%) (Auto) 5.4 % (0.0-3.0) H Basophils (%) (Auto) 0.7 % (0.0-2.0) Prothrombin Time 10.0 SEC (9.30-11.50) Prothromb Time International Ratio 0.9 (0.9-1.1) Activated Partial Thromboplast Time 26 SEC (23-33) Sodium Level 138 MMOL/L (136-145) Potassium Level 3.9 MMOL/L (3.5-5.1) Chloride Level 102 MMOL/L (98-107) Carbon Dioxide Level 29 MMOL/L (21-32) Anion Gap 7 mmol/L (5-15) Blood Urea Nitrogen 13 mg/dL (7-18) Creatinine 0.8 MG/DL (0.55-1.30) Estimat Glomerular Filtration Rate > 60 mL/min (>60) Glucose Level 187 MG/DL (74-106) H Calcium Level 8.9 MG/DL (8.5-10.1) Digoxin Level < 0.2 NG/ML (0.5-2.0) L Rodolfo De La Rosa MD Sep 30, 2018 12:59
--- NOTE | 2018-09-30 13:00 | Cardiology Progress Note ---
Assessment/Plan Assessment/Plan 1. Atypical chest pain mostly suggestive of a chest wall syndrome. 2. Reported history of coronary artery disease. 3. History of ischemic cardiomyopathy. 4. History of intracardiac defibrillator implantation. 5. Diabetes mellitus and hypertension. 6. Obesity. 7. Sleep apnea. 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 [facility] fo out pt testing in future switch ot lipitor as lipid quit off despite the mevacor Subjective Cardiovascular: Reports: chest pain; Denies: lightheadedness, palpitations Respiratory: Denies: shortness of breath Gastrointestinal/Abdominal: Denies: abdominal pain Genitourinary: Denies: burning Objective Last 24 Hour Vital Signs Date Time Temp Pulse Resp B/P (MAP) Pulse Ox O2 Delivery O2 Flow Rate FiO2 09/30/18 09:40 71 119/70 09/30/18 09:39 119/70 09/30/18 09:32 71 09/30/18 09:00 Room Air 09/30/18 08:00 78 09/30/18 08:00 97.5 73 18 119/70 (86) 96 09/30/18 06:40 62 16 97 Nasal Cannula 2.0 28 09/30/18 04:00 97.2 77 20 113/66 (82) 95 09/30/18 03:44 68 09/30/18 01:00 97.5 66 18 114/54 (74) 93 09/30/18 00:01 97.4 71 20 135/65 (88) 95 09/29/18 23:54 69 09/29/18 21:45 61 18 98 Nasal Cannula 2.0 28 09/29/18 21:30 Room Air 09/29/18 20:29 71 128/67 09/29/18 20:00 83 09/29/18 20:00 98.4 83 18 128/67 (87) 96 09/29/18 19:33 83 09/29/18 16:00 71 General Appearance: no apparent distress, alert, obese Neck: supple Cardiovascular: normal rate Respiratory/Chest: lungs clear Abdomen: normal bowel sounds, non tender, soft Extremities: no swelling Intake and Output 09/29/18 09/30/18 19:00 07:00 Intake Total 500 ml 240 ml Balance 500 ml 240 ml Intake Oral 500 ml 240 ml # Voids 3 3 Laboratory Tests Test 09/29/18 13:50 09/30/18 05:10 09/30/18 05:15 Troponin I 0.035 ng/mL (0.000-0.056) 0.034 ng/mL (0.000-0.056) C-Reactive Protein, Quantitative 0.6 mg/dL (0.00-0.90) Triglycerides Level 255 MG/DL (30-150) H Cholesterol Level 227 MG/DL (< 200) H LDL Cholesterol 157 mg/dL (<100) H HDL Cholesterol 29 MG/DL (40-60) L Cholesterol/HDL Ratio 7.8 (3.3-4.4) H Thyroid Stimulating Hormone (TSH) 6.430 uiU/mL (0.358-3.740) Free Thyroxine 1.07 NG/DL (0.76-1.46) Free Triiodothyronine 2.9 pg/mL (2.3-4.2) White Blood Count 9.0 K/UL (4.8-10.8) Red Blood Count 5.24 M/UL (4.70-6.10) Hemoglobin 14.8 G/DL (14.2-18.0) Hematocrit 47.3 % (42.0-52.0) Mean Corpuscular Volume 90 FL (80-99) Mean Corpuscular Hemoglobin 28.3 PG (27.0-31.0) Mean Corpuscular Hemoglobin Concent 31.3 G/DL (32.0-36.0) L Red Cell Distribution Width 12.5 % (11.6-14.8) Platelet Count 336 K/UL (150-450) Mean Platelet Volume 6.6 FL (6.5-10.1) Neutrophils (%) (Auto) 56.3 % (45.0-75.0) Lymphocytes (%) (Auto) 29.3 % (20.0-45.0) Monocytes (%) (Auto) 8.2 % (1.0-10.0) Eosinophils (%) (Auto) 5.4 % (0.0-3.0) H Basophils (%) (Auto) 0.7 % (0.0-2.0) Prothrombin Time 10.0 SEC (9.30-11.50) Prothromb Time International Ratio 0.9 (0.9-1.1) Activated Partial Thromboplast Time 26 SEC (23-33) Sodium Level 138 MMOL/L (136-145) Potassium Level 3.9 MMOL/L (3.5-5.1) Chloride Level 102 MMOL/L (98-107) Carbon Dioxide Level 29 MMOL/L (21-32) Anion Gap 7 mmol/L (5-15) Blood Urea Nitrogen 13 mg/dL (7-18) Creatinine 0.8 MG/DL (0.55-1.30) Estimat Glomerular Filtration Rate > 60 mL/min (>60) Glucose Level 187 MG/DL (74-106) H Calcium Level 8.9 MG/DL (8.5-10.1) Digoxin Level < 0.2 NG/ML (0.5-2.0) L Rodolfo De La Rosa MD Sep 30, 2018 13:00
--- NOTE | 2018-09-30 13:10 | Internal Med Progress Note ---
Subjective Date of Service: Sep 30, 2018 Physician Name Kevin Flores Attending Physician Les Lee MD Current Medications Medications (Trade) Dose Ordered Sig/Sandy Route PRN Reason Start Time Stop Time Status Last Admin Dose Admin Acetaminophen (Tylenol) 650 mg Q4H PRN ORAL T>100.5 09/29/18 11:45 10/29/18 11:44 Albuterol/ Ipratropium (Albuterol/ Ipratropium) 3 ml Q4H PRN HHN Shortness of Breath 09/29/18 11:45 10/04/18 11:44 Aspirin (ASA) 162 mg DAILY ORAL 09/30/18 09:00 10/30/18 08:59 09/30/18 09:37 Atorvastatin Calcium (Lipitor) 40 mg BEDTIME ORAL 09/30/18 21:00 10/30/18 20:59 Carvedilol (Coreg) 6.25 mg Q12HR ORAL 09/30/18 21:00 10/30/18 20:59 Dextrose (Dextrose 50%) 25 ml Q30M PRN IV Hypoglycemia 09/29/18 12:30 10/29/18 12:22 Dextrose (Dextrose 50%) 50 ml Q30M PRN IV hypoglycemia 09/29/18 12:30 10/29/18 12:29 Digoxin (Lanoxin) 0.125 mg DAILY ORAL 09/30/18 09:00 10/30/18 08:59 09/30/18 09:32 Diltiazem HCl (Cardizem) 10 mg EVERY HOUR PRN IV heart rate more than 120BPM 09/29/18 11:45 10/29/18 11:44 Enalaprilat (Vasotec) 2.5 mg Q6H PRN IV sbp more than 160 09/29/18 11:45 10/29/18 11:44 Escitalopram Oxalate (Lexapro) 10 mg DAILY ORAL 09/30/18 09:00 10/30/18 08:59 09/30/18 09:38 Famotidine (Pepcid) 20 mg DAILY ORAL 10/01/18 09:00 10/31/18 08:59 Furosemide (Lasix) 40 mg DAILY ORAL 09/30/18 13:00 10/30/18 12:59 Gabapentin (Neurontin) 300 mg Q8H PRN ORAL neuropathic/nerve pain 09/30/18 13:00 8/19/19 12:59 Heparin Sodium (Porcine) (Heparin 5000 units/ml) 5,000 units EVERY 12 HOURS SUBQ 09/29/18 21:00 10/29/18 20:59 09/30/18 09:43 Ibuprofen (Advil) 400 mg THREE TIMES A DAY ORAL 09/30/18 13:00 10/30/18 12:59 09/30/18 12:09 Insulin Aspart (NovoLOG) BEFORE MEALS AND HS SUBQ 09/29/18 16:30 10/29/18 16:29 09/30/18 12:16 Lisinopril (Prinivil) 20 mg DAILY ORAL 09/30/18 09:00 10/30/18 08:59 09/30/18 09:39 Morphine Sulfate (Morphine Sulfate) 2 mg Q4H PRN IVP Severe Pain (Pain Scale 7-10) 09/29/18 11:45 10/06/18 11:44 09/30/18 05:28 Nitroglycerin (Ntg) 0.4 mg Q5MIN X 3 DOSES PRN SL Prn Chest Pain 09/29/18 11:45 10/29/18 11:44 Ondansetron HCl (Zofran) 4 mg Q6H PRN IVP Nausea & Vomiting 09/29/18 11:45 10/29/18 11:44 Polyethylene Glycol (Miralax) 17 gm DAILYPRN PRN ORAL Constipation 09/29/18 11:45 10/29/18 11:44 Spironolactone (Aldactone) 25 mg DAILY ORAL 09/30/18 13:00 10/30/18 12:59 Temazepam (Restoril) 15 mg HSPRN PRN ORAL Insomnia 09/29/18 21:00 10/06/18 20:59 09/29/18 23:59 Allergies: Coded Allergies: No Known Allergies (Verified , 06/29/10) ROS Limited/Unobtainable: No HEENT: Reports: no symptoms Cardiovascular: Reports: chest pain Respiratory: Reports: no symptoms Gastrointestinal/Abdominal: Reports: no symptoms Genitourinary: Reports: no symptoms 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: Reports: no symptoms Subjective 68 YO M admitted with chest pain. Cover for Int Ernst Lee Objective Last Vital Signs Date Time Temp Pulse Resp B/P (MAP) Pulse Ox O2 Delivery O2 Flow Rate FiO2 09/30/18 12:00 97.1 64 18 115/65 (82) 95 09/30/18 09:00 Room Air 09/30/18 06:40 2.0 28 Laboratory Tests Test 09/29/18 13:50 09/30/18 05:10 09/30/18 05:15 Troponin I 0.035 ng/mL (0.000-0.056) 0.034 ng/mL (0.000-0.056) C-Reactive Protein, Quantitative 0.6 mg/dL (0.00-0.90) Triglycerides Level 255 MG/DL (30-150) H Cholesterol Level 227 MG/DL (< 200) H LDL Cholesterol 157 mg/dL (<100) H HDL Cholesterol 29 MG/DL (40-60) L Cholesterol/HDL Ratio 7.8 (3.3-4.4) H Thyroid Stimulating Hormone (TSH) 6.430 uiU/mL (0.358-3.740) Free Thyroxine 1.07 NG/DL (0.76-1.46) Free Triiodothyronine 2.9 pg/mL (2.3-4.2) White Blood Count 9.0 K/UL (4.8-10.8) Red Blood Count 5.24 M/UL (4.70-6.10) Hemoglobin 14.8 G/DL (14.2-18.0) Hematocrit 47.3 % (42.0-52.0) Mean Corpuscular Volume 90 FL (80-99) Mean Corpuscular Hemoglobin 28.3 PG (27.0-31.0) Mean Corpuscular Hemoglobin Concent 31.3 G/DL (32.0-36.0) L Red Cell Distribution Width 12.5 % (11.6-14.8) Platelet Count 336 K/UL (150-450) Mean Platelet Volume 6.6 FL (6.5-10.1) Neutrophils (%) (Auto) 56.3 % (45.0-75.0) Lymphocytes (%) (Auto) 29.3 % (20.0-45.0) Monocytes (%) (Auto) 8.2 % (1.0-10.0) Eosinophils (%) (Auto) 5.4 % (0.0-3.0) H Basophils (%) (Auto) 0.7 % (0.0-2.0) Prothrombin Time 10.0 SEC (9.30-11.50) Prothromb Time International Ratio 0.9 (0.9-1.1) Activated Partial Thromboplast Time 26 SEC (23-33) Sodium Level 138 MMOL/L (136-145) Potassium Level 3.9 MMOL/L (3.5-5.1) Chloride Level 102 MMOL/L (98-107) Carbon Dioxide Level 29 MMOL/L (21-32) Anion Gap 7 mmol/L (5-15) Blood Urea Nitrogen 13 mg/dL (7-18) Creatinine 0.8 MG/DL (0.55-1.30) Estimat Glomerular Filtration Rate > 60 mL/min (>60) Glucose Level 187 MG/DL (74-106) H Calcium Level 8.9 MG/DL (8.5-10.1) Digoxin Level < 0.2 NG/ML (0.5-2.0) L Intake and Output 09/29/18 09/30/18 19:00 07:00 Intake Total 500 ml 240 ml Balance 500 ml 240 ml Intake Oral 500 ml 240 ml # Voids 3 3 Objective PHYSICAL EXAMINATION: GENERALLY: The patient is well-developed and well-nourished obese male, in no apparent distress. HEENT: Eyes, pupils equal and responsive to light and accommodation. Extraocular movements are intact. NECK: Supple without lymphadenopathy. CHEST: Lungs are clear to auscultation bilaterally without wheezes or rales. CARDIOVASCULAR: Regular rate. S1 and S2 are normal without murmurs, rubs, gallops. ABDOMEN: Soft, nontender, nondistended. Positive bowel sounds. No evidence of hepatosplenomegaly. Currently, no rebound or guarding noted. EXTREMITIES: Negative for clubbing, cyanosis, or edema. RECTAL/GENITAL: Refused. NEUROLOGIC: Cranial nerves II through XII are grossly intact without focal deficits. Motor strength is 5/5 bilaterally. Deep tendon reflexes are 2+ plantar. Assessment/Plan Assessment/Plan ASSESSMENT: This is a 68-year-old male. 1. Chest pain. 2. Cardiomyopathy. 3. Congestive heart failure. 4. Diabetes type 2. 5. Hypertension. 6. Hypercholesterolemia. 7. Obstructive sleep apnea. 8. Major depression. TREATMENT: 1. Chest pain/cardiomyopathy/congestive heart failure. Cardiology consultation has been obtained with Dr. Rodolfo De La Rosa. We will follow recommendations of Cardiology. Troponin neg X3 2. Diabetes type 2. NovoLog sliding scale has been instituted. 3. Hypertension. Continue lisinopril and spironolactone as above. 4. Hypercholesterolemia. 5. Obstructive sleep apnea. Pulmonary consultation obtained with Dr. Autumn Frost. 6. Major depression. Kevin Flores MD Sep 30, 2018 13:10
[2018-09-30] MEDS: Spironolactone 25mg tab ORAL SCH (13:16)
[2018-09-30] MEDS: Furosemide 40mg tab ORAL SCH (13:17)
--- NOTE | 2018-09-30 19:05 | NUR ---
NURSE NOTES: Received report from LYLE Navas, patient in stable condition,AOx4,able to make needs known,denies pain at this time , family at bedside. bed lowest position,brakes on, side rails upx2,will continue to monitor and reassess.
--- NOTE | 2018-09-30 19:10 | NUR ---
HAND-OFF: Report given to Denisa/RN, Patient is awake and alert, No acute distress noted. Family at bedside. Endorsed plan of care.
[2018-09-30] MEDS: Carvedilol 6.25mg Tab ORAL SCH (20:42)
[2018-09-30] MEDS ORDERED: Atorvastatin 20mg tab ORAL SCH ×2 (21:00)
[2018-10-01] VITALS: BP 142/50
[2018-10-01 04:00] VITALS: BP 133/61
[2018-10-01] MEDS: NovoLOG Insulin Flexpen SUBQ SCH ×2 (05:39→12:33)
--- NOTE | 2018-10-01 07:05 | NUR ---
HAND-OFF: Report given to LYLE Navas,patient in stable condition, plan of care endorsed.
--- NOTE | 2018-10-01 07:15 | NUR ---
NURSE NOTES: Received report from Denisa/RN, Patient is asleep, lying semi-bacon, no distress/SOB noted. Checked IV, Patent, no bleeding or infiltration noted at this time. Bed in lowest position and locked, Call light within reach. All personal belonging within reach. Will continue plan of care.
[2018-10-01 07:24] LABS: BASOPHILS % (AUTO) 0.8 % (0.0-2.0); HEMATOCRIT 46.6 % (42.0-52.0); HEMOGLOBIN 14.7 G/DL (14.2-18.0); LYMPHOCYTES % (AUTO) 23.9 % (20.0-45.0); MEAN CORPUSCULAR VOLUME 90 FL (80-99); MONOCYTES % (AUTO) 8.7 % (1.0-10.0); NEUTROPHILS % (AUTO) 60.8 % (45.0-75.0); PLATELET COUNT 341 K/UL (150-450); RED BLOOD COUNT 5.18 M/UL (4.70-6.10); RED CELL DISTRIBUTION WIDTH 12.7 % (11.6-14.8); WHITE BLOOD COUNT 9.8 K/UL (4.8-10.8)
[2018-10-01 07:42] LABS: ANION GAP 7 mmol/L (5-15); BLOOD UREA NITROGEN 17 mg/dL (7-18); CARBON DIOXIDE 30 MMOL/L (21-32); CHLORIDE 102 MMOL/L (98-107); CREATININE 0.8 MG/DL (0.55-1.30); POTASSIUM 4.2 MMOL/L (3.5-5.1); SODIUM 139 MMOL/L (136-145)
[2018-10-01 08:00] VITALS: BP 132/63
--- NOTE | 2018-10-01 08:10 | Pulmonology Progress Note ---
Assessment/Plan Assessment/Plan ASSESSMENT Atypical chest pain, suggestive of chest wall syndrome Hypertension COPD Obstructive sleep apnea Obesity Ischemic cardiomyopathy Mixed hyperlipidemia Diabetes mellitus Coronary artery disease PLAN OF CARE tele Serial troponin x 2 negative, EKG revealed no acute ischemic changes; patient was r/o for acute UT CP reproducible per durable medical equipment technician, likely suggestive of CW syndrome pain management , started low dose NSAIDS , and GI prophylaxis CP resolved ECHO with rEF 40 to 45%, no LVH , mild left LV hypokinesis Per cardio , stress test as outpatient if the last troponin negative ( all troponin negate) prior [place] [facility] [place] a/PLT therapy with ASA guideline directed therapy with BB, LOKESH, digoxin , Aldactone and Lasix, no evidence of decompensation BP management Lipid panel with elevatedTG, TC, LDL Mevacor change to Lipitor Patient was counseled on low-fat low-cholesterol diabetic diet DVT prophylaxis O2, HHN prm, stable resp status advised to use CPAP at home nightly BS management with SSI bowel regimen elevated TSH with normal free T3 and T4, repeat TFT in 2-3 months cardio cleared for dc with outpt fup with his own cardio dc today ( discussed with attending) case discussed and evaluated by supervising physician Subjective Allergies: Coded Allergies: No Known Allergies (Verified , 06/29/10) Subjective no SOB, pulse ox stable, CP resolved after started on NSAIDs initial leukocytosis resolved Objective Last 24 Hour Vital Signs Date Time Temp Pulse Resp B/P (MAP) Pulse Ox O2 Delivery O2 Flow Rate FiO2 10/01/18 07:08 97 Nasal Cannula 2.0 28 10/01/18 07:08 60 16 97 Nasal Cannula 2.0 28 10/01/18 04:00 60 10/01/18 04:00 98.1 84 18 133/61 (85) 98 10/01/18 00:00 97.7 85 18 142/50 (80) 98 10/01/18 00:00 76 09/30/18 21:00 Room Air 09/30/18 20:42 73 136/64 09/30/18 20:00 77 09/30/18 20:00 97.3 73 18 136/64 (88) 97 09/30/18 19:40 63 18 95 Nasal Cannula 2.0 28 09/30/18 19:30 95 Nasal Cannula 2.0 28 09/30/18 16:00 69 09/30/18 16:00 97.3 68 18 127/57 (80) 97 09/30/18 12:00 97.1 64 18 115/65 (82) 95 09/30/18 12:00 70 09/30/18 09:40 71 119/70 09/30/18 09:39 119/70 09/30/18 09:32 71 09/30/18 09:00 Room Air Intake and Output 09/30/18 10/01/18 18:59 06:59 Intake Total 1080 ml 350 ml Balance 1080 ml 350 ml Intake Oral 1080 ml 350 ml # Voids 5 2 Objective General Appearance: A/A/O x 4 male in NAD HEENT: normocephalic, atraumatic, anicteric, mucous membranes moist, PERRL Respiratory/Chest: lungs clear, no respiratory distress, no accessory muscle use, left sided AICD Cardiovascular: normal peripheral pulses, normal rate ; tele with pacing rhythm , distant heart sounds Abdomen: normal bowel sounds, soft, non tender, obese Extremities: pedal pulses normal, trace edema BLE 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: no motor/sensory deficits, alert, oriented x 4, responsive Musculoskeletal: normal muscle bulk Laboratory Tests 09/30/18 15:25: Troponin I 0.034 10/01/18 05:15: Troponin I 0.003, White Blood Count 9.8, Red Blood Count 5.18, Hemoglobin 14.7, Hematocrit 46.6, Mean Corpuscular Volume 90, Mean Corpuscular Hemoglobin 28.3, Mean Corpuscular Hemoglobin Concent 31.4L, Red Cell Distribution Width 12.7, Platelet Count 341, Mean Platelet Volume 6.6, Neutrophils (%) (Auto) 60.8, Lymphocytes (%) (Auto) 23.9, Monocytes (%) (Auto) 8.7, Eosinophils (%) (Auto) 6.0H, Basophils (%) (Auto) 0.8, Sodium Level 139, Potassium Level 4.2, Chloride Level 102, Carbon Dioxide Level 30, Anion Gap 7, Blood Urea Nitrogen 17, Creatinine 0.8, Estimat Glomerular Filtration Rate > 60, Glucose Level 142H, Calcium Level 9.0 Current Medications Medications (Trade) Dose Ordered Sig/Sandy Route PRN Reason Start Time Stop Time Status Last Admin Dose Admin Acetaminophen (Tylenol) 650 mg Q4H PRN ORAL T>100.5 7/19/19 11:45 10/29/18 11:44 Albuterol/ Ipratropium (Albuterol/ Ipratropium) 3 ml Q4H PRN HHN Shortness of Breath 09/29/18 11:45 10/04/18 11:44 Aspirin (ASA) 162 mg DAILY ORAL 09/30/18 09:00 10/30/18 08:59 09/30/18 09:37 Atorvastatin Calcium (Lipitor) 40 mg BEDTIME ORAL 09/30/18 21:00 10/30/18 20:59 09/30/18 20:41 Carvedilol (Coreg) 6.25 mg Q12HR ORAL 09/30/18 21:00 10/30/18 20:59 09/30/18 20:42 Dextrose (Dextrose 50%) 25 ml Q30M PRN IV Hypoglycemia 09/29/18 12:30 10/29/18 12:22 Dextrose (Dextrose 50%) 50 ml Q30M PRN IV hypoglycemia 09/29/18 12:30 10/29/18 12:29 Digoxin (Lanoxin) 0.125 mg DAILY ORAL 09/30/18 09:00 10/30/18 08:59 09/30/18 09:32 Diltiazem HCl (Cardizem) 10 mg EVERY HOUR PRN IV heart rate more than 120BPM 09/29/18 11:45 10/29/18 11:44 Enalaprilat (Vasotec) 2.5 mg Q6H PRN IV sbp more than 160 09/29/18 11:45 10/29/18 11:44 Escitalopram Oxalate (Lexapro) 10 mg DAILY ORAL 09/30/18 09:00 10/30/18 08:59 09/30/18 09:38 Famotidine (Pepcid) 20 mg DAILY ORAL 10/01/18 09:00 10/31/18 08:59 Furosemide (Lasix) 40 mg DAILY ORAL 09/30/18 13:00 10/30/18 12:59 09/30/18 13:17 Gabapentin (Neurontin) 300 mg Q8H PRN ORAL neuropathic/nerve pain 09/30/18 13:00 10/30/18 12:59 Heparin Sodium (Porcine) (Heparin 5000 units/ml) 5,000 units EVERY 12 HOURS SUBQ 09/29/18 21:00 10/29/18 20:59 09/30/18 20:45 Ibuprofen (Advil) 400 mg THREE TIMES A DAY ORAL 09/30/18 13:00 10/30/18 12:59 09/30/18 17:14 Insulin Aspart (NovoLOG) BEFORE MEALS AND HS SUBQ 09/29/18 16:30 10/29/18 16:29 10/01/18 05:39 Lisinopril (Prinivil) 20 mg DAILY ORAL 09/30/18 09:00 10/30/18 08:59 09/30/18 09:39 Morphine Sulfate (Morphine Sulfate) 2 mg Q4H PRN IVP Severe Pain (Pain Scale 7-10) 09/29/18 11:45 10/06/18 11:44 09/30/18 20:43 Nitroglycerin (Ntg) 0.4 mg Q5MIN X 3 DOSES PRN SL Prn Chest Pain 09/29/18 11:45 10/29/18 11:44 Ondansetron HCl (Zofran) 4 mg Q6H PRN IVP Nausea & Vomiting 09/29/18 11:45 10/29/18 11:44 Polyethylene Glycol (Miralax) 17 gm DAILYPRN PRN ORAL Constipation 09/29/18 11:45 10/29/18 11:44 Spironolactone (Aldactone) 25 mg DAILY ORAL 09/30/18 13:00 10/30/18 12:59 09/30/18 13:16 Temazepam (Restoril) 15 mg HSPRN PRN ORAL Insomnia 09/29/18 21:00 10/06/18 20:59 09/30/18 21:57 Charito Nielsen ASSISTANT CONTROLLER Oct 01, 2018 08:10
[2018-10-01] MEDS: Aspirin Baby 81mg ORAL SCH (09:24)
[2018-10-01] MEDS: Furosemide 40mg tab ORAL SCH (09:24)
[2018-10-01] MEDS: Digoxin 0.125mg tab ORAL SCH (09:25)
[2018-10-01] MEDS: Lisinopril 20mg tab ORAL SCH (09:25)
[2018-10-01] MEDS: Carvedilol 6.25mg Tab ORAL SCH (09:26)
[2018-10-01] MEDS: Spironolactone 25mg tab ORAL SCH (09:26)
[2018-10-01] MEDS: Heparin 5000 units/ml inj SUBQ SCH (09:36)
[2018-10-01 12:00] VITALS: BP 118/58
--- NOTE | 2018-10-01 12:09 | Cardiology Progress Note ---
Assessment/Plan Assessment/Plan 1. Atypical chest pain mostly suggestive of a chest wall syndrome. 2. Reported history of coronary artery disease. 3. History of ischemic cardiomyopathy. 4. History of intracardiac defibrillator implantation. 5. Diabetes mellitus and hypertension. 6. Obesity. 7. Sleep apnea. all trop neg ekg non diagnostic as paced chest wall pain reproducible on palpation and position had neg mpi 11 month ago here trop again neg likely be able to dc home to fu with his presales consultant at [facility] fo out pt testing in future switch ot lipitor as lipid quit off despite the mevacor gogin home to day Subjective Cardiovascular: Denies: chest pain, lightheadedness, palpitations Respiratory: Denies: shortness of breath Gastrointestinal/Abdominal: Denies: abdominal pain Genitourinary: Denies: burning Subjective walk in halls withouta nay problem Objective Last 24 Hour Vital Signs Date Time Temp Pulse Resp B/P (MAP) Pulse Ox O2 Delivery O2 Flow Rate FiO2 10/01/18 09:26 76 132/63 10/01/18 09:25 132/63 10/01/18 09:25 76 10/01/18 09:00 Room Air 10/01/18 08:00 96 10/01/18 08:00 97.2 76 20 132/63 (86) 94 10/01/18 07:08 97 Nasal Cannula 2.0 28 10/01/18 07:08 60 16 97 Nasal Cannula 2.0 28 10/01/18 04:00 60 10/01/18 04:00 98.1 84 18 133/61 (85) 98 10/01/18 00:00 97.7 85 18 142/50 (80) 98 10/01/18 00:00 76 09/30/18 21:00 Room Air 09/30/18 20:42 73 136/64 09/30/18 20:00 77 09/30/18 20:00 97.3 73 18 136/64 (88) 97 09/30/18 19:40 63 18 95 Nasal Cannula 2.0 28 09/30/18 19:30 95 Nasal Cannula 2.0 28 09/30/18 16:00 69 09/30/18 16:00 97.3 68 18 127/57 (80) 97 General Appearance: no apparent distress, alert Neck: supple Cardiovascular: regular rhythm Respiratory/Chest: lungs clear Abdomen: normal bowel sounds, non tender Extremities: non-tender, no swelling Intake and Output 09/30/18 10/01/18 19:00 07:00 Intake Total 1080 ml 350 ml Balance 1080 ml 350 ml Intake Oral 1080 ml 350 ml # Voids 5 2 Laboratory Tests Test 09/30/18 15:25 10/01/18 05:15 10/01/18 11:30 Troponin I 0.034 ng/mL (0.000-0.056) 0.003 ng/mL (0.000-0.056) Pending White Blood Count 9.8 K/UL (4.8-10.8) Red Blood Count 5.18 M/UL (4.70-6.10) Hemoglobin 14.7 G/DL (14.2-18.0) Hematocrit 46.6 % (42.0-52.0) Mean Corpuscular Volume 90 FL (80-99) Mean Corpuscular Hemoglobin 28.3 PG (27.0-31.0) Mean Corpuscular Hemoglobin Concent 31.4 G/DL (32.0-36.0) L Red Cell Distribution Width 12.7 % (11.6-14.8) Platelet Count 341 K/UL (150-450) Mean Platelet Volume 6.6 FL (6.5-10.1) Neutrophils (%) (Auto) 60.8 % (45.0-75.0) Lymphocytes (%) (Auto) 23.9 % (20.0-45.0) Monocytes (%) (Auto) 8.7 % (1.0-10.0) Eosinophils (%) (Auto) 6.0 % (0.0-3.0) H Basophils (%) (Auto) 0.8 % (0.0-2.0) Sodium Level 139 MMOL/L (136-145) Potassium Level 4.2 MMOL/L (3.5-5.1) Chloride Level 102 MMOL/L (98-107) Carbon Dioxide Level 30 MMOL/L (21-32) Anion Gap 7 mmol/L (5-15) Blood Urea Nitrogen 17 mg/dL (7-18) Creatinine 0.8 MG/DL (0.55-1.30) Estimat Glomerular Filtration Rate > 60 mL/min (>60) Glucose Level 142 MG/DL (74-106) H Calcium Level 9.0 MG/DL (8.5-10.1) Rodolfo De La Rosa MD Oct 01, 2018 12:09
--- NOTE | 2018-10-01 13:09 | Cardiology Report ---
APPROVED REPORT EKG Measurement Heart [id number] Normal sinus rhythm Ventricular paced rhythm Electronic pacemaker Abnormal ECG
--- NOTE | 2018-10-01 13:36 | Internal Med Progress Note ---
Subjective Date of Service: Oct 01, 2018 Physician Name Flores,Kevin Attending Physician Les Lee MD Current Medications Medications (Trade) Dose Ordered Sig/Sandy Route PRN Reason Start Time Stop Time Status Last Admin Dose Admin Acetaminophen (Tylenol) 650 mg Q4H PRN ORAL T>100.5 09/29/18 11:45 10/29/18 11:44 Albuterol/ Ipratropium (Albuterol/ Ipratropium) 3 ml Q4H PRN HHN Shortness of Breath 09/29/18 11:45 10/04/18 11:44 Aspirin (ASA) 162 mg DAILY ORAL 09/30/18 09:00 10/30/18 08:59 10/01/18 09:24 Atorvastatin Calcium (Lipitor) 40 mg BEDTIME ORAL 09/30/18 21:00 10/30/18 20:59 09/30/18 20:41 Carvedilol (Coreg) 6.25 mg Q12HR ORAL 09/30/18 21:00 10/30/18 20:59 10/01/18 09:26 Dextrose (Dextrose 50%) 25 ml Q30M PRN IV Hypoglycemia 09/29/18 12:30 10/29/18 12:22 Dextrose (Dextrose 50%) 50 ml Q30M PRN IV hypoglycemia 09/29/18 12:30 10/29/18 12:29 Digoxin (Lanoxin) 0.125 mg DAILY ORAL 09/30/18 09:00 10/30/18 08:59 10/01/18 09:25 Diltiazem HCl (Cardizem) 10 mg EVERY HOUR PRN IV heart rate more than 120BPM 09/29/18 11:45 10/29/18 11:44 Enalaprilat (Vasotec) 2.5 mg Q6H PRN IV sbp more than 160 09/29/18 11:45 10/29/18 11:44 Escitalopram Oxalate (Lexapro) 10 mg DAILY ORAL 09/30/18 09:00 10/30/18 08:59 10/01/18 09:23 Famotidine (Pepcid) 20 mg DAILY ORAL 10/01/18 09:00 10/31/18 08:59 10/01/18 09:24 Furosemide (Lasix) 40 mg DAILY ORAL 09/30/18 13:00 10/30/18 12:59 10/01/18 09:24 Gabapentin (Neurontin) 300 mg Q8H PRN ORAL neuropathic/nerve pain 09/30/18 13:00 10/30/18 12:59 Heparin Sodium (Porcine) (Heparin 5000 units/ml) 5,000 units EVERY 12 HOURS SUBQ 09/29/18 21:00 10/29/18 20:59 10/01/18 09:36 Ibuprofen (Advil) 400 mg THREE TIMES A DAY ORAL 09/30/18 13:00 10/30/18 12:59 10/01/18 12:27 Insulin Aspart (NovoLOG) BEFORE MEALS AND HS SUBQ 09/29/18 16:30 10/29/18 16:29 10/01/18 12:33 Lisinopril (Prinivil) 20 mg DAILY ORAL 09/30/18 09:00 10/30/18 08:59 10/01/18 09:25 Morphine Sulfate (Morphine Sulfate) 2 mg Q4H PRN IVP Severe Pain (Pain Scale 7-10) 09/29/18 11:45 10/06/18 11:44 09/30/18 20:43 Nitroglycerin (Ntg) 0.4 mg Q5MIN X 3 DOSES PRN SL Prn Chest Pain 09/29/18 11:45 10/29/18 11:44 Ondansetron HCl (Zofran) 4 mg Q6H PRN IVP Nausea & Vomiting 09/29/18 11:45 10/29/18 11:44 Polyethylene Glycol (Miralax) 17 gm DAILYPRN PRN ORAL Constipation 09/29/18 11:45 10/29/18 11:44 Spironolactone (Aldactone) 25 mg DAILY ORAL 09/30/18 13:00 10/30/18 12:59 10/01/18 09:26 Temazepam (Restoril) 15 mg HSPRN PRN ORAL Insomnia 09/29/18 21:00 10/06/18 20:59 09/30/18 21:57 Allergies: Coded Allergies: No Known Allergies (Verified , 06/29/10) ROS Limited/Unobtainable: No Constitutional: Reports: no symptoms HEENT: Reports: no symptoms Cardiovascular: Reports: chest pain Respiratory: Reports: no symptoms Gastrointestinal/Abdominal: Reports: no symptoms Genitourinary: Reports: no symptoms 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: Reports: no symptoms Subjective 68 YO M admitted with chest pain. Cover for Int Enrike-DR Lee Objective Last Vital Signs Date Time Temp Pulse Resp B/P (MAP) Pulse Ox O2 Delivery O2 Flow Rate FiO2 10/01/18 12:00 97.0 66 22 118/58 (78) 97 10/01/18 09:00 Room Air 10/01/18 07:08 2.0 28 Laboratory Tests Test 09/30/18 15:25 10/01/18 05:15 10/01/18 11:30 Troponin I 0.034 ng/mL (0.000-0.056) 0.003 ng/mL (0.000-0.056) 0.009 ng/mL (0.000-0.056) White Blood Count 9.8 K/UL (4.8-10.8) Red Blood Count 5.18 M/UL (4.70-6.10) Hemoglobin 14.7 G/DL (14.2-18.0) Hematocrit 46.6 % (42.0-52.0) Mean Corpuscular Volume 90 FL (80-99) Mean Corpuscular Hemoglobin 28.3 PG (27.0-31.0) Mean Corpuscular Hemoglobin Concent 31.4 G/DL (32.0-36.0) L Red Cell Distribution Width 12.7 % (11.6-14.8) Platelet Count 341 K/UL (150-450) Mean Platelet Volume 6.6 FL (6.5-10.1) Neutrophils (%) (Auto) 60.8 % (45.0-75.0) Lymphocytes (%) (Auto) 23.9 % (20.0-45.0) Monocytes (%) (Auto) 8.7 % (1.0-10.0) Eosinophils (%) (Auto) 6.0 % (0.0-3.0) H Basophils (%) (Auto) 0.8 % (0.0-2.0) Sodium Level 139 MMOL/L (136-145) Potassium Level 4.2 MMOL/L (3.5-5.1) Chloride Level 102 MMOL/L (98-107) Carbon Dioxide Level 30 MMOL/L (21-32) Anion Gap 7 mmol/L (5-15) Blood Urea Nitrogen 17 mg/dL (7-18) Creatinine 0.8 MG/DL (0.55-1.30) Estimat Glomerular Filtration Rate > 60 mL/min (>60) Glucose Level 142 MG/DL (74-106) H Calcium Level 9.0 MG/DL (8.5-10.1) Intake and Output 09/30/18 10/01/18 19:00 07:00 Intake Total 1080 ml 350 ml Balance 1080 ml 350 ml Intake Oral 1080 ml 350 ml # Voids 5 2 Objective PHYSICAL EXAMINATION: GENERALLY: The patient is well-developed and well-nourished obese male, in no apparent distress. HEENT: Eyes, pupils equal and responsive to light and accommodation. Extraocular movements are intact. NECK: Supple without lymphadenopathy. CHEST: Lungs are clear to auscultation bilaterally without wheezes or rales. CARDIOVASCULAR: Regular rate. S1 and S2 are normal without murmurs, rubs, gallops. ABDOMEN: Soft, nontender, nondistended. Positive bowel sounds. No evidence of hepatosplenomegaly. Currently, no rebound or guarding noted. EXTREMITIES: Negative for clubbing, cyanosis, or edema. RECTAL/GENITAL: Refused. NEUROLOGIC: Cranial nerves II through XII are grossly intact without focal deficits. Motor strength is 5/5 bilaterally. Deep tendon reflexes are 2+ plantar. Assessment/Plan Assessment/Plan ASSESSMENT: This is a 68-year-old male. 1. Chest pain. 2. Cardiomyopathy. 3. Congestive heart failure. 4. Diabetes type 2. 5. Hypertension. 6. Hypercholesterolemia. 7. Obstructive sleep apnea. 8. Major depression. TREATMENT: 1. Chest pain/cardiomyopathy/congestive heart failure. Cardiology consultation has been obtained with Dr. Rodolfo De La Rosa. We will follow recommendations of Cardiology. Troponin neg X3 2. Diabetes type 2. NovoLog sliding scale has been instituted. 3. Hypertension. Continue lisinopril and spironolactone as above. 4. Hypercholesterolemia. 5. Obstructive sleep apnea. Pulmonary consultation obtained with Dr. Autumn Frost. 6. Major depression. 7. discharge home today Kevin Flores MD Oct 01, 2018 13:36
--- NOTE | 2018-10-01 13:45 | NUR ---
NURSE NOTES: Discharge instruction given and patient verbalized understanding. Heart monitors and IV removed, site intact, no bleeding noted. Belonging check done and signed by Patient. Patient is in stable condition, no sign of distress/SOB noted. Escorted to downstairs to taxi, Taxi voucher given to laborer driver. Patient left via taxi safely.
--- NOTE | 2018-10-02 19:46 | Discharge Summary ---
Discharge Summary Discharge Summary _ DATE OF ADMISSION: 09/29/2018 DATE OF DISCHARGE: 10/01/2018 DISCHARGED BY: Dr. Lee REASON FOR ADMISSION: 68 years old male with past medical history of COPD, coronary artery disease, cardiomyopathy, AICD, hypertension, diabetes mellitus, hypercholesterolemia, presented to emergency department with chief complaint of midsternal chest pain and shortness of breath. Patient denied nausea, vomiting, diarrhea. Patient denied diaphoresis. Last ejection fraction was 35%. Patient had cardiac stress test in [facility] last year, which was negative. Laboratory work-up revealed mild leukocytosis WBC 12.4, stable hemoglobin hematocrit. Stable electrolytes and renal parameters. Glucose 145. Troponin 0.03. Pro BNP 452. EKG revealed s paced rhythm. Chest x-ray demonstrated no acute cardiopulmonary pathology. Left-sided AICD noted. Patient was admitted to telemetry floor for chest pain, rule out acute coronary syndrome. CONSULTANTS: deposition reporter Dr. De La Rosa pulmonary Dr. Frost [facility] COURSE: Patient admitted to telemetry floor. Serial troponin x2 were negative. EKG revealed V pacing. Chest pain was reproducible upon palpation of the chest wall. Per deposition reporter, chest pain was atypical, likely suggestive of chest wall syndrome. Pain management initiated with low-dose of nonsteroidal anti-inflammatory medication. GI prophylaxis provided. Chest pain resolved. Echocardiogram revealed reduced ejection fraction of 40 to 45% with no left ventricular hypertrophy, mild left ventricular hypokinesis. Pile Driver Operator Helper recommended stress test as outpatient. Antiplatelet therapy with aspirin continued. Guideline directed therapy for congestive heart failure with reduced ejection fraction continued with beta-maritza, LOKESH inhibitor, digoxin, Lasix and Aldactone. No evidence of decompensation. Volumes were closely monitor. Blood pressure was managed with beta-maritza and LOKESH inhibitor, remained stable. DVT prophylaxis provided. Lipid panel revealed elevated triglycerides, elevated total cholesterol and LVH. Mevacor was switched to Lipitor. Patient was counseled on low-fat low-cholesterol diabetic diet. Pulse oximetry was stable on room air. No evidence of respiratory distress. Blood sugar was managed with sliding scale of insulin. Initial mild leukocytosis resolved in the next day, probably reactive. Bowel regimen instituted. Noted elevated TSH with normal free T4 and T3. Repeat thyroid function test in 2 to 3 months. Patient was advised to use home CPAP machine on a regular basis. Patient clinically stabilized and was ready for discharge. Patient was advised to use ibuprofen as needed for chest wall pain, however at this time chest wall pain resolved. FINAL DIAGNOSES: Atypical chest pain, suggestive of chest wall syndrome Hypertension COPD Ischemic cardiomyopathy Mixed hyperlipidemia Obstructive sleep apnea Obesity Diabetes mellitus Coronary artery disease DISCHARGE MEDICATIONS: See Medication Reconciliation list. DISCHARGE INSTRUCTIONS: Patient was discharged home. Follow up with primary care provider in one week. Follow-up with his own deposition reporter at [facility] for outpatient stress test as advised by deposition reporter. Charito Nielsen NP Oct 02, 2018 19:46
--- NOTE | 2018-10-02 19:57 | Cardiology Report ---
APPROVED REPORT EXAM: Two-dimensional and M-mode echocardiogram with Doppler and color Doppler. INDICATION LV FUNCTION M-Mode DIMENSIONS IVSd2.5 (0.7-1.1cm)Left Atrium (MM)4.6 (1.6-4.0cm) LVDd8.0 (3.5-5.6cm)Aortic Root3.1 (2.0-3.7cm) PWd1.3 (0.7-1.1cm)Aortic Cusp Exc.2.0 (1.5-2.0cm) IVSs2.9 cm LVDs6.0 (2.5-4.0cm) PWs1.2 cm Technically difficult study due to poor acoustical windows. Normal left ventricular size and function. Left ventricular ejection fraction estimated to be at 50%. No evidence of left ventricular hypertrophy. No evidence of pericardial effusion. All other cardiac chamber sizes are within normal limits. Focal aortic valve sclerosis with adequate cusp excursion. Thickened mitral valve leaflets with normal excursion. Mitral annulus and aortic root calcification. Normal pulmonic valve structure. Normal tricuspid valve structure. IVC at normal size with physiologic collapse. Pacemaker wire present in the right side chambers. A color flow and spectral Doppler study was performed and revealed: No aortic regurgitation. Trace mitral regurgitation. Mitral diastolic velocities suggest reduced left ventricular relaxation c/w mild LV diastolic dysfunction (Grade I ). Mild tricuspid regurgitation. Tricuspid systolic velocities suggests peak right ventricular systolic pressure of 19 mmHg.
== END 2018-10-01 13:45 | disposition home or self-care (01) | DRG 204 ==
LOC: EMR 07:52 → OBSVTOIN 08:14 → 2E 08:14 → EDBEDREQ 08:43 → 2E 12:00
DX: R07.1 Chest pain on breathing (principal); I25.5 Ischemic cardiomyopathy; J44.9 Chronic obstructive pulmonary disease, unspecified; I10 Essential (primary) hypertension; E78.2 Mixed hyperlipidemia; G47.33 Obstructive sleep apnea (adult) (pediatric); E66.9 Obesity, unspecified; E11.9 Type 2 diabetes mellitus without complications; I25.10 Atherosclerotic heart disease of native coronary artery without angina pectoris; E66.01 Morbid (severe) obesity due to excess calories; F32.9 Major depressive disorder, single episode, unspecified
CPT/HCPCS: 36415; 71045; 80048; 80053; 80061; 80162; 82550; 82553; 82962; 83880; 84439; 84443; 84481; 84484; 85025; 85610; 85730; 86140; 93005; 93306; 94664; 99285; J1815

== ENCOUNTER 2019-11-05 13:18 | Inpatient (IN) | payer MEDICARE, OTHER ==
[~2019-11-05] VITALS: Ht 167.6 cm; Wt 106.6 kg
[2019-11-05 13:18] VITALS: BP 110/49
[~2019-11-05 13:18] MED LIST changes: +LOVASTATIN40 MG ORAL
[2019-11-05] MEDS ORDERED: Nitroglycerin Subl 0.4mg tab SL PRN ×2 (13:45→16:45)
[2019-11-05 13:46] LABS: HEMOGLOBIN 14.8 G/DL (14.2-18.0); LYMPHOCYTES % (AUTO) 16.9 % (20.0-45.0); MEAN CORPUSCULAR VOLUME 88 FL (80-99); MONOCYTES % (AUTO) 8.5 % (1.0-10.0); NEUTROPHILS % (AUTO) 69.6 % (45.0-75.0); PLATELET COUNT 337 K/UL (150-450); RED BLOOD COUNT 5.35 M/UL (4.70-6.10); WHITE BLOOD COUNT 13.5 K/UL (4.8-10.8)
--- NOTE | 2019-11-05 13:47 | Emergency Room Report ---
History of Present Illness General Chief Complaint: Chest Pain Source: Patient Present Illness HPI Patient is a 69-year-old male presents after increased chest discomfort since approximately 3:00 this morning. Prior history of congestive heart failure as well as pacemaker placement. Had previous stress testing approximately 2 years ago. He reports taking Coreg as well as digoxin. States that pain was last yesterday but had worsened overnight. Denies any fever or recent ill contacts. Prior history of CHF as well as hypertension. He reports having increased lower extremity swelling and is currently taking Lasix. He had apparently taken an extra dose of his blood pressure medication this morning when he was having chest discomfort.Reports primary care physician Dr. 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: No Patient History Past Medical History: see triage record Reviewed Nursing Documentation: PMH: Agreed; PSxH: Agreed Nursing Documentation-PMH Hx Cardiac Problems: Yes Hx Hypertension: Yes Hx Pacemaker: Yes Hx Asthma: Yes Hx COPD: Yes Hx Diabetes: Yes Hx Cancer: No Hx Gastrointestinal Problems: No Hx Neurological Problems: No Review of Systems All Other Systems: negative except mentioned in HPI Physical Exam Vital Signs Date Time Temp Pulse Resp B/P (MAP) Pulse Ox O2 Delivery O2 Flow Rate FiO2 11/05/19 13:36 98.8 67 22 96/44 (61) 96 Room Air Sp02 EP Interpretation: reviewed, normal General Appearance: normal inspection, well appearing, no apparent distress, alert, GCS 15, mild distress, Chronically Ill Head: atraumatic ENT: normal ENT inspection, hearing grossly normal, normal voice Neck: normal inspection, full range of motion, supple, no bony tend Respiratory: normal inspection, lungs clear, normal breath sounds, no respiratory distress, no retraction, no wheezing Cardiovascular #1: regular rate, rhythm, edema - 3+ Gastrointestinal: normal inspection, normal bowel sounds, non tender, soft, no guarding, no hernia Genitourinary: no CVA tenderness Musculoskeletal: normal inspection, back normal, normal range of motion Neurologic: alert, motor strength/tone normal, frame feeder III-XII nml as tested, oriented x3, responsive, speech normal, normal inspection Psychiatric: normal inspection, judgement/insight normal, mood/affect normal Medical Decision Making Diagnostic Impression: Primary Impression: ACS (acute coronary syndrome) Additional Impression: CHF (congestive heart failure) ER Course Patient presented for chest pain. Differential diagnosis include was not limited to CHF exacerbation, pneumonia, myocardial infarction, among others. Because of complexity of patient's case laboratory tests and imaging studies were ordered. Chest x-ray 1 view interpreted by me showed cardiomegaly with right-sided hemidiaphragm elevation. Patient was given aspirin as well as nitroglycerin. He had resolution of chest discomfort.Patient's initial troponin was noted to be negative. BNP was minimally elevated. Patient had complete resolution of chest discomfort after nitroglycerin. Patient will be admitted for further evaluation and treatment of ACS. Dr. Les Lee was contacted for inpatient management Labs Test 11/05/19 13:35 White Blood Count 13.5 K/UL (4.8-10.8) Red Blood Count 5.35 M/UL (4.70-6.10) Hemoglobin 14.8 G/DL (14.2-18.0) Hematocrit 47.0 % (42.0-52.0) Mean Corpuscular Volume 88 FL (80-99) Mean Corpuscular Hemoglobin 27.7 PG (27.0-31.0) Mean Corpuscular Hemoglobin Concent 31.5 G/DL (32.0-36.0) Red Cell Distribution Width 13.0 % (11.6-14.8) Platelet Count 337 K/UL (150-450) Mean Platelet Volume 6.4 FL (6.5-10.1) Neutrophils (%) (Auto) 69.6 % (45.0-75.0) Lymphocytes (%) (Auto) 16.9 % (20.0-45.0) Monocytes (%) (Auto) 8.5 % (1.0-10.0) Eosinophils (%) (Auto) 3.0 % (0.0-3.0) Basophils (%) (Auto) 2.0 % (0.0-2.0) Prothrombin Time 11.0 SEC (9.30-11.50) Prothromb Time International Ratio 1.0 (0.9-1.1) Activated Partial Thromboplast Time 26 SEC (23-33) Sodium Level 140 MMOL/L (136-145) Potassium Level 4.2 MMOL/L (3.5-5.1) Chloride Level 101 MMOL/L (98-107) Carbon Dioxide Level 30 MMOL/L (21-32) Anion Gap 9 mmol/L (5-15) Blood Urea Nitrogen 23 mg/dL (7-18) Creatinine 1.7 MG/DL (0.55-1.30) Estimat Glomerular Filtration Rate 40.3 mL/min (>60) Glucose Level 172 MG/DL (74-106) Calcium Level 9.2 MG/DL (8.5-10.1) Troponin I 0.018 ng/mL (0.000-0.056) Digoxin Level 0.4 NG/ML (0.5-2.0) EKG Diagnostic Results Rate: normal Rhythm: other - Atrial paced rhythm rate of 75 left bundle branch block present poor R wave progression Last Vital Signs Date Time Temp Pulse Resp B/P (MAP) Pulse Ox O2 Delivery O2 Flow Rate FiO2 11/05/19 13:36 98.8 67 22 96/44 (61) 96 Room Air Status: unchanged Disposition: ADMITTED INPATIENT Condition: Stable Anam Doan MD Nov 05, 2019 13:47
[2019-11-05 14:02] LABS: ANION GAP 9 mmol/L (5-15); BLOOD UREA NITROGEN 23 mg/dL (7-18); CALCIUM 9.2 MG/DL (8.5-10.1); CARBON DIOXIDE 30 MMOL/L (21-32); CHLORIDE 101 MMOL/L (98-107); CREATININE 1.7 MG/DL (0.55-1.30); POTASSIUM 4.2 MMOL/L (3.5-5.1); SODIUM 140 MMOL/L (136-145)
[2019-11-05 14:17] LABS: ALANINE AMINOTRANSFERASE 23 U/L (12-78); ALBUMIN 3.7 G/DL (3.4-5.0); ALKALINE PHOSPHATASE 102 U/L (46-116); ASPARTATE AMINO TRANSFERASE 18 U/L (15-37); BILIRUBIN,TOTAL 0.3 MG/DL (0.2-1.0)
--- NOTE | 2019-11-05 14:25 | Diagnostic Imaging Report ---
Indication: Chest pain Technique: One view of the chest Comparison: 09/29/2018 Findings: Right hemidiaphragm is elevated. Left chest biventricular AICD again noted. The heart is enlarged. The lungs and pleural spaces are clear. Impression: Cardiomegaly No acute process. Other findings as noted
[2019-11-05] MEDS ORDERED: NS 250 ML IVPB ONE ×2 (14:45→15:15)
[2019-11-05 15:17] VITALS: BP 75/24
[2019-11-05 15:25] VITALS: BP 88/34
[2019-11-05] MEDS ORDERED: Midodrine 10mg tab ONE (15:34)
[2019-11-05 16:25] VITALS: BP 112/68
[2019-11-05 16:45] LABS: APPEARANCE,URINE CLEAR; BILIRUBIN, URINE NEGATIVE (NEGATIVE); COLOR,URINE YELLOW; GLUCOSE, URINE (UA) NEGATIVE (NEGATIVE); KETONES,URINE NEGATIVE (NEGATIVE); LEUKOCYTE ESTERASE ,URINE NEGATIVE (NEGATIVE); PROTEIN,URINE NEGATIVE (NEGATIVE); UROBILINOGEN,URINE NORMAL MG/DL (0.0-1.0)
[2019-11-05] MEDS ORDERED: Albuterol/Ipratropium 3ml neb HHN PRN (16:45)
[2019-11-05] MEDS ORDERED: dilTIAZem HCl 25mg/5ml Inj IV PRN (16:45)
[2019-11-05] MEDS ORDERED: Enalaprilat 2.5mg/2ml Inj IV PRN (16:45)
[2019-11-05] MEDS ORDERED: Miralax 17gm pkt ORAL PRN (16:45)
[2019-11-05 17:05] VITALS: BP 107/52
[2019-11-05 19:23] LABS: NITRITE,URINE NEGATIVE (NEGATIVE)
[2019-11-05 20:00] VITALS: BP 142/78
[2019-11-05] MEDS: Heparin 5000 units/ml inj SUBQ SCH (21:48)
[2019-11-05] MEDS: NovoLOG Insulin Flexpen SUBQ SCH (22:01)
[2019-11-06] VITALS: BP 130/72
[2019-11-06 04:00] VITALS: BP 139/67
[2019-11-06] MEDS: NovoLOG Insulin Flexpen SUBQ SCH ×4 (06:52→20:23)
[2019-11-06 08:00] VITALS: BP 115/80
[2019-11-06 08:35] LABS: BASOPHILS % (AUTO) 1.6 % (0.0-2.0); EOSINOPHILS % (AUTO) 2.9 % (0.0-3.0); HEMATOCRIT 45.2 % (42.0-52.0); HEMOGLOBIN 14.2 G/DL (14.2-18.0); LYMPHOCYTES % (AUTO) 20.7 % (20.0-45.0); MEAN CORPUSCULAR VOLUME 88 FL (80-99); MONOCYTES % (AUTO) 5.5 % (1.0-10.0); NEUTROPHILS % (AUTO) 69.4 % (45.0-75.0); PLATELET COUNT 320 K/UL (150-450); RED BLOOD COUNT 5.11 M/UL (4.70-6.10); RED CELL DISTRIBUTION WIDTH 13.3 % (11.6-14.8)
[2019-11-06 09:29] LABS: CHOLESTEROL 212 MG/DL (< 200); HDL CHOLESTEROL 31 MG/DL (40-60); TRIGLYCERIDES 165 MG/DL (30-150)
[2019-11-06] MEDS: HYDROcodone/Acetamin 5/325 tab ORAL PRN ×2 (09:34→18:07)
[2019-11-06] MEDS: Digoxin 0.125mg tab ORAL SCH (09:36)
[2019-11-06] MEDS: Aspirin Baby 81mg ORAL SCH (09:37)
[2019-11-06] MEDS: Heparin 5000 units/ml inj SUBQ SCH ×2 (09:48→20:21)
[2019-11-06 12:00] VITALS: BP 114/52
--- NOTE | 2019-11-06 12:39 | Consultation ---
History of Present Illness General Date patient seen: Nov 06, 2019 Chief Complaint: Chest Pain Present Illness HPI 69 year old male with hx of COPD, HTN, CAD, ICD, DM, cardiomyopathy presented to ER with CC of left sided chest pain and shortness of breath. . His last EF was 35%. Pt is admitted to [facility] for ACS and CHF. Allergies: Coded Allergies: No Known Allergies (Verified , 06/29/10) Medication History Scheduled Albuterol Sulfate* (Albuterol Sulfate Mdi*), 2 PUFF INH HS, (Reported) Aspirin* (Aspir 81*), 81 MG PO DAILY, (Reported) Carvedilol* (Carvedilol*), 3.125 MG PO Q12HR, (Reported) Dexlansoprazole (Dexilant), 60 MG PO DAILY, (Reported) Digoxin* (Lanoxin*), 125 MCG PO DAILY, (Reported) Escitalopram Oxalate* (Lexapro*), 10 MG PO DAILY, (Reported) Furosemide* (Lasix*), 40 MG PO DAILY, (Reported) Lisinopril* (Zestril*), 20 MG PO DAILY, (Reported) Lovastatin (Lovastatin), 40 MG ORAL BEDTIME, (Reported) Potassium Chloride (Potassium Chloride), 10 MEQ PO DAILY, (Reported) Spironolactone* (Aldactone*), 25 MG PO DAILY, (Reported) [diabetes med], Unknown Dose PO BID, (Reported) Scheduled PRN Acetaminophen/Hydrocodone ([place] 7.5-325 Tablet), 1 TAB ORAL Q6H PRN for For Pain, (Reported) Gabapentin* (Gabapentin*), 300 MG PO TID PRN, (Reported) Hydrocodone Bit/Acetaminophen 7.5-300 Mg Tabl (V[place]odin Es 7.5-300 Mg Tablet), 1 TAB ORAL Q4H PRN for For Pain Hydrocodone/Acetaminophen 7.5-750 (Vicodin Es 7.5-750), 1 TAB PO Q8H PRN, ( Reported) Zolpidem Tartrate* (Zolpidem Tartrate*), 5 MG PO BEDTIME PRN, (Reported) Miscellaneous Medications Canagliflozin (Invokana), 300 MG PO, (Reported) Patient History Healthcare decision maker N Resuscitation status Advanced Directive on File Past Medical/Surgical History Past Medical/Surgical History: (1) Hypertension (2) Diabetes mellitus (3) COPD (chronic obstructive pulmonary disease) Review of Systems All Other Systems: negative except mentioned in HPI Physical Exam General Appearance: WD/WN, no apparent distress, alert Lines, tubes and drains: peripheral HEENT: normocephalic, atraumatic Neck: non-tender, normal alignment Respiratory/Chest: chest wall non-tender, lungs clear, normal breath sounds Cardiovascular/Chest: normal peripheral pulses Abdomen: normal bowel sounds Genitourinary/Rectal: normal genital exam Extremities: normal range of motion, non-tender Last 24 Hour Vital Signs Date Time Temp Pulse Resp B/P (MAP) Pulse Ox O2 Delivery O2 Flow Rate FiO2 11/06/19 09:37 83 115/80 11/06/19 09:36 77 11/06/19 09:00 Nasal Cannula 2.0 11/06/19 08:00 98.4 83 20 115/80 (92) 98 11/06/19 08:00 84 11/06/19 07:00 98 Nasal Cannula 2.0 28 11/06/19 04:00 86 11/06/19 04:00 99.1 87 18 139/67 (91) 95 11/06/19 00:00 98.2 90 18 130/72 (91) 93 11/06/19 00:00 90 11/05/19 21:46 104 142/78 11/05/19 21:00 Room Air 11/05/19 20:00 98.0 67 16 142/78 (99) 95 11/05/19 20:00 67 11/05/19 17:24 73 11/05/19 17:08 Nasal Cannula 2.0 11/05/19 17:05 97.5 75 18 107/52 (70) 96 11/05/19 16:39 98.8 72 15 113/69 95 Nasal Cannula 2.0 11/05/19 16:25 98.7 71 19 112/68 96 Nasal Cannula 2.0 11/05/19 15:25 98.7 64 16 88/34 95 Room Air 11/05/19 15:17 98.7 69 18 75/24 94 Room Air 11/05/19 14:43 98.7 11/05/19 13:45 96/44 11/05/19 13:36 98.8 67 22 96/44 (61) 96 Room Air 11/05/19 13:18 88 24 11/05/19 13:18 88 24 110/49 95 Room Air Intake and Output 11/05/19 11/06/19 19:00 07:00 Intake Total 500 ml 200 ml Output Total 0 ml Balance 500 ml 200 ml Intake Oral 200 ml IV Total 500 ml Output Urine Total 0 ml # Voids 2 Laboratory Tests Test 11/05/19 13:35 11/05/19 16:00 11/06/19 07:40 11/06/19 10:59 White Blood Count 13.5 K/UL (4.8-10.8) H 11.0 K/UL (4.8-10.8) H Red Blood Count 5.35 M/UL (4.70-6.10) 5.11 M/UL (4.70-6.10) Hemoglobin 14.8 G/DL (14.2-18.0) 14.2 G/DL (14.2-18.0) Hematocrit 47.0 % (42.0-52.0) 45.2 % (42.0-52.0) Mean Corpuscular Volume 88 FL (80-99) 88 FL (80-99) Mean Corpuscular Hemoglobin 27.7 PG (27.0-31.0) 27.9 PG (27.0-31.0) Mean Corpuscular Hemoglobin Concent 31.5 G/DL (32.0-36.0) L 31.5 G/DL (32.0-36.0) L Red Cell Distribution Width 13.0 % (11.6-14.8) 13.3 % (11.6-14.8) Platelet Count 337 K/UL (150-450) 320 K/UL (150-450) Mean Platelet Volume 6.4 FL (6.5-10.1) L 6.3 FL (6.5-10.1) L Neutrophils (%) (Auto) 69.6 % (45.0-75.0) 69.4 % (45.0-75.0) Lymphocytes (%) (Auto) 16.9 % (20.0-45.0) L 20.7 % (20.0-45.0) Monocytes (%) (Auto) 8.5 % (1.0-10.0) 5.5 % (1.0-10.0) Eosinophils (%) (Auto) 3.0 % (0.0-3.0) 2.9 % (0.0-3.0) Basophils (%) (Auto) 2.0 % (0.0-2.0) 1.6 % (0.0-2.0) Prothrombin Time 11.0 SEC (9.30-11.50) 11.0 SEC (9.30-11.50) Prothromb Time International Ratio 1.0 (0.9-1.1) 1.0 (0.9-1.1) Activated Partial Thromboplast Time 26 SEC (23-33) 26 SEC (23-33) Sodium Level 140 MMOL/L (136-145) Potassium Level 4.2 MMOL/L (3.5-5.1) Chloride Level 101 MMOL/L (98-107) Carbon Dioxide Level 30 MMOL/L (21-32) Anion Gap 9 mmol/L (5-15) Blood Urea Nitrogen 23 mg/dL (7-18) H Creatinine 1.7 MG/DL (0.55-1.30) H Estimat Glomerular Filtration Rate 40.3 mL/min (>60) Glucose Level 172 MG/DL (74-106) H Calcium Level 9.2 MG/DL (8.5-10.1) Total Bilirubin 0.3 MG/DL (0.2-1.0) Aspartate Amino Transf (AST/SGOT) 18 U/L (15-37) Alanine Aminotransferase (ALT/SGPT) 23 U/L (12-78) Alkaline Phosphatase 102 U/L (46-116) Troponin I 0.018 ng/mL (0.000-0.056) 0.006 ng/mL (0.000-0.056) Pro-B-Type Natriuretic Peptide 347 pg/mL (0-125) H Total Protein 7.5 G/DL (6.4-8.2) Albumin 3.7 G/DL (3.4-5.0) Globulin 3.8 g/dL Albumin/Globulin Ratio 1.0 (1.0-2.7) Thyroid Stimulating Hormone (TSH) 3.870 uiU/mL (0.358-3.740) 2.187 uiU/mL (0.358-3.740) Free Thyroxine 1.05 NG/DL (0.76-1.46) Free Triiodothyronine 3.2 pg/mL (2.3-4.2) Digoxin Level 0.4 NG/ML (0.5-2.0) L Urine Color Yellow Urine Appearance Clear Urine pH 6.0 (4.5-8.0) Urine Specific [place] 1.010 (1.005-1.035) Urine Protein Negative (NEGATIVE) Urine Glucose (UA) Negative (NEGATIVE) Urine Ketones Negative (NEGATIVE) Urine Blood Negative (NEGATIVE) Urine Nitrite Negative (NEGATIVE) Urine Bilirubin Negative (NEGATIVE) Urine Urobilinogen Normal MG/DL (0.0-1.0) Urine Leukocyte Esterase Negative (NEGATIVE) Urine RBC 0-2 /HPF (0 - 0) H Urine WBC 0-2 /HPF (0 - 0) Urine Squamous Epithelial Cells None /LPF (NONE/OCC) Urine Bacteria Few /HPF (NONE) C-Reactive Protein, Quantitative 1.0 mg/dL (0.00-0.90) H Triglycerides Level 165 MG/DL (30-150) H Cholesterol Level 212 MG/DL (< 200) H LDL Cholesterol 150 mg/dL (<100) H HDL Cholesterol 31 MG/DL (40-60) L Cholesterol/HDL Ratio 6.8 (3.3-4.4) H POC Whole Blood Glucose 137 MG/DL (74-106) H Microbiology Date/Time Source Procedure Growth Status 11/05/19 14:45 Nasopharynx SARS-CoV-2 RdRp Gene Assay - Final Complete Height (Feet): 5 Height (Inches): 6.00 Weight (Pounds): 243 Medications Current Medications Medications (Trade) Dose Ordered Sig/Sandy Route PRN Reason Start Time Stop Time Status Last Admin Dose Admin Acetaminophen (Tylenol) 650 mg Q4H PRN ORAL mild pain 1-3 or T>100.5 11/05/19 20:45 12/05/19 16:44 11/06/19 04:08 Acetaminophen/ Hydrocodone Bitart ([place] 5/325) 1 tab EVERY 8 HOURS PRN ORAL for moderate pain 11/06/19 08:15 11/13/19 08:14 11/06/19 09:34 Albuterol/ Ipratropium (Albuterol/ Ipratropium) 3 ml Q4H PRN HHN Shortness of Breath 11/05/19 16:45 11/10/19 16:44 Aspirin (ASA) 162 mg DAILY ORAL 11/06/19 09:00 12/21/19 08:59 11/06/19 09:37 Carvedilol (Coreg) 3.125 mg Q12HR ORAL 11/05/19 21:00 12/05/19 20:59 11/06/19 09:37 Dextrose (Dextrose 50%) 25 ml Q30M PRN IV Hypoglycemia 11/05/19 20:15 02/03/20 20:14 Dextrose (Dextrose 50%) 50 ml Q30M PRN IV Hypoglycemia 11/05/19 20:15 02/03/20 20:14 Digoxin (Lanoxin) 0.125 mg DAILY ORAL 11/06/19 09:00 02/04/20 08:59 11/06/19 09:36 Diltiazem HCl (Cardizem) 10 mg Q1H PRN IV heart rate more than 120, 11/05/19 16:45 12/05/19 16:44 Enalaprilat (Vasotec) 2.5 mg Q6H PRN IV sbp more than 160 11/05/19 16:45 12/05/19 16:44 Escitalopram Oxalate (Lexapro) 10 mg DAILY ORAL 11/06/19 09:00 12/06/19 08:59 11/06/19 09:37 Gabapentin (Neurontin) 300 mg TID ORAL 11/05/19 18:00 12/05/19 17:59 11/06/19 09:34 Heparin Sodium (Porcine) (Heparin 5000 units/ml) 5,000 units EVERY 12 HOURS SUBQ 11/05/19 21:00 12/20/19 20:59 11/06/19 09:48 Insulin Aspart (NovoLOG) BEFORE MEALS AND HS SUBQ 11/05/19 21:00 02/03/20 20:59 11/06/19 06:52 Nitroglycerin (Ntg) 0.4 mg Q5M PRN SL Prn Chest Pain 11/05/19 16:45 12/05/19 16:44 Ondansetron HCl (Zofran) 4 mg Q6H PRN IVP Nausea & Vomiting 11/05/19 16:45 12/05/19 16:44 Polyethylene Glycol (Miralax) 17 gm DAILYPRN PRN ORAL Constipation 11/05/19 16:45 12/05/19 16:44 Temazepam (Restoril) 15 mg HSPRN PRN ORAL Insomnia 11/05/19 16:45 11/12/19 16:44 Assessment/Plan Problem List: (1) ACS (acute coronary syndrome) ICD Codes: I24.9 - Acute ischemic heart disease, unspecified SNOMED: 042857452 (2) CHF (congestive heart failure) ICD Codes: I50.9 - Heart failure, unspecified SNOMED: 27635672 (3) COPD (chronic obstructive pulmonary disease) ICD Codes: J44.9 - COPD (chronic obstructive pulmonary disease) SNOMED: 49455616 (4) Hypertension ICD Codes: I10 - Essential (primary) hypertension SNOMED: 86169417 (5) Diabetes mellitus ICD Codes: E11.9 - Type 2 diabetes mellitus without complications SNOMED: 95654029 Assessment/Plan: serial ekg, troponin Echocardiogram cardiology to see sliding scale diabetic diet venous doppler of legs renal studies, ultra sound,and urine electrolytes Autumn Frost MD Nov 06, 2019 12:39
[2019-11-06 13:57] LABS: CREATINE KINASE 74 U/L (26-308)
--- NOTE | 2019-11-06 15:14 | Diagnostic Imaging Report ---
Indication: Reason For Exam: DVT Technique: Grayscale and duplex images of the bilateral lower extremity veins Comparison: Findings: Bilaterally, grayscale and duplex images demonstrate no evidence of intraluminal thrombus. Normal phasic Doppler waveforms, demonstrating normal augmentation response and no evidence of valvular insufficiency. Greater saphenous vein(s) and tibial veins are patent. Normal compressibility. Impression: Negative for evidence of lower extremity deep venous thrombosis bilaterally
--- NOTE | 2019-11-06 15:17 | Diagnostic Imaging Report ---
Indication: Bilateral flank pain Technique: Grayscale and duplex images of the kidneys, retroperitoneum, and bladder were obtained. Comparison: No comparison sonograms. Reference made to 10/29/[address] scan Findings: Right kidney measures 11.2 cm in length. Left kidney measures 12.3 cm in length. Both kidneys demonstrate normal echogenicity. No hydronephrosis. Cortical cysts are seen in the kidneys bilaterally.. Normal inferior vena cava. Bladder is normal. Impression: Negative for hydronephrosis. Bilateral renal cysts incidentally noted.
[2019-11-06] MEDS ORDERED: FUROSEMIDE40 MG ORAL (15:33)
[2019-11-06] MEDS ORDERED: LISINOPRIL40 MG ORAL (15:41)
[2019-11-06 15:47] LABS: APPEARANCE,URINE CLEAR; COLOR,URINE YELLOW; GLUCOSE, URINE (UA) NEGATIVE (NEGATIVE); KETONES,URINE NEGATIVE (NEGATIVE); PROTEIN,URINE NEGATIVE (NEGATIVE)
[2019-11-06 15:48] LABS: BILIRUBIN, URINE NEGATIVE (NEGATIVE); LEUKOCYTE ESTERASE ,URINE NEGATIVE (NEGATIVE); NITRITE,URINE NEGATIVE (NEGATIVE); UROBILINOGEN,URINE NORMAL MG/DL (0.0-1.0)
[2019-11-06] MEDS ORDERED: VENTOLIN HFA18 GM INH (15:55)
[2019-11-06] MEDS ORDERED: LOVASTATIN40 MG ORAL (15:55)
[2019-11-06 16:00] VITALS: BP 145/66
[2019-11-06] MEDS ORDERED: AMBIEN10 M1 ORAL (16:05)
[2019-11-06] MEDS ORDERED: HYDROCODON-ACE1 EA16 ORAL (16:05)
--- NOTE | 2019-11-06 18:27 | History & Physical ---
History and Physical History & Physicial Dictated for Int Med-DR Lee no. [id number]. Kevin Flores MD Nov 06, 2019 18:27
--- NOTE | 2019-11-06 19:13 | Cardiology Progress Note ---
Assessment/Plan Assessment/Plan [id number] atypicla chest pain fro 2-3 days yet no abn in cardiac enzyme no acute st changed echo is tech diffiult but seem to show hypo of part of post and infeior wall similar to mpi wall motion abn in 2018 all trop neg he indicates pain worsened befoer with movment of the left arm fu with primary ends down checker as outpt since all cardiac enzyme are normal despite days of chest pain Objective Last 24 Hour Vital Signs Date Time Temp Pulse Resp B/P (MAP) Pulse Ox O2 Delivery O2 Flow Rate FiO2 11/06/19 16:00 97.7 91 20 145/66 (92) 97 11/06/19 16:00 71 11/06/19 12:00 65 11/06/19 12:00 96.8 62 20 114/52 (72) 97 11/06/19 09:37 83 115/80 11/06/19 09:36 77 11/06/19 09:00 Nasal Cannula 2.0 11/06/19 08:00 98.4 83 20 115/80 (92) 98 11/06/19 08:00 84 11/06/19 07:00 98 Nasal Cannula 2.0 28 11/06/19 04:00 86 11/06/19 04:00 99.1 87 18 139/67 (91) 95 11/06/19 00:00 98.2 90 18 130/72 (91) 93 11/06/19 00:00 90 11/05/19 21:46 104 142/78 11/05/19 21:00 Room Air 11/05/19 20:00 98.0 67 16 142/78 (99) 95 11/05/19 20:00 67 Intake and Output 11/05/19 11/06/19 18:59 06:59 Intake Total 500 ml 200 ml Output Total 0 ml Balance 500 ml 200 ml Intake Oral 200 ml IV Total 500 ml Output Urine Total 0 ml # Voids 2 Laboratory Tests Test 11/06/19 07:40 11/06/19 10:59 11/06/19 15:25 11/06/19 15:48 White Blood Count 11.0 K/UL (4.8-10.8) H Red Blood Count 5.11 M/UL (4.70-6.10) Hemoglobin 14.2 G/DL (14.2-18.0) Hematocrit 45.2 % (42.0-52.0) Mean Corpuscular Volume 88 FL (80-99) Mean Corpuscular Hemoglobin 27.9 PG (27.0-31.0) Mean Corpuscular Hemoglobin Concent 31.5 G/DL (32.0-36.0) L Red Cell Distribution Width 13.3 % (11.6-14.8) Platelet Count 320 K/UL (150-450) Mean Platelet Volume 6.3 FL (6.5-10.1) L Neutrophils (%) (Auto) 69.4 % (45.0-75.0) Lymphocytes (%) (Auto) 20.7 % (20.0-45.0) Monocytes (%) (Auto) 5.5 % (1.0-10.0) Eosinophils (%) (Auto) 2.9 % (0.0-3.0) Basophils (%) (Auto) 1.6 % (0.0-2.0) Prothrombin Time 11.0 SEC (9.30-11.50) Prothromb Time International Ratio 1.0 (0.9-1.1) Activated Partial Thromboplast Time 26 SEC (23-33) Uric Acid 6.2 MG/DL (2.6-7.2) Total Creatine Kinase 74 U/L (26-308) Troponin I 0.006 ng/mL (0.000-0.056) C-Reactive Protein, Quantitative 1.0 mg/dL (0.00-0.90) H Triglycerides Level 165 MG/DL (30-150) H Cholesterol Level 212 MG/DL (< 200) H LDL Cholesterol 150 mg/dL (<100) H HDL Cholesterol 31 MG/DL (40-60) L Cholesterol/HDL Ratio 6.8 (3.3-4.4) H Thyroid Stimulating Hormone (TSH) 2.187 uiU/mL (0.358-3.740) POC Whole Blood Glucose 137 MG/DL (74-106) H 143 MG/DL (74-106) H Urine Color Yellow Urine Appearance Clear Urine pH 6.0 (4.5-8.0) Urine Specific [place] 1.010 (1.005-1.035) Urine Protein Negative (NEGATIVE) Urine Glucose (UA) Negative (NEGATIVE) Urine Ketones Negative (NEGATIVE) Urine Blood Negative (NEGATIVE) Urine Nitrite Negative (NEGATIVE) Urine Bilirubin Negative (NEGATIVE) Urine Urobilinogen Normal MG/DL (0.0-1.0) Urine Leukocyte Esterase Negative (NEGATIVE) Urine RBC 0-2 /HPF (0 - 0) H Urine WBC 0 /HPF (0 - 0) Urine Squamous Epithelial Cells Many /LPF (NONE/OCC) H Urine Amorphous Sediment Moderate /LPF (NONE) H Urine Bacteria Few /HPF (NONE) Urine Eosinophils None seen (NONE SEEN) Urine Random Creatinine Pending Urine Random Microalbumin Pending Urine Random Sodium 115 mmol/L (20-110) H Urine Microalbumin/Creatinine Ratio Pending Test 11/06/19 17:00 Troponin I 0.016 ng/mL (0.000-0.056) Microbiology Date/Time Source Procedure Growth Status 11/05/19 14:45 Nasopharynx SARS-CoV-2 RdRp Gene Assay - Final Complete Rodolfo De La Rosa MD Nov 06, 2019 19:13
[2019-11-06 20:00] VITALS: BP 111/54
--- NOTE | 2019-11-06 20:30 | History and Physical Report ---
DATE OF ADMISSION: 11/05/2019 CHIEF COMPLAINT: The patient is a 69-year-old male who presents with a chief complaint of chest pain. HISTORY OF PRESENT ILLNESS: The patient has a history of congestive heart failure and pacemaker placement. The patient states history of present illness began on November 04, 2019. The patient began to experience chest discomfort. Chest pain increased overnight. 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 The patient presented to [facility]. The patient was admitted with chest pain to rule out acute coronary syndrome. REVIEW OF SYSTEMS: CONSTITUTIONAL: The patient denies weight loss or gain. The patient denies fevers or chills. HEENT: The patient denies ear or throat pain. The patient denies headache. CARDIOVASCULAR: The patient complains of chest pain as above. The patient denies palpitations. ABDOMINAL: The patient denies nausea, vomiting, diarrhea, or constipation. GENITOURINARY: The patient denies dysuria or increased frequency of urination. NEUROMUSCULAR: The patient denies seizures or generalized weakness. PAST MEDICAL HISTORY: Significant for: 1. Cardiomyopathy. 2. Congestive heart failure. 3. Type 2 diabetes. 4. Hypertension. 5. Hypercholesterolemia. 6. Chronic obstructive pulmonary disease. 7. Obstructive sleep apnea. 8. Major depression. 9. Chronic low back pain. PAST SURGICAL HISTORY: Significant for [facility] biventricular pacemaker implantation in 2014. CURRENT MEDICATIONS: 1. Aspirin 81 mg 1 tablet p.o. daily. 2. Invokana 300 mg p.o. daily. 3. Carvedilol 3.125 mg p.o. twice daily. 4. Exelon 60 mg p.o. daily. 5. Digoxin 0.125 mg p.o. daily. 6. Lexapro 10 mg p.o. daily. 7. Lasix 40 mg p.o. twice daily. 8. Gabapentin 300 mg p.o. 3 times daily. 9. [place] 7.5/325 mg 1 tablet p.o. twice daily. 10. Lisinopril 40 mg p.o. daily. 11. Lovastatin 40 mg p.o. at bedtime. 12. Potassium chloride 10 mEq p.o. daily. 13. Spironolactone 25 mg p.o. daily. 14. Ambien 10 mg p.o. at bedtime. ALLERGIES: No known drug allergies. SOCIAL HISTORY: The patient is and lives with his . The patient is retired. The patient denies tobacco use, having quit 20 years previously. The patient denies alcohol use. PHYSICAL EXAMINATION: VITAL SIGNS: Temperature 98.8, respirations 22, pulse 67, blood pressure 96/44. GENERAL: The patient is a well-developed well-nourished obese male, in no apparent distress. HEENT: Eyes, pupils equal and responsive to light and accommodation. Extraocular movements are intact. NECK: Supple. No lymphadenopathy. CHEST: Lungs are clear to auscultation bilaterally without wheezes or rales. CARDIOVASCULAR: Regular rate. S1, S2 normal without murmurs, rubs, or gallops. ABDOMEN: Soft, nontender, and nondistended. Positive bowel sounds. No evidence of hepatosplenomegaly. Currently no rebound or guarding noted. EXTREMITIES: Negative for clubbing, cyanosis, or edema. RECTAL/GENITAL: Not performed. NEUROLOGICAL: Cranial nerves II to XII are intact without focal deficits. Motor strength is 5/5 bilaterally. Deep tendon reflexes are 2+ plantar. LABORATORY STUDIES: WBC 13.5, hemoglobin 14.8, hematocrit 47.0, platelets 337,000. Sodium 140, potassium 4.2, chloride 101, BUN 23, creatinine 1.7, glucose 172. Troponin 0.018. BNP elevated at 347. Chest x-ray was reported as no acute disease. ASSESSMENT: This is a 69-year-old male. 1. Chest pain. 2. Cardiomyopathy. 3. Congestive heart failure. 4. Diabetes. 5. Hypertension. 6. Hypercholesterolemia. 7. Chronic obstructive pulmonary disease. 8. Obstructive sleep apnea. 9. Major depression. 10. Chronic low back pain. TREATMENT: 1. Chest pain/cardiomyopathy/congestive heart failure. Cardiology consultation has been obtained with Dr. Rodolfo De La Rosa. An echocardiogram is pending. We will follow recommendations of Cardiology. Serial troponin levels will be performed to rule out acute coronary syndrome. 2. Diabetes type 2. NovoLog sliding scale has been instituted. 3. Hypertension, continue Coreg as above. 4. Hypercholesterolemia. Continue atorvastatin as above. 5. Chronic obstructive pulmonary disease. A pulmonary consultation has been obtained with Dr. Autumn Frost. Follow recommendations of Pulmonary. 6. Obstructive sleep apnea. 7. Major depression. 8. Chronic low back pain. Kevin Flores M.D. DR: PRABHAKAR JOB#: [id number] CC:
--- NOTE | 2019-11-06 21:14 | Consultation ---
DATE OF CONSULTATION: 11/06/2019 CARDIOLOGY CONSULTATION CONSULTING PHYSICIAN: Rodolfo De La Rosa MD. REFERRING PHYSICIAN: Les Lee MD. REASON FOR REFERRAL: Chest pain. HISTORY OF PRESENT ILLNESS: This is a 69-year-old gentleman who is known to me from one prior hospitalization. The patient presented to the hospital because of several days of pain 3 days to be exact. Pain constantly present in the left side of the chest. He really has a hard time describing the pain, but is there all the time. There is no relief. He did note that it did get worse when he would move his arm around or touch the area, although the pain has resolved since last night. He does not have any pain right now. He did walk to the bathroom without any chest pain. He walked to the bathroom without any shortness of breath. He does have some shortness of breath at times when he walks. There is no PND, uses one pillow. Occasional dizzy when he sits up or stands up. No palpitations. PAST MEDICAL HISTORY: Positive for history of ischemic cardiomyopathy, apparently with history of atypical chest pain, hypertension, diabetes mellitus, chronic obstructive pulmonary disease, renal insufficiency, biventricular defibrillator implantation at [facility]. He has a history of obesity, history of coronary disease, prior stent and ejection fraction is anywhere between 30 to 40% on prior echoes. SOCIAL HISTORY: Lives at home. Remote history of smoking 20 years ago. No alcohol or drugs. REVIEW OF SYSTEMS: GASTROINTESTINAL: He denies. GENITOURINARY: He denies. PULMONARY: He has wheezing. Occasionally has coughing, none at the present time. CONSTITUTIONAL: Denies any fever, chills, or night sweats. NEUROLOGICAL: Negative. PHYSICAL EXAMINATION: GENERAL: Shows to be obese middle-aged gentleman, in respiratory distress. NECK: Supple. Short fat neck. LUNGS: There is no crackles noted on examination of the lungs. CARDIAC: Regular rate and rhythm. No heaves or thrills noted. CHEST: Chest wall is tender in the right upper lobe area, but not the same pain that he was experiencing yesterday. ABDOMEN: Soft, nontender. Positive bowel sounds. EXTREMITIES: There is trace edema of the lower extremities. NEUROLOGICAL: He is awake, alert, responsive. LABORATORY AND DIAGNOSTIC DATA: White count is 11, down from 13.5, hemoglobin 14.2, and platelet count of 320. His troponins on 3 occasions are all negative despite the fact that he has had 3 days of chest pain. His proBNP at the time of admission was 347. His total cholesterol 311 with LDL of 150, HDL of 31, and triglycerides of 65. TSH of 2.187. His sodium is 140, potassium 4, chloride 101, bicarb 30, BUN of 23, creatinine 1.7, and glucose of 172. Liver function tests are normal. His total protein of 4. His TSH is 3.87, free T4 1.5, and free T3 of 3.2. He did have a chest x-ray performed in the emergency room that showed cardiomegaly. No acute processes. He had a venous duplex study of the lower extremities that showed negative for evidence of deep venous thromboses. He had a renal ultrasound that showed negative for hydronephrosis, bilateral renal cysts are noted. His telemetry data shows sinus rhythm. No SVT. No VT. No pauses noted. His EKG shows sinus rhythm with intraventricular conduction delay with rightward axis. His preliminary echocardiogram showed normal ventricular systolic function, technically difficult study. No significant wall motion abnormalities or valvular regurgitation. ASSESSMENT AND PLAN: 1. Chest pain. 2. Prior history of ischemic cardiomyopathy with previous evidence of inferior infarction without ischemia back in 2018. 3. Obesity. 4. Obstructive sleep apnea. 5. Chest pain. 6. History of coronary disease. 7. History of cardiac defibrillator placement. Dr. Lee and Dr. Frost, this patient was seen in cardiac consultation. The patient had 2 to 3 days of constant pain in the left side, although the pain has resolved. There are no acute electrocardiographic abnormalities or ST-T abnormalities. There is no evidence of cardiac enzyme abnormality. He does have some pain and tenderness on the chest wall area. However, this pain does not reproduce the pain that he was experiencing yesterday that occurred and worsened with movement of his torso and/or left arm suggestive of possible musculoskeletal disease. 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 His echocardiogram will be reviewed by myself to see if there is truly any evidence of wall motion abnormalities that were not present on prior EKG. Otherwise, I see no further need to perform any stress testing as inpatient. He can do that with his steel post installer supervisor as outpatient. Rodolfo De La Rosa M.D. DR: MAEGAN JOB#: [id number] CC:
[2019-11-07] VITALS: BP 126/55
[2019-11-07 04:00] VITALS: BP 128/54
[2019-11-07] MEDS: HYDROcodone/Acetamin 5/325 tab ORAL PRN ×2 (05:21→17:38)
[2019-11-07] MEDS: NovoLOG Insulin Flexpen SUBQ SCH ×4 (05:25→20:14)
[2019-11-07 06:34] LABS: BASOPHILS % (AUTO) 0.9 % (0.0-2.0); EOSINOPHILS % (AUTO) 4.3 % (0.0-3.0); HEMATOCRIT 46.9 % (42.0-52.0); HEMOGLOBIN 14.6 G/DL (14.2-18.0); MEAN CORPUSCULAR VOLUME 88 FL (80-99); MONOCYTES % (AUTO) 6.1 % (1.0-10.0); NEUTROPHILS % (AUTO) 69.7 % (45.0-75.0); PLATELET COUNT 348 K/UL (150-450); RED BLOOD COUNT 5.33 M/UL (4.70-6.10); RED CELL DISTRIBUTION WIDTH 12.8 % (11.6-14.8); WHITE BLOOD COUNT 10.8 K/UL (4.8-10.8)
[2019-11-07 06:56] LABS: ANION GAP 7 mmol/L (5-15); BLOOD UREA NITROGEN 17 mg/dL (7-18); CALCIUM 9.6 MG/DL (8.5-10.1); CARBON DIOXIDE 31 MMOL/L (21-32); CHLORIDE 99 MMOL/L (98-107); CREATININE 0.9 MG/DL (0.55-1.30); POTASSIUM 4.5 MMOL/L (3.5-5.1); SODIUM 137 MMOL/L (136-145)
[2019-11-07 08:00] VITALS: BP 136/111
[2019-11-07] MEDS: Aspirin Baby 81mg ORAL SCH (09:05)
[2019-11-07] MEDS: Digoxin 0.125mg tab ORAL SCH (09:06)
[2019-11-07] MEDS: Heparin 5000 units/ml inj SUBQ SCH ×2 (09:07→20:11)
--- NOTE | 2019-11-07 11:59 | Pulmonology Progress Note ---
Subjective ROS Limited/Unobtainable: Yes Interval Events: no more pain Constitutional: Reports: no symptoms HEENT: Repors: no symptoms Respiratory: Reports: no symptoms Allergies: Coded Allergies: No Known Allergies (Verified , 06/29/10) Objective Last 24 Hour Vital Signs Date Time Temp Pulse Resp B/P (MAP) Pulse Ox O2 Delivery O2 Flow Rate FiO2 11/07/19 09:06 80 11/07/19 09:05 80 136/111 11/07/19 08:37 Nasal Cannula 2.0 11/07/19 08:00 98.1 80 21 136/111 (119) 97 11/07/19 07:00 96 Nasal Cannula 2.0 28 11/07/19 05:51 97.9 11/07/19 04:00 97.9 78 19 128/54 (78) 93 11/07/19 04:00 79 11/07/19 00:00 72 11/07/19 00:00 97.7 72 19 126/55 (78) 92 11/06/19 21:00 Nasal Cannula 2.0 11/06/19 20:19 76 111/54 11/06/19 20:00 74 11/06/19 20:00 97.7 76 19 111/54 (73) 92 11/06/19 19:22 97 Nasal Cannula 2.0 28 11/06/19 16:00 97.7 91 20 145/66 (92) 97 11/06/19 16:00 71 11/06/19 12:00 65 11/06/19 12:00 96.8 62 20 114/52 (72) 97 Intake and Output 11/06/19 11/07/19 19:00 07:00 Intake Total 1210 ml 300 ml Balance 1210 ml 300 ml Intake Oral 1210 ml 300 ml # Voids 3 2 # Bowel Movements 1 General Appearance: WD/WN HEENT: normocephalic, atraumatic Respiratory: chest wall non-tender, normal breath sounds Cardiovascular: normal peripheral pulses, regularly irregular Abdomen: normal bowel sounds, soft, non tender Extremities: no cyanosis Skin: no lesions Neurologic: stereotyper helper II-XII grossly normal Microbiology Date/Time Source Procedure Growth Status 11/05/19 14:45 Nasopharynx SARS-CoV-2 RdRp Gene Assay - Final Complete Laboratory Tests 11/06/19 15:25: Urine Color Yellow, Urine Appearance Clear, Urine pH 6.0, Urine Specific [place] 1.010, Urine Protein Negative, Urine Glucose (UA) Negative, Urine Ketones Negative, Urine Blood Negative, Urine Nitrite Negative, Urine Bilirubin Negative, Urine Urobilinogen Normal, Urine Leukocyte Esterase Negative, Urine RBC 0-2H, Urine WBC 0, Urine Squamous Epithelial Cells ManyH, Urine Amorphous Sediment ModerateH, Urine Bacteria Few, Urine Eosinophils None seen, Urine Random Creatinine [Pending], Urine Random Microalbumin [Pending], Urine Random Sodium 115H, Urine Microalbumin/Creatinine Ratio [Pending] 11/06/19 15:48: POC Whole Blood Glucose 143H 11/06/19 17:00: Troponin I 0.016 11/06/19 19:39: POC Whole Blood Glucose 176H 11/07/19 05:40: White Blood Count 10.8, Red Blood Count 5.33, Hemoglobin 14.6, Hematocrit 46.9, Mean Corpuscular Volume 88, Mean Corpuscular Hemoglobin 27.4, Mean Corpuscular Hemoglobin Concent 31.1L, Red Cell Distribution Width 12.8, Platelet Count 348, Mean Platelet Volume 6.2L, Neutrophils (%) (Auto) 69.7, Lymphocytes (%) (Auto) 19.0L, Monocytes (%) (Auto) 6.1, Eosinophils (%) (Auto) 4.3H, Basophils (%) ( Auto) 0.9, Sodium Level 137, Potassium Level 4.5, Chloride Level 99, Carbon Dioxide Level 31, Anion Gap 7, Blood Urea Nitrogen 17, Creatinine 0.9, Estimat Glomerular Filtration Rate > 60, Glucose Level 140H, Calcium Level 9.6, Troponin I [Pending] Current Medications Medications (Trade) Dose Ordered Sig/[place]andy Route PRN Reason Start Time Stop Time Status Last Admin Dose Admin Acetaminophen (Tylenol) 650 mg Q4H PRN ORAL mild pain 1-3 or T>100.5 11/05/19 20:45 12/05/19 16:44 11/06/19 22:05 Acetaminophen/ Hydrocodone Bitart ([place] 5/325) 1 tab EVERY 8 HOURS PRN ORAL for moderate pain 11/06/19 08:15 11/13/19 08:14 11/07/19 05:21 Albuterol/ Ipratropium (Albuterol/ Ipratropium) 3 ml Q4H PRN HHN Shortness of Breath 11/05/19 16:45 11/10/19 16:44 Aspirin (ASA) 162 mg DAILY ORAL 11/06/19 09:00 12/21/19 08:59 11/07/19 09:05 Atorvastatin Calcium (Lipitor) 10 mg BEDTIME ORAL 11/06/19 21:00 02/04/20 20:59 11/06/19 20:14 Carvedilol (Coreg) 3.125 mg Q12HR ORAL 11/05/19 21:00 12/05/19 20:59 11/07/19 09:05 Dextrose (Dextrose 50%) 25 ml Q30M PRN IV Hypoglycemia 11/05/19 20:15 02/03/20 20:14 Dextrose (Dextrose 50%) 50 ml Q30M PRN IV Hypoglycemia 11/05/19 20:15 02/03/20 20:14 Digoxin (Lanoxin) 0.125 mg DAILY ORAL 11/06/19 09:00 02/04/20 08:59 11/07/19 09:06 Diltiazem HCl (Cardizem) 10 mg Q1H PRN IV heart rate more than 120, 11/05/19 16:45 12/05/19 16:44 Enalaprilat (Vasotec) 2.5 mg Q6H PRN IV sbp more than 160 11/05/19 16:45 12/05/19 16:44 Escitalopram Oxalate (Lexapro) 10 mg DAILY ORAL 11/06/19 09:00 12/06/19 08:59 11/07/19 09:06 Furosemide (Lasix) 40 mg DAILY ORAL 11/06/19 15:30 12/06/19 15:29 11/07/19 09:06 Gabapentin (Neurontin) 300 mg TID ORAL 11/05/19 18:00 12/05/19 17:59 11/07/19 09:06 Heparin Sodium (Porcine) (Heparin 5000 units/ml) 5,000 units EVERY 12 HOURS SUBQ 11/05/19 21:00 12/20/19 20:59 11/07/19 09:07 Insulin Aspart (NovoLOG) BEFORE MEALS AND HS SUBQ 11/05/19 21:00 02/03/20 20:59 11/07/19 05:25 Nitroglycerin (Ntg) 0.4 mg Q5M PRN SL Prn Chest Pain 11/05/19 16:45 12/05/19 16:44 Ondansetron HCl (Zofran) 4 mg Q6H PRN IVP Nausea & Vomiting 11/05/19 16:45 12/05/19 16:44 Polyethylene Glycol (Miralax) 17 gm DAILYPRN PRN ORAL Constipation 11/05/19 16:45 12/05/19 16:44 Temazepam (Restoril) 15 mg HSPRN PRN ORAL Insomnia 11/05/19 16:45 11/12/19 16:44 Assessment/Plan Problems: (1) ACS (acute coronary syndrome) (2) CHF (congestive heart failure) (3) COPD (chronic obstructive pulmonary disease) (4) Hypertension (5) Diabetes mellitus Assessment/Plan serial ekg, troponin Echocardiogram reviewed cardiology consult appreciated sliding scale diabetic diet venous doppler of legs renal studies, ultra sound,and urine electrolytes Autumn Frost MD Nov 07, 2019 11:59
[2019-11-07 12:11] VITALS: BP 143/66
[2019-11-07 15:49] VITALS: BP 130/67
--- NOTE | 2019-11-07 18:17 | Internal Med Progress Note ---
Subjective Date of Service: Nov 07, 2019 Physician Name Kevin Flores Attending Physician Les Lee MD Current Medications Medications (Trade) Dose Ordered Sig/[place]andy Route PRN Reason Start Time Stop Time Status Last Admin Dose Admin Acetaminophen (Tylenol) 650 mg Q4H PRN ORAL mild pain 1-3 or T>100.5 11/05/19 20:45 12/05/19 16:44 11/06/19 22:05 Acetaminophen/ Hydrocodone Bitart ([place] 5/325) 1 tab EVERY 8 HOURS PRN ORAL for moderate pain 11/06/19 08:15 11/13/19 08:14 11/07/19 17:38 Albuterol/ Ipratropium (Albuterol/ Ipratropium) 3 ml Q4H PRN HHN Shortness of Breath 11/05/19 16:45 11/10/19 16:44 Aspirin (ASA) 162 mg DAILY ORAL 11/06/19 09:00 12/21/19 08:59 11/07/19 09:05 Atorvastatin Calcium (Lipitor) 10 mg BEDTIME ORAL 11/06/19 21:00 02/04/20 20:59 11/06/19 20:14 Carvedilol (Coreg) 3.125 mg Q12HR ORAL 11/05/19 21:00 12/05/19 20:59 11/07/19 09:05 Dextrose (Dextrose 50%) 25 ml Q30M PRN IV Hypoglycemia 11/05/19 20:15 02/03/20 20:14 Dextrose (Dextrose 50%) 50 ml Q30M PRN IV Hypoglycemia 11/05/19 20:15 02/03/20 20:14 Digoxin (Lanoxin) 0.125 mg DAILY ORAL 11/06/19 09:00 02/04/20 08:59 11/07/19 09:06 Diltiazem HCl (Cardizem) 10 mg Q1H PRN IV heart rate more than 120, 11/05/19 16:45 12/05/19 16:44 Enalaprilat (Vasotec) 2.5 mg Q6H PRN IV sbp more than 160 11/05/19 16:45 12/05/19 16:44 Escitalopram Oxalate (Lexapro) 10 mg DAILY ORAL 11/06/19 09:00 12/06/19 08:59 11/07/19 09:06 Furosemide (Lasix) 40 mg DAILY ORAL 11/06/19 15:30 12/06/19 15:29 11/07/19 09:06 Gabapentin (Neurontin) 300 mg TID ORAL 11/05/19 18:00 12/05/19 17:59 11/07/19 17:34 Heparin Sodium (Porcine) (Heparin 5000 units/ml) 5,000 units EVERY 12 HOURS SUBQ 11/05/19 21:00 12/20/19 20:59 11/07/19 09:07 Insulin Aspart (NovoLOG) BEFORE MEALS AND HS SUBQ 11/05/19 21:00 02/03/20 20:59 11/07/19 17:34 Nitroglycerin (Ntg) 0.4 mg Q5M PRN SL Prn Chest Pain 11/05/19 16:45 12/05/19 16:44 Ondansetron HCl (Zofran) 4 mg Q6H PRN IVP Nausea & Vomiting 11/05/19 16:45 12/05/19 16:44 Polyethylene Glycol (Miralax) 17 gm DAILYPRN PRN ORAL Constipation 11/05/19 16:45 12/05/19 16:44 Temazepam (Restoril) 15 mg HSPRN PRN ORAL Insomnia 11/05/19 16:45 11/12/19 16:44 Allergies: Coded Allergies: No Known Allergies (Verified , 06/29/10) ROS Limited/Unobtainable: No Constitutional: Reports: no symptoms HEENT: Reports: no symptoms Cardiovascular: Reports: chest pain Respiratory: Reports: no symptoms Gastrointestinal/Abdominal: Reports: no symptoms Genitourinary: Reports: no symptoms 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: Reports: no symptoms Subjective 69 YO M admitted with chest pain. Cover for Int Enrike-DR Lee. Objective Last Vital Signs Date Time Temp Pulse Resp B/P (MAP) Pulse Ox O2 Delivery O2 Flow Rate FiO2 11/07/19 16:00 79 11/07/19 15:49 98.6 22 130/67 (88) 96 11/07/19 08:37 Nasal Cannula 2.0 11/07/19 07:00 28 Laboratory Tests Test 11/06/19 19:39 11/07/19 05:40 POC Whole Blood Glucose 176 MG/DL (74-106) H White Blood Count 10.8 K/UL (4.8-10.8) Red Blood Count 5.33 M/UL (4.70-6.10) Hemoglobin 14.6 G/DL (14.2-18.0) Hematocrit 46.9 % (42.0-52.0) Mean Corpuscular Volume 88 FL (80-99) Mean Corpuscular Hemoglobin 27.4 PG (27.0-31.0) Mean Corpuscular Hemoglobin Concent 31.1 G/DL (32.0-36.0) L Red Cell Distribution Width 12.8 % (11.6-14.8) Platelet Count 348 K/UL (150-450) Mean Platelet Volume 6.2 FL (6.5-10.1) L Neutrophils (%) (Auto) 69.7 % (45.0-75.0) Lymphocytes (%) (Auto) 19.0 % (20.0-45.0) L Monocytes (%) (Auto) 6.1 % (1.0-10.0) Eosinophils (%) (Auto) 4.3 % (0.0-3.0) H Basophils (%) (Auto) 0.9 % (0.0-2.0) Sodium Level 137 MMOL/L (136-145) Potassium Level 4.5 MMOL/L (3.5-5.1) Chloride Level 99 MMOL/L (98-107) Carbon Dioxide Level 31 MMOL/L (21-32) Anion Gap 7 mmol/L (5-15) Blood Urea Nitrogen 17 mg/dL (7-18) Creatinine 0.9 MG/DL (0.55-1.30) Estimat Glomerular Filtration Rate > 60 mL/min (>60) Glucose Level 140 MG/DL (74-106) H Calcium Level 9.6 MG/DL (8.5-10.1) Troponin I 0.002 ng/mL (0.000-0.056) Microbiology Date/Time Source Procedure Growth Status 11/05/19 14:45 Nasopharynx SARS-CoV-2 RdRp Gene Assay - Final Complete Intake and Output 11/06/19 11/07/19 19:00 07:00 Intake Total 1210 ml 300 ml Balance 1210 ml 300 ml Intake Oral 1210 ml 300 ml # Voids 3 2 # Bowel Movements 1 Objective PHYSICAL EXAMINATION: GENERAL: The patient is a well-developed well-nourished obese male, in no apparent distress. HEENT: Eyes, pupils equal and responsive to light and accommodation. Extraocular movements are intact. NECK: Supple. No lymphadenopathy. CHEST: Lungs are clear to auscultation bilaterally without wheezes or rales. CARDIOVASCULAR: Regular rate. S1, S2 normal without murmurs, rubs, or gallops. ABDOMEN: Soft, nontender, and nondistended. Positive bowel sounds. No evidence of hepatosplenomegaly. Currently no rebound or guarding noted. EXTREMITIES: Negative for clubbing, cyanosis, or edema. RECTAL/GENITAL: Not performed. NEUROLOGICAL: Cranial nerves II to XII are intact without focal deficits. Motor strength is 5/5 bilaterally. Deep tendon reflexes are 2+ plantar. Assessment/Plan Assessment/Plan ASSESSMENT: This is a 69-year-old male. 1. Chest pain. 2. Cardiomyopathy. 3. Congestive heart failure. 4. Diabetes. 5. Hypertension. 6. Hypercholesterolemia. 7. Chronic obstructive pulmonary disease. 8. Obstructive sleep apnea. 9. Major depression. 10. Chronic low back pain. TREATMENT: 1. Chest pain/cardiomyopathy/congestive heart failure. Ruled out for acute NC. A Cardiology consultation has been obtained with Dr. Rodolfo De La Rosa. We will follow recommendations of Cardiology. Serial troponin levels=Normal 2. Diabetes type 2. NovoLog sliding scale has been instituted. 3. Hypertension, continue Coreg as above. 4. Hypercholesterolemia. Continue atorvastatin as above. 5. Chronic obstructive pulmonary disease. A pulmonary consultation has been obtained with Dr. Autumn Frost. Follow recommendations of Pulmonary. 6. Obstructive sleep apnea. 7. Major depression. 8. Chronic low back pain. Kevin Flores MD Nov 07, 2019 18:17
[2019-11-07 20:00] VITALS: BP 143/64
[2019-11-08] VITALS: BP 120/63
[2019-11-08 04:00] VITALS: BP 135/67
[2019-11-08] MEDS: NovoLOG Insulin Flexpen SUBQ SCH ×4 (05:38→21:12)
[2019-11-08] MEDS: HYDROcodone/Acetamin 5/325 tab ORAL PRN (06:40)
[2019-11-08 07:02] LABS: ANION GAP 5 mmol/L (5-15); BLOOD UREA NITROGEN 16 mg/dL (7-18); CALCIUM 9.4 MG/DL (8.5-10.1); CARBON DIOXIDE 32 MMOL/L (21-32); CHLORIDE 101 MMOL/L (98-107); POTASSIUM 4.1 MMOL/L (3.5-5.1); SODIUM 138 MMOL/L (136-145)
[2019-11-08 07:08] LABS: BASOPHILS % (AUTO) 1.7 % (0.0-2.0); EOSINOPHILS % (AUTO) 5.6 % (0.0-3.0); HEMATOCRIT 48.8 % (42.0-52.0); HEMOGLOBIN 15.4 G/DL (14.2-18.0); LYMPHOCYTES % (AUTO) 20.7 % (20.0-45.0); MEAN CORPUSCULAR VOLUME 88 FL (80-99); MONOCYTES % (AUTO) 9.8 % (1.0-10.0); NEUTROPHILS % (AUTO) 62.2 % (45.0-75.0); PLATELET COUNT 359 K/UL (150-450); RED BLOOD COUNT 5.54 M/UL (4.70-6.10); RED CELL DISTRIBUTION WIDTH 12.9 % (11.6-14.8); WHITE BLOOD COUNT 10.7 K/UL (4.8-10.8)
[2019-11-08 08:00] VITALS: BP 150/66
[2019-11-08] MEDS: Aspirin Baby 81mg ORAL SCH (09:06)
[2019-11-08] MEDS: Digoxin 0.125mg tab ORAL SCH (09:06)
[2019-11-08] MEDS: Heparin 5000 units/ml inj SUBQ SCH ×2 (09:07→21:15)
[2019-11-08 12:00] VITALS: BP 122/50
--- NOTE | 2019-11-08 12:19 | Pulmonology Progress Note ---
Subjective ROS Limited/Unobtainable: No Interval Events: no more pain Constitutional: Reports: no symptoms HEENT: Repors: no symptoms Respiratory: Reports: no symptoms Allergies: Coded Allergies: No Known Allergies (Verified , 06/29/10) Objective Last 24 Hour Vital Signs Date Time Temp Pulse Resp B/P (MAP) Pulse Ox O2 Delivery O2 Flow Rate FiO2 11/08/19 12:00 97.5 71 20 122/50 (74) 100 11/08/19 09:06 77 11/08/19 09:06 77 150/66 11/08/19 09:00 Room Air 11/08/19 08:00 97.7 77 20 150/66 (94) 95 11/08/19 07:34 91 Room Air 21 11/08/19 07:29 76 11/08/19 07:10 97.7 11/08/19 04:00 68 11/08/19 04:00 97.7 69 19 135/67 (89) 97 11/08/19 01:18 73 15 97 28 11/08/19 00:00 80 11/08/19 00:00 97.5 80 19 120/63 (82) 94 11/07/19 23:08 75 15 96 28 11/07/19 21:00 Nasal Cannula 2.0 11/07/19 20:09 74 143/64 11/07/19 20:00 97.7 74 21 143/64 (90) 94 11/07/19 20:00 84 11/07/19 19:14 96 Nasal Cannula 2.0 28 11/07/19 16:00 79 11/07/19 15:49 98.6 79 22 130/67 (88) 96 Intake and Output 11/07/19 11/08/19 19:00 07:00 # Voids 2 General Appearance: WD/WN HEENT: normocephalic, atraumatic Respiratory: chest wall non-tender, normal breath sounds Cardiovascular: normal peripheral pulses, regularly irregular Abdomen: normal bowel sounds, soft, non tender Extremities: no cyanosis Skin: no lesions Neurologic: campus monitor II-XII grossly normal Microbiology Date/Time Source Procedure Growth Status 11/05/19 14:45 Nasopharynx SARS-CoV-2 RdRp Gene Assay - Final Complete Laboratory Tests 11/07/19 20:08: POC Whole Blood Glucose [Pending] 11/08/19 05:34: POC Whole Blood Glucose 175H 11/08/19 06:20: White Blood Count 10.7, Red Blood Count 5.54, Hemoglobin 15.4, Hematocrit 48.8, Mean Corpuscular Volume 88, Mean Corpuscular Hemoglobin 27.7, Mean Corpuscular Hemoglobin Concent 31.4L, Red Cell Distribution Width 12.9, Platelet Count 359, Mean Platelet Volume 6.8, Neutrophils (%) (Auto) 62.2, Lymphocytes (%) (Auto) 20.7, Monocytes (%) (Auto) 9.8, Eosinophils (%) (Auto) 5.6H, Basophils (%) (Auto ) 1.7, Sodium Level 138, Potassium Level 4.1, Chloride Level 101, Carbon Dioxide Level 32, Anion Gap 5, Blood Urea Nitrogen 16, Creatinine 1.0, Estimat Glomerular Filtration Rate > 60, Glucose Level 138H, Calcium Level 9.4 Current Medications Medications (Trade) Dose Ordered Sig/Sandy Route PRN Reason Start Time Stop Time Status Last Admin Dose Admin Acetaminophen (Tylenol) 650 mg Q4H PRN ORAL mild pain 1-3 or T>100.5 11/05/19 20:45 12/05/19 16:44 11/06/19 22:05 Acetaminophen/ Hydrocodone Bitart ([place] 5/325) 1 tab EVERY 8 HOURS PRN ORAL for moderate pain 11/06/19 08:15 11/13/19 08:14 11/08/19 06:40 Albuterol/ Ipratropium (Albuterol/ Ipratropium) 3 ml Q4H PRN HHN Shortness of Breath 11/05/19 16:45 11/10/19 16:44 Aspirin (ASA) 162 mg DAILY ORAL 11/06/19 09:00 12/21/19 08:59 11/08/19 09:06 Atorvastatin Calcium (Lipitor) 10 mg BEDTIME ORAL 11/06/19 21:00 02/04/20 20:59 11/07/19 20:09 Carvedilol (Coreg) 3.125 mg Q12HR ORAL 11/05/19 21:00 12/05/19 20:59 11/08/19 09:06 Dextrose (Dextrose 50%) 25 ml Q30M PRN IV Hypoglycemia 11/05/19 20:15 02/03/20 20:14 Dextrose (Dextrose 50%) 50 ml Q30M PRN IV Hypoglycemia 11/05/19 20:15 02/03/20 20:14 Digoxin (Lanoxin) 0.125 mg DAILY ORAL 11/06/19 09:00 02/04/20 08:59 11/08/19 09:06 Diltiazem HCl (Cardizem) 10 mg Q1H PRN IV heart rate more than 120, 11/05/19 16:45 12/05/19 16:44 Enalaprilat (Vasotec) 2.5 mg Q6H PRN IV sbp more than 160 11/05/19 16:45 12/05/19 16:44 Escitalopram Oxalate (Lexapro) 10 mg DAILY ORAL 11/06/19 09:00 12/06/19 08:59 11/08/19 09:06 Furosemide (Lasix) 40 mg DAILY ORAL 11/06/19 15:30 12/06/19 15:29 11/08/19 09:06 Gabapentin (Neurontin) 300 mg TID ORAL 11/05/19 18:00 12/05/19 17:59 11/08/19 09:06 Heparin Sodium (Porcine) (Heparin 5000 units/ml) 5,000 units EVERY 12 HOURS SUBQ 11/05/19 21:00 12/20/19 20:59 11/08/19 09:07 Insulin Aspart (NovoLOG) BEFORE MEALS AND HS SUBQ 11/05/19 21:00 02/03/20 20:59 11/08/19 11:59 Nitroglycerin (Ntg) 0.4 mg Q5M PRN SL Prn Chest Pain 11/05/19 16:45 12/05/19 16:44 Ondansetron HCl (Zofran) 4 mg Q6H PRN IVP Nausea & Vomiting 11/05/19 16:45 12/05/19 16:44 Polyethylene Glycol (Miralax) 17 gm DAILYPRN PRN ORAL Constipation 11/05/19 16:45 12/05/19 16:44 Temazepam (Restoril) 15 mg HSPRN PRN ORAL Insomnia 11/05/19 16:45 11/12/19 16:44 Assessment/Plan Problems: (1) ACS (acute coronary syndrome) (2) CHF (congestive heart failure) (3) COPD (chronic obstructive pulmonary disease) (4) Hypertension (5) Diabetes mellitus Assessment/Plan all reviewed no new complains troponin all negative Echocardiogram reviewed cardiology consult appreciated sliding scale diabetic diet venous doppler of legs renal studies, ultra sound,and urine electrolytes Autumn Frost MD Nov 08, 2019 12:19
[2019-11-08 16:00] VITALS: BP 130/61
--- NOTE | 2019-11-08 16:31 | Cardiology Progress Note ---
Assessment/Plan Assessment/Plan 1. Chest pain. 2. Prior history of ischemic cardiomyopathy with previous evidence of inferior infarction without ischemia back in 2018. 3. Obesity. 4. Obstructive sleep apnea. 5. Chest pain. 6. History of coronary disease. 7. History of cardiac defibrillator placement. 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 since all cardiac enzyme are normal despite days of chest pain has been stable ok to dc home Subjective Cardiovascular: Denies: chest pain, lightheadedness, palpitations Respiratory: Denies: cough, shortness of breath Gastrointestinal/Abdominal: Denies: abdominal pain Genitourinary: Denies: burning Objective Last 24 Hour Vital Signs Date Time Temp Pulse Resp B/P (MAP) Pulse Ox O2 Delivery O2 Flow Rate FiO2 11/08/19 12:00 97.5 71 20 122/50 (74) 100 11/08/19 11:33 77 11/08/19 09:06 77 11/08/19 09:06 77 150/66 11/08/19 09:00 Nasal Cannula 2.0 11/08/19 08:00 97.7 77 20 150/66 (94) 95 11/08/19 07:34 91 Room Air 21 11/08/19 07:29 76 11/08/19 07:10 97.7 11/08/19 04:00 68 11/08/19 04:00 97.7 69 19 135/67 (89) 97 11/08/19 01:18 73 15 97 28 11/08/19 00:00 80 11/08/19 00:00 97.5 80 19 120/63 (82) 94 11/07/19 23:08 75 15 96 28 11/07/19 21:00 Nasal Cannula 2.0 11/07/19 20:09 74 143/64 11/07/19 20:00 97.7 74 21 143/64 (90) 94 11/07/19 20:00 84 11/07/19 19:14 96 Nasal Cannula 2.0 28 General Appearance: no apparent distress, alert, obese Neck: supple Cardiovascular: normal rate Respiratory/Chest: lungs clear Abdomen: normal bowel sounds, non tender, soft Extremities: no swelling Intake and Output 11/07/19 11/08/19 18:59 06:59 # Voids 2 Laboratory Tests Test 11/07/19 20:08 11/08/19 05:34 11/08/19 06:20 11/08/19 11:54 POC Whole Blood Glucose Pending 175 MG/DL (74-106) H Pending White Blood Count 10.7 K/UL (4.8-10.8) Red Blood Count 5.54 M/UL (4.70-6.10) Hemoglobin 15.4 G/DL (14.2-18.0) Hematocrit 48.8 % (42.0-52.0) Mean Corpuscular Volume 88 FL (80-99) Mean Corpuscular Hemoglobin 27.7 PG (27.0-31.0) Mean Corpuscular Hemoglobin Concent 31.4 G/DL (32.0-36.0) L Red Cell Distribution Width 12.9 % (11.6-14.8) Platelet Count 359 K/UL (150-450) Mean Platelet Volume 6.8 FL (6.5-10.1) Neutrophils (%) (Auto) 62.2 % (45.0-75.0) Lymphocytes (%) (Auto) 20.7 % (20.0-45.0) Monocytes (%) (Auto) 9.8 % (1.0-10.0) Eosinophils (%) (Auto) 5.6 % (0.0-3.0) H Basophils (%) (Auto) 1.7 % (0.0-2.0) Sodium Level 138 MMOL/L (136-145) Potassium Level 4.1 MMOL/L (3.5-5.1) Chloride Level 101 MMOL/L (98-107) Carbon Dioxide Level 32 MMOL/L (21-32) Anion Gap 5 mmol/L (5-15) Blood Urea Nitrogen 16 mg/dL (7-18) Creatinine 1.0 MG/DL (0.55-1.30) Estimat Glomerular Filtration Rate > 60 mL/min (>60) Glucose Level 138 MG/DL (74-106) H Calcium Level 9.4 MG/DL (8.5-10.1) Rodolfo De La Rosa MD Nov 08, 2019 16:31
--- NOTE | 2019-11-08 18:36 | Internal Med Progress Note ---
Subjective Date of Service: Nov 08, 2019 Physician Name Kevin Flores Attending Physician Les Lee MD Current Medications Medications (Trade) Dose Ordered Sig/Sandy Route PRN Reason Start Time Stop Time Status Last Admin Dose Admin Acetaminophen (Tylenol) 650 mg Q4H PRN ORAL mild pain 1-3 or T>100.5 11/05/19 20:45 12/05/19 16:44 11/06/19 22:05 Acetaminophen/ Hydrocodone Bitart ([place] 5/325) 1 tab EVERY 8 HOURS PRN ORAL for moderate pain 11/06/19 08:15 11/13/19 08:14 11/08/19 06:40 Albuterol/ Ipratropium (Albuterol/ Ipratropium) 3 ml Q4H PRN HHN Shortness of Breath 11/05/19 16:45 11/10/19 16:44 Aspirin (ASA) 162 mg DAILY ORAL 11/06/19 09:00 12/21/19 08:59 11/08/19 09:06 Atorvastatin Calcium (Lipitor) 10 mg BEDTIME ORAL 11/06/19 21:00 02/04/20 20:59 11/07/19 20:09 Carvedilol (Coreg) 3.125 mg Q12HR ORAL 11/05/19 21:00 12/05/19 20:59 11/08/19 09:06 Dextrose (Dextrose 50%) 25 ml Q30M PRN IV Hypoglycemia 11/05/19 20:15 02/03/20 20:14 Dextrose (Dextrose 50%) 50 ml Q30M PRN IV Hypoglycemia 11/05/19 20:15 02/03/20 20:14 Digoxin (Lanoxin) 0.125 mg DAILY ORAL 11/06/19 09:00 02/04/20 08:59 11/08/19 09:06 Diltiazem HCl (Cardizem) 10 mg Q1H PRN IV heart rate more than 120, 11/05/19 16:45 12/05/19 16:44 Enalaprilat (Vasotec) 2.5 mg Q6H PRN IV sbp more than 160 11/05/19 16:45 12/05/19 16:44 Escitalopram Oxalate (Lexapro) 10 mg DAILY ORAL 11/06/19 09:00 12/06/19 08:59 11/08/19 09:06 Furosemide (Lasix) 40 mg DAILY ORAL 11/06/19 15:30 12/06/19 15:29 11/08/19 09:06 Gabapentin (Neurontin) 300 mg TID ORAL 11/05/19 18:00 12/05/19 17:59 11/08/19 17:31 Heparin Sodium (Porcine) (Heparin 5000 units/ml) 5,000 units EVERY 12 HOURS SUBQ 11/05/19 21:00 12/20/19 20:59 11/08/19 09:07 Insulin Aspart (NovoLOG) BEFORE MEALS AND HS SUBQ 11/05/19 21:00 02/03/20 20:59 11/08/19 16:52 Nitroglycerin (Ntg) 0.4 mg Q5M PRN SL Prn Chest Pain 11/05/19 16:45 12/05/19 16:44 Ondansetron HCl (Zofran) 4 mg Q6H PRN IVP Nausea & Vomiting 11/05/19 16:45 12/05/19 16:44 Polyethylene Glycol (Miralax) 17 gm DAILYPRN PRN ORAL Constipation 11/05/19 16:45 12/05/19 16:44 Temazepam (Restoril) 15 mg HSPRN PRN ORAL Insomnia 11/05/19 16:45 11/12/19 16:44 Allergies: Coded Allergies: No Known Allergies (Verified , 06/29/10) ROS Limited/Unobtainable: No Constitutional: Reports: no symptoms HEENT: Reports: no symptoms Cardiovascular: Reports: chest pain Respiratory: Reports: no symptoms Gastrointestinal/Abdominal: Reports: no symptoms Genitourinary: Reports: no symptoms 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: Reports: no symptoms Subjective 69 YO M admitted with chest pain. Cover for Int Ernst Lee. Objective Last Vital Signs Date Time Temp Pulse Resp B/P (MAP) Pulse Ox O2 Delivery O2 Flow Rate FiO2 11/08/19 16:00 97.4 70 20 130/61 (84) 98 11/08/19 09:00 Nasal Cannula 2.0 11/08/19 07:34 21 Laboratory Tests Test 11/07/19 20:08 11/08/19 05:34 11/08/19 06:20 11/08/19 11:54 POC Whole Blood Glucose Pending 175 MG/DL (74-106) H Pending White Blood Count 10.7 K/UL (4.8-10.8) Red Blood Count 5.54 M/UL (4.70-6.10) Hemoglobin 15.4 G/DL (14.2-18.0) Hematocrit 48.8 % (42.0-52.0) Mean Corpuscular Volume 88 FL (80-99) Mean Corpuscular Hemoglobin 27.7 PG (27.0-31.0) Mean Corpuscular Hemoglobin Concent 31.4 G/DL (32.0-36.0) L Red Cell Distribution Width 12.9 % (11.6-14.8) Platelet Count 359 K/UL (150-450) Mean Platelet Volume 6.8 FL (6.5-10.1) Neutrophils (%) (Auto) 62.2 % (45.0-75.0) Lymphocytes (%) (Auto) 20.7 % (20.0-45.0) Monocytes (%) (Auto) 9.8 % (1.0-10.0) Eosinophils (%) (Auto) 5.6 % (0.0-3.0) H Basophils (%) (Auto) 1.7 % (0.0-2.0) Sodium Level 138 MMOL/L (136-145) Potassium Level 4.1 MMOL/L (3.5-5.1) Chloride Level 101 MMOL/L (98-107) Carbon Dioxide Level 32 MMOL/L (21-32) Anion Gap 5 mmol/L (5-15) Blood Urea Nitrogen 16 mg/dL (7-18) Creatinine 1.0 MG/DL (0.55-1.30) Estimat Glomerular Filtration Rate > 60 mL/min (>60) Glucose Level 138 MG/DL (74-106) H Calcium Level 9.4 MG/DL (8.5-10.1) Intake and Output 11/07/19 11/08/19 19:00 07:00 # Voids 2 Objective PHYSICAL EXAMINATION: GENERAL: The patient is a well-developed well-nourished obese male, in no apparent distress. HEENT: Eyes, pupils equal and responsive to light and accommodation. Extraocular movements are intact. NECK: Supple. No lymphadenopathy. CHEST: Lungs are clear to auscultation bilaterally without wheezes or rales. CARDIOVASCULAR: Regular rate. S1, S2 normal without murmurs, rubs, or gallops. ABDOMEN: Soft, nontender, and nondistended. Positive bowel sounds. No evidence of hepatosplenomegaly. Currently no rebound or guarding noted. EXTREMITIES: Negative for clubbing, cyanosis, or edema. RECTAL/GENITAL: Not performed. NEUROLOGICAL: Cranial nerves II to XII are intact without focal deficits. Motor strength is 5/5 bilaterally. Deep tendon reflexes are 2+ plantar. Assessment/Plan Assessment/Plan ASSESSMENT: This is a 69-year-old male. 1. Chest pain. 2. Cardiomyopathy. 3. Congestive heart failure. 4. Diabetes. 5. Hypertension. 6. Hypercholesterolemia. 7. Chronic obstructive pulmonary disease. 8. Obstructive sleep apnea. 9. Major depression. 10. Chronic low back pain. TREATMENT: 1. Chest pain/cardiomyopathy/congestive heart failure. Ruled out for acute GA. A Cardiology consultation has been obtained with Dr. Rodolfo De La Rosa. We will follow recommendations of Cardiology. Serial troponin levels=Normal 2. Diabetes type 2. NovoLog sliding scale has been instituted. 3. Hypertension, continue Coreg as above. 4. Hypercholesterolemia. Continue atorvastatin as above. 5. Chronic obstructive pulmonary disease. A pulmonary consultation has been obtained with Dr. Autumn Frost. Follow recommendations of Pulmonary. 6. Obstructive sleep apnea. 7. Major depression. 8. Chronic low back pain. Kevin Flores MD Nov 08, 2019 18:36
[2019-11-08 20:00] VITALS: BP 139/55
[2019-11-09] VITALS: BP 142/58
[2019-11-09 04:00] VITALS: BP 139/71
[2019-11-09] MEDS: NovoLOG Insulin Flexpen SUBQ SCH ×2 (06:10→11:29)
[2019-11-09 06:40] LABS: BASOPHILS % (AUTO) 1.7 % (0.0-2.0); EOSINOPHILS % (AUTO) 6.4 % (0.0-3.0); HEMOGLOBIN 15.2 G/DL (14.2-18.0); LYMPHOCYTES % (AUTO) 22.7 % (20.0-45.0); MEAN CORPUSCULAR VOLUME 87 FL (80-99); MONOCYTES % (AUTO) 9.6 % (1.0-10.0); NEUTROPHILS % (AUTO) 59.6 % (45.0-75.0); PLATELET COUNT 352 K/UL (150-450); RED BLOOD COUNT 5.48 M/UL (4.70-6.10); RED CELL DISTRIBUTION WIDTH 12.7 % (11.6-14.8); WHITE BLOOD COUNT 9.9 K/UL (4.8-10.8)
[2019-11-09 07:23] LABS: ANION GAP 6 mmol/L (5-15); BLOOD UREA NITROGEN 14 mg/dL (7-18); CALCIUM 9.3 MG/DL (8.5-10.1); CARBON DIOXIDE 30 MMOL/L (21-32); CHLORIDE 102 MMOL/L (98-107); CREATININE 0.8 MG/DL (0.55-1.30); POTASSIUM 4.3 MMOL/L (3.5-5.1); SODIUM 138 MMOL/L (136-145)
[2019-11-09 08:00] VITALS: BP 139/69
[2019-11-09] MEDS: Aspirin Baby 81mg ORAL SCH (09:10)
[2019-11-09] MEDS: Digoxin 0.125mg tab ORAL SCH (09:11)
[2019-11-09] MEDS: Heparin 5000 units/ml inj SUBQ SCH (09:13)
[2019-11-09 11:56] VITALS: BP 118/66
--- NOTE | 2019-11-09 12:05 | Pulmonology Progress Note ---
Subjective ROS Limited/Unobtainable: No Interval Events: no more pain Constitutional: Reports: no symptoms HEENT: Repors: no symptoms Respiratory: Reports: no symptoms Allergies: Coded Allergies: No Known Allergies (Verified , 06/29/10) Objective Last 24 Hour Vital Signs Date Time Temp Pulse Resp B/P (MAP) Pulse Ox O2 Delivery O2 Flow Rate FiO2 11/09/19 11:56 96.6 72 22 118/66 (83) 94 11/09/19 09:11 81 11/09/19 09:11 81 139/69 11/09/19 09:00 Nasal Cannula 2.0 11/09/19 08:00 96.6 81 24 139/69 (92) 93 11/09/19 07:45 79 11/09/19 07:40 92 Room Air 21 11/09/19 04:00 64 11/09/19 04:00 97.5 63 20 139/71 (93) 96 11/09/19 00:00 96.9 72 20 142/58 (86) 92 11/09/19 00:00 77 11/08/19 21:14 76 135/65 11/08/19 21:00 Nasal Cannula 2.0 11/08/19 20:00 97.9 74 20 139/55 (83) 93 11/08/19 20:00 77 11/08/19 19:48 97 Nasal Cannula 2.0 28 11/08/19 16:00 97.4 70 20 130/61 (84) 98 11/08/19 15:43 71 Intake and Output 11/08/19 11/09/19 19:00 07:00 Intake Total 900 ml Balance 900 ml Intake Oral 900 ml # Voids 4 2 General Appearance: WD/WN HEENT: normocephalic, atraumatic Respiratory: chest wall non-tender, normal breath sounds Cardiovascular: normal peripheral pulses, regularly irregular Abdomen: normal bowel sounds, soft, non tender Extremities: no cyanosis Skin: no lesions 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 Lymphatic: no neck adenopathy Laboratory Tests 11/08/19 21:10: POC Whole Blood Glucose 166H 11/09/19 05:45: White Blood Count 9.9, Red Blood Count 5.48, Hemoglobin 15.2, Hematocrit 48.0, Mean Corpuscular Volume 87, Mean Corpuscular Hemoglobin 27.7, Mean Corpuscular Hemoglobin Concent 31.7L, Red Cell Distribution Width 12.7, Platelet Count 352, Mean Platelet Volume 6.4L, Neutrophils (%) (Auto) 59.6, Lymphocytes (%) (Auto) 22.7, Monocytes (%) (Auto) 9.6, Eosinophils (%) (Auto) 6.4H, Basophils (%) (Auto ) 1.7, Sodium Level 138, Potassium Level 4.3, Chloride Level 102, Carbon Dioxide Level 30, Anion Gap 6, Blood Urea Nitrogen 14, Creatinine 0.8, Estimat Glomerular Filtration Rate > 60, Glucose Level 152H, Calcium Level 9.3 11/09/19 06:05: POC Whole Blood Glucose 156H Current Medications Medications (Trade) Dose Ordered Sig/Sandy Route PRN Reason Start Time Stop Time Status Last Admin Dose Admin Acetaminophen (Tylenol) 650 mg Q4H PRN ORAL mild pain 1-3 or T>100.5 11/05/19 20:45 12/05/19 16:44 11/06/19 22:05 Acetaminophen/ Hydrocodone Bitart ([place] 5/325) 1 tab EVERY 8 HOURS PRN ORAL for moderate pain 11/06/19 08:15 11/13/19 08:14 11/08/19 06:40 Albuterol/ Ipratropium (Albuterol/ Ipratropium) 3 ml Q4H PRN HHN Shortness of Breath 11/05/19 16:45 11/10/19 16:44 Aspirin (ASA) 162 mg DAILY ORAL 11/06/19 09:00 12/21/19 08:59 11/09/19 09:10 Atorvastatin Calcium (Lipitor) 10 mg BEDTIME ORAL 11/06/19 21:00 02/04/20 20:59 11/08/19 21:14 Carvedilol (Coreg) 3.125 mg Q12HR ORAL 11/05/19 21:00 12/05/19 20:59 11/09/19 09:11 Dextrose (Dextrose 50%) 25 ml Q30M PRN IV Hypoglycemia 11/05/19 20:15 02/03/20 20:14 Dextrose (Dextrose 50%) 50 ml Q30M PRN IV Hypoglycemia 11/05/19 20:15 02/03/20 20:14 Digoxin (Lanoxin) 0.125 mg DAILY ORAL 11/06/19 09:00 02/04/20 08:59 11/09/19 09:11 Diltiazem HCl (Cardizem) 10 mg Q1H PRN IV heart rate more than 120, 11/05/19 16:45 12/05/19 16:44 Enalaprilat (Vasotec) 2.5 mg Q6H PRN IV sbp more than 160 11/05/19 16:45 12/05/19 16:44 Escitalopram Oxalate (Lexapro) 10 mg DAILY ORAL 11/06/19 09:00 12/06/19 08:59 11/09/19 09:11 Furosemide (Lasix) 40 mg DAILY ORAL 11/06/19 15:30 12/06/19 15:29 11/09/19 09:10 Gabapentin (Neurontin) 300 mg TID ORAL 11/05/19 18:00 12/05/19 17:59 11/09/19 09:10 Heparin Sodium (Porcine) (Heparin 5000 units/ml) 5,000 units EVERY 12 HOURS SUBQ 11/05/19 21:00 12/20/19 20:59 11/09/19 09:13 Insulin Aspart (NovoLOG) BEFORE MEALS AND HS SUBQ 11/05/19 21:00 02/03/20 20:59 11/09/19 11:29 Nitroglycerin (Ntg) 0.4 mg Q5M PRN SL Prn Chest Pain 11/05/19 16:45 12/05/19 16:44 Ondansetron HCl (Zofran) 4 mg Q6H PRN IVP Nausea & Vomiting 11/05/19 16:45 12/05/19 16:44 Polyethylene Glycol (Miralax) 17 gm DAILYPRN PRN ORAL Constipation 11/05/19 16:45 12/05/19 16:44 Temazepam (Restoril) 15 mg HSPRN PRN ORAL Insomnia 11/05/19 16:45 11/12/19 16:44 Assessment/Plan Problems: (1) ACS (acute coronary syndrome) (2) CHF (congestive heart failure) (3) COPD (chronic obstructive pulmonary disease) (4) Hypertension (5) Diabetes mellitus Assessment/Plan no new complains no new complains troponin all negative Echocardiogram reviewed cardiology consult appreciated sliding scale diabetic diet venous doppler of legs renal studies, ultra sound,and urine electrolytes Autumn Frost MD Nov 09, 2019 12:05
--- NOTE | 2019-11-09 12:36 | Internal Med Progress Note ---
Subjective Date of Service: Nov 09, 2019 Physician Name Kevin Flores Attending Physician Les Lee MD Current Medications Medications (Trade) Dose Ordered Sig/Sandy Route PRN Reason Start Time Stop Time Status Last Admin Dose Admin Acetaminophen (Tylenol) 650 mg Q4H PRN ORAL mild pain 1-3 or T>100.5 11/05/19 20:45 12/05/19 16:44 11/06/19 22:05 Acetaminophen/ Hydrocodone Bitart (Thayer 5/325) 1 tab EVERY 8 HOURS PRN ORAL for moderate pain 11/06/19 08:15 11/13/19 08:14 11/08/19 06:40 Albuterol/ Ipratropium (Albuterol/ Ipratropium) 3 ml Q4H PRN HHN Shortness of Breath 11/05/19 16:45 11/10/19 16:44 Aspirin (ASA) 162 mg DAILY ORAL 11/06/19 09:00 12/21/19 08:59 11/09/19 09:10 Atorvastatin Calcium (Lipitor) 10 mg BEDTIME ORAL 11/06/19 21:00 02/04/20 20:59 11/08/19 21:14 Carvedilol (Coreg) 3.125 mg Q12HR ORAL 11/05/19 21:00 12/05/19 20:59 11/09/19 09:11 Dextrose (Dextrose 50%) 25 ml Q30M PRN IV Hypoglycemia 11/05/19 20:15 02/03/20 20:14 Dextrose (Dextrose 50%) 50 ml Q30M PRN IV Hypoglycemia 11/05/19 20:15 02/03/20 20:14 Digoxin (Lanoxin) 0.125 mg DAILY ORAL 11/06/19 09:00 02/04/20 08:59 11/09/19 09:11 Diltiazem HCl (Cardizem) 10 mg Q1H PRN IV heart rate more than 120, 11/05/19 16:45 12/05/19 16:44 Enalaprilat (Vasotec) 2.5 mg Q6H PRN IV sbp more than 160 11/05/19 16:45 12/05/19 16:44 Escitalopram Oxalate (Lexapro) 10 mg DAILY ORAL 11/06/19 09:00 12/06/19 08:59 11/09/19 09:11 Furosemide (Lasix) 40 mg DAILY ORAL 11/06/19 15:30 12/06/19 15:29 11/09/19 09:10 Gabapentin (Neurontin) 300 mg TID ORAL 11/05/19 18:00 12/05/19 17:59 11/09/19 09:10 Heparin Sodium (Porcine) (Heparin 5000 units/ml) 5,000 units EVERY 12 HOURS SUBQ 11/05/19 21:00 12/20/19 20:59 11/09/19 09:13 Insulin Aspart (NovoLOG) BEFORE MEALS AND HS SUBQ 11/05/19 21:00 02/03/20 20:59 11/09/19 11:29 Nitroglycerin (Ntg) 0.4 mg Q5M PRN SL Prn Chest Pain 11/05/19 16:45 12/05/19 16:44 Ondansetron HCl (Zofran) 4 mg Q6H PRN IVP Nausea & Vomiting 11/05/19 16:45 12/05/19 16:44 Polyethylene Glycol (Miralax) 17 gm DAILYPRN PRN ORAL Constipation 11/05/19 16:45 12/05/19 16:44 Temazepam (Restoril) 15 mg HSPRN PRN ORAL Insomnia 11/05/19 16:45 11/12/19 16:44 Allergies: Coded Allergies: No Known Allergies (Verified , 06/29/10) ROS Limited/Unobtainable: No Constitutional: Reports: no symptoms HEENT: Reports: no symptoms Cardiovascular: Reports: no symptoms Respiratory: Reports: no symptoms Gastrointestinal/Abdominal: Reports: no symptoms Genitourinary: Reports: no symptoms 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: Reports: no symptoms Subjective 69 YO M admitted with chest pain. Cover for Int Ernst Lee. Objective Last Vital Signs Date Time Temp Pulse Resp B/P (MAP) Pulse Ox O2 Delivery O2 Flow Rate FiO2 11/09/19 12:00 94 11/09/19 11:56 96.6 22 118/66 (83) 94 11/09/19 09:00 Nasal Cannula 2.0 11/09/19 07:40 21 Laboratory Tests Test 11/08/19 21:10 11/09/19 05:45 11/09/19 06:05 POC Whole Blood Glucose 166 MG/DL (74-106) H 156 MG/DL (74-106) H White Blood Count 9.9 K/UL (4.8-10.8) Red Blood Count 5.48 M/UL (4.70-6.10) Hemoglobin 15.2 G/DL (14.2-18.0) Hematocrit 48.0 % (42.0-52.0) Mean Corpuscular Volume 87 FL (80-99) Mean Corpuscular Hemoglobin 27.7 PG (27.0-31.0) Mean Corpuscular Hemoglobin Concent 31.7 G/DL (32.0-36.0) L Red Cell Distribution Width 12.7 % (11.6-14.8) Platelet Count 352 K/UL (150-450) Mean Platelet Volume 6.4 FL (6.5-10.1) L Neutrophils (%) (Auto) 59.6 % (45.0-75.0) Lymphocytes (%) (Auto) 22.7 % (20.0-45.0) Monocytes (%) (Auto) 9.6 % (1.0-10.0) Eosinophils (%) (Auto) 6.4 % (0.0-3.0) H Basophils (%) (Auto) 1.7 % (0.0-2.0) Sodium Level 138 MMOL/L (136-145) Potassium Level 4.3 MMOL/L (3.5-5.1) Chloride Level 102 MMOL/L (98-107) Carbon Dioxide Level 30 MMOL/L (21-32) Anion Gap 6 mmol/L (5-15) Blood Urea Nitrogen 14 mg/dL (7-18) Creatinine 0.8 MG/DL (0.55-1.30) Estimat Glomerular Filtration Rate > 60 mL/min (>60) Glucose Level 152 MG/DL (74-106) H Calcium Level 9.3 MG/DL (8.5-10.1) Intake and Output 11/08/19 11/09/19 19:00 07:00 Intake Total 900 ml Balance 900 ml Intake Oral 900 ml # Voids 4 2 Objective PHYSICAL EXAMINATION: GENERAL: The patient is a well-developed well-nourished obese male, in no apparent distress. HEENT: Eyes, pupils equal and responsive to light and accommodation. Extraocular movements are intact. NECK: Supple. No lymphadenopathy. CHEST: Lungs are clear to auscultation bilaterally without wheezes or rales. CARDIOVASCULAR: Regular rate. S1, S2 normal without murmurs, rubs, or gallops. ABDOMEN: Soft, nontender, and nondistended. Positive bowel sounds. No evidence of hepatosplenomegaly. Currently no rebound or guarding noted. EXTREMITIES: Negative for clubbing, cyanosis, or edema. RECTAL/GENITAL: Not performed. NEUROLOGICAL: Cranial nerves II to XII are intact without focal deficits. Motor strength is 5/5 bilaterally. Deep tendon reflexes are 2+ plantar. Assessment/Plan Assessment/Plan ASSESSMENT: This is a 69-year-old male. 1. Chest pain. 2. Cardiomyopathy. 3. Congestive heart failure. 4. Diabetes. 5. Hypertension. 6. Hypercholesterolemia. 7. Chronic obstructive pulmonary disease. 8. Obstructive sleep apnea. 9. Major depression. 10. Chronic low back pain. TREATMENT: 1. Chest pain/cardiomyopathy/congestive heart failure. Ruled out for acute NH. A Cardiology consultation has been obtained with Dr. Rodolfo De La Rosa. We will follow recommendations of Cardiology. Serial troponin levels=Normal 2. Diabetes type 2. NovoLog sliding scale has been instituted. 3. Hypertension, continue Coreg as above. 4. Hypercholesterolemia. Continue atorvastatin as above. 5. Chronic obstructive pulmonary disease. A pulmonary consultation has been obtained with Dr. Autumn Frost. Follow recommendations of Pulmonary. 6. Obstructive sleep apnea. 7. Major depression. 8. Chronic low back pain. Kevin Flores MD Nov 09, 2019 12:35
--- NOTE | 2019-11-11 12:36 | Discharge Summary ---
Discharge Summary Discharge Summary _ DATE OF ADMISSION: 11/05/2019 DATE OF DISCHARGE: 11/09/2019 ADMITTING MD: Dr. Les Lee DISCHARGED BY: Dr. Autumn Frost CONSULTANTS: Dr. Autumn De La Rosa [facility] HOSPITAL COURSE: Patient is a 69-year-old male with history of congestive heart failure and [employer] biventricular pacemaker placement in 2014, history of cardiomyopathy, type 2 diabetes, hypertension, hypercholesterolemia, COPD, obstructive sleep apnea, major depression and chronic low back pain, presented with chief complaint of chest pain. Patient stated history of present illness started on November 04, 2019. The patient began to experience chest discomfort. Chest pain increased overnight. 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 He then presented to the emergency room for further evaluation. Upon evaluation at ED, blood pressure was 96/44, heart rate 67. He was saturating 96% on room air. Blood work showed WBC 13.5. Hemoglobin and hematocrit were stable. Electrolytes were normal. BUN was elevated to 23 and creatinine 1.7. Initial troponin was negative. proBNP 347. EKG showed sinus rhythm with intraventricular conduction delay with rightward axis. Chest x-ray showed cardiomegaly with right-sided hemidiaphragm as read by ED physician. He was given aspirin as well as nitroglycerin. He was then admitted for evaluation and treatment of ACS and CHF. He was admitted to monitored floor. Cardiac enzymes were monitored. He was continued on home medications. He was given antiplatelet therapy. Patient on carvedilol and digoxin. He was given Lasix. Blood glucose monitored. He was placed on insulin sliding scale. He underwent cardiac and pulmonary evaluation. Chest pain resolved. Patient was able to walk to the bathroom without any chest pain. No shortness of breath. Patient denies PND. Venous duplex of the lower extremity was negative. On telemetry, patient was in sinus rhythm. No SVT. No VT. No pauses. Cardiac enzymes were normal. Echocardiogram was technically difficult, showed hypokinesis on posterior and inferior wall similar to wall motion abnormality seen in 2018. Patient was worsened with movement of the left arm. No further stress testing needed, patient was advised to follow-up with primary scheduling representative as outpatient. Patient is stable to be discharged home. FINAL DIAGNOSES: Atypical chest pain worsened with movement of the left arm/musculoskeletal Prior history of ischemic cardiomyopathy with previous evidence of inferior infarction without ischemia back in 2018 Obesity Obstructive sleep apnea Diabetes type 2 Hypertension Hypercholesterolemia Major depression Chronic low back pain History of coronary artery disease History of cardiac defibrillator placement DISPOSITION: Patient was discharged home. DISCHARGE MEDICATIONS: Refer to Discharge Medication List. DISCHARGE INSTRUCTIONS: Follow-up with PCP in a week. Follow-up with scheduling representative. I have been assigned to complete a discharge summary on this account, I was not involved with the patient's management.--GIL Gates Jacqueline Robles NP Nov 11, 2019 12:36
--- NOTE | 2019-11-12 12:26 | CDS Physician Query ---
Clarification is required for compliance, coding accuracy, and to reflect severity of illness for this patient Dear Dr. Kevin Flores Date 11/12/2019 Department Supervisor/CDS' Name Mariely Hunt Clinical Documentation states: Discharge note - 69-year-old male with history of congestive heart failure and [employer] biventricular pacemaker placement in 2014, history of cardiomyopathy, type 2 diabetes, hypertension, hypercholesterolemia, COPD, obstructive sleep apnea, major depression and chronic low back pain, presented with chief complaint of chest pain...Atypical chest pain worsened with movement of the left arm/musculoskeletal Troponin: 11/04 0.018 mg/ml, 11/05 0.016 ng/ml, 11/06 0.002 ng/ml Please document the suspected etiology of Chest Pain: [] Costochondritis [] Acute Coronary Syndrome [] Pericarditis [] Anxiety [] Cancer [] Pneumonia [] GERD/Esophagitis [] Other:musculoskeletal [] Unable to determine Present on Admission: [X] Yes [] No [] Clinically Undetermined Physician signature Date Please also document in your Progress Notes and/or Discharge Summary and indicate if the condition was present on admission. [facility]
== END 2019-11-09 13:57 | disposition home or self-care (01) | DRG 313 ==
LOC: EMR 13:58 → 2E 14:05 → EDBEDREQ 15:55 → 2E 16:43
DX: R07.89 Other chest pain (principal); I24.9 Acute ischemic heart disease, unspecified; I42.9 Cardiomyopathy, unspecified; I11.0 Hypertensive heart disease with heart failure; I50.9 Heart failure, unspecified; J44.9 Chronic obstructive pulmonary disease, unspecified; E11.9 Type 2 diabetes mellitus without complications; F09 Unspecified mental disorder due to known physiological condition; Z79.82 Long term (current) use of aspirin; G89.29 Other chronic pain; M54.5 Low back pain; E78.00 Pure hypercholesterolemia, unspecified; F32.9 Major depressive disorder, single episode, unspecified; I25.10 Atherosclerotic heart disease of native coronary artery without angina pectoris; I25.2 Old myocardial infarction; Z95.810 Presence of automatic (implantable) cardiac defibrillator
CPT/HCPCS: 36415; 71045; 76770; 80048; 80053; 80061; 80162; 80307; 81001; 82043; 82550; 82962; 83880; 84300; 84439; 84443; 84481; 84484; 84550; 85025; 85610; 85730; 86140; 89050; 93005; 93306; 93970; 99285; J1815; U0002